=== PATIENT | female | born 1930 | race Caucasian/White ===

== ENCOUNTER → 2017-04-19 | Outpatient (CLI) | payer MEDICARE ==
[2017-04-19 10:20] LABS: ALT 29 U/L (9-52); AST 24 U/L (14-36); Cholesterol 162 mg/dL (<200); HDL Cholesterol 61 mg/dL (40-60)
== END | disposition home or self-care (01) ==
LOC: LABWHC1 09:24
PROVIDERS: ATTEND Internal Medicine Cardiovascular Disease
DX: E78.5 Hyperlipidemia, unspecified (principal)
CPT/HCPCS: 36415; 80061; 84450; 84460

== ENCOUNTER → 2017-12-30 | Outpatient (CLI) | payer MEDICARE ==
--- NOTE | 2017-12-30 15:02 | CT ---
EXAMINATION TYPE: CT chest wo con DATE OF EXAM: 12/30/2017 COMPARISON: Chest CT September 27, 2014 HISTORY: Increasing in SOB CT DLP: 567 mGycm. Automated Exposure Control for Dose Reduction was Utilized. TECHNIQUE: CT scan of the thorax is performed without IV contrast. FINDINGS: LUNGS: There is bilateral lower lung peripheral reticulation and fibrosis with some distortion redemo nstrated. There is more mild upper and apical subpleural fibrosis. No suspicious new consolidation or groundglass opacity is seen. No pleural effusion or pneumothorax is noted. No concerning parenchymal nodule or mass is identified. MEDIASTINUM: Lack of IV contrast is noted to limit evaluation for mediastinal and especially hilar a denopathy. There are no definitive greater than 1 cm hilar or mediastinal lymph nodes. No cardiomeg tayler or pericardial effusion is seen. Coronary stents in the proximal LAD and left circumflex are rede monstrated. There is calcification at level of mitral valve. There is mild to moderate calcified plaq ue of the aorta extending into branch vessels. OTHER: There is dystrophic calcification upper inner quadrant left breast axial image 14 redemonstrat ed. There is air-fluid level in dilated proximal duodenum noted. Possible large diverticulum. This ar ea is only partially imaged. 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 Possibl e IPF. No significant progression from 2015 CT. No acute pulmonary process.
== END | disposition home or self-care (01) ==
LOC: RADCTMAIN 14:33
PROVIDERS: ATTEND Internal Medicine
DX: J84.10 Pulmonary fibrosis, unspecified (principal)
CPT/HCPCS: 71250

== ENCOUNTER → 2017-12-30 | Outpatient (CLI) | payer MEDICARE ==
--- NOTE | 2017-12-30 14:32 | US ---
EXAMINATION TYPE: US venous doppler duplex LE LT DATE OF EXAM: 12/30/2017 12:38 PM COMPARISON: NONE CLINICAL HISTORY: M79.662 PAIN IN LLL. SIDE PERFORMED: Left TECHNIQUE: The lower extremity deep venous system is examined utilizing real time linear array sonog kristy with graded compression, doppler sonography and color-flow sonography. VESSELS IMAGED: External Iliac Vein (EIV) Common Femoral Vein Deep Femoral Vein Greater Saphenous Vein * Femoral Vein Popliteal Vein Proximal Calf Veins (* superficial vessels) Left Leg: Negative for DVT Grayscale, color doppler, spectral doppler imaging performed of the deep veins of the lower extremiti es. There is normal flow, compressibility, vascular waveforms. IMPRESSION: No evident deep venous thrombosis at or above the left knee.
== END ==
LOC: RADUSWWP 12:20
PROVIDERS: ATTEND Internal Medicine
DX: M79.662 Pain in left lower leg (principal)

== ENCOUNTER 2018-04-19 00:13 | Emergency (ER) | payer MEDICARE ==
--- NOTE | 2018-04-19 01:21 | ED ---
General Adult HPI - General Chief complaint: Headache Stated complaint: Migrane Time Seen by Provider: 04/19/18 01:21 Source: patient, EMS Mode of arrival: EMS Limitations: no limitations - History of Present Illness Initial comments: Katt is a pleasant 87 yo female who presents to the ED via EMS for evaluation of headache. She reports that she does not have a history of frequent headaches but that over the past 2 week she's been experiencing nearly daily headache. Patient reports that the headache has progressively worsened and today became unbearable. The headache is a tightness in her head, it's global but seems to be worse behind her eyes and described as a tightness radiating around her entire head.. Headache is exacerbated by bright lights or sounds. Headache is not worse with chewing or palpation of the temples. She feels best when she is laying in a cool dark room but reports that she has persistent headache despite doing this. Patient has taken some [id number] Tylenol with no improvement in her headache. Headache was not sudden in onset, was not most severe at onset, has been progressively worsening for 2 weeks duration. Patient has no history of similar headaches. No history of aneurysm or intracranial bleed. No family history of aneurysm or intracranial bleed. Patient reports that the headache is causing her some nausea but she's had no vomiting. She reports she's not been able to eat or drink well throughout the day today due to the headache. Patient reports that she occasionally drinks a cup of decaf coffee in the morning but otherwise has no caffeine and that her caffeine intake has not changed recently. Patient and family deny any recent trauma or injury. Patient does follow closely with ophthalmology for macular degeneration, she's had no recent change in her vision or ringing in her ears. - Related Data Allergies Allergy/AdvReac Type Severity Reaction Status Date / Time Penicillins Allergy Swelling Verified 04/19/18 01:57 Sulfa (Sulfonamide Allergy Anaphylaxis Verified 04/19/18 01:57 Antibiotics) Review of Systems ROS Statement: Those systems with pertinent positive or pertinent negative responses have been documented in the HPI. ROS Other: All systems not noted in ROS Statement are negative. 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 Absent: conjunctival injection, periorbital swelling, periorbital tenderness ENT exam: Present: normal exam, normal oropharynx, mucous membranes dry, TM's normal bilaterally, normal external ear exam Neck exam: Present: normal inspection, full ROM. Absent: tenderness, meningismus, lymphadenopathy Respiratory exam: Present: normal lung sounds bilaterally. Absent: respiratory distress Cardiovascular Exam: Present: regular rate, normal rhythm GI/Abdominal exam: Present: soft. Absent: distended Rectal exam: Present: deferred Extremities exam: Present: normal capillary refill. Absent: pedal edema Back exam: Absent: tenderness Neurological exam: Present: alert, oriented X3 Psychiatric exam: Present: flat affect Skin exam: Present: warm, dry, intact, normal color. Absent: rash, cyanosis, diaphoretic, erythema, urticaria, vesicles, petechiae, pallor, mottled, abrasion Course Vital Signs 04/19/18 04/19/18 04/19/18 00:14 01:52 04:26 Temperature Pulse Rate 93 88 Respiratory 16 16 17 Rate Blood Pressure 186/91 168/75 O2 Sat by Pulse 94 L 94 L Oximetry 04/19/18 04/19/18 04:38 06:00 Temperature 97.5 F L Pulse Rate 90 94 Respiratory 16 16 Rate Blood Pressure 158/86 130/68 O2 Sat by Pulse 95 94 L Oximetry - Reevaluation(s) Reevaluation #1: Patient was reevaluated, reports improvement in her headache after Reglan and Benadryl however still rates her headache an 8 out of 10 04/19/18 04:11 Reevaluation #2: She was reevaluated, patient was sitting up in bed eating a turkey sandwich. Reports her headache continues to improve. Sphenopalatine block was placed with 1% lidocaine in the bilateral naris, Toradol was given 04/19/18 04:42 Reevaluation #3: Patient was reevaluated, she was found to be sleeping comfortably in the ER bed. On being woken up she reports that her headache is significantly improved and she is feeling much better. This time she is comfortable with being discharged home. 04/19/18 05:44 Medical Decision Making - Medical Decision Making The patient was seen and evaluated, history is obtained from the patient and family at bedside Elderly female patient with a gradually worsening headache for 2 weeks duration , headache is worsened by light or sound, better when laying in a cold dark room. Nothing has relieved the headache and the course of 2 weeks. No history of headaches. No associated focal neurologic deficits, no associated fevers - given the patient's advanced age I will order a CT of the head as well as basic labs CT of the head reveals no acute pathology Labs with mild leukocytosis this could be reactive to the pain no acute infectious process has been identified in her workup thus far Patient reported mild improvement in her headache after Reglan and Benadryl, she is noted to be sitting up eating a turkey sandwich, still states that she has a headache and would like further treatment. Toradol and sphenopalatine block were ordered. Sphenopalatine block was placed, patient tolerated well. Toradol was given Patient was reexamined after sphenopalatine block and Toradol. Patient was sleeping comfortably. I woke the patient states that she is feeling much better , her headache has resolved. I discussed with the patient and family red flag warnings which would indicate a need for return including but not limited to progressive or worsening headache , sudden onset of severe headache, vision changes, pain with chewing or any new or concerning symptoms. All questions pertaining to care were answered best my ability. Patient got up from bed and begin dressing asking her family they could leave that she was eager to go home. I advised the patient to wait one moment while I finished her discharge documentation. She appeared quite well at time of discharge. - Lab Data Result diagrams: 04/19/18 01:52 04/19/18 01:52 Lab Results 04/19/18 04/19/18 04/19/18 Range/Units 01:52 01:52 01:52 WBC 14.8 H (3.8-10.6) k/uL RBC 5.24 (3.80-5.40) m/uL Hgb 12.7 (11.4-16.0) gm/dL Hct 42.9 (34.0-46.0) % MCV 81.9 (80.0-100.0) fL MCH 24.2 L (25.0-35.0) pg MCHC 29.5 L (31.0-37.0) g/dL RDW 15.1 (11.5-15.5) % Plt Count 270 (150-450) k/uL Neutrophils % 82 % Lymphocytes % 10 % Monocytes % 4 % Eosinophils % 2 % Basophils % 0 % Neutrophils # 12.1 H (1.3-7.7) k/uL Lymphocytes # 1.5 (1.0-4.8) k/uL Monocytes # 0.6 (0-1.0) k/uL Eosinophils # 0.3 (0-0.7) k/uL Basophils # 0.1 (0-0.2) k/uL Hypochromasia Slight PT 10.4 (9.0-12.0) sec INR 1.1 (<1.2) APTT 19.7 L (22.0-30.0) sec Sodium 137 (137-145) mmol/L Potassium 4.3 (3.5-5.1) mmol/L Chloride 99 (98-107) mmol/L Carbon Dioxide 29 (22-30) mmol/L Anion Gap 9 mmol/L BUN 18 H (7-17) mg/dL Creatinine 0.75 (0.52-1.04) mg/dL Est GFR (CKD-EPI)AfAm 84 (>60 ml/min/1.73 sqM) Est GFR (CKD-EPI)NonAf 73 (>60 ml/min/1.73 sqM) Glucose 144 H (74-99) mg/dL Calcium 9.3 (8.4-10.2) mg/dL Urine Color Urine Appearance (Clear) Urine pH (5.0-8.0) Ur Specific [place] (1.001-1.035) Urine Protein (Negative) Urine Glucose (UA) (Negative) Urine Ketones (Negative) Urine Blood (Negative) Urine Nitrite (Negative) Urine Bilirubin (Negative) Urine Urobilinogen (<2.0) mg/dL Ur Leukocyte Esterase (Negative) Urine RBC (0-5) /hpf Urine WBC (0-5) /hpf Ur Squamous Epith Cells (0-4) /hpf Hyaline Casts (0-2) /lpf Urine Mucus (None) /hpf 04/19/18 Range/Units 02:24 WBC (3.8-10.6) k/uL RBC (3.80-5.40) m/uL Hgb (11.4-16.0) gm/dL Hct (34.0-46.0) % MCV (80.0-100.0) fL MCH (25.0-35.0) pg MCHC (31.0-37.0) g/dL RDW (11.5-15.5) % Plt Count (150-450) k/uL Neutrophils % % Lymphocytes % % Monocytes % % Eosinophils % % Basophils % % Neutrophils # (1.3-7.7) k/uL Lymphocytes # (1.0-4.8) k/uL Monocytes # (0-1.0) k/uL Eosinophils # (0-0.7) k/uL Basophils # (0-0.2) k/uL Hypochromasia PT (9.0-12.0) sec INR (<1.2) APTT (22.0-30.0) sec Sodium (137-145) mmol/L Potassium (3.5-5.1) mmol/L Chloride (98-107) mmol/L Carbon Dioxide (22-30) mmol/L Anion Gap mmol/L BUN (7-17) mg/dL Creatinine (0.52-1.04) mg/dL Est GFR (CKD-EPI)AfAm (>60 ml/min/1.73 sqM) Est GFR (CKD-EPI)NonAf (>60 ml/min/1.73 sqM) Glucose (74-99) mg/dL Calcium (8.4-10.2) mg/dL Urine Color Yellow Urine Appearance Cloudy H (Clear) Urine pH 6.0 (5.0-8.0) Ur Specific [place] 1.016 (1.001-1.035) Urine Protein Trace H (Negative) Urine Glucose (UA) Negative (Negative) Urine Ketones Negative (Negative) Urine Blood Negative (Negative) Urine Nitrite Negative (Negative) Urine Bilirubin Negative (Negative) Urine Urobilinogen <2.0 (<2.0) mg/dL Ur Leukocyte Esterase Large H (Negative) Urine RBC 6 H (0-5) /hpf Urine WBC 14 H (0-5) /hpf Ur Squamous Epith Cells 5 H (0-4) /hpf Hyaline Casts 1 (0-2) /lpf Urine Mucus Rare H (None) /hpf Disposition Clinical Impression: Headache Disposition: HOME SELF-CARE Condition: Stable Instructions: Acute Headache (ED) Is patient prescribed a controlled substance at d/c from ED?: No Referrals: Indra Riggins MD [Primary Care Provider] - 1-2 days Time of Disposition: 05:45
[2018-04-19] MEDS ORDERED: SODIUM CHLORIDE 0.9% 1,000 ML IV ONE (01:38)
[2018-04-19] MEDS ORDERED: diphenhydrAMINE 50 MG/ML 1 ML VIAL IVP STA (01:38)
[2018-04-19] MEDS ORDERED: METOCLOPRAMIDE 5 MG/ML 2 ML VIAL IVP STA (01:38)
[2018-04-19 02:00] LABS: Basophils # (A) 0.1 k/uL (0-0.2); Basophils % (A) 0 %; Eosinophils # (A) 0.3 k/uL (0-0.7); Eosinophils % (A) 2 %; HCT 42.9 % (34.0-46.0); HGB 12.7 gm/dL (11.4-16.0); Hypochromasia Slight; Lymphocytes # (A) 1.5 k/uL (1.0-4.8); Lymphocytes % (A) 10 %; MCH 24.2 pg (25.0-35.0); MCHC 29.5 g/dL (31.0-37.0); MCV 81.9 fL (80.0-100.0); Mean Platelet Volume 6.8; Monocytes # (A) 0.6 k/uL (0-1.0); Monocytes % (A) 4 %; Neutrophils # (A) 12.1 k/uL (1.3-7.7); Neutrophils % (A) 82 %; Platelet Count 270 k/uL (150-450); RBC 5.24 m/uL (3.80-5.40); RDW 15.1 % (11.5-15.5); WBC 14.8 k/uL (3.8-10.6)
[2018-04-19 02:08] LABS: Calcium 9.3 mg/dL (8.4-10.2); Potassium 4.3 mmol/L (3.5-5.1)
[2018-04-19 02:14] LABS: INR 1.1 (<1.2); Prothrombin Time 10.4 sec (9.0-12.0)
[2018-04-19 02:20] LABS: Partial Thromboplastin Time 19.7 sec (22.0-30.0)
--- NOTE | 2018-04-19 02:31 | CT ---
EXAMINATION TYPE: CT brain shawna richard DATE OF EXAM: 04/19/2018 COMPARISON: None HISTORY: Headache, nausea CT DLP: 1364.30 mGycm Automated exposure control for dose reduction was used. TECHNIQUE: CT scan of the head and cervical spine are performed without contrast. FINDINGS: There is cerebral cortical atrophy. There is extensive hypodensity in the periventricular white matter. There is no mass effect nor midline shift. There is no sign of intracranial hemorrhage . The calvarium is intact. Cervical vertebra have normal alignment. There is some narrowing at C4-5 disc space. Posterior elemen ts are intact. Facet joints are intact. There is mild facet arthropathy. Skull base is intact. There is no compression fracture. IMPRESSION: Cerebral atrophy and extensive chronic small vessel ischemia. No acute intracranial abnormality. Mild spondylotic changes in the cervical spine. No fracture.
[2018-04-19 02:43] LABS: Appearance,Urine Cloudy (Clear); Bilirubin,Urine Negative (Negative); Blood,Urine Negative (Negative); Color,Urine Yellow; Glucose,Urine (UA) Negative (Negative); Hyaline Casts,Urine 1 /lpf (0-2); Ketones,Urine Negative (Negative); Leukocyte Esterase,Urine Large (Negative); Mucus,Urine Rare /hpf; Nitrite,Urine Negative (Negative); Protein,Urine Trace (Negative); RBC,Urine 6 /hpf (0-5); Specific Gravity,Urine 1.016 (1.001-1.035); Squamous Epithelial Cell,Urine 5 /hpf (0-4); Urobilinogen,Urine <2.0 mg/dL (<2.0); WBC,Urine 14 /hpf (0-5)
[2018-04-19] MEDS ORDERED: KETOROLAC 30 MG/ML 1 ML VIAL IM STA (04:04)
[2018-04-19] MEDS ORDERED: LIDOCAINE 1% INJ 10MG/ML (20 ML MDV) SQ ONE (04:05)
[2018-04-19] MEDS ORDERED: KETOROLAC 30 MG/ML 1 ML VIAL IVP STA (04:33)
[2018-04-19 04:39] VITALS: RESP 16
[2018-04-19 06:23] VITALS: BP 130/68; PULSE 94; TEMP 97.5
== END 2018-04-19 06:00 | disposition home or self-care (01) ==
LOC: EC 00:13
DX: R51 Headache (principal); R11.10 Vomiting, unspecified; D72.829 Elevated white blood cell count, unspecified; I25.2 Old myocardial infarction; Z88.0 Allergy status to penicillin; Z88.2 Allergy status to sulfonamides; Z95.5 Presence of coronary angioplasty implant and graft
CPT/HCPCS: 36415; 80048; 85025; 85610; 85730; 81001; 72125; 70450; 99284; 96374; 96375 ×2; J1200; J2765; J2001; J1885

== ENCOUNTER 2018-05-27 14:31 | Inpatient (IN) | payer MEDICARE ==
[2018-05-27] MEDS ORDERED: SODIUM CHLORIDE 0.9% 500 ML IV STA (14:51)
--- NOTE | 2018-05-27 14:57 | ED ---
General Adult HPI - General Chief complaint: Neuro Symptoms/Deficit Stated complaint: TIA Time Seen by Provider: 05/27/18 14:44 Source: patient, EMS, RN notes reviewed, old records reviewed Mode of arrival: EMS Limitations: physical limitation - History of Present Illness Initial comments: 87-year-old female presenting with facial droop and slurred speech. Patient's symptoms began approximately 2 hours prior to arrival. She did have a long discussion with her family regarding whether or not she should seek care. By the time she presents her symptoms are resolved. She has complaint of right- sided headache. Her facial droop was on the left. Patient states she has been dealing with intermittent headaches for the past several months. She rates her headache currently at 6 out of 10. No history of CVA or TIA. Patient does have history of coronary artery disease. She is on aspirin and statin. She has no complaints chest pain, no abdominal pain, no dyspnea, no focal numbness or weakness at the time my evaluation. - Related Data Home Medications Medication Instructions Recorded Confirmed Calcium Carbonate [Calcium] 1,200 mg PO DAILY 05/27/18 05/27/18 Carboxymethylcellulose Sodium 1 drop BOTH EYES DAILY PRN 05/27/18 05/27/18 [Refresh Tears] Furosemide [Lasix] 20 mg PO DAILY PRN 05/27/18 05/27/18 Glucosam/Fam-Msm1/C/Filemon/Bosw 1 tab PO DAILY 05/27/18 05/27/18 [Glucosamine-Chondroitin Tablet] Latanoprost [Xalatan 0.005%] 1 drop BOTH EYES HS 05/27/18 05/27/18 Metoprolol Tartrate [Lopressor] 25 mg PO DAILY 05/27/18 05/27/18 Multivitamins, Thera [Multivitamin 1 tab PO DAILY 05/27/18 05/27/18 (formulary)] Omeprazole 20 mg PO HS 05/27/18 05/27/18 Pitavastatin Calcium [Livalo] 2 mg PO DAILY 05/27/18 05/27/18 Potassium Chloride ER [K-Dur 10] 10 meq PO DAILY PRN 05/27/18 05/27/18 Vit C/E/Zn/Coppr/Lutein/Zeaxan 1 cap PO DAILY 05/27/18 05/27/18 [Preservision Areds 2 Softgel] Allergies Allergy/AdvReac Type Severity Reaction Status Date / Time Penicillins Allergy Swelling Verified 05/27/18 15:27 Sulfa (Sulfonamide Allergy Anaphylaxis Verified 05/27/18 15:27 Antibiotics) shellfish derived [Shellfish] AdvReac Unknown Verified 05/27/18 15:28 Review of Systems ROS Statement: Those systems with pertinent positive or pertinent negative responses have been documented in the HPI. ROS Other: All systems not noted in ROS Statement are negative. 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, pulomary fribrosis History of Any Multi-Drug Resistant Organisms: None Reported Past Surgical History: Appendectomy, Tubal Ligation Additional Past Surgical History / Comment(s): cataract Past Psychological History: No Psychological Hx Reported Smoking Status: Never smoker Past Alcohol Use History: None Reported Past Drug Use History: None Reported General Exam Limitations: physical limitation General appearance: alert, in no apparent distress Head exam: Present: atraumatic, normocephalic Eye exam: Present: normal appearance, PERRL, EOMI ENT exam: Present: normal exam Neck exam: Present: normal inspection. Absent: tenderness, meningismus Respiratory exam: Present: normal lung sounds bilaterally. Absent: respiratory distress, wheezes Cardiovascular Exam: Present: regular rate, normal rhythm GI/Abdominal exam: Present: soft. Absent: distended, tenderness, guarding Extremities exam: Present: normal inspection, normal capillary refill. Absent: pedal edema Back exam: Present: normal inspection, full ROM Neurological exam: Present: alert, oriented X3, CN II-XII intact, other (NIH is 0). Absent: motor sensory deficit Psychiatric exam: Present: normal affect, normal mood Skin exam: Present: warm, dry, intact. Absent: cyanosis, diaphoretic Course Vital Signs 05/27/18 05/27/18 05/27/18 14:42 14:55 15:15 Temperature 97.8 F Pulse Rate 88 84 82 Respiratory 20 20 20 Rate Blood Pressure 160/97 150/64 160/92 O2 Sat by Pulse 96 99 99 Oximetry 05/27/18 05/27/18 05/27/18 15:30 15:45 16:15 Temperature Pulse Rate 78 82 82 Respiratory 20 20 20 Rate Blood Pressure 156/78 162/78 154/78 O2 Sat by Pulse 98 96 96 Oximetry EKG Findings - EKG Comments: EKG Findings:: EKG: Sinus rhythm with occasional PVC, possible left atrial enlargement, right bundle branch block, rate of 79, CT interval 140, QRS duration 134, QTC 506, no ST segment elevation. Medical Decision Making - Medical Decision Making 87-year-old female presenting with left-sided facial droop, and dysarthria. Symptoms resolved just prior to arrival. Patient's initial NIH is 0. Workup in the emergency department including head CT showing some remote microvascular ischemia with no to finding, no intracranial hemorrhage, chest x-ray negative for acute cardiopulmonary disease, normal CBC, normal electrolytes. EKG is sinus rhythm. A sheet given an aspirin in the emergency department, she will be admitted for further TIA CVA workup. - Lab Data Result diagrams: 05/27/18 15:00 05/27/18 15:00 Lab Results 05/27/18 05/27/18 05/27/18 Range/Units 15:00 15:00 15:00 WBC 9.0 (3.8-10.6) k/uL RBC 5.21 (3.80-5.40) m/uL Hgb 13.2 (11.4-16.0) gm/dL Hct 41.2 (34.0-46.0) % MCV 79.1 L (80.0-100.0) fL MCH 25.3 (25.0-35.0) pg MCHC 32.0 (31.0-37.0) g/dL RDW 16.2 H (11.5-15.5) % Plt Count 240 (150-450) k/uL Neutrophils % 65 % Lymphocytes % 24 % Monocytes % 7 % Eosinophils % 2 % Basophils % 1 % Neutrophils # 5.8 (1.3-7.7) k/uL Lymphocytes # 2.2 (1.0-4.8) k/uL Monocytes # 0.6 (0-1.0) k/uL Eosinophils # 0.2 (0-0.7) k/uL Basophils # 0.0 (0-0.2) k/uL Anisocytosis Slight Microcytosis Slight PT (9.0-12.0) sec INR (<1.2) APTT (22.0-30.0) sec Sodium 141 (137-145) mmol/L Potassium 3.6 (3.5-5.1) mmol/L Chloride 99 (98-107) mmol/L Carbon Dioxide 31 H (22-30) mmol/L Anion Gap 11 mmol/L BUN 12 (7-17) mg/dL Creatinine 0.69 (0.52-1.04) mg/dL Est GFR (CKD-EPI)AfAm >90 (>60 ml/min/1.73 sqM) Est GFR (CKD-EPI)NonAf 80 (>60 ml/min/1.73 sqM) Glucose 110 H (74-99) mg/dL Calcium 9.3 (8.4-10.2) mg/dL Total Bilirubin 0.8 (0.2-1.3) mg/dL AST 25 (14-36) U/L ALT 13 (9-52) U/L Alkaline Phosphatase 67 (38-126) U/L Total Creatine Kinase 41 (30-135) U/L CK-MB (CK-2) 0.5 (0.0-2.4) ng/mL CK-MB (CK-2) Rel Index 1.2 Troponin I <0.012 (0.000-0.034) ng/mL Total Protein 6.8 (6.3-8.2) g/dL Albumin 3.8 (3.5-5.0) g/dL 05/27/18 Range/Units 15:00 WBC (3.8-10.6) k/uL RBC (3.80-5.40) m/uL Hgb (11.4-16.0) gm/dL Hct (34.0-46.0) % MCV (80.0-100.0) fL MCH (25.0-35.0) pg MCHC (31.0-37.0) g/dL RDW (11.5-15.5) % Plt Count (150-450) k/uL Neutrophils % % Lymphocytes % % Monocytes % % Eosinophils % % Basophils % % Neutrophils # (1.3-7.7) k/uL Lymphocytes # (1.0-4.8) k/uL Monocytes # (0-1.0) k/uL Eosinophils # (0-0.7) k/uL Basophils # (0-0.2) k/uL Anisocytosis Microcytosis PT 10.7 (9.0-12.0) sec INR 1.1 (<1.2) APTT 23.6 (22.0-30.0) sec Sodium (137-145) mmol/L Potassium (3.5-5.1) mmol/L Chloride (98-107) mmol/L Carbon Dioxide (22-30) mmol/L Anion Gap mmol/L BUN (7-17) mg/dL Creatinine (0.52-1.04) mg/dL Est GFR (CKD-EPI)AfAm (>60 ml/min/1.73 sqM) Est GFR (CKD-EPI)NonAf (>60 ml/min/1.73 sqM) Glucose (74-99) mg/dL Calcium (8.4-10.2) mg/dL Total Bilirubin (0.2-1.3) mg/dL AST (14-36) U/L ALT (9-52) U/L Alkaline Phosphatase (38-126) U/L Total Creatine Kinase (30-135) U/L CK-MB (CK-2) (0.0-2.4) ng/mL CK-MB (CK-2) Rel Index Troponin I (0.000-0.034) ng/mL Total Protein (6.3-8.2) g/dL Albumin (3.5-5.0) g/dL Disposition Clinical Impression: Transient cerebral ischemia Disposition: ADMITTED IP TO THIS [facility] Condition: Stable Is patient prescribed a controlled substance at d/c from ED?: No Referrals: Nonstaff,Physician [REFERRING] - 1-2 days Decision to Admit Reason: Admit from EC Decision Date: 05/27/18 Decision Time: 16:51
--- NOTE | 2018-05-27 15:19 | CT ---
EXAMINATION TYPE: CT brain wo con DATE OF EXAM: 05/27/2018 COMPARISON: 04/19/2018 HISTORY: Pain in head CT DLP: 1006.1 mGycm Automated exposure control for dose reduction was used. FINDINGS: Intracranial atherosclerotic changes are noted. Mild to moderate generalized degenerative change. The re are diffuse nonspecific white matter changes. No evidence of midline shift or mass effect. No acut e hemorrhage. Calvarium intact. Area of low attenuation within the right basal ganglia suggestive of remote lacunar infarction. IMPRESSION: DEGENERATIVE AND NONSPECIFIC WHITE MATTER CHANGES MOST TYPICAL REMOTE MICROVASCULAR ISCHEMIA.
[2018-05-27 15:27] LABS: Anisocytosis Slight; Basophils % (A) 1 %; Eosinophils # (A) 0.2 k/uL (0-0.7); Eosinophils % (A) 2 %; HCT 41.2 % (34.0-46.0); HGB 13.2 gm/dL (11.4-16.0); Lymphocytes # (A) 2.2 k/uL (1.0-4.8); Lymphocytes % (A) 24 %; MCH 25.3 pg (25.0-35.0); MCV 79.1 fL (80.0-100.0); Mean Platelet Volume 7.7; Microcytosis Slight; Monocytes # (A) 0.6 k/uL (0-1.0); Monocytes % (A) 7 %; Neutrophils # (A) 5.8 k/uL (1.3-7.7); Neutrophils % (A) 65 %; Platelet Count 240 k/uL (150-450); RBC 5.21 m/uL (3.80-5.40); RDW 16.2 % (11.5-15.5)
--- NOTE | 2018-05-27 15:28 | XR ---
EXAMINATION TYPE: XR chest 2V DATE OF EXAM: 05/27/2018 COMPARISON: Chest x-ray December 20, [address] December 30, 2017 HISTORY: Altered mental status and weakness. TECHNIQUE: Frontal and lateral views of the chest are obtained. FINDINGS: There is background chronic emphysematous change with bibasilar scarring and/or atelectasis redemonstrated. Some peripheral fibrosis is again seen bilaterally. There is no suspicious new foca l air space opacity, pleural effusion, or pneumothorax seen. The cardiac silhouette size is stable a nd upper limits of normal with atherosclerotic thoracic aorta. The osseous structures remain demine ralized. IMPRESSION: Chronic changes without suspicious acute pulmonary process.
[2018-05-27 15:37] LABS: INR 1.1 (<1.2); Partial Thromboplastin Time 23.6 sec (22.0-30.0); Prothrombin Time 10.7 sec (9.0-12.0)
[2018-05-27 15:49] LABS: Creatine Kinase 41 U/L (30-135)
[2018-05-27 15:50] LABS: ALT 13 U/L (9-52); AST 25 U/L (14-36); Albumin 3.8 g/dL (3.5-5.0); Alkaline Phosphatase 67 U/L (38-126); Anion Gap 11 mmol/L; Blood Urea Nitrogen 12 mg/dL (7-17); Calcium 9.3 mg/dL (8.4-10.2); Carbon Dioxide 31 mmol/L (22-30); Chloride 99 mmol/L (98-107); Glucose 110 mg/dL (74-99); Potassium 3.6 mmol/L (3.5-5.1); Sodium 141 mmol/L (137-145); Total Bilirubin 0.8 mg/dL (0.2-1.3); Total Protein 6.8 g/dL (6.3-8.2)
[2018-05-27 16:01] LABS: Creatine Kinase MB 0.5 ng/mL (0.0-2.4); Troponin I <0.012 ng/mL (0.000-0.034)
[2018-05-27] MEDS ORDERED: ASPIRIN 325 MG TAB PO STA (16:48)
--- NOTE | 2018-05-27 21:25 | US ---
EXAMINATION TYPE: US carotid duplex BILAT DATE OF EXAM: 05/27/2018 COMPARISON: NONE CLINICAL HISTORY: Stenosis. TIA EXAM MEASUREMENTS: RIGHT: Peak Systolic Velocity (PSV) cm/sec ----- Right CCA: 59.5 ----- Right ICA: 65.3 ----- Right ECA: 90.0 ICA/CCA ratio: 1.1 RIGHT: End Diastole cm/sec ----- Right CCA: 14.4 ----- Right ICA: 12.9 ----- Right ECA: 0 LEFT: Peak Systolic Velocity (PSV) cm/sec ----- Left CCA: 58.0 ----- Left ICA: 66.7 ----- Left ECA: 108.1 ICA/CCA ratio: 1.2 LEFT: End Diastole cm/sec ----- Left CCA: 8.6 ----- Left ICA: 14.4 ----- Left ECA: 0 VERTEBRALS (direction of flow): Right Vertebral: Antegrade Left Vertebral: Antegrade Rhythm: Normal IMPRESSION: NO SIGNIFICANT STENOSIS SEEN.
[2018-05-28] MEDS: SODIUM CHLORIDE 0.9% 1,000 ML IV SCH ×2 (00:15→19:41)
[2018-05-28 02:00] LABS: Cholesterol 155 mg/dL (<200); HDL Cholesterol 51 mg/dL (40-60); LDL Cholesterol,Calculated 71 mg/dL (0-99); Triglycerides 166 mg/dL (<150)
[2018-05-28] MEDS ORDERED: ASPIRIN 325 MG TAB PO SCH (09:00)
[2018-05-28] MEDS ORDERED: POTASSIUM CHLORIDE ER 10 MEQ TAB.ER.PRT PO PRN (09:27)
[2018-05-28] MEDS ORDERED: FUROSEMIDE 20 MG TAB PO PRN (09:27)
[2018-05-28] MEDS ORDERED: ARTIFICIAL TEARS-HYPROMELLOSE DROPS 15 ML BTL BOTH EYES PRN (09:27)
[2018-05-28] MEDS ORDERED: CLOPIDOGREL 75 MG TAB PO STA (09:41)
--- NOTE | 2018-05-28 10:28 | ECHOF ---
Referral Reason:Thrombus MEASUREMENTS -------- HEIGHT: 175.3 cm WEIGHT: 71.2 kg BP: 131/63 RVIDd: 2.9 cm (< 3.3) IVSd: 1.3 cm (0.6 - 1.1) LVIDd: 3.9 cm (3.9 - 5.3) LVPWd: 1.3 cm (0.6 - 1.1) IVSs: 1.6 cm LVIDs: 2.7 cm LVPWs: 1.7 cm LA Diam: 3.3 cm (2.7 - 3.8) LAESV Index (A-L): 28.92 ml/m Ao Diam: 3.0 cm (2.0 - 3.7) AV Cusp: 1.7 cm (1.5 - 2.6) MV EXCURSION: 13.015 mm (> 18.000) MV EF SLOPE: 58 mm/s (70 - 150) EPSS: 0.5 cm MV E Juan: 0.86 m/s MV DecT: 171 ms MV A Juan: 1.13 m/s MV E/A Ratio: 0.77 AV maxP.67 mmHg AV meanP.44 mmHg FINDINGS -------- Sinus rhythm. This was a technically adequate study. The left ventricular size is normal. There is mild concentric left ventricular hypertrophy. Overa ll left ventricular systolic function is low-normal with, an EF between 50 - 55 %. Basal inferior L V wall motion is hypokinetic. The right ventricle is normal in size. LA is midly dilated 29-33ml/m2. The right atrium is normal in size. There is mild aortic valve sclerosis. Peak/mean gradient across the Aortic Valve is 12.67mmHg / 6.4 4mmHg. The mitral valve leaflets are mildly thickened. Moderate mitral annular calcification present. Mi ld mitral regurgitation is present. Trace tricuspid regurgitation present. The pulmonic valve was not well visualized. The aortic root size is normal. Normal inferior vena cava with normal inspiratory collapse consistent with estimated right atrial pre ssure of 5 mmHg. There is no pericardial effusion. CONCLUSIONS -------- 1. Sinus rhythm. 2. This was a technically adequate study. 3. The left ventricular size is normal. 4. There is mild concentric left ventricular hypertrophy. 5. The right ventricle is normal in size. 6. LA is midly dilated 29-33ml/m2. 7. The right atrium is normal in size. 8. There is mild aortic valve sclerosis. 9. Peak/mean gradient across the Aortic Valve is 12.67mmHg / 6.44mmHg. 10. The mitral valve leaflets are mildly thickened. 11. Moderate mitral annular calcification present. 12. Mild mitral regurgitation is present. 13. Trace tricuspid regurgitation present. 14. The pulmonic valve was not well visualized. 15. The aortic root size is normal. 16. Normal inferior vena cava with normal inspiratory collapse consistent with estimated right atrial pressure of 5 mmHg. 17. There is no pericardial effusion. EVS ATTENDANT: Radha Lockwood RDCS
[2018-05-28] MEDS ORDERED: Magnesium Replacement Protocol 1 EACH MISC MISCELLANE PRN (11:10)
--- NOTE | 2018-05-28 11:23 | P.HPIM ---
<Arcelia Ogden A - Last Filed: 05/28/18 09:26> History of Present Illness H&P Date: 05/28/18 Past Medical History Past Medical History: Coronary Artery Disease (CAD), COPD, GERD/Reflux, Hyperlipidemia, Hypertension, Myocardial Infarction ([place]), Osteoarthritis (OA) Additional Past Medical History / Comment(s): pt stated "dr is trying her out on a gluten free diet for past month""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 macular degeneration, wolfgang eye wide angle glaucoma," dry eyes", shingles 2014, when pt was [age] injured lt arm( it was pulled thru a ringer washer up to her elbow) pt stated no sx done on it.cared for at home in those days.pt stated has had a pne vaccine approx 2-3 years ago -commercial lines underwriter unable to verify date at time of this admit. Last Myocardial Infarction Date:: 2006 History of Any Multi-Drug Resistant Organisms: None Reported Past Surgical History: Adenoidectomy, Appendectomy, Heart Catheterization With Stent, Tonsillectomy, Tubal Ligation Additional Past Surgical History / Comment(s): cataract, total 3 cardaic stents Past Anesthesia/Blood Transfusion Reactions: Previous Problems w/ Anesthesia Additional Past Anesthesia/Blood Transfusion Reaction / Comment(s): difficulty waking up after sx. pt stated she has never had a blood transfusion. Date of Last Stent Placement:: unk Smoking Status: Never smoker - Past Family History Father Family Medical History: Coronary Artery Disease (CAD) Additional Family Medical History / Comment(s): " from hardening of the arteries", diverticulitis Sister(s) Additional Family Medical History / Comment(s): crohns disease Mother Family Medical History: Cancer Additional Family Medical History / Comment(s): pernicious anemia, stomach cancer/mets Medications and Allergies Home Medications Medication Instructions Recorded Confirmed Type Calcium Carbonate [Calcium] 1,200 mg PO DAILY 05/27/18 05/27/18 History Carboxymethylcellulose Sodium 1 drop BOTH EYES DAILY PRN 05/27/18 05/27/18 History [Refresh Tears] Furosemide [Lasix] 20 mg PO DAILY PRN 05/27/18 05/27/18 History Glucosam/Fam-Msm1/C/Filemon/Bosw 1 tab PO DAILY 05/27/18 05/27/18 History [Glucosamine-Chondroitin Tablet] Latanoprost [Xalatan 0.005%] 1 drop BOTH EYES HS 05/27/18 05/27/18 History Metoprolol Tartrate [Lopressor] 25 mg PO DAILY 05/27/18 05/27/18 History Multivitamins, Thera [Multivitamin 1 tab PO DAILY 05/27/18 05/27/18 History (formulary)] Omeprazole 20 mg PO HS 05/27/18 05/27/18 History Pitavastatin Calcium [Livalo] 2 mg PO DAILY 05/27/18 05/27/18 History Potassium Chloride ER [K-Dur 10] 10 meq PO DAILY PRN 05/27/18 05/27/18 History Vit C/E/Zn/Coppr/Lutein/Zeaxan 1 cap PO DAILY 05/27/18 05/27/18 History [Preservision Areds 2 Softgel] Allergies Allergy/AdvReac Type Severity Reaction Status Date / Time Penicillins Allergy Swelling Verified 05/27/18 15:27 Sulfa (Sulfonamide Allergy Anaphylaxis Verified 05/27/18 15:27 Antibiotics) shellfish derived [Shellfish] AdvReac Unknown Verified 05/27/18 15:28 Physical Exam Vitals: Vital Signs Temp Pulse Pulse Pulse Resp BP BP 05/28/18 08:00 97.0 F L 90 16 05/28/18 04:00 97 F L 86 18 131/63 05/28/18 00:15 97.4 F L 81 18 150/84 05/27/18 23:32 98.3 F 05/27/18 23:16 81 20 05/27/18 22:15 90 18 189/78 05/27/18 20:15 99 18 159/71 05/27/18 19:15 82 20 164/70 05/27/18 18:15 83 20 172/85 05/27/18 17:15 78 20 168/88 05/27/18 16:15 82 20 154/78 05/27/18 15:45 82 20 162/78 05/27/18 15:30 78 20 156/78 05/27/18 15:15 82 20 160/92 05/27/18 14:55 84 20 150/64 05/27/18 14:42 97.8 F 88 20 160/97 BP Pulse Ox 05/28/18 08:00 138/75 93 L 05/28/18 04:00 93 L 05/28/18 00:15 93 L 05/27/18 23:32 98 05/27/18 23:16 151/82 05/27/18 22:15 98 05/27/18 20:15 97 05/27/18 19:15 96 05/27/18 18:15 98 05/27/18 17:15 96 05/27/18 16:15 96 05/27/18 15:45 96 05/27/18 15:30 98 05/27/18 15:15 99 05/27/18 14:55 99 05/27/18 14:42 96 Intake and Output 05/27/18 05/28/18 05/28/18 22:59 06:59 14:59 Intake Total 500 Balance 500 Intake: Intake, IV Titration 500 Amount Sodium Chloride 0.9% 500 500 ml @ 999 mls/hr IV .Q31M STA Rx#:[id number] Other: # Voids 3 Weight 71.5 kg Results CBC & Chem 7: 05/27/18 15:00 05/27/18 15:00 Labs: Abnormal Lab Results - Last 24 Hours (Table) 05/27/18 05/27/18 05/27/18 Range/Units 15:00 15:00 15:00 MCV 79.1 L (80.0-100.0) fL RDW 16.2 H (11.5-15.5) % Carbon Dioxide 31 H (22-30) mmol/L Glucose 110 H (74-99) mg/dL Magnesium (1.6-2.3) mg/dL Triglycerides 166 H (<150) mg/dL 05/28/18 Range/Units 06:50 MCV (80.0-100.0) fL RDW (11.5-15.5) % Carbon Dioxide (22-30) mmol/L Glucose (74-99) mg/dL Magnesium 1.4 L (1.6-2.3) mg/dL Triglycerides (<150) mg/dL Thrombosis Risk Factor Assmnt - Choose All That Apply Any of the Below Risk Factors Present?: Yes Each Factor Represents 1 point: Obesity (BMI >25) Other Risk Factors: Yes Each Risk Factor Represents 3 Points: Age 75 years or older Each Risk Factor Represents 5 Points: Stroke (< 1 month) Thrombosis Risk Factor Assessment Total Risk Factor Score: 9 Thrombosis Risk Factor Assessment Level: High Risk <Raisa Meade - Last Filed: 05/28/18 11:23> History of Present Illness 87 years old female patient of mine seen in the office one time with past medical history of hypertension, COPD, hyperlipidemia, history of myocardial infarction in 2006 status post 3 stent, history of pulmonary fibrosis , recent admission to the ER for headache comes in this time with episode of facial droop and slurring of speech noted at the chief meteorologist office after she had an injection to to her eye. Symptoms of slurring of speech and facial droop lasted an hour. Patient continues to endorse intermittent headache and confusion for the past 1 month. In the ER patient's symptoms had resolved but patient does have a subtle aphasia that is persistent. Carotid Doppler was negative for any acute stenosis. MRI head ordered. Neurology consult placed. Review of Systems Constitutional: Denies chills, Denies fever, Denies lethargy, Denies malaise, Denies poor appetite, Denies weakness, Denies weight loss Eyes: denies decreased vision, denies diplopia, denies discharge, denies pain Ears: deny: decreased hearing Ears, nose, mouth and throat: Denies dental pain, Denies headache, Denies nasal discharge, Denies nose pain Cardiovascular: Denies chest pain, Denies decreased exercise tolerance, Denies edema, Denies high blood pressure, Denies irregular heart beat, Denies palpitations, Denies paroxysmal nocturnal dyspnea, Denies rapid heart beat, Denies shortness of breath Respiratory: Denies congestion, Denies cough, Denies cough with sputum, Denies dyspnea, Denies home oxygen, Denies wheezing Gastrointestinal: Denies abdominal pain, Denies change in bowel habits, Denies coffee ground emesis, Denies early satiety, Denies excessive gas, Denies heartburn, Denies hematemesis, Denies hematochezia, Denies loss of appetite, Denies nausea, Denies vomiting Genitourinary: Denies dysuria, Denies flank pain, Denies kidney stones, Denies menorrhagia, Denies urgency, Denies urinary frequency Musculoskeletal: Endorses gait dysfunction, Denies limitation of motion, Denies morning stiffness, Denies muscle cramps Integumentary: Denies rash, Denies wounds, Denies brittle nails, Denies change in hair/nails, Denies darkening of skin Neurological: Denies balance difficulties, endorses change in speech, Denies double vision, endorses gait dysfunction but uses a walker, Denies loss of vision, Denies motor disturbance, Denies numbness, Denies paralysis, Denies paresthesias, Denies seizures endorses headache Psychiatric: Denies anxiety, Denies depression Endocrine: Denies excessive sweating, Denies excessive thirst, Denies high blood sugars, Denies palpitations Hematologic/Lymphatic: Denies easy bruising, Denies lymphadenopathy Physical Exam Vitals: Vital Signs Temp Pulse Pulse Pulse Resp BP BP 05/28/18 08:00 97.0 F L 90 16 05/28/18 04:00 97 F L 86 18 131/63 05/28/18 00:15 97.4 F L 81 18 150/84 05/27/18 23:32 98.3 F 05/27/18 23:16 81 20 05/27/18 22:15 90 18 189/78 05/27/18 20:15 99 18 159/71 05/27/18 19:15 82 20 164/70 05/27/18 18:15 83 20 172/85 05/27/18 17:15 78 20 168/88 05/27/18 16:15 82 20 154/78 05/27/18 15:45 82 20 162/78 05/27/18 15:30 78 20 156/78 05/27/18 15:15 82 20 160/92 05/27/18 14:55 84 20 150/64 05/27/18 14:42 97.8 F 88 20 160/97 BP Pulse Ox 05/28/18 08:00 138/75 93 L 05/28/18 04:00 93 L 05/28/18 00:15 93 L 05/27/18 23:32 98 05/27/18 23:16 151/82 05/27/18 22:15 98 05/27/18 20:15 97 05/27/18 19:15 96 05/27/18 18:15 98 05/27/18 17:15 96 05/27/18 16:15 96 05/27/18 15:45 96 05/27/18 15:30 98 05/27/18 15:15 99 05/27/18 14:55 99 05/27/18 14:42 96 Intake and Output 05/27/18 05/28/18 05/28/18 22:59 06:59 14:59 Intake Total 500 Balance 500 Intake: Intake, IV Titration 500 Amount Sodium Chloride 0.9% 500 500 ml @ 999 mls/hr IV .Q31M STA Rx#:[id number] Other: # Voids 3 Weight 71.5 kg - Constitutional General appearance: cooperative, no acute distress,no distress - EENT Eyes: anicteric sclerae, PERRLA, normal appearance ENT: hearing grossly normal - Neck Neck: no lymphadenopathy, normal ROM, no other, no rigidity, no stridor, no thyromegaly - Respiratory Respiratory: bilateral: CTA, negative: diminished, dullness, rales, rhonchi - Cardiovascular Rhythm: regular Heart sounds: normal: S1, S2 Abnormal Heart Sounds: no systolic murmur, no diastolic murmur, no rub, no S3 Gallop, no S4 Gallop, no click, no other - Gastrointestinal General gastrointestinal: normal bowel sounds, soft, non tender - Integumentary Integumentary: no rash - Neurologic Neurologic: CNII-XII intact no nystagmus expressive aphasia noted intermittently no motor or sensory decided [id number] test normal reflexes normal - Musculoskeletal Musculoskeletal: gait normal, strength equal bilaterally - Psychiatric Psychiatric: A&O x's 3, appropriate affect Results CBC & Chem 7: 05/27/18 15:00 05/27/18 15:00 Labs: Abnormal Lab Results - Last 24 Hours (Table) 05/27/18 05/27/18 05/27/18 Range/Units 15:00 15:00 15:00 MCV 79.1 L (80.0-100.0) fL RDW 16.2 H (11.5-15.5) % Carbon Dioxide 31 H (22-30) mmol/L Glucose 110 H (74-99) mg/dL Magnesium (1.6-2.3) mg/dL Triglycerides 166 H (<150) mg/dL 05/28/18 Range/Units 06:50 MCV (80.0-100.0) fL RDW (11.5-15.5) % Carbon Dioxide (22-30) mmol/L Glucose (74-99) mg/dL Magnesium 1.4 L (1.6-2.3) mg/dL Triglycerides (<150) mg/dL Thrombosis Risk Factor Assmnt - DVT/VTE Prophylaxis DVT/VTE Prophylaxis: Pharmacologic Prophylaxis ordered Assessment and Plan Plan: #1 acute facial droop with slurring of speech suggestive of acute CVA. Carotid Doppler negative. Switch aspirin 325 2 aspirin 81 mg with Plavix MRI head ordered. EEG ordered. Neurology evaluation pending. MRI ordered. Permissive hypertension with systolic blood pressure less than 180 neuro checks every shift #2 hyperlipidemia patient is on patella started at home as she was on able to tolerate previous statins. Continue Lipitor 10 mg. Lipid panel ordered. Homocystine level ordered #3 history of coronary artery disease status post 3 stents continue aspirin 81 mg, Lipitor 10 mg, Lasix 20 mg by mouth daily, metoprolol 25 mg by mouth daily #4 glaucoma continue latanoprost 1 drop both eyes daily at bedtime #5 GERD continue omeprazole 20 mg by mouth daily at bedtime DVT prophylaxis with heparin every 12 CODE STATUS full code
[2018-05-28] MEDS: POTASSIUM CHLORIDE ER 10 MEQ TAB.ER.PRT PO SCH (11:58)
[2018-05-28] MEDS: METOPROLOL TARTRATE 25 MG TAB PO SCH (11:59)
[2018-05-28] MEDS: FUROSEMIDE 20 MG TAB PO SCH (11:59)
[2018-05-28] MEDS: MAGNESIUM SULFATE-D5W PMX 1 GM in DEXTROSE/WATER 1 100ML.BAG IVPB SCH ×3 (12:33→18:30)
--- NOTE | 2018-05-28 16:23 | P.CONS ---
History of Present Illness - Chief Complaint Gait disturbance - History of Present Illness I had the opportunity to see patient for inpatient rehab consultation with regard to gait disturbance. She was admitted to [facility] May 27 acute onset left facial weakness and drooping and speech disturbance. Carotid Doppler negative. Chest x-ray with chronic changes. Head CT with degenerative and nonspecific white matter change. PT reports minimal assistance for transfers and gait 75 feet with small-based quad cane, balance poor. OT reports supervision for upper dressing and minimal assistance for lower dressing, bathing, toilet transfers. Modified independent with toileting. Speech therapy assessed swallow within functional limits. Able to follow two-step directions. Previous functional history as elicited from patient corroborative by and daughter: 87-year-old right-handed white female who is lives in one floor home with . Both retired. Kids do the cooking and laundry. can drive. Patient independent with standing shower and gait with right hand small-based quad cane. Doesn't smoke or drink. Dr. Morales is regular doctor. Family history father with cardiac disease and mother with multiple cancers. Review of Systems Review of systems: ENT: Denies sneezes or discharge. Eyes: Denies discharge or photophobia. Cardiac: Denies chest pain or palpitation. Pulmonary: Denies cough or shortness of breath. Breast: Denies discharge or lumps. Gastrointestinal: Denies nausea, emesis, constipation, diarrhea. Genitourinary: Denies discharge or frequency. Musculoskeletal: Denies muscle or bone aches. Neurologic: Denies motor or sensory change. Left facial weakness and speech slurring improved. Endocrine: Denies shakes or sweats. Oncology: Denies cancers. Dermatologic: Denies rash, itching, pruritus. ALLERGY/immunology: Denies sneezes, rashes. Past Medical History Past Medical History: Coronary Artery Disease (CAD), COPD, GERD/Reflux, Hyperlipidemia, Hypertension, Myocardial Infarction ([place]), Osteoarthritis (OA) Additional Past Medical History / Comment(s): pt stated "dr is trying her out on a gluten free diet for past month""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 macular degeneration, wolfgang eye wide angle glaucoma," dry eyes", shingles 2014, when pt was [age] injured lt arm( it was pulled thru a ringer washer up to her elbow) pt stated no sx done on it.cared for at home in those days.pt stated has had a pne vaccine approx 2-3 years ago -policy writer sales unable to verify date at time of this admit. Last Myocardial Infarction Date:: 2006 History of Any Multi-Drug Resistant Organisms: None Reported Past Surgical History: Adenoidectomy, Appendectomy, Heart Catheterization With Stent, Tonsillectomy, Tubal Ligation Additional Past Surgical History / Comment(s): cataract, total 3 cardaic stents Past Anesthesia/Blood Transfusion Reactions: Previous Problems w/ Anesthesia Additional Past Anesthesia/Blood Transfusion Reaction / Comm: difficulty waking up after sx. pt stated she has never had a blood transfusion. Date of Last Stent Placement:: unk Smoking Status: Never smoker - Past Family History Father Family Medical History: Coronary Artery Disease (CAD) Additional Family Medical History / Comment(s): " from hardening of the arteries", diverticulitis Sister(s) Additional Family Medical History / Comment(s): crohns disease Mother Family Medical History: Cancer Additional Family Medical History / Comment(s): pernicious anemia, stomach cancer/mets Medications and Allergies Home Medications Medication Instructions Recorded Confirmed Type Calcium Carbonate [Calcium] 1,200 mg PO DAILY 05/27/18 05/27/18 History Carboxymethylcellulose Sodium 1 drop BOTH EYES DAILY PRN 05/27/18 05/27/18 History [Refresh Tears] Furosemide [Lasix] 20 mg PO DAILY PRN 05/27/18 05/27/18 History Glucosam/Fam-Msm1/C/Filemon/Bosw 1 tab PO DAILY 05/27/18 05/27/18 History [Glucosamine-Chondroitin Tablet] Latanoprost [Xalatan 0.005%] 1 drop BOTH EYES HS 05/27/18 05/27/18 History Metoprolol Tartrate [Lopressor] 25 mg PO DAILY 05/27/18 05/27/18 History Multivitamins, Thera [Multivitamin 1 tab PO DAILY 05/27/18 05/27/18 History (formulary)] Omeprazole 20 mg PO HS 05/27/18 05/27/18 History Pitavastatin Calcium [Livalo] 2 mg PO DAILY 05/27/18 05/27/18 History Potassium Chloride ER [K-Dur 10] 10 meq PO DAILY PRN 05/27/18 05/27/18 History Vit C/E/Zn/Coppr/Lutein/Zeaxan 1 cap PO DAILY 05/27/18 05/27/18 History [Preservision Areds 2 Softgel] Allergies Allergy/AdvReac Type Severity Reaction Status Date / Time Penicillins Allergy Swelling Verified 05/27/18 15:27 Sulfa (Sulfonamide Allergy Anaphylaxis Verified 05/27/18 15:27 Antibiotics) shellfish derived [Shellfish] AdvReac Unknown Verified 05/27/18 15:28 Physical Exam Vitals: Vital Signs Temp Pulse Pulse Pulse Resp BP BP 05/28/18 08:00 97.0 F L 81 90 16 05/28/18 04:00 97 F L 86 18 131/63 05/28/18 00:15 97.4 F L 81 18 150/84 05/27/18 23:32 98.3 F 05/27/18 23:16 81 20 05/27/18 22:15 90 18 189/78 05/27/18 20:15 99 18 159/71 05/27/18 19:15 82 20 164/70 05/27/18 18:15 83 20 172/85 05/27/18 17:15 78 20 168/88 BP Pulse Ox 05/28/18 08:00 138/75 93 L 05/28/18 04:00 93 L 05/28/18 00:15 93 L 05/27/18 23:32 98 05/27/18 23:16 151/82 05/27/18 22:15 98 05/27/18 20:15 97 05/27/18 19:15 96 05/27/18 18:15 98 05/27/18 17:15 96 Intake and Output 05/28/18 05/28/18 05/28/18 06:59 14:59 22:59 Intake Total 500 Balance 500 Intake: Intake, IV Titration 500 Amount Sodium Chloride 0.9% 500 500 ml @ 999 mls/hr IV .Q31M STA Rx#:[id number] Other: # Voids 3 Weight 71.5 kg Skin: Atrophic, intact. General: Medium build and comfortable appearance. Head: Normocephalic, atraumatic. Eyes: Symmetric. Pupils equal round. Ears: Symmetric. Hearing within normal limits. Mouth: Clear. Neck: Supple. Carotid without bruit. Cardiac: Regular rate and rhythm. Lungs: Clear anteriorly and posteriorly. Abdomen: Soft active nontender. Extremities: Normal tone. Neurological: Mental status: Alert, cooperative, pleasant. Cranial nerves: Symmetric facial tone and trapezius. Motor: Normal strength and isolation all 4 limbs and symmetric. Sensation: Intact throughout. DTRs: Symmetric and equal throughout. Mobility: Sits with assistance. Results CBC & Chem 7: 05/27/18 15:00 05/27/18 15:00 Labs: Abnormal Lab Results - Last 24 Hours (Table) 05/27/18 05/28/18 Range/Units 15:00 06:50 Magnesium 1.4 L (1.6-2.3) mg/dL Triglycerides 166 H (<150) mg/dL Assessment and Plan (1) Transient cerebral ischemia Current Visit: Yes Status: Acute Code(s): G45.9 - TRANSIENT CEREBRAL ISCHEMIC ATTACK, UNSPECIFIED SNOMED Code(s): 044354056 Plan: Impression: 1. Gait disturbance. 2. TIA with left facial weakness and slurring of speech. 3. Hypertension. 4. Dyslipidemia. 5. Coronary artery disease with history of [place]. 6. Osteoarthritis. 7. COPD. 8. GERD. Comments and plan: At this time PT, OT, COLORED LIQUID PLASTIC APPLIER ongoing. Minimal assistance noted for functional mobility and lower extremity bathing and dressing. Thus currently with safety concerns and would consider for inpatient rehab.
--- NOTE | 2018-05-28 17:55 | MR ---
EXAMINATION TYPE: MR brain wo/w con DATE OF EXAM: 05/28/2018 COMPARISON: CT brain yesterday HISTORY: CVA TECHNIQUE: Multiplanar, multisequence images of the brain and brainstem is performed without and with IV contras t, utilizing 7 mL intravenous Gadavist . FINDINGS: There is diffuse cerebral cortical atrophy. There is no mass effect nor midline shift. There is no si gn of intracranial hemorrhage. There is extensive increased signal in the periventricular white matte r with coalescent areas that measure up to 2 cm in thickness. The brain stem shows slight increased s ignal on the T2 and FLAIR images at the anna bilaterally. There is thinning of the corpus callosum. S helga turcica appears normal. I see no evidence of focal cortical infarct. Contrast images show no pat hologic enhancement. There is arterial flow in the anterior middle and posterior cerebral arteries. IMPRESSION: Diffuse cerebral atrophy. Extensive white matter changes consistent with chronic small ve ssel ischemia. No change compared to yesterday.
[2018-05-28] MEDS ORDERED: LIVALO 2 MG PO SCH (19:44)
--- NOTE | 2018-05-28 20:35 | P.CNNES ---
History of Present Illness Consult date: 05/28/18 History of Present Illness: The patient is an 87-year-old right-handed white female who states she was in her usual health until yesterday she developed right facial numbness and slurred speech. Also her face felt droopy. This lasted for about 15-30 minutes. This occurred around 12:30 PM yesterday. She states that the numbness has not recurred. She has had a few instances today with her speech was slightly slurred. She denies any focal weakness, numbness, change in vision , dizziness, or swallowing difficulty. She does have poor vision because of glaucoma and macular degeneration and cataracts. Asymptomatic The patient gives a history of headaches which began about 2 months ago. These occur in the occiput and radiate to the frontal head region. Is no prior history of headaches. She denies any neck pain. was some brought by EMS to [facility] emergency room yesterday and admitted to the hospital with TIA. The patient does take 81 mg of aspirin daily at home. Her daughter reports that he a few weeks ago she had an episode of right facial numbness but did not tell anyone. She had a carotid ultrasound which did not show any significant stenosis. She had a MRI scan of the brain which showed diffuse cerebral atrophy and extensive white matter changes consistent with chronic small vessel ischemia. Review of Systems Constitutional: Denies chills, Denies fever Eyes: denies blurred vision, denies pain Ears, nose, mouth and throat: Denies headache, Denies sore throat Cardiovascular: Denies chest pain, Denies shortness of breath Respiratory: Denies cough Genitourinary: Denies dysuria, Denies hematuria Musculoskeletal: Denies myalgias Neurological: Denies numbness, Denies weakness Psychiatric: Denies anxiety, Denies depression Past Medical History Past Medical History: Coronary Artery Disease (CAD), COPD, GERD/Reflux, Hyperlipidemia, Hypertension, Myocardial Infarction (MO), Osteoarthritis (OA) Additional Past Medical History / Comment(s): pt stated "dr is trying her out on a gluten free diet for past month""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 macular degeneration, wolfgang eye wide angle glaucoma," dry eyes", shingles 2014, when pt was 11 or 12 injured lt arm( it was pulled thru a ringer washer up to her elbow) pt stated no sx done on it.cared for at home in those days.pt stated has had a pne vaccine approx 2-3 years ago -promotion writer unable to verify date at time of this admit. Last Myocardial Infarction Date:: 2006 History of Any Multi-Drug Resistant Organisms: None Reported Past Surgical History: Adenoidectomy, Appendectomy, Heart Catheterization With Stent, Tonsillectomy, Tubal Ligation Additional Past Surgical History / Comment(s): cataract, total 3 cardaic stents Past Anesthesia/Blood Transfusion Reactions: Previous Problems w/ Anesthesia Additional Past Anesthesia/Blood Transfusion Reaction / Comment(s): difficulty waking up after sx. pt stated she has never had a blood transfusion. Date of Last Stent Placement:: unk Smoking Status: Never smoker - Past Family History Father Family Medical History: Coronary Artery Disease (CAD) Additional Family Medical History / Comment(s): " from hardening of the arteries", diverticulitis Sister(s) Additional Family Medical History / Comment(s): crohns disease Mother Family Medical History: Cancer Additional Family Medical History / Comment(s): pernicious anemia, stomach cancer/mets Medications and Allergies Home Medications Medication Instructions Recorded Confirmed Type Calcium Carbonate [Calcium] 1,200 mg PO DAILY 05/27/18 05/27/18 History Carboxymethylcellulose Sodium 1 drop BOTH EYES DAILY PRN 05/27/18 05/27/18 History [Refresh Tears] Furosemide [Lasix] 20 mg PO DAILY PRN 05/27/18 05/27/18 History Glucosam/Fam-Msm1/C/Filemon/Bosw 1 tab PO DAILY 05/27/18 05/27/18 History [Glucosamine-Chondroitin Tablet] Latanoprost [Xalatan 0.005%] 1 drop BOTH EYES HS 05/27/18 05/27/18 History Metoprolol Tartrate [Lopressor] 25 mg PO DAILY 05/27/18 05/27/18 History Multivitamins, Thera [Multivitamin 1 tab PO DAILY 05/27/18 05/27/18 History (formulary)] Omeprazole 20 mg PO HS 05/27/18 05/27/18 History Pitavastatin Calcium [Livalo] 2 mg PO DAILY 05/27/18 05/27/18 History Potassium Chloride ER [K-Dur 10] 10 meq PO DAILY PRN 05/27/18 05/27/18 History Vit C/E/Zn/Coppr/Lutein/Zeaxan 1 cap PO DAILY 05/27/18 05/27/18 History [Preservision Areds 2 Softgel] Allergies Allergy/AdvReac Type Severity Reaction Status Date / Time Penicillins Allergy Swelling Verified 05/27/18 15:27 Sulfa (Sulfonamide Allergy Anaphylaxis Verified 05/27/18 15:27 Antibiotics) shellfish derived [Shellfish] AdvReac Unknown Verified 05/27/18 15:28 Physical Examination - Vital Signs Vital Signs: Vital Signs Temp Pulse Pulse Pulse Resp BP BP 05/28/18 16:00 98.0 F 81 84 16 125/60 05/28/18 12:00 81 90 16 154/80 05/28/18 08:00 97.0 F L 81 90 16 05/28/18 04:00 97 F L 86 18 131/63 05/28/18 00:15 97.4 F L 81 18 150/84 05/27/18 23:32 98.3 F 05/27/18 23:16 81 20 05/27/18 22:15 90 18 189/78 BP Pulse Ox 05/28/18 16:00 93 L 05/28/18 12:00 93 L 05/28/18 08:00 138/75 93 L 05/28/18 04:00 93 L 05/28/18 00:15 93 L 05/27/18 23:32 98 05/27/18 23:16 151/82 05/27/18 22:15 98 Intake and Output 05/28/18 05/28/18 05/28/18 06:59 14:59 22:59 Intake Total 500 380 Balance 500 380 Intake: Intake, IV Titration 500 Amount Sodium Chloride 0.9% 500 500 ml @ 999 mls/hr IV .Q31M STA Rx#:[id number] Oral 380 Other: # Voids 3 3 Weight 71.5 kg - Constitutional General appearance: average body habitus - EENT EENT: PERRL - Respiratory Respiratory: lungs clear - Cardiovascular Cardiovascular: regular rate, normal S1 - Neurologic Neurologic examination: Mental status: She was awake alert and oriented 3. Her speech was fluent. She was able to repeat she was able to name there is no a aphasia or dysarthria. Cranial nerve examination cranial nerves II-12 are grossly intact Motor examination strength testing was 5 out of 5 throughout Sensory examination: Light touch X Deep tendon reflexes absent in the lower extremities 1+ in upper extremities and symmetric X Gait not tested Results - Laboratory Findings CBC and BMP: 05/27/18 15:00 05/27/18 15:00 Abnormal Lab Findings: Abnormal Labs 05/27/18 05/27/18 05/27/18 15:00 15:00 15:00 MCV 79.1 L RDW 16.2 H Carbon Dioxide 31 H Glucose 110 H Magnesium Triglycerides 166 H 05/28/18 06:50 MCV RDW Carbon Dioxide Glucose Magnesium 1.4 L Triglycerides Assessment and Plan (1) Transient cerebral ischemia Current Visit: Yes Status: Acute SNOMED Code(s): 045388986 (2) Bilateral occipital neuralgia Current Visit: Yes Status: Acute SNOMED Code(s): 80794519 Plan: The patient is an 87-year-old woman who presents with episode of right facial numbness and slurred speech. This episode lasted approximately 15-30 minutes. Patient has been on baby aspirin daily at home. Her risk factors for stroke include hypertension and heart disease and hyperlipidemia. She had a carotid ultrasound which did not show any significant stenosis. She's had an MRI scan of the brain which showed diffuse cerebral atrophy and white matter changes consistent with chronic small vessel ischemia. Her neurologic examination is nonfocal. The patient has likely had a TIA. Recommend Plavix 75 mg a day in addition to baby aspirin. Patient also has asymptomatic occipital notch tenderness left more than right. The patient's headaches are likely secondary to occipital neuralgia. Recommend occipital nerve block on the left. Also suggest plain x-ray of the cervical spine
[2018-05-28] MEDS ORDERED: PANTOPRAZOLE 40 MG TABLET PO SCH (21:00)
[2018-05-28] MEDS ORDERED: LATANOPROST 0.005% OPHTH DROPS 2.5 ML BTL BOTH EYES SCH (21:00)
--- NOTE | 2018-05-28 21:51 | XR ---
EXAMINATION TYPE: XR cervical spine limited DATE OF EXAM: 05/28/2018 COMPARISON: NONE HISTORY: Headaches. Neck pain TECHNIQUE: 5 views which include frontal lateral and odontoid views. FINDINGS: Cervical vertebra have normal alignment. There is narrowing of C4-5 C6-7 disc spaces with s purring. Posterior elements are intact. There are no cervical ribs. Atlantoaxial facet joint is tara l. Facet joints are intact. IMPRESSION: Mild spondylosis at C4-5 and C6-7. No fracture.
[2018-05-28] MEDS: HEPARIN SODIUM,PORCINE 5,000 UNIT/ML 1 ML VIAL SQ SCH (22:57)
[2018-05-28] MEDS: LIVALO 2 MG PO SCH (22:58)
[2018-05-28 23:28] VITALS: RESP 18
[2018-05-29 07:20] LABS: Anisocytosis Slight; Basophils # (A) 0.1 k/uL (0-0.2); Basophils % (A) 1 %; Eosinophils # (A) 0.5 k/uL (0-0.7); Eosinophils % (A) 5 %; HCT 40.8 % (34.0-46.0); HGB 12.8 gm/dL (11.4-16.0); Lymphocytes # (A) 2.8 k/uL (1.0-4.8); Lymphocytes % (A) 30 %; MCH 24.8 pg (25.0-35.0); MCHC 31.4 g/dL (31.0-37.0); MCV 78.9 fL (80.0-100.0); Mean Platelet Volume 7.1; Microcytosis Slight; Monocytes # (A) 0.7 k/uL (0-1.0); Monocytes % (A) 7 %; Neutrophils # (A) 5.2 k/uL (1.3-7.7); Neutrophils % (A) 55 %; Platelet Count 264 k/uL (150-450); RBC 5.17 m/uL (3.80-5.40); RDW 16.1 % (11.5-15.5); WBC 9.4 k/uL (3.8-10.6)
[2018-05-29 07:29] LABS: ALT 14 U/L (9-52); AST 21 U/L (14-36); Albumin 3.7 g/dL (3.5-5.0); Alkaline Phosphatase 65 U/L (38-126); Anion Gap 8 mmol/L; Blood Urea Nitrogen 16 mg/dL (7-17); Calcium 9.3 mg/dL (8.4-10.2); Carbon Dioxide 33 mmol/L (22-30); Chloride 100 mmol/L (98-107); Glucose 104 mg/dL (74-99); Potassium 3.9 mmol/L (3.5-5.1); Sodium 141 mmol/L (137-145); Total Bilirubin 0.7 mg/dL (0.2-1.3); Total Protein 6.6 g/dL (6.3-8.2)
[2018-05-29] MEDS ORDERED: CALCIUM CARBONATE 500 MG CHEWABLE PO SCH (09:00)
[2018-05-29] MEDS ORDERED: ASPIRIN 81 MG PO SCH (09:00)
[2018-05-29] MEDS ORDERED: CLOPIDOGREL 75 MG TAB PO SCH (09:00)
[2018-05-29] MEDS ORDERED: ATORVASTATIN 10 MG TAB PO SCH (09:00)
[2018-05-29] MEDS ORDERED: VIT A,C & E-LUTEIN-MINERALS 1 EACH TAB PO SCH (09:00)
[2018-05-29] MEDS ORDERED: LIVALO 2 MG PO SCH (09:00)
[2018-05-29] MEDS: LIVALO 2 MG PO SCH (09:38)
[2018-05-29] MEDS: HEPARIN SODIUM,PORCINE 5,000 UNIT/ML 1 ML VIAL SQ SCH (09:38)
[2018-05-29] MEDS: FUROSEMIDE 20 MG TAB PO SCH (09:38)
[2018-05-29] MEDS: METOPROLOL TARTRATE 25 MG TAB PO SCH (09:38)
[2018-05-29] MEDS: POTASSIUM CHLORIDE ER 10 MEQ TAB.ER.PRT PO SCH (09:39)
[2018-05-29] MEDS ORDERED: VIT A,C & E-LUTEIN-MINERALS 1 EACH TAB ONE (09:39)
[2018-05-29 11:30] VITALS: BP 132/74; PULSE 89; TEMP 96.5
--- NOTE | 2018-05-29 12:11 | P.DS ---
<FreddieKris - Last Filed: 05/29/18 12:04> Providers Date of admission: 05/27/18 16:50 Attending physician: Kris Frazier Consults: 05/27/18 16:49 Consult Physician Routine Consulting Provider: Selene Landers Consult Reason/Comments: TIA Do you want consulting provider notified?: Yes 05/28/18 12:39 Consult Physician Routine Consulting Provider: Baljinder Tristan Consult Reason/Comments: IPR Do you want consulting provider notified?: Yes 05/28/18 20:32 anesthesia [Consult to Anesthesia] Routine Consulting Provider: Anesthesia,Services Consult Reason/Comments: left occipital nerve block Primary care physician: Raisa Meade MD Hospital Course: History of Present Illness Consult date: 05/28/18 History of Present Illness: The patient is an 87-year-old right-handed white female who states she was in her usual health until yesterday she developed right facial numbness and slurred speech. Also her face felt droopy. This lasted for about 15-30 minutes. This occurred around 12:30 PM yesterday. She states that the numbness has not recurred. She has had a few instances today with her speech was slightly slurred. She denies any focal weakness, numbness, change in vision , dizziness, or swallowing difficulty. She does have poor vision because of glaucoma and macular degeneration and cataracts. Asymptomatic The patient gives a history of headaches which began about 2 months ago. These occur in the occiput and radiate to the frontal head region. Is no prior history of headaches. She denies any neck pain. was some brought by EMS to [facility] emergency room yesterday and admitted to the hospital with TIA. The patient does take 81 mg of aspirin daily at home. Her daughter reports that he a few weeks ago she had an episode of right facial numbness but did not tell anyone. She had a carotid ultrasound which did not show any significant stenosis. She had a MRI scan of the brain which showed diffuse cerebral atrophy and extensive white matter changes consistent with chronic small vessel ischemia. Review of Systems Constitutional: Denies chills, Denies fever Eyes: denies blurred vision, denies pain Ears, nose, mouth and throat: Denies headache, Denies sore throat Cardiovascular: Denies chest pain, Denies shortness of breath Respiratory: Denies cough Genitourinary: Denies dysuria, Denies hematuria Musculoskeletal: Denies myalgias Neurological: Denies numbness, Denies weakness Psychiatric: Denies anxiety, Denies depression Physical Examinations: General appearance: cooperative, no acute distress,no distress - EENT Eyes: anicteric sclerae, PERRLA, normal appearance ENT: hearing grossly normal - Neck Neck: no lymphadenopathy, normal ROM, no other, no rigidity, no stridor, no thyromegaly - Respiratory Respiratory: bilateral: CTA, negative: diminished, dullness, rales, rhonchi - Cardiovascular Rhythm: regular Heart sounds: normal: S1, S2 Abnormal Heart Sounds: no systolic murmur, no diastolic murmur, no rub, no S3 Gallop, no S4 Gallop, no click, no other - Gastrointestinal General gastrointestinal: normal bowel sounds, soft, non tender - Integumentary Integumentary: no rash - Neurologic Neurologic: CNII-XII intact no nystagmus expressive aphasia noted intermittently no motor or sensory decided [id number] test normal reflexes normal - Musculoskeletal Musculoskeletal: gait normal, strength equal bilaterally - Psychiatric Psychiatric: A&O x's 3, appropriate affect Assessment and Plan Plan: #1 acute TIA versus acute CVA. Carotid Doppler negative. Switch aspirin 325 2 aspirin 81 mg with Plavix MRI head ordered. EEG ordered. Neurology evaluation pending. MRI showed small vessel disease only.. Permissive hypertension with systolic blood pressure less than 180, was started PT OT and seen older adult social work specialist patient wants to go home with home physical therapy does not 20 go to rehab, was evaluated by Dr. Duran and felt to be better than inpatient rehab. #2 hyperlipidemia patient is on Livalo started at home as she was on able to tolerate previous statins. Could not tolerate statin here as well. #3 history of coronary artery disease status post 3 stents continue aspirin 81 mg, Lipitor 10 mg, Lasix 20 mg by mouth daily, metoprolol 25 mg by mouth daily #4 glaucoma continue latanoprost 1 drop both eyes daily at bedtime #5 GERD continue omeprazole 20 mg by mouth daily at bedtime #6 severe occipital neuralgia versus trigeminal neuralgia: Patient can benefit from gabapentin down the road but in the meanwhile she is going to see Dr. Landers and probably benefit from occipital block. Discharge planning: Patient was cleared to be discharged by physiatry, neurology. Add long discussion with her and her son, they're agreeable to go home with home physical therapy and a quick follow-up with her PCP. Also will be following with Dr. Landers for possible occipital block. Patient Condition at Discharge: Stable Plan - Discharge Summary Discharge Rx Participant: No New Discharge Prescriptions: New Aspirin 81 mg PO DAILY #0 chew Pantoprazole [Protonix] 40 mg PO HS #30 tablet. Clopidogrel [Plavix] 75 mg PO DAILY 60 Days #60 tablet Continue Potassium Chloride ER [K-Dur 10] 10 meq PO DAILY PRN PRN Reason: Edema Pitavastatin Calcium [Livalo] 2 mg PO DAILY Metoprolol Tartrate [Lopressor] 25 mg PO DAILY Latanoprost [Xalatan 0.005%] 1 drop BOTH EYES HS Multivitamins, Thera [Multivitamin (formulary)] 1 tab PO DAILY Furosemide [Lasix] 20 mg PO DAILY PRN PRN Reason: Edema Carboxymethylcellulose Sodium [Refresh Tears] 1 drop BOTH EYES DAILY PRN PRN Reason: DRY EYES Calcium Carbonate [Calcium] 1,200 mg PO DAILY Vit C/E/Zn/Coppr/Lutein/Zeaxan [Preservision Areds 2 Softgel] 1 cap PO DAILY Glucosam/Fam-Msm1/C/Filemon/Bosw [Glucosamine-Chondroitin Tablet] 1 tab PO DAILY Discontinued Omeprazole 20 mg PO HS Discharge Medication List Calcium Carbonate [Calcium] 1,200 mg PO DAILY 05/27/18 [History] Carboxymethylcellulose Sodium [Refresh Tears] 1 drop BOTH EYES DAILY PRN [History] Furosemide [Lasix] 20 mg PO DAILY PRN 05/27/18 [History] Glucosam/Fam-Msm1/C/Filemon/Bosw [Glucosamine-Chondroitin Tablet] 1 tab PO DAILY 05/27/18 [History] Latanoprost [Xalatan 0.005%] 1 drop BOTH EYES HS 05/27/18 [History] Metoprolol Tartrate [Lopressor] 25 mg PO DAILY 05/27/18 [History] Multivitamins, Thera [Multivitamin (formulary)] 1 tab PO DAILY 05/27/18 [History ] Pitavastatin Calcium [Livalo] 2 mg PO DAILY 05/27/18 [History] Potassium Chloride ER [K-Dur 10] 10 meq PO DAILY PRN 05/27/18 [History] Vit C/E/Zn/Coppr/Lutein/Zeaxan [Preservision Areds 2 Softgel] 1 cap PO DAILY 05/06 [History] Aspirin 81 mg PO DAILY #0 chew 05/29/18 [Rx] Clopidogrel [Plavix] 75 mg PO DAILY 60 Days #60 tablet 05/29/18 [Rx] Pantoprazole [Protonix] 40 mg PO HS #30 tablet. 05/29/18 [Rx] Follow up Appointment(s)/Referral(s): Raisa Meade MD [Primary Care Provider] - 06/03/18 1:00 pm (Saturday) Julio Landers MD [STAFF PHYSICIAN] - 07/15/18 2:30 pm (Saturday) [facility], [NON-STAFF] - Patient Instructions/Handouts: Transient Ischemic Attack (DC) Discharge Disposition: HOME WITH HOME HEALTH SERVICES <Raisa Meade - Last Filed: 05/29/18 13:26> Hospital Course: #1 acute TIA, CVA ruled out as MRI negative
== END 2018-05-29 13:23 | disposition home health service (06) | DRG 69 ==
LOC: EC 14:31 → 6SEL 16:48 → OBSVTOIN 16:50 → 6SEL 23:25
PROVIDERS: ADMIT Internal Medicine Geriatric Medicine; ATTEND Internal Medicine Geriatric Medicine
DX: G45.9 Transient cerebral ischemic attack, unspecified (principal); E78.5 Hyperlipidemia, unspecified; H35.30 Unspecified macular degeneration; H40.9 Unspecified glaucoma; I10 Essential (primary) hypertension; I25.10 Atherosclerotic heart disease of native coronary artery without angina pectoris; I25.2 Old myocardial infarction; I73.9 Peripheral vascular disease, unspecified; J44.9 Chronic obstructive pulmonary disease, unspecified; J84.10 Pulmonary fibrosis, unspecified; K21.9 Gastro-esophageal reflux disease without esophagitis; M19.90 Unspecified osteoarthritis, unspecified site; M54.81 Occipital neuralgia; R26.9 Unspecified abnormalities of gait and mobility; G50.0 Trigeminal neuralgia; Z79.82 Long term (current) use of aspirin; Z79.899 Other long term (current) drug therapy; Z88.0 Allergy status to penicillin; Z88.2 Allergy status to sulfonamides; Z95.5 Presence of coronary angioplasty implant and graft; Z90.49 Acquired absence of other specified parts of digestive tract; Z98.51 Tubal ligation status; Z98.49 Cataract extraction status, unspecified eye; Z96.1 Presence of intraocular lens; Z82.49 Family history of ischemic heart disease and other diseases of the circulatory system; Z80.0 Family history of malignant neoplasm of digestive organs; Z80.9 Family history of malignant neoplasm, unspecified; Z83.2 Family history of diseases of the blood and blood-forming organs and certain disorders involving the immune mechanism
CPT/HCPCS: 36415; 70450; 70553; 71046; 72040; 80053; 80061; 82550; 82553; 83090; 83735; 84443; 84484; 85025; 85610; 85730; 93005; 93306; 93880; 96360; 99285

== ENCOUNTER → 2019-01-07 | Outpatient (CLI) | payer MEDICARE ==
--- NOTE | 2019-01-07 14:26 | BD ---
EXAMINATION TYPE: Axial Bone Density DATE OF EXAM: 01/07/2019 COMPARISON: 2003 CLINICAL HISTORY: osteoporosis Height: 5' 1 1/2 Weight: FRAX RISK QUESTIONS: Secondary Osteoporosis: RISK FACTORS HISTORY OF: Active: n Postmenopausal woman: y MEDICATIONS: Additional Medications: blood pressure , plavix, heart attack Additional History: EXAM MEASUREMENTS: Bone mineral densitometry was performed using the [employer]. Bone mineral density as measured about the Lumbar spine is: ----- L1-L4(G/cm2): 1.125 T Score Values are as follows: ----- L2: -0.7 ----- L3: 0.1 ----- L4: -0.2 ----- L1-L4: -0.5 Bone mineral density about the R hip (g/cm2): 0.827 Bone mineral density about the L hip (g/cm2): 0.848 T Score values are as follows: -----R Neck: -1.5 -----L Neck: -1.4 -----R Total: -1.0 -----L Total: -0.9 IMPRESSION: Osteopenia (T Score between -2.5 and -1). There is slightly increased risk of fracture and the patient may be considered for treatment. Re-Screen 2-5 years. NOTE: T-SCORE=SD OF THE YOUNG ADULT MEAN.
== END | disposition home or self-care (01) ==
LOC: RADBDWWP 13:18
PROVIDERS: ATTEND Internal Medicine
DX: M85.851 Other specified disorders of bone density and structure, right thigh (principal); M85.852 Other specified disorders of bone density and structure, left thigh
CPT/HCPCS: 77080

== ENCOUNTER 2019-01-16 15:53 | Inpatient (IN) | payer MEDICARE ==
[2019-01-16] MEDS ORDERED: SODIUM CHLORIDE 0.9% 1,000 ML IV STA (16:43)
--- NOTE | 2019-01-16 17:04 | XR ---
EXAMINATION TYPE: XR chest 2V DATE OF EXAM: 01/16/2019 COMPARISON: 05/27/2018 HISTORY: Weakness TECHNIQUE: Frontal and lateral views of the chest are obtained. FINDINGS: There is some coarsening of the interstitial markings. Thoracic aorta is atheromatous. The re are chest leads. There is slight blunting of costophrenic angles. There is some osteopenia. IMPRESSION: Chronic interstitial pulmonary density and pleural reaction consistent with fibrosis. Th ere is probably some new minimal atelectasis left lung base compared to old exam. No obvious heart fa ilure.
[2019-01-16 17:08] LABS: Basophils % (A) 0 %; Eosinophils # (A) 0.2 k/uL (0-0.7); Eosinophils % (A) 1 %; HCT 45.4 % (34.0-46.0); HGB 14.4 gm/dL (11.4-16.0); Lymphocytes # (A) 2.5 k/uL (1.0-4.8); Lymphocytes % (A) 21 %; MCH 25.4 pg (25.0-35.0); MCHC 31.7 g/dL (31.0-37.0); MCV 80.1 fL (80.0-100.0); Mean Platelet Volume 7.2; Monocytes # (A) 0.6 k/uL (0-1.0); Monocytes % (A) 5 %; Neutrophils # (A) 8.3 k/uL (1.3-7.7); Neutrophils % (A) 71 %; Platelet Count 277 k/uL (150-450); RBC 5.67 m/uL (3.80-5.40); RDW 15.3 % (11.5-15.5); WBC 11.8 k/uL (3.8-10.6)
[2019-01-16 17:09] LABS: Partial Thromboplastin Time 23.9 sec (22.0-30.0); Prothrombin Time 10.3 sec (9.0-12.0)
[2019-01-16 17:11] LABS: Albumin 4.4 g/dL (3.5-5.0); Calcium 9.8 mg/dL (8.4-10.2); Magnesium 1.5 mg/dL (1.6-2.3); Phosphorus 4.1 mg/dL (2.5-4.5); Potassium 4.3 mmol/L (3.5-5.1); Total Bilirubin 1.1 mg/dL (0.2-1.3); Total Protein 7.5 g/dL (6.3-8.2)
[2019-01-16 17:41] LABS: Appearance,Urine Clear (Clear); Bilirubin,Urine Negative (Negative); Blood,Urine Negative (Negative); Color,Urine Yellow; Glucose,Urine (UA) Negative (Negative); Ketones,Urine 1+ (Negative); Leukocyte Esterase,Urine Negative (Negative); Nitrite,Urine Negative (Negative); PH, Urine 7.5 (5.0-8.0); Protein,Urine Negative (Negative); Specific Gravity,Urine 1.017 (1.001-1.035); Urobilinogen,Urine <2.0 mg/dL (<2.0)
--- NOTE | 2019-01-16 18:48 | ED ---
Altered Mental Status HPI - General Chief Complaint: Altered Mental Status Stated Complaint: Altered Mental Time Seen by Provider: 01/16/19 16:38 Source: patient, family, EMS, RN notes reviewed, old records reviewed Mode of arrival: EMS Limitations: altered mental status - History of Present Illness Initial Comments: This is an 88-year-old female the ER for evaluation. Patient presents for evaluation regarding altered mental status. Patient's brought in by family for inability to speak or acting appropriately. Patient awoke with symptoms today. Patient symptoms never improved throughout the day, family thinks maybe UTI she's had a standard symptoms in the past. Patient herself is unable to provide any accurate history, history obtained from family at bedside as well as EMS and patient's prior charting patient is history of MD high blood pressure high cholesterol MD Complaint: altered mental status, confusion -: unknown (Awoke with symptoms) Severity: mild Associated Symptoms: denies other symptoms - Related Data Home Medications Medication Instructions Recorded Confirmed Calcium Carbonate [Calcium] 1,200 mg PO DAILY 05/27/18 01/16/19 Carboxymethylcellulose Sodium 1 drop BOTH EYES DAILY PRN 05/27/18 01/16/19 [Refresh Tears] Furosemide [Lasix] 20 mg PO DAILY PRN 05/27/18 01/16/19 Glucosam/Fam-Msm1/C/Filemon/Bosw 1 tab PO DAILY 05/27/18 01/16/19 [Glucosamine-Chondroitin Tablet] Latanoprost [Xalatan 0.005%] 1 drop BOTH EYES HS 05/27/18 01/16/19 Multivitamins, Thera [Multivitamin 1 tab PO DAILY 05/27/18 01/16/19 (formulary)] Pitavastatin Calcium [Livalo] 2 mg PO DAILY 05/27/18 01/16/19 Potassium Chloride ER [K-Dur 10] 10 meq PO DAILY PRN 05/27/18 01/16/19 Vit C/E/Zn/Coppr/Lutein/Zeaxan 1 cap PO DAILY 05/27/18 01/16/19 [Preservision Areds 2 Softgel] Metoprolol Tartrate [Lopressor] 100 mg PO DAILY 01/16/19 01/16/19 Oxybutynin Chloride [Ditropan] 5 mg PO BID 01/16/19 01/16/19 Previous Rx's Medication Instructions Recorded Aspirin 81 mg PO DAILY #0 chew 05/29/18 Clopidogrel [Plavix] 75 mg PO DAILY 60 Days #60 tablet 05/29/18 Pantoprazole [Protonix] 40 mg PO HS #30 tablet. 05/29/18 Allergies Allergy/AdvReac Type Severity Reaction Status Date / Time Penicillins Allergy Swelling Verified 01/16/19 16:23 Sulfa (Sulfonamide Allergy Anaphylaxis Verified 01/16/19 16:23 Antibiotics) shellfish derived [Shellfish] AdvReac Unknown Verified 01/16/19 16:23 Review of Systems ROS Statement: Those systems with pertinent positive or pertinent negative responses have been documented in the HPI. ROS Other: All systems not noted in ROS Statement are negative. 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 macular degeneration, wolfgang eye wide angle glaucoma," dry eyes", shingles 2014, when pt was [age] injured lt arm(it was pulled thru a ringer washer up to her elbow) pt stated no sx done on it.cared for at home in those days.pt stated has had a pne vaccine approx 2-3 years ago - rewriter unable to verify date at time of this admit. Last Myocardial Infarction Date:: 2006 History of Any Multi-Drug Resistant Organisms: None Reported Past Surgical History: Adenoidectomy, Appendectomy, Heart Catheterization With Stent, Tonsillectomy, Tubal Ligation Additional Past Surgical History / Comment(s): cataract, total 3 cardaic stents Past Anesthesia/Blood Transfusion Reactions: Previous Problems w/ Anesthesia Additional Past Anesthesia/Blood Transfusion Reaction / Comment(s): difficulty waking up after sx. pt stated she has never had a blood transfusion. Date of Last Stent Placement:: unk Past Psychological History: No Psychological Hx Reported Smoking Status: Never smoker - Past Family History Father Family Medical History: Coronary Artery Disease (CAD) Additional Family Medical History / Comment(s): " from hardening of the arteries", diverticulitis Sister(s) Additional Family Medical History / Comment(s): crohns disease Mother Family Medical History: Cancer Additional Family Medical History / Comment(s): pernicious anemia, stomach cancer/mets General Exam Limitations: altered mental status General appearance: alert, in no apparent distress Head exam: Present: atraumatic, normocephalic, normal inspection Eye exam: Present: normal appearance, PERRL, EOMI. Absent: scleral icterus, conjunctival injection, periorbital swelling ENT exam: Present: normal exam, mucous membranes moist Neck exam: Present: normal inspection. Absent: tenderness, meningismus, lymphadenopathy Respiratory exam: Present: normal lung sounds bilaterally. Absent: respiratory distress, wheezes, rales, rhonchi, stridor Cardiovascular Exam: Present: regular rate, normal rhythm, normal heart sounds. Absent: systolic murmur, diastolic murmur, rubs, gallop, clicks GI/Abdominal exam: Present: soft, normal bowel sounds. Absent: distended, tenderness, guarding, rebound, rigid Extremities exam: Present: normal inspection, full ROM, normal capillary refill. Absent: tenderness, pedal edema, joint swelling, calf tenderness Back exam: Present: normal inspection Neurological exam: Present: alert, oriented X3, CN II-XII intact Psychiatric exam: Present: normal affect, normal mood Skin exam: Present: warm, dry, intact, normal color. Absent: rash Course Vital Signs 01/16/19 01/16/19 01/16/19 16:11 17:25 18:00 Temperature 99.4 F Pulse Rate 85 84 96 Respiratory 16 20 16 Rate Blood Pressure 169/89 171/91 180/106 O2 Sat by Pulse 95 97 99 Oximetry - Reevaluation(s) Reevaluation #1: 01/16/19 18:47 Medical records reviewed Reevaluation #2: 01/16/19 18:47 Patient not showing any improvement in symptoms currently Medical Decision Making - Medical Decision Making 88-year-old female the ER for evaluation of altered mental status, patient found of CVA here in the ER with expressive aphasia. We'll admit for neurology consult - Lab Data Result diagrams: 01/16/19 16:11 01/16/19 16:11 Lab Results 01/16/19 01/16/19 01/16/19 Range/Units 16:11 16:11 16:11 WBC 11.8 H (3.8-10.6) k/uL RBC 5.67 H (3.80-5.40) m/uL Hgb 14.4 (11.4-16.0) gm/dL Hct 45.4 (34.0-46.0) % MCV 80.1 (80.0-100.0) fL MCH 25.4 (25.0-35.0) pg MCHC 31.7 (31.0-37.0) g/dL RDW 15.3 (11.5-15.5) % Plt Count 277 (150-450) k/uL Neutrophils % 71 % Lymphocytes % 21 % Monocytes % 5 % Eosinophils % 1 % Basophils % 0 % Neutrophils # 8.3 H (1.3-7.7) k/uL Lymphocytes # 2.5 (1.0-4.8) k/uL Monocytes # 0.6 (0-1.0) k/uL Eosinophils # 0.2 (0-0.7) k/uL Basophils # 0.0 (0-0.2) k/uL PT (9.0-12.0) sec INR (<1.2) APTT (22.0-30.0) sec Sodium 137 (137-145) mmol/L Potassium 4.3 (3.5-5.1) mmol/L Chloride 98 (98-107) mmol/L Carbon Dioxide 30 (22-30) mmol/L Anion Gap 9 mmol/L BUN 15 (7-17) mg/dL Creatinine 0.74 (0.52-1.04) mg/dL Est GFR (CKD-EPI)AfAm 86 (>60 ml/min/1.73 sqM) Est GFR (CKD-EPI)NonAf 74 (>60 ml/min/1.73 sqM) Glucose 103 H (74-99) mg/dL Plasma Lactic Acid Jonathan 1.1 (0.7-2.0) mmol/L Calcium 9.8 (8.4-10.2) mg/dL Phosphorus 4.1 (2.5-4.5) mg/dL Magnesium 1.5 L (1.6-2.3) mg/dL Total Bilirubin 1.1 (0.2-1.3) mg/dL AST 19 (14-36) U/L ALT 12 (9-52) U/L Alkaline Phosphatase 91 (38-126) U/L Troponin I (0.000-0.034) ng/mL NT-Pro-B Natriuret Pep pg/mL Total Protein 7.5 (6.3-8.2) g/dL Albumin 4.4 (3.5-5.0) g/dL TSH 1.360 (0.465-4.680) mIU/L Urine Color Urine Appearance (Clear) Urine pH (5.0-8.0) Ur Specific [place] (1.001-1.035) Urine Protein (Negative) Urine Glucose (UA) (Negative) Urine Ketones (Negative) Urine Blood (Negative) Urine Nitrite (Negative) Urine Bilirubin (Negative) Urine Urobilinogen (<2.0) mg/dL Ur Leukocyte Esterase (Negative) 01/16/19 01/16/19 01/16/19 Range/Units 16:11 16:11 16:11 WBC (3.8-10.6) k/uL RBC (3.80-5.40) m/uL Hgb (11.4-16.0) gm/dL Hct (34.0-46.0) % MCV (80.0-100.0) fL MCH (25.0-35.0) pg MCHC (31.0-37.0) g/dL RDW (11.5-15.5) % Plt Count (150-450) k/uL Neutrophils % % Lymphocytes % % Monocytes % % Eosinophils % % Basophils % % Neutrophils # (1.3-7.7) k/uL Lymphocytes # (1.0-4.8) k/uL Monocytes # (0-1.0) k/uL Eosinophils # (0-0.7) k/uL Basophils # (0-0.2) k/uL PT 10.3 (9.0-12.0) sec INR 1.0 (<1.2) APTT 23.9 (22.0-30.0) sec Sodium (137-145) mmol/L Potassium (3.5-5.1) mmol/L Chloride (98-107) mmol/L Carbon Dioxide (22-30) mmol/L Anion Gap mmol/L BUN (7-17) mg/dL Creatinine (0.52-1.04) mg/dL Est GFR (CKD-EPI)AfAm (>60 ml/min/1.73 sqM) Est GFR (CKD-EPI)NonAf (>60 ml/min/1.73 sqM) Glucose (74-99) mg/dL Plasma Lactic Acid Jonathan (0.7-2.0) mmol/L Calcium (8.4-10.2) mg/dL Phosphorus (2.5-4.5) mg/dL Magnesium (1.6-2.3) mg/dL Total Bilirubin (0.2-1.3) mg/dL AST (14-36) U/L ALT (9-52) U/L Alkaline Phosphatase (38-126) U/L Troponin I <0.012 (0.000-0.034) ng/mL NT-Pro-B Natriuret Pep 2280 pg/mL Total Protein (6.3-8.2) g/dL Albumin (3.5-5.0) g/dL TSH (0.465-4.680) mIU/L Urine Color Urine Appearance (Clear) Urine pH (5.0-8.0) Ur Specific [place] (1.001-1.035) Urine Protein (Negative) Urine Glucose (UA) (Negative) Urine Ketones (Negative) Urine Blood (Negative) Urine Nitrite (Negative) Urine Bilirubin (Negative) Urine Urobilinogen (<2.0) mg/dL Ur Leukocyte Esterase (Negative) 01/16/19 Range/Units 17:25 WBC (3.8-10.6) k/uL RBC (3.80-5.40) m/uL Hgb (11.4-16.0) gm/dL Hct (34.0-46.0) % MCV (80.0-100.0) fL MCH (25.0-35.0) pg MCHC (31.0-37.0) g/dL RDW (11.5-15.5) % Plt Count (150-450) k/uL Neutrophils % % Lymphocytes % % Monocytes % % Eosinophils % % Basophils % % Neutrophils # (1.3-7.7) k/uL Lymphocytes # (1.0-4.8) k/uL Monocytes # (0-1.0) k/uL Eosinophils # (0-0.7) k/uL Basophils # (0-0.2) k/uL PT (9.0-12.0) sec INR (<1.2) APTT (22.0-30.0) sec Sodium (137-145) mmol/L Potassium (3.5-5.1) mmol/L Chloride (98-107) mmol/L Carbon Dioxide (22-30) mmol/L Anion Gap mmol/L BUN (7-17) mg/dL Creatinine (0.52-1.04) mg/dL Est GFR (CKD-EPI)AfAm (>60 ml/min/1.73 sqM) Est GFR (CKD-EPI)NonAf (>60 ml/min/1.73 sqM) Glucose (74-99) mg/dL Plasma Lactic Acid Jonathan (0.7-2.0) mmol/L Calcium (8.4-10.2) mg/dL Phosphorus (2.5-4.5) mg/dL Magnesium (1.6-2.3) mg/dL Total Bilirubin (0.2-1.3) mg/dL AST (14-36) U/L ALT (9-52) U/L Alkaline Phosphatase (38-126) U/L Troponin I (0.000-0.034) ng/mL NT-Pro-B Natriuret Pep pg/mL Total Protein (6.3-8.2) g/dL Albumin (3.5-5.0) g/dL TSH (0.465-4.680) mIU/L Urine Color Yellow Urine Appearance Clear (Clear) Urine pH 7.5 (5.0-8.0) Ur Specific [place] 1.017 (1.001-1.035) Urine Protein Negative (Negative) Urine Glucose (UA) Negative (Negative) Urine Ketones 1+ H (Negative) Urine Blood Negative (Negative) Urine Nitrite Negative (Negative) Urine Bilirubin Negative (Negative) Urine Urobilinogen <2.0 (<2.0) mg/dL Ur Leukocyte Esterase Negative (Negative) - Radiology Data Radiology results: report reviewed (CT brain CTA had not negative for acute disease), image reviewed Disposition Clinical Impression: Altered mental status, CVA (cerebral vascular accident) Disposition: ADMITTED IP TO THIS [facility] Condition: Fair Is patient prescribed a controlled substance at d/c from ED?: No Referrals: Raisa Meade MD [Primary Care Provider] - 1-2 days
[2019-01-16] MEDS ORDERED: SODIUM CHLORIDE 0.9% 1,000 ML IV SCH (19:00)
--- NOTE | 2019-01-16 19:35 | CT ---
EXAMINATION TYPE: CT brain wo con DATE OF EXAM: 01/16/2019 COMPARISON: 05/27/2018 HISTORY: Altered mental status. CT DLP: 1164.9 mGycm Automated exposure control for dose reduction was used. FINDINGS: There is some cerebral cortical atrophy. There is patchy hypodensity in the periventricular white mat ter. There is no mass effect nor midline shift. There is no sign of intracranial hemorrhage. The calv arium is intact. IMPRESSION: CHRONIC SMALL VESSEL ISCHEMIA. NO ACUTE INTRACRANIAL ABNORMALITY. NO CHANGE COMPARED TO OLD EXAM.
--- NOTE | 2019-01-16 19:51 | CT ---
EXAMINATION TYPE: CT angio head neck DATE OF EXAM: 01/16/2019 HISTORY: Altered mental status. COMPARISON: None CT DLP: 339.6 mGycm. Automated Exposure Control for Dose Reduction was Utilized. TECHNIQUE: CTA scan of the neck is performed with IV Contrast, patient injected with 50 mL of Isovue 370, axial images are obtained, coronal and sagittal reformatted images are reviewed. Three-D recons tructed images are created on an independent workstation and reviewed. FINDINGS: There is normal branching pattern of the great vessels on the aortic arch. There is arterial flow in the left vertebral artery but no flow seen in the proximal right vertebral artery. There is distal ri ght vertebral artery flow which could be retrograde. There appears to be significant plaque in the pr oximal right subclavian artery. 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 There is probably more than 80% stenosis proximal right subclavian artery. There is arterial flow in the common internal and external carotid arteries bilaterally. There is ath erosclerotic plaque at the carotid artery bifurcations. There is estimated stenosis 0.5% in the proxi mal right internal carotid artery and 10% left internal carotid artery. There is arterial flow in the intracranial internal carotid arteries bilaterally. There is arterial f low in the anterior middle and posterior cerebral arteries. There is no intracranial mass effect nor midline shift. There is no evidence of aneurysm or neovascularity. I see no intracranial arterial herson nosis. There is normal contrast opacification of the venous sinuses. IMPRESSION: There is some atherosclerotic vascular disease. There is severe stenosis proximal right s ubclavian artery with apparent subclavian steal phenomenon and retrograde flow in the right vertebral artery. Old chest CT scan of 07/06/2013 is reviewed and subclavian stenosis is increased compared to old exam.
[2019-01-16 21:53] VITALS: BMI 19.9
--- NOTE | 2019-01-16 22:39 | P.CNNES ---
History of Present Illness Consult date: 01/16/19 Reason for Consult: CVA History of Present Illness: Patient is an 88-year-old female who came to the hospital for possible CVA. Patient lives with her and daughter, and both of them were present, when I saw the patient at 10:20 PM today. According to patient's daughter, patient usually wakes up at 8:30 - 8:45 AM. Patient's daughter went to check on her at 9 AM and tried to wake her up, and try to talk to her but patient's daughter could not comprehend what she was saying. Patient then started talking nonsensical, stating to her daughter that her son was coming over although he was not. She also stated "take ice out", speaking sentences that did not make sense. She was also noticed to have some difficulty with word finding and putting on wrong words. Patient's daughter states that if patient is woken up earlier than her time, then she is usually more confused. There is no report of dementia otherwise. No stroke symptoms were noted. Family believes that her symptoms were related to UTI, therefore stayed home. As her symptoms persisted, patient was brought to the ER at 3:53 PM. Patient underwent computed tomography scan of the head, which revealed chronic small vessel ischemia, no acute intracranial abnormality. CTA of head and neck showed some atherosclerotic vascular disease. 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 Old chest computed tomography scan of 07/06/2013 is reviewed and subclavian stenosis is increased compared to old exam. Chest x-ray showed chronic interstitial pulmonary density and pleural reaction consistent with fibrosis. There is probably some new minimal atelectasis left lung base compared to old exam. No obvious heart failure. Her blood tests showed WBC 11.8 hemoglobin 14.4 platelets are normal. PT/PTT normal. Chem-7 normal. Her total cholesterol is 279, LDL 188, HDL 73. TSH is normal. UA is negative for infection. Patient's blood pressure on arrival was 169/89, pulse rate 85, temperature 99.4. Patient was not a candidate for TPA, as her symptoms have been present for more than 4.5 hours. Patient had history of TIA in May 2018 when she had a facial droop and slurred speech. However the symptoms were not present on this visit. Denies diabetes. She does have hypertension. Nontobacco user. 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 macular degeneration, wolfgang eye wide angle glaucoma," dry eyes", shingles 2014, when pt was [age] injured lt arm(it was p ulled thru a ringer washer up to her elbow) pt stated no sx done on it.cared for at home in those days.pt stated has had a pne vaccine approx 2-3 years ago - song writer unable to verify date at time of this admit. Last Myocardial Infarction Date:: 2006 History of Any Multi-Drug Resistant Organisms: None Reported Past Surgical History: Adenoidectomy, Appendectomy, Heart Catheterization With Stent, Tonsillectomy, Tubal Ligation Additional Past Surgical History / Comment(s): cataract, total 3 cardaic stents Past Anesthesia/Blood Transfusion Reactions: Previous Problems w/ Anesthesia Additional Past Anesthesia/Blood Transfusion Reaction / Comment(s): difficulty waking up after sx. pt stated she has never had a blood transfusion. Date of Last Stent Placement:: unk Past Psychological History: No Psychological Hx Reported Smoking Status: Never smoker Past Alcohol Use History: None Reported Past Drug Use History: None Reported - Past Family History Father Family Medical History: Coronary Artery Disease (CAD) Additional Family Medical History / Comment(s): " from hardening of the arteries", diverticulitis Sister(s) Additional Family Medical History / Comment(s): crohns disease Mother Family Medical History: Cancer Additional Family Medical History / Comment(s): pernicious anemia, stomach cancer/mets Medications and Allergies Home Medications Medication Instructions Recorded Confirmed Type Calcium Carbonate [Calcium] 1,200 mg PO DAILY 05/27/18 01/16/19 History Carboxymethylcellulose Sodium 1 drop BOTH EYES DAILY PRN 05/27/18 01/16/19 History [Refresh Tears] Furosemide [Lasix] 20 mg PO DAILY PRN 05/27/18 01/16/19 History Glucosam/Fam-Msm1/C/Filemon/Bosw 1 tab PO DAILY 05/27/18 01/16/19 History [Glucosamine-Chondroitin Tablet] Latanoprost [Xalatan 0.005%] 1 drop BOTH EYES HS 05/27/18 01/16/19 History Multivitamins, Thera [Multivitamin 1 tab PO DAILY 05/27/18 01/16/19 History (formulary)] Pitavastatin Calcium [Livalo] 2 mg PO DAILY 05/27/18 01/16/19 History Potassium Chloride ER [K-Dur 10] 10 meq PO DAILY PRN 05/27/18 01/16/19 History Vit C/E/Zn/Coppr/Lutein/Zeaxan 1 cap PO DAILY 05/27/18 01/16/19 History [Preservision Areds 2 Softgel] Aspirin 81 mg PO DAILY #0 chew 05/29/18 01/16/19 Rx Clopidogrel [Plavix] 75 mg PO DAILY 60 Days #60 tablet 05/29/18 01/16/19 Rx Pantoprazole [Protonix] 40 mg PO HS #30 tablet. 05/29/18 01/16/19 Rx Metoprolol Tartrate [Lopressor] 100 mg PO DAILY 01/16/19 01/16/19 History Oxybutynin Chloride [Ditropan] 5 mg PO BID 01/16/19 01/16/19 History Allergies Allergy/AdvReac Type Severity Reaction Status Date / Time Penicillins Allergy Swelling Verified 01/16/19 16:23 Sulfa (Sulfonamide Allergy Anaphylaxis Verified 01/16/19 16:23 Antibiotics) shellfish derived [Shellfish] AdvReac Unknown Verified 01/16/19 16:23 Physical Examination - Vital Signs Vital Signs: Vital Signs Temp Pulse Pulse Resp BP BP Pulse Ox 01/16/19 21:48 91 16 183/82 92 L 01/16/19 21:39 98.8 F 92 18 171/84 92 L 01/16/19 20:45 88 18 154/89 01/16/19 19:45 90 18 157/90 01/16/19 18:45 89 16 156/73 97 01/16/19 18:00 96 16 180/106 99 01/16/19 17:25 84 20 171/91 97 01/16/19 16:11 99.4 F 85 16 169/89 95 Intake and Output 01/16/19 01/16/19 01/16/19 06:59 14:59 22:59 Other: Weight 68.039 kg On examination patient is an elderly female, who is sleeping. Patient is laying on her right side. I tried to wake her up, but patient opens eyes, then goes back to sleep. She did not cooperate with examination. Her pupils are round and reacting. Face appears symmetric. Detail examination could not be performed because she is just in a deep sleep. Results - Laboratory Findings CBC and BMP: 01/17/19 06:20 01/17/19 06:20 Abnormal Lab Findings: Abnormal Labs 01/16/19 01/16/19 01/16/19 16:11 16:11 17:25 WBC 11.8 H RBC 5.67 H Neutrophils # 8.3 H Glucose 103 H Magnesium 1.5 L Urine Ketones 1+ H Assessment and Plan Assessment: * 88-year-old female admitted with altered mental status with some expressive speech difficulty, of unclear etiology. Rule out CVA versus delirium versus metabolic encephalopathy. No evidence of UTI on urinalysis. 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 * Hypertension * Obesity Plan: * Patient's examination was very limited as she was sleeping, not waking up. Apparently an appropriate neurological workup has already been initiated by primary attending including MRI and EEG, which I agree with. * We will follow the results, and we will reassess her in morning and hopefully she is more awake. * Patient has been on aspirin 81 mg and Plavix 75 mg (at per home medication list), which will be continued. * Discussed with patient's and daughter in detail.
[2019-01-16] MEDS: METOPROLOL TARTRATE 5 MG/5 ML VIAL IVP PRN (22:50)
[2019-01-16] MEDS: SODIUM CHLORIDE 0.9% 1,000 ML IV SCH (22:51)
[2019-01-16] MEDS: MAGNESIUM SULFATE-D5W PMX 1 GM in DEXTROSE/WATER 1 100ML.BAG IVPB SCH (23:37)
[2019-01-17] MEDS: MAGNESIUM SULFATE-D5W PMX 1 GM in DEXTROSE/WATER 1 100ML.BAG IVPB SCH (00:47)
[2019-01-17 07:37] LABS: ALT 11 U/L (9-52); AST 21 U/L (14-36); Albumin 4.5 g/dL (3.5-5.0); Alkaline Phosphatase 87 U/L (38-126); Anion Gap 12 mmol/L; Blood Urea Nitrogen 10 mg/dL (7-17); Calcium 9.6 mg/dL (8.4-10.2); Carbon Dioxide 28 mmol/L (22-30); Chloride 94 mmol/L (98-107); Cholesterol 279 mg/dL (<200); Glucose 127 mg/dL (74-99); HDL Cholesterol 73 mg/dL (40-60); LDL Cholesterol,Calculated 188 mg/dL (0-99); Potassium 4.3 mmol/L (3.5-5.1); Sodium 134 mmol/L (137-145); Total Bilirubin 1.4 mg/dL (0.2-1.3); Total Protein 7.7 g/dL (6.3-8.2); Triglycerides 88 mg/dL (<150)
[2019-01-17 08:28] LABS: Basophils % (A) 0 %; Eosinophils # (A) 0.1 k/uL (0-0.7); Eosinophils % (A) 1 %; HCT 44.6 % (34.0-46.0); Lymphocytes % (A) 13 %; MCHC 31.3 g/dL (31.0-37.0); Mean Platelet Volume 7.7; Monocytes # (A) 0.8 k/uL (0-1.0); Monocytes % (A) 6 %; Neutrophils % (A) 80 %; Platelet Count 273 k/uL (150-450); RBC 5.58 m/uL (3.80-5.40); RDW 14.6 % (11.5-15.5)
[2019-01-17] MEDS ORDERED: ONDANSETRON 4 MG/2 ML VIAL IVP STA (08:59)
[2019-01-17] MEDS ORDERED: ASPIRIN 300 MG SUPP RECTAL STA (09:14)
[2019-01-17] MEDS ORDERED: ASPIRIN 300 MG SUPP RECTAL SCH (09:45)
--- NOTE | 2019-01-17 11:21 | MR ---
EXAMINATION TYPE: MR brain wo/w mrane wo/wcon DATE OF EXAM: 01/17/2019 11:04 AM COMPARISON: CT scan of the brain dated 01/16/2019. HISTORY: CVA TECHNIQUE: Time of flight images focusing on the [employer] [employer] [place] were performed without contrast. FINDINGS: BRAIN: A fast brain protocol was utilized. This reduces [id number]. There are generalized changes of sulcal prominence and ventriculomegaly, compatible with atrophic bill nge. Midline structures are unremarkable. There is a normal craniocervical junction. Echoplanar diffusion imaging is normal without evidence of restricted diffusion. There are normal vascular flow voids. The orbits are unremarkable. There is no evidence of a CP angle mass lesion. There is extensive confluent periventricular white matter change as well as some punctate lesions sug gestive of chronic ischemic change and small vessel disease. There is no mass effect, midline shift o r intracranial blood. Following the intravenous administration of gadolinium, I do not see evidence of abnormal enhancement . MRA NECK: The left subclavian artery is very tortuous as is the right on the raw data images no signi ficant stenosis is noted in either carotid artery. There is narrowing of the origin of both external carotid arteries. The left vertebral artery is dominant. Right vertebral artery is attenuated proximally and reconstitu nagi just below the basilar artery. It appears occluded in its proximal portion. Subclavian artery. Th ere is motion artifact through the origin of both internal carotid arteries. IMPRESSION: 1. Suboptimal examination secondary to motion artifact. 2. No acute intracranial abnormality. 3. Both punctate and confluent periventricular white matter changes consistent with chronic ischemic change and small vessel disease. 4. There does not appear to be a significant stenosis in either internal carotid carotid artery. 5. There appears to be a proximal occlusion of the right vertebral artery. 6. Moderate narrowing of the origin of both external carotid arteries.
[2019-01-17] MEDS: METOPROLOL TARTRATE 5 MG/5 ML VIAL IVP PRN (13:20)
--- NOTE | 2019-01-17 13:54 | P.HPIM ---
History of Present Illness H&P Date: 01/17/19 This is an 88-year-old female patient of Dr. 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 According to family, yesterday morning around 10 AM patient Daughter was but could not say her name and did not recognize her grandson. She had a lot of walking in the kitchen and came back and was seeming to do fine with lunch but later, her daughter received call the patient fallen in the bathroom and called for help and she was noted to be weaker on the right side as well as a facial droop. He noted that she could not smile and had other neurological symptoms and decided to call EMS to bring her in. Last evening in the emergency center. Patient was talking seem to be returning to baseline but this morning has been nonverbal. Patient has had history of TIAs in the fall. Patient also noted to be holding her right hand contracted to her chest with right-sided neglect. She did have an episode of vomiting this morning that was also clear with a small amount of brown tinge. Patient has not had any vomiting at home. Patient was brought into [facility] emergency center for evaluation. She was afebrile, heart rate 85, blood pressure 169/89 and pulse ox 95% on room air. WBC 11.8, hemoglobin 14.4, platelet count 277. Electrolytes were within normal limits, blood sugar 103. Liver function tests within normal limits, magnesium 1.5. INR 1.0. ProBNP 2280 and troponin negative. Urinalysis was clear with nitrate and leukoesterase negative. CAT scan of the brain showed chronic small vessel ischemia. No acute intracranial abnormality. No change from previous exam. CTA of the head and neck revealed atherosclerotic vascular disease. 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 This is increased compared to study in 2013. Patient underwent further stroke evaluation with MRI/MRA of the head and neck that showed a left subclavian artery is very tortuous as is the right with no significant stenosis on either carotid artery. Narrowing of the origin of both external carotid arteries. 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 MRI of the brain showed no acute intracranial abnormalities. White matter changes consistent with chronic ischemic change and small vessel disease. Discussed case with Dr. Villanueva and he will resume films that showed no sign of stroke. Case was also discussed with Dr. Stanley is he is following the patient. Mental status changes of unclear etiology, rule out CVA versus delirium versus metabolic encephalopathy. EEG is pending. Patient will be started on rectal aspirin and she is currently not awake enough to take oral medications. Dr. Baker is recommended continuing bolus aspirin 81 mg and Plavix 75 mg. Review of Systems ROS unobtainable: due to mental status Past Medical History Past Medical History: Coronary Artery Disease (CAD), COPD, GERD/Reflux, Hyperlipidemia, Hypertension, Myocardial Infarction ([place]), Osteoarthritis (OA) Additional Past Medical History / Comment(s): pt stated "dr is trying her out on a gluten free diet for past month""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 macular degeneration, wolfgang eye wide angle gla ucoma," dry eyes", shingles 2014, when pt was 11 or 12 injured lt arm(it was pulled thru a ringer washer up to her elbow) pt stated no sx done on it.cared for at home in those days.pt stated has had a pne vaccine approx 2-3 years ago - procedure writer unable to verify date at time of this admit. Last Myocardial Infarction Date:: 2006 History of Any Multi-Drug Resistant Organisms: None Reported Past Surgical History: Adenoidectomy, Appendectomy, Heart Catheterization With Stent, Tonsillectomy, Tubal Ligation Additional Past Surgical History / Comment(s): cataract, total 3 cardaic stents Past Anesthesia/Blood Transfusion Reactions: Previous Problems w/ Anesthesia Additional Past Anesthesia/Blood Transfusion Reaction / Comment(s): difficulty waking up after sx. pt stated she has never had a blood transfusion. Date of Last Stent Placement:: unk Past Psychological History: No Psychological Hx Reported Smoking Status: Never smoker Past Alcohol Use History: None Reported Past Drug Use History: None Reported - Past Family History Father Family Medical History: Coronary Artery Disease (CAD) Additional Family Medical History / Comment(s): " from hardening of the arteries", diverticulitis Sister(s) Additional Family Medical History / Comment(s): crohns disease Mother Family Medical History: Cancer Additional Family Medical History / Comment(s): pernicious anemia, stomach cancer/mets Medications and Allergies Home Medications Medication Instructions Recorded Confirmed Type Calcium Carbonate [Calcium] 1,200 mg PO DAILY 05/27/18 01/16/19 History Carboxymethylcellulose Sodium 1 drop BOTH EYES DAILY PRN 05/27/18 01/16/19 History [Refresh Tears] Furosemide [Lasix] 20 mg PO DAILY PRN 05/27/18 01/16/19 History Glucosam/Fam-Msm1/C/Filemon/Bosw 1 tab PO DAILY 05/27/18 01/16/19 History [Glucosamine-Chondroitin Tablet] Latanoprost [Xalatan 0.005%] 1 drop BOTH EYES HS 05/27/18 01/16/19 History Multivitamins, Thera [Multivitamin 1 tab PO DAILY 05/27/18 01/16/19 History (formulary)] Pitavastatin Calcium [Livalo] 2 mg PO DAILY 05/27/18 01/16/19 History Potassium Chloride ER [K-Dur 10] 10 meq PO DAILY PRN 05/27/18 01/16/19 History Vit C/E/Zn/Coppr/Lutein/Zeaxan 1 cap PO DAILY 05/27/18 01/16/19 History [Preservision Areds 2 Softgel] Aspirin 81 mg PO DAILY #0 chew 05/29/18 01/16/19 Rx Clopidogrel [Plavix] 75 mg PO DAILY 60 Days #60 tablet 05/29/18 01/16/19 Rx Pantoprazole [Protonix] 40 mg PO HS #30 tablet. 05/29/18 01/16/19 Rx Metoprolol Tartrate [Lopressor] 100 mg PO DAILY 01/16/19 01/16/19 History Oxybutynin Chloride [Ditropan] 5 mg PO BID 01/16/19 01/16/19 History Allergies Allergy/AdvReac Type Severity Reaction Status Date / Time Penicillins Allergy Swelling Verified 01/16/19 16:23 Sulfa (Sulfonamide Allergy Anaphylaxis Verified 01/16/19 16:23 Antibiotics) shellfish derived [Shellfish] AdvReac Unknown Verified 01/16/19 16:23 Physical Exam Vitals: Vital Signs Temp Pulse Pulse Resp BP BP Pulse Ox 01/17/19 04:10 98.1 F 91 16 151/71 93 L 01/16/19 23:35 98 F 68 16 161/78 94 L 01/16/19 23:34 16 01/16/19 21:48 91 16 183/82 92 L 01/16/19 21:39 98.8 F 92 18 171/84 92 L 01/16/19 20:45 88 18 154/89 01/16/19 19:45 90 18 157/90 01/16/19 18:45 89 16 156/73 97 01/16/19 18:00 96 16 180/106 99 01/16/19 17:25 84 20 171/91 97 01/16/19 16:11 99.4 F 85 16 169/89 95 Intake and Output 01/16/19 01/17/19 01/17/19 22:59 06:59 14:59 Other: Voiding Method Bedside Commode Weight 68.039 kg - Constitutional General appearance: average body habitus, mild distress, no acute distress - EENT Eyes: normal appearance ENT: hard of hearing, no pharyngeal erythema, no thrush - Neck Neck: no lymphadenopathy, normal ROM, no rigidity - Respiratory Respiratory: bilateral: CTA, negative: rales, rhonchi, wheezing - Cardiovascular Rhythm: regular Heart sounds: normal: S1, S2 Abnormal Heart Sounds: no systolic murmur, no diastolic murmur - Gastrointestinal General gastrointestinal: normal bowel sounds, soft, no tenderness - Neurologic The patient has right-sided neglect, right hand is contracted to chest. - Psychiatric Psychiatric: no A&O x's 3 (Patient is unable to follow commands.), no appropriate affect, no intact judgment & insight Right-sided neglect, staring into space without I contact, weakness on the right side Results CBC & Chem 7: 01/18/19 08:42 01/18/19 08:42 Labs: Abnormal Lab Results - Last 24 Hours (Table) 01/16/19 01/16/19 01/16/19 Range/Units 16:11 16:11 17:25 WBC 11.8 H (3.8-10.6) k/uL RBC 5.67 H (3.80-5.40) m/uL Neutrophils # 8.3 H (1.3-7.7) k/uL Sodium (137-145) mmol/L Chloride (98-107) mmol/L Glucose 103 H (74-99) mg/dL Magnesium 1.5 L (1.6-2.3) mg/dL Total Bilirubin (0.2-1.3) mg/dL Cholesterol (<200) mg/dL LDL Cholesterol, Calc (0-99) mg/dL HDL Cholesterol (40-60) mg/dL Urine Ketones 1+ H (Negative) 01/17/19 01/17/19 Range/Units 06:20 06:20 WBC 15.0 H (3.8-10.6) k/uL RBC 5.58 H (3.80-5.40) m/uL Neutrophils # 12.0 H (1.3-7.7) k/uL Sodium 134 L (137-145) mmol/L Chloride 94 L (98-107) mmol/L Glucose 127 H (74-99) mg/dL Magnesium (1.6-2.3) mg/dL Total Bilirubin 1.4 H (0.2-1.3) mg/dL Cholesterol 279 H (<200) mg/dL LDL Cholesterol, Calc 188 H (0-99) mg/dL HDL Cholesterol 73 H (40-60) mg/dL Urine Ketones (Negative) Microbiology - Last 24 Hours (Table) 01/16/19 17:25 Urine Culture - Preliminary Urine,Voided Thrombosis Risk Factor Assmnt - DVT/VTE Prophylaxis DVT/VTE Prophylaxis: Pharmacologic Prophylaxis ordered - Choose All That Apply Any of the Below Risk Factors Present?: Yes Each Factor Represents 1 point: Abnormal pulmonary function (COPD) Each Risk Factor Represents 3 Points: Age 75 years or older Thrombosis Risk Factor Assessment Total Risk Factor Score: 4 Thrombosis Risk Factor Assessment Level: Moderate Risk Assessment and Plan Plan: 1. Encephalopathy possible metabolic unclear etiology. MRI is negative for stroke. Review with consultants is appreciated. EEG is currently pending. Patient is currently nothing by mouth due to mental status changes. Continue aspirin 300 mg rectally daily. PT, OT, speech therapy evaluations. 2. UTI ruled out. 3. Hypertension. Continue Lopressor 5 mg IV push every 6 hours as needed. 4. Hyperlipidemia. Livalo on hold. 5. History of coronary artery disease. Patient is normally on aspirin 81 mg daily, Plavix 75 mg daily, Lopressor 100 mg daily. 6. COPD, stable. 7. Glaucoma. Continue eyedrops. 8. Overactive bladder. Patient is normally on oxybutynin. 9. GI prophylaxis. Continue Protonix changed to IV. 10. DVT prophylaxis. Heparin subcu. Patient will be admitted to the hospital for a minimum of 2 night stay. Discharge plan: Most likely subacute rehab. Impression and plan of care have been directed as dictated by the signing physician. Arcelia Ogden nurse practitioner acting as scribe for signing physician.
[2019-01-17] MEDS ORDERED: PANTOPRAZOLE 40 MG TABLET PO STA (16:44)
--- NOTE | 2019-01-17 18:41 | P.PN ---
Subjective Progress Note Date: 01/17/19 Patient continues to be aphasic, not able to express, right visual field neglect. Patient does make eye contact, smiles at times, but other times has a blank stare. No seizures have been noted. Patient is afebrile. Patient when asked if she has a headache, stated "no". Objective - Vital Signs Vital signs: Vital Signs Temp 98.4 F 01/17/19 16:00 Pulse 88 01/17/19 16:00 Resp 16 01/17/19 16:00 BP 173/85 01/17/19 16:00 Pulse Ox 95 01/17/19 16:00 Intake & Output 01/16/19 01/17/19 01/17/19 18:59 06:59 18:59 Weight 68.039 kg Other: Voiding Method Bedside Commode Incontinent # Voids 1 - Exam On examination patient is an elderly female, who is awake, quite alert, makes eye contact, but appears mute. She has limited comprehension. Cannot name, cannot repeat. Could not tell her name. Patient has right facial asymmetry. Patient has decreased blink to visual threat on the right as compared to the left. Her right arm is definitely weaker than the left. It drops down, but the left stays up and she moves it freely. Her legs are almost equal in strength. Patient has Babinski on the right - Labs CBC & Chem 7: 01/17/19 06:20 01/17/19 06:20 Labs: Abnormal Lab Results - Last 24 Hours (Table) 01/17/19 01/17/19 Range/Units 06:20 06:20 WBC 15.0 H (3.8-10.6) k/uL RBC 5.58 H (3.80-5.40) m/uL Neutrophils # 12.0 H (1.3-7.7) k/uL Sodium 134 L (137-145) mmol/L Chloride 94 L (98-107) mmol/L Glucose 127 H (74-99) mg/dL Total Bilirubin 1.4 H (0.2-1.3) mg/dL Cholesterol 279 H (<200) mg/dL LDL Cholesterol, Calc 188 H (0-99) mg/dL HDL Cholesterol 73 H (40-60) mg/dL Microbiology - Last 24 Hours (Table) 01/16/19 17:25 Urine Culture - Preliminary Urine,Voided Assessment and Plan Assessment: * 88-year-old female admitted with acute onset of altered mental status with muteness, and right facial brachial weakness. CVA is the most likely possibility. However MRI of the brain did not reveal any acute stroke. Rule out impending stroke. Encephalitis also in the differential, but appears less likely given strong focal findings on examination, lack of temperature or headache. 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 * Hypertension * Obesity Plan: * I had a very prolonged discussion with the patient's family, Dr. Meade, neuro intervention. Patient's presentation appears very much like an acute stroke, not encephalitis. Patient is mute, but does not appear encephalopathic. She has very clear focal signs suggesting of cerebrovascular accident. Patient denied headache, has normal temperature, therefore herpes encephalitis is very less likely. Her white cells could be related to the UTI, or pneumonic process. * Therefore would hold off on lumbar puncture. Patient has received Plavix on , 2 days ago, therefore carries its own risk. I will give Brillinta 90 mg twice a day, instead of Plavix, as patient has failed Plavix. Dr. Villanueva agreed. He does not feel there is any need for neuro intervention, as the left vertebral artery is patent and basilar artery has good flow. * Discussed with patient's and daughter in detail. * We will await EEG tomorrow.
[2019-01-17] MEDS: PANTOPRAZOLE 40 MG/10 ML VIAL IVP SCH (18:53)
[2019-01-17] MEDS: TICAGRELOR 90 MG TAB PO SCH (18:53)
[2019-01-17] MEDS: SODIUM CHLORIDE 0.9% 1,000 ML IV SCH (18:54)
--- NOTE | 2019-01-17 21:01 | CONS ---
CONSULTATION DATE OF SERVICE: 01/18/2019. REASON FOR CONSULTATION: Coffee-grounds emesis. HISTORY OF PRESENT ILLNESS: The patient is an 88-year-old pleasant white female admitted to the hospital with altered mental status. She has prior history of coronary artery disease status post [place] in the past, history of hypertension and hyperlipidemia. Apparently, she was found confused when she woke up in the morning yesterday by her daughter and confusion persisted through the evening and hence was brought into the emergency room. Presently neurology has been consulted and workup in progress for altered mental status. This morning while she was being changed in the bed, she had an episode of coffee-grounds emesis small amount, 1 episode, with no associated abdominal pain and no further episodes since then. No prior history of GI bleed. No history of peptic ulcer disease or recent NSAID use. She did have a CT of the brain done that showed chronic small vessel ischemia. This morning he had an MRI of the head done, report is still pending at the time of this dictation. PAST MEDICAL HISTORY: Significant for hypertension, hyperlipidemia, coronary artery disease, degenerative joint disease, gastroesophageal reflux symptoms, glaucoma. PAST SURGICAL HISTORY: Adenoidectomy, appendectomy, cardiac cath with stent placement, tubal ligation, tonsillectomy, bilateral cataract surgery. FAMILY HISTORY: Father had coronary artery disease. Sister has Crohn's disease. Mother has pernicious anemia and stomach cancer. MEDICATIONS: At home include calcium, Lasix, glucosamine, multivitamin, Livalo, potassium chloride, Plavix an aspirin, Protonix, Lopressor, Ditropan. ALLERGIES: PENICILLIN, SULFA, SHELLFISH. SOCIAL HISTORY: No smoking. No alcohol use. FAMILY HISTORY: Unremarkable. REVIEW OF SYSTEMS: CARDIOPULMONARY: No chest pain, shortness of breath. GENITOURINARY: No dysuria or hematuria. MUSCULOSKELETAL: Unremarkable. SKIN: Unremarkable. ENDOCRINE: Unremarkable. PSYCHIATRIC: Unremarkable. NEUROLOGY: Slightly confused, but responding to questions appropriately. MUSCULOSKELETAL: Unremarkable. CONSTITUTIONAL: No recent weight loss. No fever, chills, night sweats. PHYSICAL EXAMINATION: She appears comfortable. No apparent distress. Vital signs is stable. Blood pressure is 158/80, pulse 85, temperature 97.9. HEENT examination unremarkable. Conjunctivae pink. Sclerae anicteric. Oral cavity no lesions the auscultation. Heart has regular rate and rhythm. Abdomen is soft. Bowel sounds are positive. No organomegaly. Extremities, no pedal edema. Skin no rashes. Neuro, alert and oriented x3. No focal deficits. LABS: Done at the time of admission to the hospital, hemoglobin was 14.4 today is 14, WBC 15, platelets are normal. Basic metabolic panel is within normal limits. IMPRESSION: 1. Altered mental status. Workup in progress. The patient had a CT of the head done yesterday that showed small vessel ischemic changes. She had MRI and MRA of the head done today, results of which are still pending. 2. Coffee ground emesis, 1 episode, small amount, with no significant drop in hemoglobin. Possibly gastritis versus peptic ulcer disease. The patient hemodynamically stable. RECOMMENDATIONS: Start on Protonix 40 mg daily. No need for any endoscopic intervention at the present time. However, if she continues to have active bleeding, we will consider further workup. At this time we will resume her Protonix 40 mg daily that she takes at home and follow hemoglobin on a daily basis. Thank you for this consultation. NONA / PATTI: [id number] /
[2019-01-17] MEDS: LORazepam 2 MG/ML INJ IV PRN (21:11)
[2019-01-18] MEDS ORDERED: ASPIRIN 300 MG SUPP RECTAL SCH (09:00)
[2019-01-18 09:24] LABS: Calcium 9.2 mg/dL (8.4-10.2); Potassium 3.7 mmol/L (3.5-5.1)
[2019-01-18 09:31] LABS: Basophils # (A) 0.1 k/uL (0-0.2); Basophils % (A) 1 %; Eosinophils # (A) 0.1 k/uL (0-0.7); Eosinophils % (A) 1 %; HCT 41.3 % (34.0-46.0); HGB 13.1 gm/dL (11.4-16.0); Lymphocytes # (A) 2.1 k/uL (1.0-4.8); Lymphocytes % (A) 19 %; MCH 25.4 pg (25.0-35.0); MCHC 31.6 g/dL (31.0-37.0); MCV 80.4 fL (80.0-100.0); Mean Platelet Volume 7.1; Monocytes # (A) 1.1 k/uL (0-1.0); Monocytes % (A) 10 %; Neutrophils # (A) 7.5 k/uL (1.3-7.7); Neutrophils % (A) 67 %; Platelet Count 268 k/uL (150-450); RBC 5.14 m/uL (3.80-5.40); RDW 15.5 % (11.5-15.5); WBC 11.2 k/uL (3.8-10.6)
[2019-01-18] MEDS ORDERED: ARTIFICIAL TEARS-HYPROMELLOSE DROPS 15 ML BTL BOTH EYES PRN (09:45)
--- NOTE | 2019-01-18 10:58 | PN ---
PROGRESS NOTE DATE OF DICTATION: January 18, 2019. REQUESTING PHYSICIAN: Dr. Meade. INTERVAL HISTORY: The patient is an 88-year-old pleasant white female admitted to the hospital with altered mental status and presently having extensive neurological workup for possible stroke. She had an episode of coffee-ground emesis yesterday and hence we are consulted for this issue. As per the nursing staff, the patient did not have any further episodes of bleeding. She denies any abdominal pain. The patient not much communicative. No symptoms overnight. PHYSICAL EXAMINATION: She appears comfortable. No apparent distress. VITAL SIGNS: Stable. Blood pressure is 161/86, pulse rate 94, temperature 97.6. HEENT examination unremarkable. Conjunctivae pink. Sclerae anicteric. Oral cavity no lesions. NECK: No jugular venous distention or lymph node enlargement. CHEST: Clear to auscultation. HEART: Regular rate and rhythm. Abdomen was soft, it was nontender, nondistended. Bowel sounds are positive. EXTREMITIES: No pedal edema. NEUROLOGIC: Awake but not oriented to name or place. LABS: From today are still pending. Yesterday hemoglobin was 14. IMPRESSION: 1. Coffee ground emesis, 1 episode yesterday. No further bleeding since yesterday. Hemoglobin stable at 14 g/dL. CBC from today still pending. 2. Altered mental status. Having neurological workup for possible cerebrovascular accident. RECOMMENDATIONS: 1. Continue with IV Protonix 40 mg daily. 2. CBC today. 3. No plans for endoscopic intervention. We will follow with her closely during the hospital stay. Thank you for this consultation. MMODL / IJN: [id number] /
[2019-01-18] MEDS: ASPIRIN 81 MG PO SCH (11:00)
[2019-01-18] MEDS: TICAGRELOR 90 MG TAB PO SCH ×2 (11:01→21:11)
[2019-01-18] MEDS: ATORVASTATIN 10 MG TAB PO SCH (11:01)
[2019-01-18] MEDS: METOPROLOL TARTRATE 50 MG TAB PO SCH (11:01)
--- NOTE | 2019-01-18 12:57 | P.PN ---
Subjective Progress Note Date: 01/18/19 This is an 88-year-old female patient of Dr. 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 According to family, yesterday morning around 10 AM patient knew who her daughter was but could not say her name and did not recognize her grandson. She had a lot of walking in the kitchen and came back and was seeming to do fine with lunch but later, her daughter received call the patient fallen in the bathroom and called for help and she was noted to be weaker on the right side as well as a facial droop. He noted that she could not smile and had other neurological symptoms an d decided to call EMS to bring her in. Last evening in the emergency center. Patient was talking seem to be returning to baseline but this morning has been nonverbal. Patient has had history of TIAs in the fall. Patient also noted to be holding her right hand contracted to her chest with right-sided neglect. She did have an episode of vomiting this morning that was also clear with a small amount of brown tinge. Patient has not had any vomiting at home. Patient was brought into [facility] emergency center for evaluation. She was afebrile, heart rate 85, blood pressure 169/89 and pulse ox 95% on room air. WBC 11.8, hemoglobin 14.4, platelet count 277. Electrolytes were within normal limits, blood sugar 103. Liver function tests within normal limits, magnesium 1.5. INR 1.0. ProBNP 2280 and troponin negative. Urinalysis was clear with nitrate and leukoesterase negative. CAT scan of the brain showed chronic small vessel ischemia. No acute intracranial abnormality. No change from previous exam. CTA of the head and neck revealed atherosclerotic vascular disease. 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 This is increased compared to study in 2013. Patient underwent further stroke evaluation with MRI/MRA of the head and neck that showed a left subclavian artery is very tortuous as is the right with no significant stenosis on either carotid artery. Narrowing of the origin of both external carotid arteries. 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 MRI of the brain showed no acute intracranial abnormalities. White matter changes consistent with chronic ischemic change and small vessel disease. Discussed case with Dr. Villanueva and he will resume films that showed no sign of stroke. Case was also discussed with Dr. Stanley is he is following the patient. Mental status changes of unclear etiology, rule out CVA versus delirium versus metabolic encephalopathy. EEG is pending. Patient will be started on rectal aspirin and she is currently not awake enough to take oral medications. Dr. Baker is recommended continuing aspirin 81 mg and Plavix 75 mg. 01/18: The patient has had overall improvement of her condition. She is able to move her right side and she is trying to talk. She is making eye contact and laughing. Her voice is hoarse. Patient passed swallow evaluation and will start eating a soft diet. She has been seen by Dr. Barrera and has had no episodes of vomiting and no blood in her stools. Patient noted to have some tenderness in her abdomen for which bladder scan will be done to rule out retention. Dr. Stanley feels patient's symptoms are more so related to CVA versus encephalitis and dust lumbar puncture will not be done. Also patient has been on Plavix prior to admission and currently started on Brilinta. Full strength aspirin will be changed to 81 mg. We will also resume patient's home medic ations. PT, OT, ST to evaluate patient. We will add in consult with Dr. Tristan. We've also added and consult with psychiatry regarding neuropsych evaluation. UTI has been ruled out by negative urine culture. We will repeat urinalysis today. Patient has been afebrile, heart rate 80, blood pressure 129/62, pulse ox 95% on room air. WBC is 11.2. Basic metabolic panel is normal. Triglycerides 88, cholesterol 279, LDL 188, HDL 73. TSH was 1.360. Objective - Vital Signs Vital signs: Vital Signs Temp 97.8 F 01/18/19 03:15 Pulse 89 01/18/19 03:15 Resp 16 01/18/19 03:32 BP 144/65 01/18/19 03:15 Pulse Ox 92 L 01/18/19 03:15 Intake & Output 01/17/19 01/18/19 01/18/19 18:59 06:59 18:59 Weight 73.5 kg Other: Voiding Method Incontinent Incontinent # Voids 2 - Exam Review Of Systems: Constitutional: No fever, no chills, no night sweats. No weight change. No weakness, fatigue or lethargy. No daytime sleepiness. EENT: No headache. No blurred vision or double vision, no loss of vision. No loss of Hearing, no ringing in the ears, no dizziness. No nasal drainage or congestion. No epistaxis. No sore throat. Lungs: No shortness of breath, cough, no sputum production. No wheezing. Cardiovascular: No chest pain, no lower extremity edema. No palpitations. No paroxysmal nocturnal dyspnea. No orthopnea. No lightheadedness or dizziness. No syncopal episodes. Abdominal: No abdominal pain. No nausea, vomiting. No diarrhea. No constipation. No bloody or tarry stools.. No loss of appetite. Genitourinary: No dysuria, increased frequency, urgency. No urinary retention. Musculoskeletal: No myalgias. No muscle weakness, no gait dysfunction, no frequent falls. No back pain. No neck pain. Integumentary: No wounds, no lesions. No rash or pruritus. No unusual bruising. No change in hair or nails. Neurologic: No aphasia. No facial droop. No change in mentation. No head injury. No headache. No paralysis. No paresthesia. Psychiatric: No depression. No anxiety. No mood swings. Endocrine: No abnormal blood sugars. No weight change. No excessive sweating or thirst. No cold intolerance. Physical exam: General appearance: average body habitus, no distress, no acute distress - EENT Eyes: normal appearance ENT: hard of hearing, no pharyngeal erythema, no thrush - Neck Neck: no lymphadenopathy, normal ROM, no rigidity - Respiratory Respiratory: bilateral: CTA, negative: rales, rhonchi, wheezing - Cardiovascular Rhythm: regular Heart sounds: normal: S1, S2 Abnormal Heart Sounds: no systolic murmur, no diastolic murmur - Gastrointestinal General gastrointestinal: normal bowel sounds, soft, no tenderness - Neurologic The patient has right-sided neglect, right hand is contracted to chest. - Psychiatric Psychiatric: A&O x's 1 (Patient is able to follow commands, makes eye contact.), Right-sided neglect is improved. Weakness to the right side is improved. Patient is still longer holding her right arm to her chest in a contracted position. - Labs CBC & Chem 7: 01/18/19 08:42 01/18/19 08:42 Labs: Abnormal Lab Results - Last 24 Hours (Table) 01/18/19 Range/Units 08:42 WBC 11.2 H (3.8-10.6) k/uL Monocytes # 1.1 H (0-1.0) k/uL Microbiology - Last 24 Hours (Table) 01/16/19 17:25 Urine Culture - Final Urine,Voided Assessment and Plan Plan: 1. Encephalopathy possible metabolic unclear etiology, rule out CVA, rule out encephalitis. MRI is negative for stroke. Review with consultants is appreciated. EEG as above. Diet advanced. Continue Brilinta, aspirin 81 mg daily, Lipitor 10 mg daily. PT, OT, speech therapy evaluations. IV fluids decreased to 50 mL per hour. A psychiatry consult for neuro psych evaluation. 2. UTI ruled out. Recheck urinalysis. 3. Hypertension. Continue Lopressor 100 mg daily. 4. Hyperlipidemia. Atorvastatin. 5. History of coronary artery disease. Continue aspirin 81 mg daily, Brilinta 90 mg twice daily, Lopressor 100 mg daily. 6. COPD, stable. 7. Glaucoma. Continue eyedrops. 8. Overactive bladder. Patient is normally on oxybutynin, this will remain on hold. 9. GI prophylaxis. Continue Protonix oral. 10. DVT prophylaxis. Brilinta. 11. 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 12. [address] Kaufman's evaluation appreciated. Diet advanced. Discharge plan: Most likely subacute rehab. Consult with Dr. Tristan. Impression and plan of care have been directed as dictated by the signing physician. Arcelia Ogden nurse practitioner acting as scribe for signing physician.
--- NOTE | 2019-01-18 16:09 | P.PN ---
Subjective Progress Note Date: 01/18/19 Patient clinically much better. Patient able to speak words, short sentences, name objects. Patient can repeat. Patient does make eye contact, smiles at time. No seizures have been noted. Patient is afebrile. Denies headache. Patient's white cells have decreased to 11.2 with normal differential. Her total cholesterol is 279, LDL 188, HDL 73. Patient was some type of statins for years, which was discontinued by her primary physician, several months ago. Objective - Vital Signs Vital signs: Vital Signs Temp 98.6 F 01/18/19 12:00 Pulse 66 01/18/19 12:00 Resp 18 01/18/19 12:00 BP 124/65 01/18/19 12:00 Pulse Ox 94 L 01/18/19 12:00 Intake & Output 01/17/19 01/18/19 01/18/19 18:59 06:59 18:59 Intake Total 140 Output Total 400 Balance -260 Weight 73.5 kg Intake: Oral 140 Output: Urine 400 Other: Voiding Method Incontinent Incontinent Incontinent # Voids 2 3 - Exam On examination patient is an elderly female, who is awake, alert, but still very slow mentation, prolonged latency time once or questions. Overall patient is much improved as compared to yesterday. Patient able to name objects, speak words. Patient and repeat sentences. Her right facial weakness has remarkably improved. Extraocular muscles are intact. Face appears more symmetric. Patient has very mild pronation. No drift. The steel division supervisor is almost equal bilaterally. Deltoid also appears fairly normal. Sensations are equal. Patient did not cooperate for cerebellar function testing. Visual brooke could not be tested reliably. - Labs CBC & Chem 7: 01/18/19 08:42 01/18/19 08:42 Labs: Abnormal Lab Results - Last 24 Hours (Table) 01/18/19 Range/Units 08:42 WBC 11.2 H (3.8-10.6) k/uL Monocytes # 1.1 H (0-1.0) k/uL Microbiology - Last 24 Hours (Table) 01/16/19 17:25 Urine Culture - Final Urine,Voided Assessment and Plan Assessment: * 88-year-old female admitted with acute cerebrovascular accident versus reversible ischemic neurologic deficit. MRI of brain negative for acute stroke. Patient has remarkably improved. Still with slow mentation. No evidence of encephalitis. 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 * Hypertension * Hyperlipidemia * Obesity Plan: * Patient is clinically much improved. Patient has started speaking, and her right hemiparesis has remarkably improved. Still has somewhat slow mentation. * We will continue patient on Brillinta 90 mg twice a day, aspirin 81 mg daily. Discussed with Dr. Cox in detail, agreed with management. * Patient has hyperlipidemia, and would strongly recommend starting statins.. Patient's family will discuss with Dr. Meade about the choice of statins. medication. * EEG showed frequent focal slowing in the left hemispheric region. This is suggestive of focal cortical neuronal dysfunction and may suggest underlying structural abnormality. No epileptiform activity was seen. No evidence of herpes encephalitis based upon EEG results. * Patient will need follow-up neurological care after discharge. * Neurology coverage in the hospital not available from 01/19/2019 through 01/23/2019. * Discussed with patient's and daughter & son in detail.
[2019-01-18] MEDS: PANTOPRAZOLE 40 MG/10 ML VIAL IVP SCH (17:04)
--- NOTE | 2019-01-18 18:44 | EEG ---
ELECTROENCEPHALOGRAM REPORT DATE OF SERVICE: 01/18/2019. PREAMBLE: This is an 88-year-old female, who presented with altered mental status, with muteness, and right hemiparesis. This study is performed to evaluate for any encephalopathy, rule out encephalitis. EEG FINDINGS: A routine 21 channel awake digital EEG recording was accomplished utilizing the 10/20 international system with bipolar and referential montages. The background consists of well developed, well regulated, moderate amplitude activity in 8-9 hertz alpha. Background is posterior dominant, reactive to eye opening and closing, seen better in the right hemispheric region as compared to the left. There is very frequent focal slowing in low amplitude theta and delta activity in the left hemispheric region. Different stages of sleep were not seen. Photic driving response was not seen. No focal or lateralized epileptiform activity was seen. IMPRESSION: This is an abnormal EEG due to the presence of frequent focal slowing in the left hemispheric region. This is suggestive of focal cortical neuronal dysfunction and may suggest underlying structural abnormality. No epileptiform activity was seen. Clinical correlation is strongly recommended. MMODL / IJN: [id number] /
--- NOTE | 2019-01-18 20:54 | P.CN ---
Psychiatric Consult - . Consult date: 01/18/19 Consult:: 01/18/19 20:52 This is an 88-year-old female brought into [facility] emergency center with altered mental status got admitted to medicine for possible encephalitis, CVA. Psychiatry was consulted for neuropsychiatric evaluation . Patient is aphasic and nods yes or no to simple questions, aware of own name. Unable to complete any of the assessment including MOCA test (murali cognitive assessment) due to her inability to talk and poor motor skills. Reportedly she is slowly regaining her motor skills and awareness . Per medical records patients daughter received call the patient fallen in the bathroom and called for help and she was noted to be weaker on the right side as well as a facial droop. noted that she could not smile and had other neurological symptoms and decided to call EMS to bring her in. Patient has had history of TIAs , hypertension, COPD, hyperlipidemia, history of myocardial infarction in 2006 status post 3 stents, history of pulmonary fibrosis. Patient also noted to be holding her right hand contracted to her chest with right-sided neglect. Per medicine patient's symptoms are more so related to CVA versus encephalitis. If needed will attempt to complete neuropsychological evaluation later when patient is able to talk and has improved motor skills.
[2019-01-18] MEDS: LATANOPROST 0.005% OPHTH DROPS 2.5 ML BTL BOTH EYES SCH (21:11)
[2019-01-18] MEDS: PANTOPRAZOLE 40 MG TABLET PO SCH (21:11)
[2019-01-18] MEDS: LORazepam 2 MG/ML INJ IV PRN (21:28)
[2019-01-19] MEDS: SODIUM CHLORIDE 0.9% 1,000 ML IV SCH ×2 (05:52→12:06)
[2019-01-19 09:34] LABS: Hemoglobin A1C 5.9 % (4.0-6.0)
[2019-01-19] MEDS: ASPIRIN 81 MG PO SCH (09:57)
[2019-01-19] MEDS: ATORVASTATIN 10 MG TAB PO SCH (09:57)
[2019-01-19] MEDS: TICAGRELOR 90 MG TAB PO SCH ×2 (09:57→20:44)
[2019-01-19] MEDS: VIT A,C & E-LUTEIN-MINERALS 1 EACH TAB PO SCH (09:57)
[2019-01-19] MEDS: METOPROLOL TARTRATE 50 MG TAB PO SCH (09:57)
--- NOTE | 2019-01-19 10:11 | P.DS ---
Providers Date of admission: 01/16/19 18:48 Expected date of discharge: 01/19/19 Attending physician: April Lucas Consults: 01/16/19 18:48 Consult Physician Routine Consulting Provider: Rachael Stanley Consult Reason/Comments: cva Do you want consulting provider notified?: Yes 01/17/19 08:59 Consult Physician Routine Consulting Provider: Shabbir Dela Cruz Consult Reason/Comments: Vomiting coffee ground emesis Do you want consulting provider notified?: Yes 01/18/19 09:33 Consult Physician Routine Consulting Provider: Baljinder Tristan Consult Reason/Comments: IP rehab Do you want consulting provider notified?: Yes 01/18/19 09:37 Consult Physician Routine Consulting Provider: Gianfranco George Consult Reason/Comments: neuropsych eval Do you want consulting provider notified?: Yes Primary care physician: Raisa Meade MD Hospital Course: This is an 88-year-old female patient of Dr. Meade with past medical history of hypertension, COPD, hyperlipidemia, history of myocardial infarction in 2006 status post 3 stents, history of pulmonary fibrosis. According to family, yesterday morning around 10 AM patient knew who her daughter was but could not say her name and did not recognize her grandson. She had a lot of walking in the kitchen and came back and was seeming to do fine with lunch but later, her daughter received call the patient fallen in the bathroom and called for help and she was noted to be weaker on the right side as well as a facial droop. He noted that she could not smile and had other neurological symptoms and decided to call EMS to bring her in. Last evening in the emergency center. Patient was talking seem to be returning to baseline but this morning has been nonverbal. Patient has had history of TIAs in the fall. Patient also noted to be holding her right hand contracted to her chest with right-sided neglect. She did have an episode of vomiting this morning that was also clear with a small amount of brown tinge. Patient has not had any vomiting at home. Patient was brought into [facility] emergency center for evaluation. She was afebrile, heart rate 85, blood pressure 169/89 and pulse ox 95% on room air. WBC 11.8, hemoglobin 14.4, platelet count 277. Electrolytes were within normal limits, blood sugar 103. Liver function tests within normal limits, magnesium 1.5. INR 1.0. ProBNP 2280 and troponin negative. Urinalysis was clear with nitrate and leukoesterase negative. CAT scan of the brain showed chronic small vessel ischemia. No acute intracranial abnormality. No change from previous exam. CTA of the head and neck revealed atherosclerotic vascular disease. 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 This is increased compared to study in 2013. Patient underwent further stroke evaluation with MRI/MRA of the head and neck that showed a left subclavian artery is very tortuous as is the right with no significant stenosis on either carotid artery. Narrowing of the origin of both external carotid arteries. 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 MRI of the brain showed no acute intracranial abnormalities. White matter changes consistent with chronic ischemic change and small vessel disease. Discussed case with Dr. Villanueva and he will resume films that showed no sign of stroke. Case was also discussed with Dr. Stanley is he is following the patient. Mental status changes of unclear etiology, rule out CVA versus delirium versus metabolic encephalopathy. EEG is pending. Patient will be started on rectal aspirin and she is currently not awake enough to take oral medications. Dr. Baker is recommended continuing aspirin 81 mg and Plavix 75 mg. 01/18: The patient has had overall improvement of her condition. She is able to move her right side and she is trying to talk. She is making eye contact and laughing. Her voice is hoarse. Patient passed swallow evaluation and will start eating a soft diet. She has been seen by Dr. Barrera and has had no episodes of vomiting and no blood in her stools. Patient noted to have some tenderness in her abdomen for which bladder scan will be done to rule out retention. Dr. Stanley feels patient's symptoms are more so related to CVA versus encephalitis and dust lumbar puncture will not be done. Also patient has been on Plavix prior to admission and currently started on Brilinta. Full strength aspirin will be changed to 81 mg. We will also resume patient's home medications. PT, OT, ST to evaluate patient. We will add in consult with Dr. Tristan. We've also added and consult with psychiatry regarding neuropsych evaluation. UTI has been ruled out by negative urine culture. We will repeat urinalysis today. Patient has been afebrile, heart rate 80, blood pressure 129/62, pulse ox 95% on room air. WBC is 11.2. Basic metabolic panel is normal. Triglycerides 88, cholesterol 279, LDL 188, HDL 73. TSH was 1.360. 01/19: The patient has been seen by psychiatry with recommendations for neuropsychological evaluation later when patient is able to talk and with improved motor skills. This will be arranged by Dr. Byrne. The patient continues to have improvement and she is talking in all more verbal from yesterday. She recognizes family and can provide the names. Right hemiparesis is improved as well. She has been advanced to regular diet and has had no episodes of choking or coughing. Discussed need for lipid-lowering medication with family and it was decided the patient will be started on Pravachol. Repeat urinalysis was not obtained. We will plan to treat the patient with one more dose of ceftriaxone and no further antibiotics following that. Patient and family are agreeable to go to subacute rehab and case mgr and social worker masters are making arrangements hopefully for today. Patient will be discharged later today once arrangements are completed. Discharge diagnoses: 1. Encephalopathy most likely secondary to CVA although MRI is negative for stroke. 2. UTI ruled out. 3. Hypertension. 4. Hyperlipidemia. 5. History of coronary artery disease. 6. COPD, stable. 7. Glaucoma. 8. Overactive bladder. 9. 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 10. 1 episode of vomiting. Discharge plan: subacute rehab. Impression and plan of care have been directed as dictated by the signing physician. Arcelia Ogden nurse practitioner acting as scribe for signing physician. Patient Condition at Discharge: Good Plan - Discharge Summary Discharge Rx Participant: Yes New Discharge Prescriptions: New Ticagrelor [Brilinta] 90 mg PO BID tab Pravastatin Sodium [Pravachol] 80 mg PO HS #30 tab Continue Potassium Chloride ER [K-Dur 10] 10 meq PO DAILY PRN PRN Reason: Edema Pitavastatin Calcium [Livalo] 2 mg PO DAILY Latanoprost [Xalatan 0.005%] 1 drop BOTH EYES HS Multivitamins, Thera [Multivitamin (formulary)] 1 tab PO DAILY Furosemide [Lasix] 20 mg PO DAILY PRN PRN Reason: Edema Carboxymethylcellulose Sodium [Refresh Tears] 1 drop BOTH EYES DAILY PRN PRN Reason: DRY EYES Calcium Carbonate [Calcium] 1,200 mg PO DAILY Vit C/E/Zn/Coppr/Lutein/Zeaxan [Preservision Areds 2 Softgel] 1 cap PO DAILY Glucosam/Fam-Msm1/C/Filemon/Bosw [Glucosamine-Chondroitin Tablet] 1 tab PO DAILY Aspirin 81 mg PO DAILY #0 chew Pantoprazole [Protonix] 40 mg PO HS #30 tablet. Metoprolol Tartrate [Lopressor] 100 mg PO DAILY Discontinued Clopidogrel [Plavix] 75 mg PO DAILY 60 Days #60 tablet Oxybutynin Chloride [Ditropan] 5 mg PO BID Discharge Medication List Calcium Carbonate [Calcium] 1,200 mg PO DAILY 05/27/18 [History] Carboxymethylcellulose Sodium [Refresh Tears] 1 drop BOTH EYES DAILY PRN 05/27/18 [History] Furosemide [Lasix] 20 mg PO DAILY PRN 05/27/18 [History] Glucosam/Fam-Msm1/C/Filemon/Bosw [Glucosamine-Chondroitin Tablet] 1 tab PO DAILY 05/27/18 [History] Latanoprost [Xalatan 0.005%] 1 drop BOTH EYES HS 05/27/18 [History] Multivitamins, Thera [Multivitamin (formulary)] 1 tab PO DAILY 05/27/18 [History] Pitavastatin Calcium [Livalo] 2 mg PO DAILY 05/27/18 [History] Potassium Chloride ER [K-Dur 10] 10 meq PO DAILY PRN 05/27/18 [History] Vit C/E/Zn/Coppr/Lutein/Zeaxan [Preservision Areds 2 Softgel] 1 cap PO DAILY 05/27/18 [History] Aspirin 81 mg PO DAILY #0 chew 05/29/18 [Rx] Pantoprazole [Protonix] 40 mg PO HS #30 tablet. 05/29/18 [Rx] Metoprolol Tartrate [Lopressor] 100 mg PO DAILY 01/16/19 [History] Pravastatin Sodium [Pravachol] 80 mg PO HS #30 tab 01/19/19 [Rx] Ticagrelor [Brilinta] 90 mg PO BID tab 01/19/19 [Rx] Follow up Appointment(s)/Referral(s): Raisa Meade MD [Primary Care Provider] - 1 Week (after discharge from [facility]) Patient Instructions/Handouts: Stroke (DC)
[2019-01-19] MEDS: ACETAMINOPHEN TAB 325 MG TAB PO PRN (16:31)
[2019-01-19] MEDS: PANTOPRAZOLE 40 MG TABLET PO SCH (20:44)
[2019-01-19] MEDS: PRAVASTATIN SODIUM 80 MG TAB PO SCH (20:44)
[2019-01-20] MEDS: LATANOPROST 0.005% OPHTH DROPS 2.5 ML BTL BOTH EYES SCH ×2 (00:09→21:07)
[2019-01-20] MEDS: LORazepam 2 MG/ML INJ IV PRN (00:09)
[2019-01-20 04:43] VITALS: RESP 16
[2019-01-20] MEDS: VIT A,C & E-LUTEIN-MINERALS 1 EACH TAB PO SCH (09:46)
[2019-01-20] MEDS: METOPROLOL TARTRATE 50 MG TAB PO SCH (09:46)
[2019-01-20] MEDS: TICAGRELOR 90 MG TAB PO SCH ×2 (09:46→21:07)
[2019-01-20] MEDS: ASPIRIN 81 MG PO SCH (09:46)
--- NOTE | 2019-01-20 11:40 | P.PN ---
Subjective Progress Note Date: 01/20/19 Principal diagnosis: Coffee-ground emesis Son at bedside. No recurrence of coffee-ground emesis or abdominal pain. No reports of hematemesis or melena. Tolerating diet. Discharge planning today. No CBC to review. Objective - Vital Signs Vital signs: Vital Signs Temp 98.7 F 01/20/19 04:31 Pulse 89 01/20/19 04:31 Resp 16 01/20/19 04:31 BP 146/70 01/20/19 04:31 Pulse Ox 94 L 01/20/19 10:38 Intake & Output 01/19/19 01/20/19 01/20/19 18:59 06:59 18:59 Intake Total 598 240 Balance 598 240 Intake: Oral 598 240 Other: Voiding Method Incontinent Incontinent Toilet # Voids 2 2 # Bowel Movements 1 - Exam General appearance: The patient is alert,in no acute distress. HET: Head is normocephalic and atraumatic. Pupils are equal and reactive. Oropharynx is clear without lesions. Neck: Supple without lymphadenopathy. Trachea midline. Heart: S1 S2. Regular rate and rhythm. Lungs: No crackles or wheezes are heard. Abdomen: Soft, nontender, nondistended with bowel sounds. No peritoneal signs. No palpable organomegaly or masses. Extremities: Normal skin color and turgor. No cyanosis, rash, ulceration, clubbing, or edema. Radial and pedal pulses are 2/4 bilaterally. Neurological: No focal deficits. Strength and sensation are grossly intact. - Labs CBC & Chem 7: 01/18/19 08:42 01/18/19 08:42 Labs: Abnormal Lab Results - Last 24 Hours (Table) 01/20/19 Range/Units 10:31 C-Reactive Protein 47.9 H (<10.0) mg/L Assessment and Plan (1) Coffee ground emesis Narrative/Plan: 88-year-old female admitted with altered mental status and episode of coffee- ground emesis without recurrence possible Jacque-Bell tear possible gastritis possible esophagitis possible duodenitis. Hemoglobin stable. Current Visit: Yes Status: Acute Code(s): K92.0 - HEMATEMESIS SNOMED Code(s): 81777414 (2) Altered mental status Current Visit: Yes Status: Acute Code(s): R41.82 - ALTERED MENTAL STATUS, UNSPECIFIED SNOMED Code(s): 835195276 Plan: 1. Agreeable for discharge. Inpatient endoscopic exam not planned at this time. Plan of care was discussed with son at bedside. Discharge planning today to [facility]. Recommend Protonix 40 mg daily. Assessment and plan a care discussed with Dr. Barrera
--- NOTE | 2019-01-20 12:17 | CT ---
EXAMINATION TYPE: CT brain wo con DATE OF EXAM: 01/20/2019 COMPARISON: 01/16/2019 HISTORY: Headache CT DLP: 1153 mGycm Automated exposure control for dose reduction was used. FINDINGS: Intracranial atherosclerotic changes are noted. There is moderate generalized degenerative change. No acute hemorrhage. Diffuse nonspecific white matter changes are stable. No midline shift or mass effe ct. Calvarium intact. IMPRESSION: DEGENERATIVE AND NONSPECIFIC WHITE MATTER CHANGES. MOST TYPICAL REMOTE MICROVASCULAR ISCHEMIA.
[2019-01-20] MEDS: ACETAMINOPHEN TAB 325 MG TAB PO PRN (16:12)
[2019-01-20] MEDS: PANTOPRAZOLE 40 MG TABLET PO SCH (21:07)
[2019-01-20] MEDS: PRAVASTATIN SODIUM 80 MG TAB PO SCH (22:32)
[2019-01-21] MEDS: TICAGRELOR 90 MG TAB PO SCH (07:37)
[2019-01-21] MEDS: METOPROLOL TARTRATE 50 MG TAB PO SCH (07:37)
[2019-01-21] MEDS: VIT A,C & E-LUTEIN-MINERALS 1 EACH TAB PO SCH (07:37)
[2019-01-21] MEDS: ASPIRIN 81 MG PO SCH (07:38)
[2019-01-21 11:46] VITALS: BP 130/62; PULSE 71; TEMP 96.9
[2019-01-21 14:51] LABS: C-ANCA <1:20 Titer (<1:20); P-ANCA <1:20 Titer (<1:20)
--- NOTE | 2019-01-21 15:35 | P.PN ---
Subjective Progress Note Date: 01/21/19 This is an 88-year-old female patient of Dr. 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 According to family, yesterday morning around 10 AM patient knew who her daughter was but could not say her name and did not recognize her grandson. She had a lot of walking in the kitchen and came back and was seeming to do fine with lunch but later, her daughter received call the patient fallen in the bathroom and called for help and she was noted to be weaker on the right side as well as a facial droop. He noted that she could not smile and had other neurological symptoms an d decided to call EMS to bring her in. Last evening in the emergency center. Patient was talking seem to be returning to baseline but this morning has been nonverbal. Patient has had history of TIAs in the fall. Patient also noted to be holding her right hand contracted to her chest with right-sided neglect. She did have an episode of vomiting this morning that was also clear with a small amount of brown tinge. Patient has not had any vomiting at home. Patient was brought into [facility] emergency center for evaluation. She was afebrile, heart rate 85, blood pressure 169/89 and pulse ox 95% on room air. WBC 11.8, hemoglobin 14.4, platelet count 277. Electrolytes were within normal limits, blood sugar 103. Liver function tests within normal limits, magnesium 1.5. INR 1.0. ProBNP 2280 and troponin negative. Urinalysis was clear with nitrate and leukoesterase negative. CAT scan of the brain showed chronic small vessel ischemia. No acute intracranial abnormality. No change from previous exam. CTA of the head and neck revealed atherosclerotic vascular disease. 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 This is increased compared to study in 2013. Patient underwent further stroke evaluation with MRI/MRA of the head and neck that showed a left subclavian artery is very tortuous as is the right with no significant stenosis on either carotid artery. Narrowing of the origin of both external carotid arteries. 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 MRI of the brain showed no acute intracranial abnormalities. White matter changes consistent with chronic ischemic change and small vessel disease. Discussed case with Dr. Villanueva and he will resume films that showed no sign of stroke. Case was also discussed with Dr. Stanley is he is following the patient. Mental status changes of unclear etiology, rule out CVA versus delirium versus metabolic encephalopathy. EEG is pending. Patient will be started on rectal aspirin and she is currently not awake enough to take oral medications. Dr. Baker is recommended continuing aspirin 81 mg and Plavix 75 mg. 01/18: The patient has had overall improvement of her condition. She is able to move her right side and she is trying to talk. She is making eye contact and laughing. Her voice is hoarse. Patient passed swallow evaluation and will start eating a soft diet. She has been seen by Dr. Barrera and has had no episodes of vomiting and no blood in her stools. Patient noted to have some tenderness in her abdomen for which bladder scan will be done to rule out retention. Dr. tSanley feels patient's symptoms are more so related to CVA versus encephalitis and dust lumbar puncture will not be done. Also patient has been on Plavix prior to admission and currently started on Brilinta. Full strength aspirin will be changed to 81 mg. We will also resume patient's home medic ations. PT, OT, ST to evaluate patient. We will add in consult with Dr. Tristan. We've also added and consult with psychiatry regarding neuropsych evaluation. UTI has been ruled out by negative urine culture. We will repeat urinalysis today. Patient has been afebrile, heart rate 80, blood pressure 129/62, pulse ox 95% on room air. WBC is 11.2. Basic metabolic panel is normal. Triglycerides 88, cholesterol 279, LDL 188, HDL 73. TSH was 1.360. 01/19: The patient has been seen by psychiatry with recommendations for neuropsychological evaluation later when patient is able to talk and with i mproved motor skills. This will be arranged by Dr. Byrne. The patient continues to have improvement and she is talking in all more verbal from yesterday. She recognizes family and can provide the names. Right hemiparesis is improved as well. She has been advanced to regular diet and has had no episodes of choking or coughing. Discussed need for lipid-lowering medication with family and it was decided the patient will be started on Pravachol. Repeat urinalysis was not obtained. We will plan to treat the patient with one more dose of ceftriaxone and no further antibiotics following that. Patient and family are agreeable to go to subacute rehab and case investigator and elementary school social worker are making arrangements hopefully for today. Patient will be discharged later today once arrangements are completed. Objective - Vital Signs Vital signs: Vital Signs Temp 97.6 F 01/21/19 04:59 Pulse 82 01/21/19 04:59 Resp 16 01/21/19 04:59 BP 151/86 01/21/19 04:59 Pulse Ox 97 01/21/19 04:59 Intake & Output 01/20/19 01/21/19 01/21/19 18:59 06:59 18:59 Intake Total 590 Balance 590 Intake: Oral 590 Other: Voiding Method Toilet Toilet # Voids 2 3 # Bowel Movements 1 1 - Exam Review Of Systems: No new complaints Constitutional: No fever, no chills, no night sweats. No weight change. No weakness, fatigue or lethargy. No daytime sleepiness. EENT: No headache. No blurred vision or double vision, no loss of vision. No loss of Hearing, no ringing in the ears, no dizziness. No nasal drainage or congestion. No epistaxis. No sore throat. Lungs: No shortness of breath, cough, no sputum production. No wheezing. Cardiovascular: No chest pain, no lower extremity edema. No palpitations. No paroxysmal nocturnal dyspnea. No orthopnea. No lightheadedness or dizziness. No syncopal episodes. Abdominal: No abdominal pain. No nausea, vomiting. No diarrhea. No constipation. No bloody or tarry stools.. No loss of appetite. Genitourinary: No dysuria, increased frequency, urgency. No urinary retention. Musculoskeletal: No myalgias. No muscle weakness, no gait dysfunction, no frequent falls. No back pain. No neck pain. Integumentary: No wounds, no lesions. No rash or pruritus. No unusual bruising. No change in hair or nails. Neurologic: No aphasia. No facial droop. No change in mentation. No head injury. No headache. No paralysis. No paresthesia. Psychiatric: No depression. No anxiety. No mood swings. Endocrine: No abnormal blood sugars. No weight change. No excessive sweating or thirst. No cold intolerance. Physical exam: General appearance: average body habitus, no distress, no acute distress - EENT Eyes: normal appearance ENT: hard of hearing, no pharyngeal erythema, no thrush - Neck Neck: no lymphadenopathy, normal ROM, no rigidity - Respiratory Respiratory: bilateral: CTA, negative: rales, rhonchi, wheezing - Cardiovascular Rhythm: regular Heart sounds: normal: S1, S2 Abnormal Heart Sounds: no systolic murmur, no diastolic murmur - Gastrointestinal General gastrointestinal: normal bowel sounds, soft, no tenderness - Neurologic The patient has right-sided neglect, improving, - Psychiatric Psychiatric: A&O x's 3. Right-sided neglect is improved. Weakness to the right side is improved. Patient is no longer holding her right arm to her chest in a contracted position. - Labs CBC & Chem 7: 01/18/19 08:42 01/18/19 08:42 Labs: Abnormal Lab Results - Last 24 Hours (Table) 01/20/19 Range/Units 10:31 C-Reactive Protein 47.9 H (<10.0) mg/L Assessment and Plan Plan: 1. Encephalopathy possible metabolic unclear etiology. MRI is negative for stroke but most likely patient's symptoms reflect CVA. Review with consultants is appreciated. Diet started. Continue Proventil, Pravachol, baby aspirin. Home medications of been reviewed. PT, OT, speech therapy evaluations. Social work for discharge planning. 2. UTI ruled out. 3. Hypertension. Continue Lopressor 5 mg IV push every 6 hours as needed. 4. Hyperlipidemia. Livalo on hold. 5. History of coronary artery disease. Patient is normally on aspirin 81 mg daily, Plavix 75 mg daily, Lopressor 100 mg daily. 6. COPD, stable. 7. Glaucoma. Continue eyedrops. 8. Overactive bladder. Patient is normally on oxybutynin. 9. GI prophylaxis. Continue Protonix changed to IV. 10. DVT prophylaxis. Heparin subcu. Discharge plan: Most likely subacute rehab for inpatient rehab. Impression and plan of care have been directed as dictated by the signing physician. Arcelia Ogden nurse practitioner acting as scribe for signing physician.
--- NOTE | 2019-01-21 15:38 | P.PN ---
Subjective Progress Note Date: 01/20/19 This is an 88-year-old female patient of Dr. 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 According to family, yesterday morning around 10 AM patient knew who her daughter was but could not say her name and did not recognize her grandson. She had a lot of walking in the kitchen and came back and was seeming to do fine with lunch but later, her daughter received call the patient fallen in the bathroom and called for help and she was noted to be weaker on the right side as well as a facial droop. He noted that she could not smile and had other neurological symptoms an d decided to call EMS to bring her in. Last evening in the emergency center. Patient was talking seem to be returning to baseline but this morning has been nonverbal. Patient has had history of TIAs in the fall. Patient also noted to be holding her right hand contracted to her chest with right-sided neglect. She did have an episode of vomiting this morning that was also clear with a small amount of brown tinge. Patient has not had any vomiting at home. Patient was brought into [facility] emergency center for evaluation. She was afebrile, heart rate 85, blood pressure 169/89 and pulse ox 95% on room air. WBC 11.8, hemoglobin 14.4, platelet count 277. Electrolytes were within normal limits, blood sugar 103. Liver function tests within normal limits, magnesium 1.5. INR 1.0. ProBNP 2280 and troponin negative. Urinalysis was clear with nitrate and leukoesterase negative. CAT scan of the brain showed chronic small vessel ischemia. No acute intracranial abnormality. No change from previous exam. CTA of the head and neck revealed atherosclerotic vascular disease. 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 This is increased compared to study in 2013. Patient underwent further stroke evaluation with MRI/MRA of the head and neck that showed a left subclavian artery is very tortuous as is the right with no significant stenosis on either carotid artery. Narrowing of the origin of both external carotid arteries. 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 MRI of the brain showed no acute intracranial abnormalities. White matter changes consistent with chronic ischemic change and small vessel disease. Discussed case with Dr. Villanueva and he will resume films that showed no sign of stroke. Case was also discussed with Dr. Stanley is he is following the patient. Mental status changes of unclear etiology, rule out CVA versus delirium versus metabolic encephalopathy. EEG is pending. Patient will be started on rectal aspirin and she is currently not awake enough to take oral medications. Dr. Baker is recommended continuing aspirin 81 mg and Plavix 75 mg. 01/18: The patient has had overall improvement of her condition. She is able to move her right side and she is trying to talk. She is making eye contact and laughing. Her voice is hoarse. Patient passed swallow evaluation and will start eating a soft diet. She has been seen by Dr. Barrera and has had no episodes of vomiting and no blood in her stools. Patient noted to have some tenderness in her abdomen for which bladder scan will be done to rule out retention. Dr. Stanley feels patient's symptoms are more so related to CVA versus encephalitis and dust lumbar puncture will not be done. Also patient has been on Plavix prior to admission and currently started on Brilinta. Full strength aspirin will be changed to 81 mg. We will also resume patient's home medic ations. PT, OT, ST to evaluate patient. We will add in consult with Dr. Tristan. We've also added and consult with psychiatry regarding neuropsych evaluation. UTI has been ruled out by negative urine culture. We will repeat urinalysis today. Patient has been afebrile, heart rate 80, blood pressure 129/62, pulse ox 95% on room air. WBC is 11.2. Basic metabolic panel is normal. Triglycerides 88, cholesterol 279, LDL 188, HDL 73. TSH was 1.360. 01/19: The patient has been seen by psychiatry with recommendations for neuropsychological evaluation later when patient is able to talk and with i mproved motor skills. This will be arranged by Dr. Byrne. The patient continues to have improvement and she is talking in all more verbal from yesterday. She recognizes family and can provide the names. Right hemiparesis is improved as well. She has been advanced to regular diet and has had no episodes of choking or coughing. Discussed need for lipid-lowering medication with family and it was decided the patient will be started on Pravachol. Repeat urinalysis was not obtained. We will plan to treat the patient with one more dose of ceftriaxone and no further antibiotics following that. Patient and family are agreeable to go to subacute rehab and shelter case manager and 7th grade social studies teacher are making arrangements hopefully for today. Patient will be discharged later today once arrangements are completed. 01/20: Patient has been transferred to the [facility] floor. She continues to have improvement of her weakness on the right side. She is smiling and making eye contact. She is able to speak. She is complaining of eft temporal headache and CRP and sed rate will be ordered. CAT scan of the brain ordered. Patient to be evaluated for inpatient rehab versus subacute rehab. Objective - Vital Signs Vital signs: Vital Signs Temp 96.9 F L 01/21/19 11:35 Pulse 71 01/21/19 11:35 Resp 16 01/21/19 11:35 BP 130/62 01/21/19 11:35 Pulse Ox 94 L 01/21/19 11:35 Intake & Output 01/20/19 01/21/19 01/21/19 18:59 06:59 18:59 Intake Total 590 830 Balance 590 830 Intake: Oral 590 830 Other: Voiding Method Toilet Toilet Toilet # Voids 2 3 3 # Bowel Movements 1 1 - Exam Review Of Systems: Constitutional: No fever, no chills, no night sweats. No weight change. No weakness, fatigue or lethargy. No daytime sleepiness. EENT: Reports headache. No blurred vision or double vision, no loss of vision. No loss of Hearing, no ringing in the ears, no dizziness. No nasal drainage or congestion. No epistaxis. No sore throat. Lungs: No shortness of breath, cough, no sputum production. No wheezing. Cardiovascular: No chest pain, no lower extremity edema. No palpitations. No paroxysmal nocturnal dyspnea. No orthopnea. No lightheadedness or dizziness. No syncopal episodes. Abdominal: No abdominal pain. No nausea, vomiting. No diarrhea. No constipation. No bloody or tarry stools.. No loss of appetite. Genitourinary: No dysuria, increased frequency, urgency. No urinary retention. Musculoskeletal: No myalgias. No muscle weakness, no gait dysfunction, no frequent falls. No back pain. No neck pain. Integumentary: No wounds, no lesions. No rash or pruritus. No unusual bruising. No change in hair or nails. Neurologic: No aphasia. No facial droop. No change in mentation. No head injury. No headache. No paralysis. No paresthesia. Psychiatric: No depression. No anxiety. No mood swings. Endocrine: No abnormal blood sugars. No weight change. No excessive sweating or thirst. No cold intolerance. Physical exam: General appearance: average body habitus, no distress, no acute distress - EENT Eyes: normal appearance ENT: hard of hearing, no pharyngeal erythema, no thrush - Neck Neck: no lymphadenopathy, normal ROM, no rigidity - Respiratory Respiratory: bilateral: CTA, negative: rales, rhonchi, wheezing - Cardiovascular Rhythm: regular Heart sounds: normal: S1, S2 Abnormal Heart Sounds: no systolic murmur, no diastolic murmur - Gastrointestinal General gastrointestinal: normal bowel sounds, soft, no tenderness - Neurologic Minimal weakness on the right side. - Psychiatric Psychiatric: A&O x's 3. Right-sided neglect is resolved - Labs CBC & Chem 7: 01/18/19 08:42 01/18/19 08:42 Assessment and Plan Plan: 1. Encephalopathy possible metabolic unclear etiology. MRI is negative for stroke but most likely patient's symptoms reflect CVA. Review with consultants is appreciated. Diet started. Continue Proventil, Pravachol, baby aspirin. Home medications of been reviewed. PT, OT, speech therapy evaluations. Social work for discharge planning. 2. UTI ruled out. 3. Hypertension. Continue Lopressor 5 mg IV push every 6 hours as needed. 4. Hyperlipidemia. Livalo on hold. 5. History of coronary artery disease. Patient is normally on aspirin 81 mg daily, Plavix 75 mg daily, Lopressor 100 mg daily. 6. COPD, stable. 7. Glaucoma. Continue eyedrops. 8. Overactive bladder. Patient is normally on oxybutynin. 9. GI prophylaxis. Continue Protonix changed to IV. 10. DVT prophylaxis. Heparin subcu. 11. Left temporal headache. CRP, sed rate, CAT scan of the brain ordered Discharge plan: inpatient rehab once insurance authorization has been obtained.. Impression and plan of care have been directed as dictated by the signing physician. Arcelia Ogden nurse practitioner acting as scribe for signing physician.
--- NOTE | 2019-01-21 15:46 | P.DS ---
Providers Date of admission: 01/16/19 18:48 Expected date of discharge: 01/21/19 Attending physician: April Lucas Consults: 01/16/19 18:48 Consult Physician Routine Consulting Provider: Rachael Stanley Consult Reason/Comments: cva Do you want consulting provider notified?: Yes 01/18/19 09:33 Consult Physician Routine Consulting Provider: Baljinder Tristan Consult Reason/Comments: IP rehab Do you want consulting provider notified?: Yes 01/18/19 09:37 Consult Physician Routine Consulting Provider: Gianfranco George Consult Reason/Comments: neuropsych eval Do you want consulting provider notified?: Yes Primary care physician: Raisa Meade MD Hospital Course: This is an 88-year-old female patient of Dr. Meade with past medical history of hypertension, COPD, hyperlipidemia, history of myocardial infarction in 2006 status post 3 stents, history of pulmonary fibrosis. According to family, yesterday morning around 10 AM patient knew who her daughter was but co uld not say her name and did not recognize her grandson. She had a lot of walking in the kitchen and came back and was seeming to do fine with lunch but later, her daughter received call the patient fallen in the bathroom and called for help and she was noted to be weaker on the right side as well as a facial droop. He noted that she could not smile and had other neurological symptoms and decided to call EMS to bring her in. Last evening in the emergency center. Patient was talking seem to be returning to baseline but this morning has been nonverbal. Patient has had history of TIAs in the fall. Patient also noted to be holding her right hand contracted to her chest with right-sided neglect. She did have an episode of vomiting this morning that was also clear with a small amount of brown tinge. Patient has not had any vomiting at home. Patient was brought into [facility] emergency center for evaluation. She was afebrile, heart rate 85, blood pressure 169/89 and pulse ox 95% on room air. WBC 11.8, hemoglobin 14.4, platelet count 277. Electrolytes were within normal limits, blood sugar 103. Liver function tests within normal limits, magnesium 1.5. INR 1.0. ProBNP 2280 and troponin negative. Urinalysis was clear with nitrate and leukoesterase negative. CAT scan of the brain showed chronic small vessel ischemia. No acute intracranial abnormality. No change from previous exam. CTA of the head and neck revealed atherosclerotic vascular disease. 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 This is increased compared to study in 2013. Patient underwent further stroke evaluation with MRI/MRA of the head and neck that showed a left subclavian artery is very tortuous as is the right with no significant stenosis on either carotid artery. Narrowing of the origin of both external carotid arteries. 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 MRI of the brain showed no acute intracranial abnormalities. White matter changes consistent with chronic ischemic change and small vessel disease. Discussed case with Dr. Villanueva and he will resume films that showed no sign of stroke. Case was also discussed with Dr. Stanley is he is following the patient. Mental status changes of unclear etiology, rule out CVA versus delirium versus metabolic encephalopathy. EEG is pending. Patient will be started on rectal aspirin and she is currently not awake enough to take oral medications. Dr. Baker is recommended continuing aspirin 81 mg and Plavix 75 mg. 01/18: The patient has had overall improvement of her condition. She is able to move her right side and she is trying to talk. She is making eye contact and laughing. Her voice is hoarse. Patient passed swallow evaluation and will start eating a soft diet. She has been seen by Dr. Barrera and has had no episodes of vomiting and no blood in her stools. Patient noted to have some tenderness in her abdomen for which bladder scan will be done to rule out retention. Dr. Stanley feels patient's symptoms are more so related to CVA versus encephalitis and dust lumbar puncture will not be done. Also patient has been on Plavix prior to admission and currently started on Brilinta. Full strength aspirin will be changed to 81 mg. We will also resume patient's home medications. PT, OT, ST to evaluate patient. We will add in consult with Dr. Tristan. We've also added and consult with psychiatry regarding neuropsych evaluation. UTI has been ruled out by negative urine culture. We will repeat urinalysis today. Patient has been afebrile, heart rate 80, blood pressure 129/62, pulse ox 95% on room air. WBC is 11.2. Basic metabolic panel is normal. Triglycerides 88, cholesterol 279, LDL 188, HDL 73. TSH was 1.360. 01/19: The patient has been seen by psychiatry with recommendations for neuropsychological evaluation later when patient is able to talk and with improved motor skills. This will be arranged by Dr. Byrne. The patient continues to have improvement and she is talking in all more verbal from yesterday. She recognizes family and can provide the names. Right hemiparesis is improved as well. She has been advanced to regular diet and has had no episodes of choking or coughing. Discussed need for lipid-lowering medication with family and it was decided the patient will be started on Pravachol. Repeat urinalysis was not obtained. We will plan to treat the patient with one more dose of ceftriaxone and no further antibiotics following that. Patient and family are agreeable to go to subacute rehab and caser and social science professor are making arrangements hopefully for today. Patient will be discharged later today once arrangements are completed. 01/20: Patient has been transferred to the [facility] floor. She continues to have improvement of her weakness on the right side. She is smiling and making eye contact. She is able to speak. She is complaining of eft temporal headache and CRP and sed rate will be ordered. CAT scan of the brain ordered. Patient to be evaluated for inpatient rehab versus subacute rehab. 01/21: Sed rate 20, C-reactive protein 47.9. CAT scan is negative for acute findings. Patient was ambulating in her room and is been doing very well. PT and OT have evaluated and recommended inpatient rehab that she would improve quite quickly there. Insurance authorization to be obtained today and patient will be transferred once arrangements are completed. No change in medication reconciliation. Discharge diagnoses: 1. 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 2. UTI ruled out. 3. Hypertension. 4. Hyperlipidemia. 5. History of coronary artery disease. 6. COPD, stable. 7. Glaucoma. 8. Overactive bladder. 9 Left temporal headache. Discharge plan: inpatient rehab once insurance authorization has been obtained. Impression and plan of care have been directed as dictated by the signing physician. Arcelia Ogden nurse practitioner acting as scribe for signing physician. Patient Condition at Discharge: Good Plan - Discharge Summary Discharge Rx Participant: Yes New Discharge Prescriptions: New Pravastatin Sodium [Pravachol] 80 mg PO HS #30 tab Ticagrelor [Brilinta] 90 mg PO BID #60 tab Continue Potassium Chloride ER [K-Dur 10] 10 meq PO DAILY PRN PRN Reason: Edema Pitavastatin Calcium [Livalo] 2 mg PO DAILY Latanoprost [Xalatan 0.005%] 1 drop BOTH EYES HS Multivitamins, Thera [Multivitamin (formulary)] 1 tab PO DAILY Furosemide [Lasix] 20 mg PO DAILY PRN PRN Reason: Edema Carboxymethylcellulose Sodium [Refresh Tears] 1 drop BOTH EYES DAILY PRN PRN Reason: DRY EYES Calcium Carbonate [Calcium] 1,200 mg PO DAILY Vit C/E/Zn/Coppr/Lutein/Zeaxan [Preservision Areds 2 Softgel] 1 cap PO DAILY Glucosam/Fam-Msm1/C/Filemon/Bosw [Glucosamine-Chondroitin Tablet] 1 tab PO DAILY Aspirin 81 mg PO DAILY #0 chew Pantoprazole [Protonix] 40 mg PO HS #30 tablet. Metoprolol Tartrate [Lopressor] 100 mg PO DAILY Discontinued Clopidogrel [Plavix] 75 mg PO DAILY 60 Days #60 tablet Oxybutynin Chloride [Ditropan] 5 mg PO BID Discharge Medication List Calcium Carbonate [Calcium] 1,200 mg PO DAILY 05/27/18 [History] Carboxymethylcellulose Sodium [Refresh Tears] 1 drop BOTH EYES DAILY PRN 05/27/18 [History] Furosemide [Lasix] 20 mg PO DAILY PRN 05/27/18 [History] Glucosam/Fam-Msm1/C/Filemon/Bosw [Glucosamine-Chondroitin Tablet] 1 tab PO DAILY 05/27/18 [History] Latanoprost [Xalatan 0.005%] 1 drop BOTH EYES HS 05/27/18 [History] Multivitamins, Thera [Multivitamin (formulary)] 1 tab PO DAILY 05/27/18 [History] Pitavastatin Calcium [Livalo] 2 mg PO DAILY 05/27/18 [History] Potassium Chloride ER [K-Dur 10] 10 meq PO DAILY PRN 05/27/18 [History] Vit C/E/Zn/Coppr/Lutein/Zeaxan [Preservision Areds 2 Softgel] 1 cap PO DAILY 05/27/18 [History] Aspirin 81 mg PO DAILY #0 chew 05/29/18 [Rx] Pantoprazole [Protonix] 40 mg PO HS #30 tablet.dr 05/29/18 [Rx] Metoprolol Tartrate [Lopressor] 100 mg PO DAILY 01/16/19 [History] Pravastatin Sodium [Pravachol] 80 mg PO HS #30 tab 01/19/19 [Rx] Ticagrelor [Brilinta] 90 mg PO BID #60 tab 01/21/19 [Rx] Follow up Appointment(s)/Referral(s): Raisa Meade MD [Primary Care Provider] - 1 Week () Maurice Miller DO [STAFF PHYSICIAN] - 1 Week Patient Instructions/Handouts: Pravastatin (By mouth), Ticagrelor (By mouth), Stroke (DC) Discharge Disposition: OTHER INSTITUTION NOT DEFINED
== END 2019-01-21 16:00 | DRG 65 ==
LOC: EC 15:53 → 3SCARD 18:48 → 3NMEDONC 01-19 23:57
PROVIDERS: ADMIT Internal Medicine; ATTEND Internal Medicine
DX: I63.89 Other cerebral infarction (principal); G81.91 Hemiplegia, unspecified affecting right dominant side; K92.0 Hematemesis; G93.49 Other encephalopathy; J44.9 Chronic obstructive pulmonary disease, unspecified; J84.10 Pulmonary fibrosis, unspecified; R47.01 Aphasia; I73.9 Peripheral vascular disease, unspecified; E66.9 Obesity, unspecified; E78.00 Pure hypercholesterolemia, unspecified; E78.5 Hyperlipidemia, unspecified; H35.30 Unspecified macular degeneration; H40.89 Other specified glaucoma; I10 Essential (primary) hypertension; I25.10 Atherosclerotic heart disease of native coronary artery without angina pectoris; I25.2 Old myocardial infarction; I65.01 Occlusion and stenosis of right vertebral artery; K21.9 Gastro-esophageal reflux disease without esophagitis; N32.81 Overactive bladder; R29.810 Facial weakness; M19.90 Unspecified osteoarthritis, unspecified site; R51 Headache; I70.8 Atherosclerosis of other arteries; R32 Unspecified urinary incontinence; Z79.02 Long term (current) use of antithrombotics/antiplatelets; Z79.82 Long term (current) use of aspirin; Z79.899 Other long term (current) drug therapy; Z88.0 Allergy status to penicillin; Z88.2 Allergy status to sulfonamides; Z86.73 Personal history of transient ischemic attack (TIA), and cerebral infarction without residual deficits; Z95.5 Presence of coronary angioplasty implant and graft; Z98.51 Tubal ligation status; Z90.49 Acquired absence of other specified parts of digestive tract; Z80.0 Family history of malignant neoplasm of digestive organs; Z82.49 Family history of ischemic heart disease and other diseases of the circulatory system; Z80.9 Family history of malignant neoplasm, unspecified; Z83.79 Family history of other diseases of the digestive system
CPT/HCPCS: 36415; 70450; 70496; 70498; 70549; 70553; 71046; 80048; 80053; 80061; 81003; 83036; 83605; 83735; 83880; 84100; 84145; 84443; 84484; 85025; 85610; 85652; 85730; 86038; 86140; 86255; 87086; 93005; 94760; 95816; 96360; 99285

== ENCOUNTER → 2019-03-26 | Outpatient (CLI) | payer MEDICARE ==
--- NOTE | 2019-03-26 15:10 | CT ---
EXAMINATION TYPE: CT brain wo con DATE OF EXAM: 03/26/2019 COMPARISON: 01/20/2019 HISTORY: Headaches for one year. Most pain felt in LT side, occipital region CT DLP: 1100 mGycm Automated exposure control for dose reduction was used. FINDINGS: Intracranial atherosclerotic changes are noted. There is moderate generalized degenerative change. No acute hemorrhage. Diffuse nonspecific white matter changes are stable. No midline shift or mass effe ct. Calvarium intact. Low-attenuation the head of the caudate nucleus on the right. IMPRESSION: 1. Diffuse nonspecific white matter changes most typical remote ischemia. 2. focal remote lacunar infarction involving the head of the caudate nucleus on the right. 3. Mild central prominence of ventricular system likely on a degenerative basis. Normal pressure hydr ocephalus also the differential diagnosis.
== END | disposition home or self-care (01) ==
LOC: RADCTMAIN 14:37
PROVIDERS: ATTEND Internal Medicine
DX: G45.9 Transient cerebral ischemic attack, unspecified (principal); G91.2 (Idiopathic) normal pressure hydrocephalus; Z86.73 Personal history of transient ischemic attack (TIA), and cerebral infarction without residual deficits
CPT/HCPCS: 70450

== ENCOUNTER 2021-01-20 15:14 | Inpatient (IN) | payer MEDICARE ==
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
[2021-01-20 16:03] LABS: Basophils # (A) 0.1 k/uL (0-0.2); Basophils % (A) 1 %; Eosinophils # (A) 0.3 k/uL (0-0.7); Eosinophils % (A) 3 %; HCT 35.1 % (34.0-46.0); HGB 11.6 gm/dL (11.4-16.0); Lymphocytes # (A) 2.4 k/uL (1.0-4.8); Lymphocytes % (A) 28 %; MCH 26.7 pg (25.0-35.0); MCV 81.1 fL (80.0-100.0); Mean Platelet Volume 7.4; Monocytes # (A) 0.8 k/uL (0-1.0); Monocytes % (A) 9 %; Neutrophils % (A) 58 %; Platelet Count 263 k/uL (150-450); RBC 4.33 m/uL (3.80-5.40); RDW 15.6 % (11.5-15.5); WBC 8.6 k/uL (3.8-10.6)
[2021-01-20 16:12] LABS: ALT 6 U/L (4-34); AST 20 U/L (14-36); African American GFR (CKD) >90 (>60 ml/min/1.73 sqM); Albumin 3.5 g/dL (3.5-5.0); Alcohol <10 mg/dL; Alkaline Phosphatase 65 U/L (38-126); Anion Gap 6 mmol/L; Blood Urea Nitrogen 11 mg/dL (7-17); Calcium 9.5 mg/dL (8.4-10.2); Carbon Dioxide 33 mmol/L (22-30); Chloride 98 mmol/L (98-107); Glucose 95 mg/dL (74-99); Non-African American GFR(CKD) 80 (>60 ml/min/1.73 sqM); Potassium 3.8 mmol/L (3.5-5.1); Sodium 137 mmol/L (137-145); Total Bilirubin 0.8 mg/dL (0.2-1.3); Total Protein 6.2 g/dL (6.3-8.2)
[2021-01-20 16:21] LABS: Partial Thromboplastin Time 21.6 sec (22.0-30.0); Prothrombin Time 10.8 sec (9.0-12.0)
--- NOTE | 2021-01-20 16:26 | XR ---
EXAMINATION TYPE: XR chest 2V DATE OF EXAM: 01/20/2021 COMPARISON: Chest x-ray January 16, 2019 HISTORY: Altered mental status and weakness. TECHNIQUE: Frontal and lateral views of the chest are obtained. FINDINGS: Background Chronic emphysematous and pulmonary fibrotic changes redemonstrated. There is no definitive new suspicious focal air space opacity, pleural effusion, or pneumothorax seen. The card iac silhouette size is mildly enlarged with atherosclerotic aorta. The osseous structures are demin eralized. IMPRESSION: Chronic emphysematous and pulmonary fibrotic changes and mild cardiomegaly without acute pulmonary process.
--- NOTE | 2021-01-20 16:33 | CT ---
EXAMINATION TYPE: CT brain wo con DATE OF EXAM: 01/20/2021 COMPARISON: Prior CT brain 04/05/2019 HISTORY: Weakness. CT DLP: 1173.4 mGycm Automated exposure control for dose reduction was used. Helical imaging through the brain. FINDINGS: There is no interval change. Periventricular white matter shows confluent and patchy low attenuation. There is no hemorrhage or hydrocephalus. Cortical atrophy is noted. The caudate on the right chronic infarct.. Calvarium is intact. Paranasal sinuses and mastoid air cells as visualized are normal. IMPRESSION: THERE IS NO INTERVAL CHANGE. CHRONIC SMALL VESSEL ISCHEMIC CHANGES. CONSIDER BRAIN MRI
[2021-01-20] MEDS ORDERED: ASPIRIN 81 MG PO STA (16:40)
[2021-01-20 18:25] LABS: Appearance,Urine Clear (Clear); Bilirubin,Urine Negative (Negative); Blood,Urine Negative (Negative); Color,Urine Light Yellow; Glucose,Urine (UA) Negative (Negative); Ketones,Urine Negative (Negative); Leukocyte Esterase,Urine Negative (Negative); Nitrite,Urine Negative (Negative); PH, Urine 5.5 (5.0-8.0); Protein,Urine Negative (Negative); Specific Gravity,Urine 1.006 (1.001-1.035); Urobilinogen,Urine <2.0 mg/dL (<2.0)
[2021-01-20 18:40] LABS: Amphetamine Screen,Urine Not Detected (NotDetected); Barbiturate Screen,Urine Not Detected (NotDetected); Benzodiazepines Screen,Urine Not Detected (NotDetected); Cocaine Screen,Urine Not Detected (NotDetected); Methadone Screen, Urine Not Detected (NotDetected); Opiate Screen,Urine Not Detected (NotDetected); Oxycodone Screen, Urine Not Detected (NotDetected); Phencyclidine Screen,Urine Not Detected (NotDetected); Tricyclic Antidepressant,Urine Not Detected (NotDetected); Urn Cannabinoid Scrn Not Detected (NotDetected)
[2021-01-20] MEDS: METOPROLOL TARTRATE 50 MG TAB PO SCH (21:26)
[2021-01-20] MEDS: PRAVASTATIN SODIUM 80 MG TAB PO SCH (21:26)
[2021-01-20] MEDS ORDERED: BUTALB/APAP/CAFF 50-325-40MG TAB PO PRN (22:06)
[2021-01-20] MEDS ORDERED: ARTIFICIAL TEARS-HYPROMELLOSE DROPS 15 ML BTL BOTH EYES PRN (22:06)
[2021-01-21] MEDS: NON FORMULARY DRUG (Ticagrelor [Brilinta] 60 MG Tablet) PO SCH ×2 (01:54→08:45)
[2021-01-21 08:12] LABS: Basophils # (A) 0.1 k/uL (0-0.2); Basophils % (A) 1 %; Eosinophils # (A) 0.3 k/uL (0-0.7); Eosinophils % (A) 4 %; HCT 36.7 % (34.0-46.0); HGB 11.6 gm/dL (11.4-16.0); Hypochromasia Slight; Lymphocytes # (A) 2.5 k/uL (1.0-4.8); Lymphocytes % (A) 29 %; MCH 25.9 pg (25.0-35.0); MCHC 31.5 g/dL (31.0-37.0); MCV 82.4 fL (80.0-100.0); Mean Platelet Volume 7.3; Monocytes # (A) 0.6 k/uL (0-1.0); Monocytes % (A) 7 %; Neutrophils # (A) 4.9 k/uL (1.3-7.7); Neutrophils % (A) 58 %; Platelet Count 287 k/uL (150-450); RBC 4.46 m/uL (3.80-5.40); RDW 15.5 % (11.5-15.5); WBC 8.5 k/uL (3.8-10.6)
[2021-01-21 08:26] LABS: ALT 6 U/L (4-34); AST 20 U/L (14-36); African American GFR (CKD) >90 (>60 ml/min/1.73 sqM); Albumin 3.7 g/dL (3.5-5.0); Alkaline Phosphatase 65 U/L (38-126); Anion Gap 5 mmol/L; Blood Urea Nitrogen 11 mg/dL (7-17); Calcium 9.5 mg/dL (8.4-10.2); Carbon Dioxide 38 mmol/L (22-30); Chloride 98 mmol/L (98-107); Glucose 94 mg/dL (74-99); Non-African American GFR(CKD) 79 (>60 ml/min/1.73 sqM); Potassium 3.7 mmol/L (3.5-5.1); Sodium 141 mmol/L (137-145); Total Bilirubin 0.8 mg/dL (0.2-1.3); Total Protein 6.3 g/dL (6.3-8.2)
[2021-01-21] MEDS: METOPROLOL TARTRATE 50 MG TAB PO SCH ×2 (08:42→20:08)
[2021-01-21] MEDS: NON FORMULARY DRUG (Mirabegron [Myrbetriq] 50 MG Tab.Er.24h) PO SCH (08:43)
[2021-01-21] MEDS: BRIMONIDINE TARTRATE 0.2% DROPS 5 ML BTL BOTH EYES SCH ×2 (08:45→20:09)
[2021-01-21] MEDS: ASPIRIN 81 MG PO SCH (08:48)
[2021-01-21] MEDS: VIT A,C & E-LUTEIN-MINERALS 1 EACH TAB PO SCH (09:49)
--- NOTE | 2021-01-21 10:13 | P.CNNES ---
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 Some of the history is obtained from medical record. It seems that the patient the symptoms began yesterday as she was coming back from a hearing aid appointment it was she was having speech difficulty. She has difficulty expressing herself. As well as that she is having difficulty getting out of bed for the past 24 hours prior to presenting to the hospital. It's unsure if the patient lost consciousness. Upon nontoxic the patient's she stated that she came to the hospital because the she wasn't feeling well. But she could not expand on it. Patient home medication is Brilinta a 60 mg a tablet twice a day, pravastatin 80 mg daily at bedtime. Metoprolol, melatonin, MN sets 1 tablet every 4 hours as needed. Some other workup in the hospital consisted of: Initial vital signs: Blood pressure of 126/73, heart rate of 70, respiratory of 18, temperature of 98.2 Fahrenheit oral, pulse ox of 95% at room air. CT of the head is reported as there is no interval change chronic small vessel ischemic changes. Consider brain MRI. The CBC White blood cells 8.6, hemoglobin is 11.6 MCV is 81.1 lately is 263 which is unremarkable. Sodium is 137, creatinine is 0.64, glucose 95, calcium is 9.5, AST of 20 and ALT of 60 which is also unremarkable. In the ED the patient was given aspirin 324 mg once. Of note upon reviewing the patient's medical record the patient was last seen by Dr. Hidalgo on 01/18/2019 and the per his initial consultation on 01/16/2019 he mentioned that the family members had a hard time comprehending the patient's speech and the she was speaking non-sensical being described as expressive aphasia. Also a patient had right hemiparesis which is improved. The patient presentation was transient. MRI Brain was negative for acute stroke. And it is mentioned no evidence of encephalitis. 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 Was recommended to continue Berlant 90 mg 1 tablet twice a day and aspirin 81. She also had EEG which showed frequent focal slowing in the left hemispheric region. And this is suggestive of focal cortical neuronal dysfunction and may stretch underlying structural abnormality. No epileptiform activity was seen. No evidence of herpes encephalitis based on the EEG results. Was recommended that for the patient to be on the statins for the stroke as well as her history of hyperlipidemia and it was 2 to be deferred by the primary team of what statins Review of Systems Review of system: The 12 point system was reviewed and apparent positive and negative per HPI. 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 macular degeneration, wolfgang eye wide angle glaucoma," dry eyes", shingles 2014, when pt was [age] injured lt arm(it was pulled thru a ringer washer up to her elbow) pt stated no sx done on it.cared for at home in those days.pt stated has had a pne vaccine approx 2-3 years ago - quality analyst/technical writer unable to verify date at time of this admit. Last Myocardial Infarction Date:: 2006 History of Any Multi-Drug Resistant Organisms: None Reported Past Surgical History: Adenoidectomy, Appendectomy, Heart Catheterization With Stent, Tonsillectomy, Tubal Ligation Additional Past Surgical History / Comment(s): cataract, total 3 cardaic stents Past Anesthesia/Blood Transfusion Reactions: Previous Problems w/ Anesthesia Additional Past Anesthesia/Blood Transfusion Reaction / Comment(s): difficulty waking up after sx. pt stated she has never had a blood transfusion. Date of Last Stent Placement:: unk Past Psychological History: No Psychological Hx Reported Past Alcohol Use History: None Reported Past Drug Use History: None Reported - Past Family History Father Family Medical History: Coronary Artery Disease (CAD) Additional Family Medical History / Comment(s): " from hardening of the arteries", diverticulitis Sister(s) Additional Family Medical History / Comment(s): crohns disease Mother Family Medical History: Cancer Additional Family Medical History / Comment(s): pernicious anemia, stomach cancer/mets Medications and Allergies Home Medications Medication Instructions Recorded Confirmed Type Carboxymethylcellulose Sodium 1 drop BOTH EYES DAILY PRN 05/27/18 01/20/21 History [Refresh Tears] Latanoprost [Xalatan 0.005%] 1 drop BOTH EYES HS 05/27/18 01/20/21 History Vit C/E/Zn/Coppr/Lutein/Zeaxan 1 cap PO DAILY 05/27/18 01/20/21 History [Preservision Areds 2 Softgel] Metoprolol Tartrate [Lopressor] 50 mg PO BID 01/16/19 01/20/21 History Pravastatin Sodium [Pravachol] 80 mg PO HS #30 tab 01/19/19 01/20/21 Rx Brimonidine Tartrate [Alphagan P 1 drops BOTH EYES BID 01/20/21 01/20/21 History 0.1% Ophth Soln] Butalb/Acetaminophen/Caffeine 1 cap PO Q4HR PRN 01/20/21 01/20/21 History [Fioricet 50-300-40 mg Capsule] Melatonin 5 mg PO HS 01/20/21 01/20/21 History Mirabegron [Myrbetriq] 50 mg PO DAILY 01/20/21 01/20/21 History Ticagrelor [Brilinta] 60 mg PO BID 01/20/21 01/20/21 History Allergies Allergy/AdvReac Type Severity Reaction Status Date / Time Penicillins Allergy Swelling Verified 01/16/19 16:23 Sulfa (Sulfonamide Allergy Anaphylaxis Verified 01/16/19 16:23 Antibiotics) shellfish derived [Shellfish] AdvReac Unknown Verified 01/16/19 16:23 Physical Examination - Vital Signs Vital Signs: Vital Signs Temp Pulse Resp BP Pulse Ox 01/21/21 06:59 68 18 139/74 98 01/21/21 02:00 76 18 142/83 96 01/20/21 21:19 75 20 120/75 95 01/20/21 21:13 95 01/20/21 16:57 71 20 124/68 94 L 01/20/21 15:17 98.2 F 70 18 126/73 95 Intake and Output 01/20/21 01/21/21 01/21/21 22:59 06:59 14:59 Other: Weight 56.699 kg GENERAL: The patient is lying in bed and is not in acute distress. CHEST: The heart rate is regular rate rhythm. No murmurs to auscultation. No carotid bruit bilaterally. LUNG: Clear to auscultation bilaterally no wheezing noted throughout. Not l abored breathing. ABDOMEN/GI: Bowel sounds present in all 4 quadrants. No tenderness to palpation throughout. NEUROLOGICAL: Higher mental function: The patient is awake, alert, oriented to self. Aquilino adamson she stated it was the year 1998 then after couple of repeats she stated the year was 2020. She correctly stated the moth is January. She initially stated she is at house then later stated correctly with options she is in hospital. She correctly name few objects correctly (pen and watch). She had few paraphrasic errors. Patient is following commands. Few paraphrasic error. She has good repitition. No neglect. Cranial nerves: The pupils are round, equal and reactive to light and accomm odation. Visual brooke are full to confrontation throughout. Extraocular movement is intact no nystagmus is noted. Facial sensation is normal to touch throughout. The facial strength is normal throughout. Hearing is moderately to severely decreased bilaterally.. Tongue is midline and moved [id number] without any difficulty. No dysarthria is noted. Shoulder shrug is normal bilaterally. Motor: Gait is deferred. The strength is left upper (elbow extension/flexion) is 5-/5. Otherwise 5/5 throughout. Normal tone and bulk. Cerebellum: Normal finger to nose bilaterally. Sensation: Sensation is normal to touch throughout. Reflexes (right/left): 2+ throughout while ankles are 1+ bilaterally. Plantars are mute bilaterally. Results Urinalysis is negative for urinary tract infection. Coagulation study: PT of 10.8, INR 1.0, PTT of 21.6 Calero virus PCR was not detected that. Urine drug screen is not detected. The serum alcohol was less than 10. - Laboratory Findings CBC and BMP: 01/21/21 07:49 01/21/21 07:49 Abnormal Lab Findings: Abnormal Labs 01/20/21 01/20/2101/20/21 15:51 15:51 15:51 RDW 15.6 H APTT 21.6 L Carbon Dioxide 33 H Total Protein 6.2 L Assessment and Plan Assessment: Expressive aphasia and seems improving on presentation. Rule out stroke vs TIA. History of transient ischemic attack in 2019 (end of December 2018 with expressive aphasia and right hemiparesis) History of proximal right subclavian artery with apparent subclavian steal syndrome phenomenon as per CTA in 2019 Hypertension Hyperlipidemia Plan: Recommend CT angiography of the head and neck. Patient is on Berlant 60 mg 1 tablet twice a day from a neurological standpoint that can be increased to 90 mg 1 tablet twice a day unless patient has history of bleed and that prevents her from being on a higher dose. In addition I added aspirin 81 mg daily. The patient to be on dual antiplatelet. Patient to the is currently on pravastatin 80 mg daily at bedtime and that's to be continued for secondary stroke prophylaxis. I ordered 2-D echo, lipid panel, TSH. I consulted the physical therapy, occupational therapy and speech therapy. Continue cardiac monitoring as well as neurological checks Q4 hours. Regarding the patient history of subclavian steal syndrome, I recommend consulting vascular surgery team. We'll defer the rest of the medical management to the primary team. Thank you for the consultation. The plan is discussed with the patient primary team (Dr. Frazier). Farooq Durham M.D. Neuro-hospitalist Time with Patient: Greater than 30
--- NOTE | 2021-01-21 10:44 | CT ---
EXAMINATION TYPE: CT angio head neck DATE OF EXAM: 01/21/2021 HISTORY: subclavian steal, CVA, dysphasia COMPARISON: None CT DLP: 314.3 mGycm. Automated Exposure Control for Dose Reduction was Utilized. TECHNIQUE: CTA scan of the neck is performed with IV Contrast, patient injected with 65 mL of Isovue 370, axial images are obtained, coronal and sagittal reformatted images are reviewed. Three-D recons tructed images are created on an independent workstation and reviewed. FINDINGS: There is mild calcification the brachiocephalic origins but no significant stenosis. Specifically the re is no evidence of significant stenosis of the left subclavian artery. There is moderate calcified eccentric plaque of the right proximal internal carotid artery resulting in a moderate stenosis. There is no significant stenosis of the left carotid arteries within the neck . Intracranially, there is no significant stenosis, vascular malformation or sizable aneurysm sac. IMPRESSION: Scattered arteriosclerotic plaques of the brachiocephalic origins and carotid bifurcations within the neck. Secondary to plaque formation there is a moderate proximal right internal carotid artery steno sis.
--- NOTE | 2021-01-21 11:08 | P.HPIM ---
History of Present Illness H&P Date: 01/21/21 HISTORY OF PRESENT ILLNESS This is an 89-year-old female patient of Dr. Meade with past medical history of hypertension, COPD, hyperlipidemia, history of myocardial infarction in 2007 status post 3 stents, history of pulmonary fibrosis, acute transient ischemic attack in 2019 at which time she was advised to started on Brilinta 90 mg twice daily and aspirin 81 mg daily and had follow up with Dr. Miller, subclavian steal syndrome phenomena. Patient states that she developed episode of trouble getting her words out. She states a couple days ago she was feeling fine and went to her eye doctor For Macular Degeneration and Her Daughter Took Her Home and She Suddenly Developed This Episode of Difficulty Speaking and Mumbling. She States She Had a Headache at the Time. She Denies Any Known Seizure Activity. No Weakness in Her Upper and Lower Extremities. She States She [place] a Little Dizzy. She Had No Loss of Consciousness. Patient Was Finally Convinced by Her Family to Come into the Hospital for Evaluation. Patient was brought into [facility] emergency center for evaluation. SHe was found to be afebrile, HR 70, BP 126/73, PO 95 % RA. CBC normal. Electrolytes normal, CO2 36. LFT normal. UA negative. Alcohol level was negative. Urine drug screen was negative. Coronavirus PCR not detected. CAT scan of the brain showed no interval change. Chronic small vessel ischemic changes. Chest x-ray showed chronic emphysema or pulmonary fibrotic changes. Mild cardiomegaly without acute pulmonary process. REVIEW OF SYSTEMS Constitutional: No fever, no chills, no night sweats. No weight change. No w eakness, fatigue or lethargy. No daytime sleepiness. EENT: No headache. No blurred vision or double vision, no loss of vision. Chronic loss of Hearing, no ringing in the ears, no dizziness. No nasal drainage or congestion. No epistaxis. No sore throat. Lungs: No shortness of breath, cough, no sputum production. No wheezing. Cardiovascular: No chest pain, no lower extremity edema. No palpitations. No paroxysmal nocturnal dyspnea. No orthopnea. No lightheadedness or dizziness. No syncopal episodes. Abdominal: No abdominal pain. No nausea, vomiting. No diarrhea. No constipation. No bloody or tarry stools.. No loss of appetite. Genitourinary: No dysuria, increased frequency, urgency. No urinary retention. Musculoskeletal: No myalgias. No muscle weakness, no gait dysfunction, no frequent falls. No back pain. No neck pain. Integumentary: No wounds, no lesions. No rash or pruritus. No unusual bruising. No change in hair or nails. Neurologic: Reported aphasia. No facial droop. No change in mentation. No head injury. No headache. No paralysis. No paresthesia. Psychiatric: No depression. No anxiety. No mood swings. Endocrine: No abnormal blood sugars. No weight change. No excessive sweating or thirst. No cold intolerance. SOCIAL HISTORY Patient is a lifelong nonsmoker, no alcohol use, no marijuana use, no illicit drug use. She is . FAMILY HISTORY Mother at age 82 from CAD. Father at age 82 from CAD. She had a total of 7 siblings and all have passed with history of CAD. She has 3 children with no major medical problems. PHYSICAL EXAMINATION Gen: This is an 89-year-old female patient sitting in chair in her ER room. She is in no acute distress. Noted to have difficulty hearing. HEENT: Head is atraumatic, normocephalic. Pupils equal, round. Sclerae is anict hailey. NECK: Supple. No JVD. No lymphadenopathy. No thyromegaly. LUNGS: Clear to auscultation. No wheezes or rhonchi. No intercostal retractions. HEART: Regular rate and rhythm. No murmur. ABDOMEN: Soft. Bowel sounds are present. No masses. No tenderness. EXTREMITIES: No pedal edema. No calf tenderness. NEUROLOGICAL: Patient is awake, alert and oriented x3. Cranial nerves 2 through 12 are grossly intact. Slightly off balance on the right leg. ASSESSMENT AND PLAN 1. Expressive aphasia, resolved, rule out TIA versus stroke. Patient has been seen by neurology with recommendations for Brilinta 90 mg twice daily, aspirin 81 mg daily, CTA of the head and neck, MRI of the brain, continue statin, echocardiogram, lipid panel, TSH consult with vascular surgery for subclavian steal syndrome. 2. 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 Consult with vascular surgeon. 3. History of TIA in 2019. 4. Hypertension. Continue Lopressor 50 mg twice daily. 5. Hyperlipidemia. Continue pravastatin 80 mg at bedtime. 6. Macular degeneration and glaucoma. Continue eyedrops and PreserVision. 7. GI prophylaxis. Protonix. 8. DVT prophylaxis. Brilinta. Patient will be admitted to the hospital for a minimum of 2 night stay. DISCHARGE PLAN Home. Pt, OT, ST consults. Impression and plan of care have been directed as dictated by the signing physician. Arcelia Ogden nurse practitioner acting as scribe for signing physician. 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 macular degeneration, wolfgang eye wide angle glaucoma," dry eyes", shingles 2014, when pt was [age] injured lt arm(it was pulled thru a ringer washer up to her elbow) pt stated no sx done on it.cared for at home in those days.pt stated has had a pne vaccine approx 2-3 years ago - program writer unable to verify date at time of this admit. Last Myocardial Infarction Date:: 2006 History of Any Multi-Drug Resistant Organisms: None Reported Past Surgical History: Adenoidectomy, Appendectomy, Heart Catheterization With Stent, Tonsillectomy, Tubal Ligation Additional Past Surgical History / Comment(s): cataract, total 3 cardaic stents Past Anesthesia/Blood Transfusion Reactions: Previous Problems w/ Anesthesia Additional Past Anesthesia/Blood Transfusion Reaction / Comment(s): difficulty waking up after sx. pt stated she has never had a blood transfusion. Date of Last Stent Placement:: unk Past Psychological History: No Psychological Hx Reported Past Alcohol Use History: None Reported Past Drug Use History: None Reported - Past Family History Father Family Medical History: Coronary Artery Disease (CAD) Additional Family Medical History / Comment(s): " from hardening of the arteries", diverticulitis Sister(s) Additional Family Medical History / Comment(s): crohns disease Mother Family Medical History: Cancer Additional Family Medical History / Comment(s): pernicious anemia, stomach cancer/mets Medications and Allergies Home Medications Medication Instructions Recorded Confirmed Type Carboxymethylcellulose Sodium 1 drop BOTH EYES DAILY PRN 05/27/18 01/20/21 His tory [Refresh Tears] Latanoprost [Xalatan 0.005%] 1 drop BOTH EYES HS 05/27/18 01/20/21 History Vit C/E/Zn/Coppr/Lutein/Zeaxan 1 cap PO DAILY 05/27/18 01/20/21 History [Preservision Areds 2 Softgel] Metoprolol Tartrate [Lopressor] 50 mg PO BID 01/16/19 01/20/21 History Pravastatin Sodium [Pravachol] 80 mg PO HS #30 tab 01/19/19 01/20/21 Rx Brimonidine Tartrate [Alphagan P 1 drops BOTH EYES BID 01/20/21 01/20/21 History 0.1% Ophth Soln] Butalb/Acetaminophen/Caffeine 1 cap PO Q4HR PRN 01/20/21 01/20/21 History [Fioricet 50-300-40 mg Capsule] Melatonin 5 mg PO HS 01/20/21 01/20/21 History Mirabegron [Myrbetriq] 50 mg PO DAILY 01/20/21 01/20/21 History Ticagrelor [Brilinta] 60 mg PO BID 01/20/21 01/20/21 History Allergies Allergy/AdvReac Type Severity Reaction Status Date / Time Penicillins Allergy Swelling Verified 01/16/19 16:23 Sulfa (Sulfonamide Allergy Anaphylaxis Verified 01/16/19 16:23 Antibiotics) shellfish derived [Shellfish] AdvReac Unknown Verified 01/16/19 16:23 Physical Exam Vitals: Vital Signs Temp Pulse Resp BP Pulse Ox 01/21/21 06:59 68 18 139/74 98 01/21/21 02:00 76 18 142/83 96 01/20/21 21:19 75 20 120/75 95 01/20/21 21:13 95 01/20/21 16:57 71 20 124/68 94 L 01/20/21 15:17 98.2 F 70 18 126/73 95 Intake and Output 01/20/21 01/21/21 01/21/21 22:59 06:59 14:59 Other: Weight 56.699 kg Results CBC & Chem 7: 01/21/21 07:49 01/21/21 07:49 Labs: Abnormal Lab Results - Last 24 Hours (Table) 01/20/21 01/20/21 01/20/21 Range/Units 15:51 15:51 15:51 RDW 15.6 H (11.5-15.5) % APTT 21.6 L (22.0-30.0) sec Carbon Dioxide 33 H (22-30) mmol/L Total Protein 6.2 L (6.3-8.2) g/dL 01/21/21 Range/Units 07:49 RDW (11.5-15.5) % APTT (22.0-30.0) sec Carbon Dioxide 38 H (22-30) mmol/L Total Protein (6.3-8.2) g/dL
--- NOTE | 2021-01-21 11:21 | MR ---
EXAMINATION TYPE: MR brain wo/w con DATE OF EXAM: 01/21/2021 COMPARISON: 05/28/2018 HISTORY: Expressive aphasia. TECHNIQUE: Multiplanar, multisequence images of the brain and brainstem is performed without and with IV contras t, utilizing 6 mL intravenous Gadavist . FINDINGS: On the T1-weighted sagittal images midline structures including the craniovertebral junction relation ships are normal. The ventricles, basal cisterns and sulci over the convexities are moderately to markedly enlarged con sistent with moderate to marked generalized degenerative change. There is marked diffuse abnormal increased signal intensity in the periventricular white matter both cerebral hemispheres consistent with chronic ischemic white matter change. The diffusion-weighted images, there is a focal area of acute ischemic event in the right temporal pa rietal region white matter adjacent to the atrium of the right lateral ventricle. The posterior fossa including the brainstem, fourth ventricle and cerebellar pontine angles appear no rmal. The intraorbital contents appear normal and symmetric. Visualized paranasal sinuses and mastoid air c ells are well aerated. IMPRESSION: 1. Acute infarct in the right periventricular white matter in the right temporal parietal region. 2. Marked generalized degenerative change and marked chronic ischemic white matter disease. 3. No mass, mass effect or shift of the midline structures.
[2021-01-21] MEDS: TICAGRELOR 90 MG TAB PO SCH ×2 (11:59→20:09)
--- NOTE | 2021-01-21 16:22 | ECHOF ---
Referral Reason:stroke MEASUREMENTS -------- HEIGHT: 157.5 cm WEIGHT: 56.7 kg BP: 140/68 RVIDd: 2.8 cm (< 3.3) IVSd: 1.1 cm (0.6 - 1.1) LVIDd: 4.4 cm (3.9 - 5.3) LVPWd: 1.1 cm (0.6 - 1.1) IVSs: 1.6 cm LVIDs: 2.8 cm LVPWs: 1.5 cm LA Diam: 3.1 cm (2.7 - 3.8) LAESV Index (A-L): 22.05 ml/m Ao Diam: 2.7 cm (2.0 - 3.7) MV EXCURSION: 16.269 mm (> 18.000) MV EF SLOPE: 118 mm/s (70 - 150) EPSS: 0.8 cm AV maxP.08 mmHg AV meanP.52 mmHg RAP: 5.00 mmHg RVSP: 42.90 mmHg FINDINGS -------- This was a technically difficult study with suboptimal views. The left ventricular size is normal. There is borderline concentric left ventricular hypertrophy. Overall left ventricular systolic function is moderately impaired with, an EF between 35 - 40 %. B etienne lateral LV wall motion is hypokinetic. Basal posterior LV wall motion is hypokinetic. Basa l inferior LV wall motion is hypokinetic. Mid lateral LV wall motion is hypokinetic. Mid construction project coordinator ior LV wall motion is hypokinetic. Mid inferior LV wall motion is hypokinetic. Apical lateral L V wall motion is hypokinetic. The right ventricle is normal in size. Normal LA size by volume 22+/-6 ml/m2. The right atrial size is normal. 5 ml of Lumason was utilized for enhancement of images. Interatrial and interventricular septum intact. There is mild aortic valve sclerosis. The mitral valve leaflets are mildly thickened. Moderate mitral annular calcification present. Mi [id number] mitral regurgitation is present. Mild tricuspid regurgitation present. There is mild pulmonary hypertension. The right ventricular systolic pressure, as measured by Doppler, is 42.90mmHg. The pulmonic valve was not well visualized. The aortic root size is normal. There is no pericardial effusion. CONCLUSIONS -------- 1. This was a technically difficult study with suboptimal views. 2. There is borderline concentric left ventricular hypertrophy. 3. Overall left ventricular systolic function is moderately impaired with, an EF between 35 - 40 %. 4. Basal lateral LV wall motion is hypokinetic. 5. Basal posterior LV wall motion is hypokinetic. 6. Basal inferior LV wall motion is hypokinetic. 7. Mid lateral LV wall motion is hypokinetic. 8. Mid posterior LV wall motion is hypokinetic. 9. Mid inferior LV wall motion is hypokinetic. 10. Apical lateral LV wall motion is hypokinetic. 11. Normal LA size by volume 22+/-6 ml/m2. 12. 5 ml of Lumason was utilized for enhancement of images. 13. There is mild aortic valve sclerosis. 14. The mitral valve leaflets are mildly thickened. 15. Moderate mitral annular calcification present. 16. [id number] mitral regurgitation is present. 17. Mild tricuspid regurgitation present. 18. There is mild pulmonary hypertension. 19. There is no pericardial effusion. PROFILING MACHINE SET UP OPERATOR TOOL: Radha Lockwood RDCS
[2021-01-21] MEDS: PRAVASTATIN SODIUM 80 MG TAB PO SCH (20:08)
[2021-01-21] MEDS: MELATONIN 5 MG TABLET PO SCH (20:09)
[2021-01-21] MEDS: LATANOPROST 0.005% OPHTH DROPS 2.5 ML BTL BOTH EYES SCH (20:09)
[2021-01-21 20:37] LABS: Chol/HDL Ratio 2.57; LDL Cholesterol,Calculated 75.4 mg/dL (0.0-131.0); VLDL Calculation 15.6 mg/dL (5.00-40.00)
[2021-01-22] MEDS: BRIMONIDINE TARTRATE 0.2% DROPS 5 ML BTL BOTH EYES SCH ×2 (07:59→21:04)
[2021-01-22] MEDS: TICAGRELOR 90 MG TAB PO SCH ×2 (07:59→21:05)
[2021-01-22] MEDS: VIT A,C & E-LUTEIN-MINERALS 1 EACH TAB PO SCH (07:59)
[2021-01-22] MEDS: METOPROLOL TARTRATE 50 MG TAB PO SCH ×2 (07:59→21:05)
[2021-01-22] MEDS: ASPIRIN 81 MG PO SCH (07:59)
[2021-01-22] MEDS: NON FORMULARY DRUG (Mirabegron [Myrbetriq] 50 MG Tab.Er.24h) PO SCH (07:59)
--- NOTE | 2021-01-22 09:36 | US ---
EXAMINATION TYPE: US carotid duplex BILAT DATE OF EXAM: 01/22/2021 COMPARISON: 05/27/2018 CLINICAL HISTORY: carotid stenosis. EXAM MEASUREMENTS: RIGHT: Peak Systolic Velocity (PSV) cm/sec ----- Right CCA: 50.5 ----- Right ICA: 61.4 ----- Right ECA: 114.0 ICA/CCA ratio: 1.2 RIGHT: End Diastole cm/sec ----- Right CCA: 9.5 ----- Right ICA: 17.5 ----- Right ECA: 0.0 LEFT: Peak Systolic Velocity (PSV) cm/sec ----- Left CCA: 48.3 ----- Left ICA: 71.3 ----- Left ECA: 74.8 ICA/CCA ratio: 1.5 LEFT: End Diastole cm/sec ----- Left CCA: 9.2 ----- Left ICA: 15.7 ----- Left ECA: 0.0 VERTEBRALS (direction of flow): Right Vertebral: Retrograde Left Vertebral: Antegrade Rhythm: Arrhythmia Mild to moderate plaque seen bilaterally without significant velocity increases. There appears to be a subclavian steal on right. There is retrograde flow in the right vertebral artery with suggest the presence of a right subclavia n steal. This was not present on the prior study. There is no significant internal carotid or common carotid artery stenosis within the neck. IMPRESSION: 1. No significant common or internal carotid artery stenosis within the neck. 2. Retrograde flow detected in the right vertebral artery which suggest the presence of a right subcl tressa steal. This was not present on the prior study. Criteria for Assigning % of Stenosis / Diameter reduction (Estimation based on the indirect measurements of the internal carotid artery velocities (ICA PSV). 1. Normal (no stenosis)=ICA PSV < 125 cm/s: ratio < 2.0: ICA EDV<40 cm/s. 2. Less than 50% stenosis=ICA PSV < 125 cm/s: ratio < 2.0: ICA EDV<40 cm/s. 3. 50 to 69% stenosis=ICA PSV of 125 to 230 cm/s: ration 2.0 ? 4.0: ICA EDV 40-100 cm/s. 4. Greater than 70% stenosis to near occlusion= ICA PSV > 230 cm/s: ratio > 4.0: ICA EDV > 100 cm/s. 5. Near occlusion= ICA PSV velocities may be low or undetectable: variable ratio and ICA EDV. 6. Total occlusion=unable to detect flow.
--- NOTE | 2021-01-22 09:53 | P.PN ---
Subjective Progress Note Date: 01/22/21 The patient is seen at bedside and she feels she is doing better today compared to her initial presentation. She feels her speech is about back to baseline. She denies of any focal weakness, numbness or visual disturbances. Patient stated she is right handed. MR the brain is reported as acute infarct in the right periventricular white matter in the right temporal parietal region. Marketed generalized degenerative changes and mild chronic ischemic white matter disease. No mass, mass effect or shift of the midline structures. I personally reviewed the MRI data felt was more right temporal occipital region. Objective - Vital Signs Vital signs: Vital Signs Temp 97.8 F 01/22/21 07:57 Pulse 96 01/22/21 07:57 Resp 18 01/22/21 07:57 BP 132/78 01/22/21 07:57 Pulse Ox 93 L 01/22/21 07:57 Intake & Output 01/21/21 01/22/21 01/22/21 18:59 06:59 18:59 Intake Total 180 Balance 180 Weight 55 kg Intake: Oral 180 - Exam GENERAL: The patient is lying in bed and is not in acute distress. NEUROLOGICAL: Higher mental function: The patient is awake, alert, oriented to self, place and time. Regarding year initially she said 19 but the caught her self and said it is 2020. She correctly name few objects correctly (pen and watch). Patient is following commands. Her speech is better today compared to yesterday. She has good repitition. No neglect. Cranial nerves: The pupils are round, equal and reactive to light and accommodation. Visual brooke are full to confrontation throughout. Extraocular movement is intact no nystagmus is noted. Facial sensation is normal to touch throughout. The facial strength is normal throughout. Hearing is moderately decreased bilaterally.. Tongue is midline and moved [id number] without any difficulty. No dysarthria is noted. Shoulder shrug is normal bilaterally. Motor: Gait is deferred. The strength is left upper (elbow extension/flexion) is 5-/5. Otherwise 5/5 throughout. Normal tone and bulk. Cerebellum: Normal finger to nose bilaterally. Sensation: Sensation is normal to touch throughout. Reflexes (right/left): 2+ throughout while ankles are 1+ bilaterally. Plantars are mute bilaterally. - Labs CBC & Chem 7: 01/21/21 07:49 01/21/21 07:49 Assessment and Plan Assessment: Acute ischemic stroke (Per Radiologist right periventricular white matter in the right temporal parietal region. I personally felt it was more right temporal/occipital region). No IV tpa since outside [place] (had symptoms for 24 hours prior to presentation of difficulty of speech). On examination she had minimal left upper arm strength 5-/5. I expected her stroke to be more left MCA because of aphasia. Stroke seems embolic. Expressive aphasia and seems improving on presentation. 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 Marketed generalized degenerative changes and mild chronic ischemic white matter disease. No mass, mass effect or shift of the midline structures. I personally reviewed the MRI data felt was more right temporal occipital region. * CT angiography of the head and neck was reported as scattered atherosclerotic plaque of the brachiocephalic origin in the carotid bifurcation within the neck at. Secondary to plaque formation there is moderate proximal right internal carotid artery stenosis * 2-D echo was reported as the currently difficult study with suboptimal views. Borderline concentric left ventricular hypertrophy. Left ventricular systolic function is moderately impaired with ejection fraction between 35-40%. Basal lateral/posterior/inferior/lateral/posterior/inferior and apical lateral ventricle motion is hypokinetic. Normal left atrial size. Moderate mitral annular calcification present. * Lipid panel: Triglyceride of 78, cholesterol 449, LDL of 75 and HDL 58. LDL goal in stroke <70. * TSH of 2.57 which is considered normal. * Continue Brilinta 90 mg 1 tablet twice a day (was on 60mg bid at home) and continue ASA 81mg daily for stroke prophylaxis. Continue pravastatin 80 mg daily at bedtime and that's to be continued for secondary stroke prophylaxis. * Ordered carotid duplex. * Consuled vascular surgery team for carotid stenosis and history of subclavian steal syndrome. * Physical therapy, occupational therapy and speech therapy teams are consulted.. * Continue cardiac monitoring as well as neurological checks Q4 hours. * Possibly consider cardiology consultation because of the hypo-the kinetic of the left ventricle. Consider event monitor. * We'll defer the rest of the medical management to the primary team. The plan is discussed with the patient's nurse. Farooq Durham M.D. Neuro-hospitalist Time with Patient: Less than 30
--- NOTE | 2021-01-22 11:29 | P.PN ---
Subjective Progress Note Date: 01/22/21 HISTORY OF PRESENT ILLNESS This is an 89-year-old female patient of Dr. Meade with past medical history of hypertension, COPD, hyperlipidemia, history of myocardial infarction in 2007 status post 3 stents, history of pulmonary fibrosis, acute transient ischemic attack in 2019 at which time she was advised to started on Brilinta 90 mg twice daily and aspirin 81 mg daily and had follow up with Dr. Miller, subclavian steal syndrome phenomena. Patient states that she developed episode of trouble getting her words out. She states a couple days ago she was feeling fine and went to her eye doctor For Macular Degeneration and Her Daughter Took Her Home and She Suddenly Developed This Episode of Difficulty Speaking and Mumbling. She States She Had a Headache at the Time. She Denies Any Known Seizure Activity. No Weakness in Her Upper and Lower Extremities. She States She [place] a Little Dizzy. She Had No Loss of Consciousness. Patient Was Finally Convinced by Her Family to Come into the Hospital for Evaluation. Patient was brought into [facility] emergency center for evaluation. SHe was found to be afebrile, HR 70, BP 126/73, PO 95 % RA. CBC normal. Electrolytes normal, CO2 36. LFT normal. UA negative. Alcohol level was negative. Urine drug screen was negative. Coronavirus PCR not detected. CAT scan of the brain showed no interval change. Chronic small vessel ischemic changes. Chest x-ray showed chronic emphysema or pulmonary fibrotic changes. Mild cardiomegaly without acute pulmonary process. 01/22: MRI of the brain reported acute infarct in the right. Ventricular white matter in the right temporal parietal region. Generalized degenerative changes and mild chronic ischemic white matter disease. No mass, mass effect or shift of the midline structures. CT angiography of the head and neck revealed scattered atherosclerotic plaque of the brachiocephalic origin in the carotid bifurcation within the neck. Secondary plaque formation moderate proximal right internal carotid artery stenosis. Echocardiogram revealed borderline concentric left and clear hypertrophy, EF 35- 40%, Triglycerides 70, cholesterol 449, LDL 75, HDL 58. Patient has been reevaluated by neurology recommending cardiology consult regarding hypokinesis of the left ventricle and consideration for event monitor area cardiology consult added. Patient was anxious to be discharged home but as noted patient was having more trouble with expressive aphasia and difficulty finding words, slight confusion today. Both patient's daughter Samantha and son Chago were contacted and they would like patient to go to inpatient rehab at [facility] which she had done in the past. Consult added for Dr. Tristan. Patient updated regarding no discharge today. Patient is somewhat upset about not going home today. REVIEW OF SYSTEMS Constitutional: No fever, no chills, no night sweats. No weight change. No weakness, fatigue or lethargy. No daytime sleepiness. EENT: No headache. No blurred vision or double vision, no loss of vision. Steam Meter Reader eric loss of Hearing, no ringing in the ears, no dizziness. No nasal drainage or congestion. No epistaxis. No sore throat. Lungs: No shortness of breath, cough, no sputum production. No wheezing. Cardiovascular: No chest pain, no lower extremity edema. No palpitations. No paroxysmal nocturnal dyspnea. No orthopnea. No lightheadedness or dizziness. No syncopal episodes. Abdominal: No abdominal pain. No nausea, vomiting. No diarrhea. No constipation. No bloody or tarry stools.. No loss of appetite. Genitourinary: No dysuria, increased frequency, urgency. No urinary retention. Musculoskeletal: No myalgias. No muscle weakness, no gait dysfunction, no frequent falls. No back pain. No neck pain. Integumentary: No wounds, no lesions. No rash or pruritus. No unusual bruising. No change in hair or nails. Neurologic: Mild expressive aphasia. No facial droop. Mild change in mentation. No head injury. No headache. No paralysis. No paresthesia. Psychiatric: No depression. No anxiety. No mood swings. Endocrine: No abnormal blood sugars. No weight change. No excessive sweating or thirst. No cold intolerance. PHYSICAL EXAMINATION Gen: This is an 89-year-old female patient resting in bed. She is in no acute distress. Noted to have difficulty hearing. HEENT: Head is atraumatic, normocephalic. Pupils equal, round. Sclerae is anicteric. NECK: Supple. No JVD. No lymphadenopathy. No thyromegaly. LUNGS: Clear to auscultation. No wheezes or rhonchi. No intercostal retractions. HEART: Regular rate and rhythm. No murmur. ABDOMEN: Soft. Bowel sounds are present. No masses. No tenderness. EXTREMITIES: No pedal edema. No calf tenderness. NEUROLOGICAL: Patient is awake, alert and oriented x3. Cranial nerves 2 through 12 are grossly intact. Slightly off balance on the right leg. ASSESSMENT AND PLAN 1. Acute ischemic stroke. Consult with neurology appreciated. Continue Brilinta 90 mg twice daily, aspirin 81 mg daily, pravastatin 80 mg at bedtime. 2. 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 Consult with vascular surgeon. 3. History of TIA in 2019. 4. Hypertension. Continue Lopressor 50 mg twice daily. 5. Hyperlipidemia. Continue pravastatin 80 mg at bedtime. 6. Macular degeneration and glaucoma. Continue eyedrops and PreserVision. 7. GI prophylaxis. Protonix. 8. DVT prophylaxis. Brilinta. Patient will be admitted to the hospital for a minimum of 2 night stay. DISCHARGE PLAN Home. Pt, OT, ST consults. Possible discharge to inpatient rehab at [facility]. Consult with Dr. Tristan Impression and plan of care have been directed as dictated by the signing physician. Arcelia Ogden nurse practitioner acting as scribe for signing physician. Objective - Vital Signs Vital signs: Vital Signs Temp 97.8 F 01/22/21 07:57 Pulse 96 01/22/21 07:57 Resp 18 01/22/21 07:57 BP 132/78 01/22/21 07:57 Pulse Ox 93 L 01/22/21 07:57 Intake & Output 01/21/21 01/22/21 01/22/21 18:59 06:59 18:59 Intake Total 180 Balance 180 Weight 55 kg Intake: Oral 180 - Labs CBC & Chem 7: 01/21/21 07:49 01/21/21 07:49
[2021-01-22] MEDS ORDERED: LOPERAMIDE 2 MG CAP PO PRN (15:45)
[2021-01-22] MEDS: LATANOPROST 0.005% OPHTH DROPS 2.5 ML BTL BOTH EYES SCH (21:04)
[2021-01-22] MEDS: PRAVASTATIN SODIUM 80 MG TAB PO SCH (21:05)
[2021-01-22] MEDS: MELATONIN 5 MG TABLET PO SCH (21:05)
--- NOTE | 2021-01-23 06:05 | P.CONS ---
History of Present Illness - Chief Complaint Gait and speech disturbance - History of Present Illness I had the opportunity to see patient for inpatient rehab consultation with regard to gait and speech disturbance. Patient admitted to [facility] January for acute onset weakness and speech disturbance one-day duration. Seen by neurology, Dr. Cristina who notes history of TIA and subclavian steal syndrome. Workup chest x-ray with chronic change including pulmonary fibrosis and mild cardiomegaly. Head CT with chronic change. Angiogram CT mild calcification brachiocephalic. Brain MRI acute infarct periventricular as well as marked degenerative change. Carotid Doppler negative. PT, OT, AFFILIATE MARKETING SPECIALIST all prescribed. Previous functional history as elicited from patient: 89-year-old right-handed white female who is lives in one floor home with and daughter. None of them work. and daughter do the driving and daughter does the laundry. They share the cooking. Patient describes independent with sitdown shower and gait with standard cane. PCP Dr. Morales. Denies tobacco or alcohol. Past Medical History Past Medical History: Coronary Artery Disease (CAD), COPD, GERD/Reflux, Hyperlipidemia, Hypertension, Myocardial Infarction (ND), Osteoarthritis (OA) Additional Past Medical History / Comment(s): pt stated "dr is trying her out on a gluten free diet for past month""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 macular degeneration, wolfgang eye wide angle glaucoma," dry eyes", shingles 2014, when pt was 11 or 12 injured lt arm(it was pulled thru a ringer washer up to her elbow) pt stated no sx done on it.cared for at home in those days.pt stated has had a pne vaccine approx 2-3 years ago - creative writer unable to verify date at time of this admit. Last Myocardial Infarction Date:: 2006 History of Any Multi-Drug Resistant Organisms: None Reported Past Surgical History: Adenoidectomy, Appendectomy, Heart Catheterization With Stent, Tonsillectomy, Tubal Ligation Additional Past Surgical History / Comment(s): cataract, total 3 cardaic stents Past Anesthesia/Blood Transfusion Reactions: Previous Problems w/ Anesthesia Additional Past Anesthesia/Blood Transfusion Reaction / Comm: difficulty waking up after sx. pt stated she has never had a blood transfusion. Date of Last Stent Placement:: unk Past Psychological History: No Psychological Hx Reported Past Alcohol Use History: None Reported Past Drug Use History: None Reported - Past Family History Father Family Medical History: Coronary Artery Disease (CAD) Additional Family Medical History / Comment(s): " from hardening of the arteries", diverticulitis Sister(s) Additional Family Medical History / Comment(s): crohns disease Mother Family Medical History: Cancer Additional Family Medical History / Comment(s): pernicious anemia, stomach cancer/mets Medications and Allergies Home Medications Medication Instructions Recorded Confirmed Type Carboxymethylcellulose Sodium 1 drop BOTH EYES DAILY PRN 05/27/18 01/20/21 History [Refresh Tears] Latanoprost [Xalatan 0.005%] 1 drop BOTH EYES HS 05/27/18 01/20/21 History Vit C/E/Zn/Coppr/Lutein/Zeaxan 1 cap PO DAILY 05/27/18 01/20/21 History [Preservision Areds 2 Softgel] Metoprolol Tartrate [Lopressor] 50 mg PO BID 01/16/19 01/20/21 History Pravastatin Sodium [Pravachol] 80 mg PO HS #30 tab 01/19/19 01/20/21 Rx Brimonidine Tartrate [Alphagan P 1 drops BOTH EYES BID 01/20/21 01/20/21 History 0.1% Ophth Soln] Butalb/Acetaminophen/Caffeine 1 cap PO Q4HR PRN 01/20/21 01/20/21 History [Fioricet 50-300-40 mg Capsule] Melatonin 5 mg PO HS 01/20/21 01/20/21 History Mirabegron [Myrbetriq] 50 mg PO DAILY 01/20/21 01/20/21 History Ticagrelor [Brilinta] 60 mg PO BID 01/20/21 01/20/21 History Allergies Allergy/AdvReac Type Severity Reaction Status Date / Time Penicillins Allergy Swelling Verified 01/16/19 16:23 Sulfa (Sulfonamide Allergy Anaphylaxis Verified 01/16/19 16:23 Antibiotics) shellfish derived [Shellfish] AdvReac Unknown Verified 01/16/19 16:23 Physical Exam Vitals: Vital Signs Temp Pulse Resp BP Pulse Ox 01/23/21 02:00 74 18 01/23/21 00:00 97.3 F L 74 18 91/50 93 L 01/22/21 20:00 97.5 F L 77 18 127/67 94 L 01/22/21 16:00 98.2 F 71 18 123/74 98 01/22/21 11:46 98.1 F 66 18 114/61 96 01/22/21 07:57 97.8 F 96 18 132/78 93 L Intake and Output 01/22/21 01/22/21 01/23/21 14:59 22:59 06:59 Intake Total 420 180 Balance 420 180 Intake: Oral 420 180 Other: # Voids 1 Skin: Atrophic, intact. General: Medium build and comfortable appearance. Head: Normocephalic, atraumatic. Eyes: Symmetric. Pupils equal round. Ears: Symmetric. Hearing within normal limits. Mouth: Clear. Neck: Supple. Carotid without bruit. Cardiac: Regular rate and rhythm. Lungs: Clear anteriorly and posteriorly. Abdomen: Soft active nontender. Extremities: Normal tone. Neurological: Mental status: Alert, cooperative, pleasant. Cranial nerves: Symmetric facial tone and trapezius. Motor: Symmetric strength and isolation all 4 limbs. Sensation: Intact throughout. DTRs: Symmetric and equal throughout. Mobility: Did not attempt to sit or stand this early a.m. Results CBC & Chem 7: 01/21/21 07:49 01/21/21 07:49 Assessment and Plan (1) Expressive aphasia Current Visit: Yes Status: Acute Code(s): R47.01 - APHASIA SNOMED Code(s): 771082847 (2) CVA (cerebral vascular accident) Current Visit: No Status: Acute Code(s): I63.9 - CEREBRAL INFARCTION, UNSPECIFIED SNOMED Code(s): 338111676 Plan: Impression: 1. Gait and speech disturbance due to stroke. 2. Coronary artery disease with history of ND. 3. Hypertension. 4. Dyslipidemia. 5. Osteoarthritis. 6. COPD. 7. GERD. Comments and plan: At this time physical, occupational, speech therapies are prescribed. Await the results of. Discussed possible inpatient rehab with patient and she seems agreeable if necessary.
[2021-01-23] MEDS: METOPROLOL TARTRATE 50 MG TAB PO SCH (08:58)
[2021-01-23] MEDS: TICAGRELOR 90 MG TAB PO SCH (08:58)
[2021-01-23] MEDS: ASPIRIN 81 MG PO SCH (08:58)
[2021-01-23] MEDS: BRIMONIDINE TARTRATE 0.2% DROPS 5 ML BTL BOTH EYES SCH (08:58)
[2021-01-23] MEDS: VIT A,C & E-LUTEIN-MINERALS 1 EACH TAB PO SCH (08:59)
[2021-01-23] MEDS: NON FORMULARY DRUG (Mirabegron [Myrbetriq] 50 MG Tab.Er.24h) PO SCH (08:59)
[2021-01-23 10:32] VITALS: TEMP 98.2
--- NOTE | 2021-01-23 12:16 | P.PN ---
Subjective Progress Note Date: 01/23/21 The patient seen at bedside and she is about the same today compared to yesterday. Her speech is improved and is speaking clearly. She is accompanied with her son (Tank), who stated she followed-up with Dr. Stanley (for neurological) management as outpatient but since he closed his neurology practice she is in the process of seeing someone else. Yesterday I placed the consult order for vascular surgery team for the moderate right internal carotid artery stenosis and for the history of vascular steal syndrome. It seems that the patient was evaluated by Dr. Benitez from vascular surgery team but there is no note and Dr. Alcantar contacted me yesterday that the Dr. Benitez contact them since the patient was seen in the past by Dr. Alcantar for the the subclavian steal syndrome and asked him to [place] to patient. Objective - Vital Signs Vital signs: Vital Signs Temp 98.2 F 01/23/21 08:00 Pulse 74 01/23/21 08:00 Resp 18 01/23/21 08:00 BP 119/69 01/23/21 08:00 Pulse Ox 94 L 01/23/21 08:00 Intake & Output 01/22/21 01/23/21 01/23/21 18:59 06:59 18:59 Intake Total 600 4 Balance 600 4 Weight 56.3 kg Intake: Oral 600 4 Other: # Voids 1 # Bowel Movements 1 - Exam GENERAL: The patient is lying in bed and is not in acute distress. NEUROLOGICAL: Higher mental function: The patient is awake, alert, oriented to self, place and time. Regarding year initially she said 19 but the caught her self and said it is 2020. She correctly name few objects correctly (pen and watch). Patient is following commands. Her speech is better today compared to yesterday. She has good repitition. No neglect. Cranial nerves: The pupils are round, equal and reactive to light and accommodation. Visual brooke are full to confrontation throughout. Extraocular movement is intact no nystagmus is noted. Facial sensation is normal to touch throughout. The facial strength is normal throughout. Hearing is moderately decreased bilaterally.. Tongue is midline and moved [id number] without any difficulty. No dysarthria is noted. Shoulder shrug is normal bilaterally. Motor: Gait is deferred. The strength is left upper (elbow extension/flexion) is 5-/5. Otherwise 5/5 throughout. Normal tone and bulk. Cerebellum: Normal finger to nose bilaterally. Sensation: Sensation is normal to touch throughout. Reflexes (right/left): 2+ throughout while ankles are 1+ bilaterally. Plantars are mute bilaterally. - Labs CBC & Chem 7: 01/21/21 07:49 01/21/21 07:49 Assessment and Plan Assessment: * Acute ischemic stroke (Per Radiologist right periventricular white matter in the right temporal parietal region. I personally felt it was more right temporal/occipital region). No IV tpa since outside [facility] (had symptoms for 24 hours prior to presentation of difficulty of speech). On examination she had minimal left upper arm strength 5-/5. I expected her stroke to be more left MCA because of aphasia. Stroke seems embolic. * Expressive aphasia and seems improving on presentation. * Moderate Right ICA stenosis (per CTA) and seems symptomatic but no carotid stenosis per carotid ultrasound. 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 Marketed generalized degenerative changes and mild chronic ischemic white matter disease. No mass, mass effect or shift of the midline structures. I personally reviewed the MRI data felt was more right temporal occipital region. * CT angiography of the head and neck was reported as scattered atherosclerotic plaque of the brachiocephalic origin in the carotid bifurcation within the neck at. Secondary to plaque formation there is moderate proximal right internal carotid artery stenosis * 2-D echo was reported as the currently difficult study with suboptimal views. Borderline concentric left ventricular hypertrophy. Left ventricular systolic function is moderately impaired with ejection fraction between 35-40%. Basal lateral/posterior/inferior/lateral/posterior/inferior and apical lateral ventricle motion is hypokinetic. Normal left atrial size. Moderate mitral annular calcification present. * Lipid panel: Triglyceride of 78, cholesterol 449, LDL of 75 and HDL 58. LDL goal in stroke <70. * TSH of 2.57 which is considered normal. * Carotid duplex was reported as no significant, and or internal carotid artery stenosis within the neck. Retrograde flow detected in the right vertebral artery with suggest the presence of right subclavian steal. This was not present on the prior study. * Continue Brilinta 90 mg 1 tablet twice a day (was on 60mg bid at home) and continue ASA 81mg daily for stroke prophylaxis. Continue pravastatin 80 mg daily at bedtime and that's to be continued for secondary stroke prophylaxis. * Dr. Newell is consulted for subclavian steal syndrome. Dr. Newell notified me that she does not seems like a great surgical candidate but he will speak with Dr. Renee regarding the case. * Physical therapy, occupational therapy and speech therapy teams are consulted.. * Continue cardiac monitoring as well as neurological checks Q4 hours. * Cardiology is consulted. Consider event monitor. * We'll defer the rest of the medical management to the primary team. The plan is discussed with the patient's nurse, her son (Tank who is at bedside) and the primary team (Dr. Frazier). There is no further work-up. Will follow-up sporadically. Farooq Durham M.D. Neuro-hospitalist Time with Patient: Less than 30
--- NOTE | 2021-01-23 12:19 | P.CRDCN ---
History of Present Illness History of present illness: HISTORY OF PRESENTING ILLNESS This is a pleasant 89-year-old female past medical history significant for TIA (in 2019), hypertension, hyperlipidemia, coronary artery disease status post PCI to the mid LAD in 2006, severe stenosis of the proximal right subclavian artery with apparent subclavian steal syndrome phenomenon as per CTA (in 2019). She follows in the office with Dr. Phoenix. We have been asked to see in consultation for an EF 35-40% noted on echocardiogram and event monitor placement. Patient presents emergency department 01/20/2021 with difficulty with her speech for the past 24 hours. She denies any difficult walking, facial droop, seizures, loss of consciousness, no weakness in upper or lower extremities, dizziness, lightheadedness. MRI the brain is reported as acute infarct in the right periventricular white matter in the right temporal parietal region, generalized degenerative changes and mild chronic ischemic white matter disease. No mass, mass effect or shift of the midline structures. Neurology following, per Dr. Durham he personally reviewed the MRI data felt was more right temporal occipital region. Patient endorses some dyspnea on exertion. Patient denies chest pain, shortness of breath, palpitations, nausea, abdominal pain. Denies symptoms of orthopnea or PND. Denies history of Diabetes, irregular heart rhythm. Former smoker. Patient is currently being maintained on aspirin 81 mg daily, metoprolol tartrate 50 mg twice a day, pravastatin 80 mg nightly, Brilinta 90 mg twice a day DIAGNOSTICS EKG reveals sinus rhythm with right bundle branch block, PVC, HR 69. Telemetry tracings indicate sinus mechanism HR 60-70s Chest xray chronic emphysematous and pulmonary changes and cardiomegaly without acute pulmonary process Carotid Dopplers- No significant common or internal carotid artery stenosis within the neck. Retrograde flow detected in the right vertebral artery which suggests the presence of a right subclavian steal. Brain MRI- acute infarct in the right periventricular white matter in the right temporal parietal region. It occurred change and marked chronic ischemic white matter disease, no mass, mass effect or shift of the midline structures. CT head and neck- revealed scattered atherosclerotic plaque of the brachiocephalic origin in the carotid bifurcation within the neck. Secondary plaque formation moderate proximal right internal carotid artery stenosis. Echocardiogram revealed left ventricular systolic function is moderately impaired with any change in 35-40%, LV wall hypokinesis, mild to moderate mitral regurgitation, mild tricuspid regurgitation, mild pulmonary hypertension Echocardiogram 05/2018 revealed an EF of 50-50%, basal inferior LV impulse hypokinetic, mild mitral regurgitation, trace tricuspid regurgitation Laboratory reviewed, WBC 8.5, hemoglobin 1.6, platelets 287, sodium 141, potassi um 3.7, serum creatinine 0.67, BUN 11, troponin negative 1, triglycerides 78, cholesterol 149, LDL 75, HDL 58, TSH within normal limits, urine tox negative, COVID-19 negative, UA negative REVIEW OF SYSTEMS At the time of my exam: CONSTITUTIONAL: Denies fever or chills. CARDIOVASCULAR: +shortness of breath Denies chest pain, orthopnea, PND or palpitations. RESPIRATORY: Denies cough. GASTROINTESTINAL: Denies abdominal pain, diarrhea, constipation, nausea or vomiting. MUSCULOSKELETAL: Denies myalgias. NEUROLOGIC: +aphasia Denies numbness, tingling, headacbe or weakness. ENDOCRINE: Denies fatigue, weight change, polydipsia or polyurina. GENITOURINARY: Denies burning, hematuria or urgency with micturation. HEMATOLOGIC: Denies history of anemia or bleeding. PHYSICAL EXAMINATION Blood pressure 119/69 heart rate 74 afebrile and maintaining oxygen saturation 94% on room air. CONSTITUTIONAL: No apparent distress. HEENT: Head is normocephalic. Pupils are equal, round. Sclerae anicteric. Mucous membranes of the mouth are moist. No JVD. No carotid bruit. CHEST EXAMINATION: Lungs are clear to auscultation. No chest wall tenderness is noted on palpation or with deep breathing. HEART EXAMINATION: Regular rate and rhythm. S1, S2 heard. No murmurs, gallops or rub. ABDOMEN: Soft, nontender. Positive bowel sounds. EXTREMITIES: 2+ peripheral pulses, +mild bilateral non-pitting lower extremity edema and no calf tenderness. NEUROLOGIC EXAMINATION: Patient is awake, alert and oriented x3. ASSESSMENT Acute ischemic Stroke Expressive aphasia Cardiomyopathy, ischemic vs non-ischemic EF 35-40% History of TIA Coronary artery disease s/p PCI to mid LAD in 2005 History of Hypertension- hypotensive while admitted Dyslipidemia History of proximal right subclavian artery with subclavian steal syndrome phenomenon PLAN -Event monitor ordered, to be placed before discharge -Continue aspirin, statin, beta kilo, brilinta -Patient not on ACEI/ARB due to hypotension -Patient to follow up with Dr. Phoenix outpatient for further workup as indicated. Nurse Practitioner note has been reviewed, I agree with a documented findings and plan of care. Patient was seen and examined. Past Medical History Past Medical History: Coronary Artery Disease (CAD), COPD, GERD/Reflux, Hyperlipidemia, Hypertension, Myocardial Infarction (VA), Osteoarthritis (OA) Additional Past Medical History / Comment(s): pt stated "dr is trying her out on a gluten free diet for past month""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 macular degeneration, wolfgang eye wide angle glaucoma," dry eyes", shingles 2014, when pt was 11 or 12 injured lt arm(it was pulled thru a ringer washer up to her elbow) pt stated no sx done on it.cared for at home in those days.pt stated has had a pne vaccine approx 2-3 years ago - junior underwriter unable to verify date at time of this admit. Last Myocardial Infarction Date:: 2006 History of Any Multi-Drug Resistant Organisms: None Reported Past Surgical History: Adenoidectomy, Appendectomy, Heart Catheterization With Stent, Tonsillectomy, Tubal Ligation Additional Past Surgical History / Comment(s): cataract, total 3 cardaic stents Past Anesthesia/Blood Transfusion Reactions: Previous Problems w/ Anesthesia Additional Past Anesthesia/Blood Transfusion Reaction / Comment(s): difficulty waking up after sx. pt stated she has never had a blood transfusion. Date of Last Stent Placement:: unk Past Psychological History: No Psychological Hx Reported Past Alcohol Use History: None Reported Past Drug Use History: None Reported - Past Family History Father Family Medical History: Coronary Artery Disease (CAD) Additional Family Medical History / Comment(s): " from hardening of the arteries", diverticulitis Sister(s) Additional Family Medical History / Comment(s): crohns disease Mother Family Medical History: Cancer Additional Family Medical History / Comment(s): pernicious anemia, stomach cancer/mets Medications and Allergies Home Medications Medication Instructions Recorded Confirmed Type Carboxymethylcellulose Sodium 1 drop BOTH EYES DAILY PRN 05/27/18 01/20/21 History [Refresh Tears] Latanoprost [Xalatan 0.005%] 1 drop BOTH EYES HS 05/27/18 01/20/21 History Vit C/E/Zn/Coppr/Lutein/Zeaxan 1 cap PO DAILY 05/27/18 01/20/21 History [Preservision Areds 2 Softgel] Metoprolol Tartrate [Lopressor] 50 mg PO BID 01/16/19 01/20/21 History Pravastatin Sodium [Pravachol] 80 mg PO HS #30 tab 01/19/19 01/20/21 Rx Brimonidine Tartrate [Alphagan P 1 drops BOTH EYES BID 01/20/21 01/20/21 History 0.1% Ophth Soln] Butalb/Acetaminophen/Caffeine 1 cap PO Q4HR PRN 01/20/21 01/20/21 History [Fioricet 50-300-40 mg Capsule] Melatonin 5 mg PO HS 01/20/21 01/20/21 History Mirabegron [Myrbetriq] 50 mg PO DAILY 01/20/21 01/20/21 History Ticagrelor [Brilinta] 60 mg PO BID 01/20/21 01/20/21 History Allergies Allergy/AdvReac Type Severity Reaction Status Date / Time Penicillins Allergy Swelling Verified 01/16/19 16:23 Sulfa (Sulfonamide Allergy Anaphylaxis Verified 01/16/19 16:23 Antibiotics) shellfish derived [Shellfish] AdvReac Unknown Verified 01/16/19 16:23 Physical Exam Vitals: Vital Signs Temp Pulse Resp BP Pulse Ox 01/23/21 04:00 98.1 F 76 18 145/77 92 L 01/23/21 02:00 74 18 01/23/21 00:00 97.3 F L 74 18 91/50 93 L 01/22/21 20:00 97.5 F L 77 18 127/67 94 L 01/22/21 16:00 98.2 F 71 18 123/74 98 01/22/21 11:46 98.1 F 66 18 114/61 96 Intake and Output 01/22/21 01/23/21 01/23/21 22:59 06:59 14:59 Intake Total 180 4 Balance 180 4 Intake: Oral 180 4 Other: # Voids 1 1 # Bowel Movements 1 Weight 56.3 kg Results 01/21/21 07:49 01/21/21 07:49 Current Medications Generic Name Dose Route Start Last Admin Trade Name Freq PRN Reason Stop Dose Admin Acetaminophen/Butalbital/Caffeine 1 each 01/20/21 22:06 Butalb/Apap/Caff 50-325-40mg Tab PO Q4HR PRN Migraine Headache Artificial Tears 1 drops 01/20/21 22:06 Artificial Tears-Hypromellose Drops 15 Ml Btl BOTH EYES DAILY PRN DRY EYES Aspirin 81 mg 01/21/21 09:00 01/23/21 08:58 Aspirin 81 Mg PO 81 mg DAILY JOLENE Administration Brimonidine Tartrate 1 drops 01/21/21 09:00 01/23/21 08:58 Brimonidine Tartrate 0.2% Drops 5 Ml Btl BOTH EYES 1 drops BID JOLENE Administration Latanoprost 1 drops 01/21/21 21:00 01/22/21 21:04 Latanoprost 0.005% Ophth Drops 2.5 Ml Btl BOTH EYES 1 drops HS JOLENE Administration Loperamide HCl 2 mg 01/22/21 15:45 01/22/21 15:47 Loperamide 2 Mg Cap PO 2 mg QID PRN Administration Diarrhea Melatonin 5 mg 01/21/21 21:00 01/22/21 21:05 Melatonin 5 Mg Tablet PO 5 mg HS [facility] Administration Metoprolol Tartrate 50 mg 01/20/21 21:00 01/23/21 08:58 Metoprolol Tartrate 50 Mg Tab PO 50 mg BID JOLENE Administration Multivitamins/Minerals 1 each 01/21/21 09:00 01/23/21 08:59 Vit A,C & H-Ncsxyi-Woymmwca 1 Each Tab PO Not Given DAILY [facility] Non-Formulary Medication 50 mg 01/21/21 09:00 01/23/21 08:59 Mirabegron [Myrbetriq] PO Not Given DAILY [facility] Pravastatin Sodium 80 mg 01/20/21 21:00 01/22/21 21:05 Pravastatin Sodium 80 Mg Tab PO 80 mg HS [facility] Administration Ticagrelor 90 mg 01/21/21 09:15 01/23/21 08:58 Ticagrelor 90 Mg Tab PO 90 mg BID JOLENE Administration Intake and Output 01/22/21 01/23/21 01/23/21 22:59 06:59 14:59 Intake Total 180 4 Balance 180 4 Intake: Oral 180 4 Other: # Voids 1 1 # Bowel Movements 1 Weight 56.3 kg 01/21/21 07:49 01/21/21 07:49
[2021-01-23 12:54] VITALS: BP 130/71; PULSE 77; RESP 16
--- NOTE | 2021-01-23 13:12 | P.DS ---
Providers Date of admission: 01/20/21 18:52 Expected date of discharge: 01/23/21 Attending physician: Kris Frazier Consults: 01/20/21 18:52 Consult Physician Urgent Consulting Provider: Rachael Stanley Consult Reason/Comments: Expressive aphasia Do you want consulting provider notified?: Yes 01/22/21 07:25 Consult Physician Routine Consulting Provider: Rik Renee Consult Reason/Comments: subclavian steal syndrome and NORMAN stenosis Do you want consulting provider notified?: Yes Primary care physician: Raisa Meade MD Hospital Course: HISTORY OF PRESENT ILLNESS This is an 89-year-old female patient of Dr. Meade with past medical history of hypertension, COPD, hyperlipidemia, history of myocardial infarction in 2007 status post 3 stents, history of pulmonary fibrosis, acute transient ischemic attack in 2019 at which time she was advised to started on Brilinta 90 mg twice daily and aspirin 81 mg daily and had follow up with Dr. Miller, subclavian steal syndrome phenomena. Patient states that she developed episode of trouble getting her words out. She states a couple days ago she was feeling fine and went to her eye doctor For Macular Degeneration and Her Daughter Took Her Home and She Suddenly Developed This Episode of Difficulty Speaking and Mumbling. She States She Had a Headache at the Time. She Denies Any Known Seizure Activity. No Weakness in Her Upper and Lower Extremities. She States She [place] a Little Dizzy. She Had No Loss of Consciousness. Patient Was Finally Convinced by Her Family to Come into the Hospital for Evaluation. Patient was brought into [facility] emergency center for evaluation. SHe was found to be afebrile, HR 70, BP 126/73, PO 95 % RA. CBC normal. Electrolytes normal, CO2 36. LFT normal. UA negative. Alcohol level was negative. Urine drug screen was negative. Coronavirus PCR not detected. CAT scan of the brain showed no interval change. Chronic small vessel ischemic changes. Chest x-ray showed chronic emphysema or pulmonary fibrotic changes. Mild cardiomegaly without acute pulmonary process. 01/22: MRI of the brain reported acute infarct in the right. Ventricular white matter in the right temporal parietal region. Generalized degenerative changes and mild chronic ischemic white matter disease. No mass, mass effect or shift of the midline structures. CT angiography of the head and neck revealed scattered atherosclerotic plaque of the brachiocephalic origin in the carotid bifurcation within the neck. Secondary plaque formation moderate proximal right internal carotid artery stenosis. Echocardiogram revealed borderline concentric left and clear hypertrophy, EF 35- 40%, Triglycerides 70, cholesterol 449, LDL 75, HDL 58. Patient has been reevaluated by neurology recommending cardiology consult regarding hypokinesis of the left ventricle and consideration for event monitor area cardiology consult added. Patient was anxious to be discharged home but as noted patient was having more trouble with expressive aphasia and difficulty finding words, slight confusion today. Both patient's daughter Samantha and son Chago were contacted and they would like patient to go to inpatient rehab at [facility] which she had done in the past. Consult added for Dr. Tristan. Patient updated regarding no discharge today. Patient is somewhat upset about not going home today. 01/23: Patient has been afebrile, heart rate 74, blood pressure 119/69, pulse ox 94% on room air. Patient has been seen by associate consulting engineer and event monitor will be arranged and patient will follow-up with Dr. Phoenix in the office for further evaluation. Patient's expressive aphasia seems to be improved today. She is very anxious to be discharged home Patient has been seen by Dr. Tristan and therapies have evaluated her this morning determining that she is too good for inpatient rehab. She is walking very independently. Patient has been evaluated by Dr. Newell and does not feel the patient is a surgical candidate but will discuss the case with Dr. Renee. post office manager will make arrangements for home care and patient will be discharged home today in stable condition. ASSESSMENT AND PLAN 1. Acute ischemic stroke. 2. 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 3. History of TIA in 2019. 4. Hypertension. 5. Hyperlipidemia. 6. Macular degeneration and glaucoma. DISCHARGE PLAN Home with home care Impression and plan of care have been directed as dictated by the signing physician. Arcelia Ogden nurse practitioner acting as scribe for signing physician. Patient Condition at Discharge: Stable Plan - Discharge Summary New Discharge Prescriptions: New Loperamide [Imodium] 2 mg PO QID PRN cap PRN Reason: Diarrhea Aspirin 81 mg PO DAILY chew Ticagrelor [Brilinta] 90 mg PO BID #60 tab Continue Latanoprost [Xalatan 0.005%] 1 drop BOTH EYES HS Carboxymethylcellulose Sodium [Refresh Tears] 1 drop BOTH EYES DAILY PRN PRN Reason: DRY EYES Vit C/E/Zn/Coppr/Lutein/Zeaxan [Preservision Areds 2 Softgel] 1 cap PO DAILY Metoprolol Tartrate [Lopressor] 50 mg PO BID Pravastatin Sodium [Pravachol] 80 mg PO HS #30 tab Butalb/Acetaminophen/Caffeine [Fioricet 50-300-40 mg Capsule] 1 cap PO Q4HR PRN PRN Reason: Migraine Headache Melatonin 5 mg PO HS Brimonidine Tartrate [Alphagan P 0.1% Ophth Soln] 1 drops BOTH EYES BID Mirabegron [Myrbetriq] 50 mg PO DAILY Discontinued Ticagrelor [Brilinta] 60 mg PO BID Discharge Medication List Carboxymethylcellulose Sodium [Refresh Tears] 1 drop BOTH EYES DAILY PRN 05/27/18 [History] Latanoprost [Xalatan 0.005%] 1 drop BOTH EYES HS 05/27/18 [History] Vit C/E/Zn/Coppr/Lutein/Zeaxan [Preservision Areds 2 Softgel] 1 cap PO DAILY 05/27/18 [History] Metoprolol Tartrate [Lopressor] 50 mg PO BID 01/16/19 [History] Pravastatin Sodium [Pravachol] 80 mg PO HS #30 tab 01/19/19 [Rx] Brimonidine Tartrate [Alphagan P 0.1% Ophth Soln] 1 drops BOTH EYES BID 01/20/21 [History] Butalb/Acetaminophen/Caffeine [Fioricet 50-300-40 mg Capsule] 1 cap PO Q4HR PRN 01/20/21 [History] Melatonin 5 mg PO HS 01/20/21 [History] Mirabegron [Myrbetriq] 50 mg PO DAILY 01/20/21 [History] Aspirin 81 mg PO DAILY chew 01/23/21 [Rx] Loperamide [Imodium] 2 mg PO QID PRN cap 01/23/21 [Rx] Ticagrelor [Brilinta] 90 mg PO BID #60 tab 01/23/21 [Rx] Follow up Appointment(s)/Referral(s): Raisa Meade MD [Primary Care Provider] - 1 Week Luis Phoenix MD [STAFF PHYSICIAN] - 4 Weeks (Follow up with Dr. Phoenix after results of event monitor are in. ) Maurice Miller DO [STAFF PHYSICIAN] - 2 Weeks Arturo Newell MD [STAFF PHYSICIAN] - 3 Weeks Discharge Disposition: HOME WITH HOME HEALTH SERVICES
--- NOTE | 2021-01-23 15:24 | CONS ---
CONSULTATION Katt is an 89-year-old female. Patient came to the [facility] ER with history of difficulty with speech for the past 24 hours with complete recovery. The patient is known to me from the past. I have seen her in 2019 and she had a history of affecting her speech and some weakness of the left leg. The patient has had complete stroke workup including MRI and CT scan which showed a right subclavian artery high-grade stenosis. The high-grade stenosis with steal phenomenon. We did the carotid ultrasound in the office. Patient has 60-49 percent stenosis. She has no history of amaurosis fugax or any motor deficit. The patient has history of coronary artery disease, hyperlipidemia, hypertension, mm myocardial infarction. PHYSICAL EXAMINATION: Patient was seen in her room. She was lying comfortably in bed. She was alert and oriented to time and place. Neck was supple. CHEST: Clear to auscultation. Few crackles at the lung bases. ABDOMEN: Soft. Motor function normal upper and lower extremities. IMPRESSION: Right subclavian stenosis. There is no history of arm claudication or any drop attacks. The patient had duplex scan done of the subclavian artery with the patient has a short segment stenosis and the brachial and radial artery were triphasic. The patient is under care of her in Neurology doctor, Dr. Durham. I have discussed with him in detail today. I will ask Dr. Rik Renee his opinion about carotid subclavian bypass versus balloon angioplasty of the right subclavian artery. The patient is a high risk for a carotid subclavian bypass concerning the age and comorbidities. Dr. Renee will see the patient. Thank you for this consultation. MMODL / IJN: [id number] /
== END 2021-01-23 17:07 | disposition home health service (06) | DRG 66 ==
LOC: EC 15:14 → 3SCARD 18:52
PROVIDERS: ADMIT Internal Medicine Geriatric Medicine; ATTEND Internal Medicine Geriatric Medicine
DX: I63.412 Cerebral infarction due to embolism of left middle cerebral artery (principal); R47.01 Aphasia; Z86.73 Personal history of transient ischemic attack (TIA), and cerebral infarction without residual deficits; Z79.02 Long term (current) use of antithrombotics/antiplatelets; Z88.0 Allergy status to penicillin; Z88.2 Allergy status to sulfonamides; I25.10 Atherosclerotic heart disease of native coronary artery without angina pectoris; K21.9 Gastro-esophageal reflux disease without esophagitis; I11.9 Hypertensive heart disease without heart failure; I25.2 Old myocardial infarction; Z82.49 Family history of ischemic heart disease and other diseases of the circulatory system; Z80.0 Family history of malignant neoplasm of digestive organs; E78.5 Hyperlipidemia, unspecified; Z98.61 Coronary angioplasty status; Z79.82 Long term (current) use of aspirin; M19.90 Unspecified osteoarthritis, unspecified site; J43.9 Emphysema, unspecified; H35.30 Unspecified macular degeneration; H40.9 Unspecified glaucoma; Z87.891 Personal history of nicotine dependence; I65.21 Occlusion and stenosis of right carotid artery; Z20.822 Contact with and (suspected) exposure to COVID-19; I25.5 Ischemic cardiomyopathy; I27.20 Pulmonary hypertension, unspecified; I45.10 Unspecified right bundle-branch block; I70.8 Atherosclerosis of other arteries; J84.10 Pulmonary fibrosis, unspecified; W06.XXXA Fall from bed, initial encounter; R29.701 NIHSS score 1; R53.1 Weakness
CPT/HCPCS: 36415; 70450; 70496; 70498; 70553; 71046; 80053; 80061; 80306; 80320; 81003; 84443; 84484; 85025; 85610; 85730; 87635; 93005; 93270; 93306; 93880; 94760; 99285

== ENCOUNTER 2021-03-24 08:41 | Inpatient (IN) | payer MEDICARE ==
[2021-03-24 08:47] VITALS: TEMP 98
[2021-03-24] MEDS ORDERED: PANTOPRAZOLE 40 MG/10 ML VIAL IVP STA (08:59)
[2021-03-24] MEDS ORDERED: SODIUM CHLORIDE 0.9% 1,000 ML IV STA (08:59)
--- NOTE | 2021-03-24 09:01 | ED ---
General Adult HPI - General Chief complaint: GI Bleed Stated complaint: Vomiting blood Time Seen by Provider: 03/24/21 08:49 Source: patient, family, RN notes reviewed Mode of arrival: wheelchair Limitations: no limitations - History of Present Illness Initial comments: Patient is a pleasant 89-year-old female presenting to the emergency department with family with concerns for vomiting blood. Onset of symptoms was 5 AM. Patient has had a proximal he 4-5 episodes. Patient had dark bloody emesis. Patient did witness her family member with similar problems previously however no history of some her problems self. Patient did have some abdominal discomfort earlier that has resolved. Patient is on brilinta. No black stools. No fever. - Related Data Home Medications Medication Instructions Recorded Confirmed Carboxymethylcellulose Sodium 1 drop BOTH EYES DAILY PRN 05/27/18 01/20/21 [Refresh Tears] Latanoprost [Xalatan 0.005%] 1 drop BOTH EYES HS 05/27/18 01/20/21 Vit C/E/Zn/Coppr/Lutein/Zeaxan 1 cap PO DAILY 05/27/18 01/20/21 [Preservision Areds 2 Softgel] Metoprolol Tartrate [Lopressor] 50 mg PO BID 01/16/19 01/20/21 Brimonidine Tartrate [Alphagan P 1 drops BOTH EYES BID 01/20/21 01/20/21 0.1% Ophth Soln] Butalb/Acetaminophen/Caffeine 1 cap PO Q4HR PRN 01/20/21 01/20/21 [Fioricet 50-300-40 mg Capsule] Melatonin 5 mg PO HS 01/20/21 01/20/21 Mirabegron [Myrbetriq] 50 mg PO DAILY 01/20/21 01/20/21 Previous Rx's Medication Instructions Recorded Pravastatin Sodium [Pravachol] 80 mg PO HS #30 tab 01/19/19 Aspirin 81 mg PO DAILY chew 01/23/21 Loperamide [Imodium] 2 mg PO QID PRN cap 01/23/21 Ticagrelor [Brilinta] 90 mg PO BID #60 tab 01/23/21 Allergies Allergy/AdvReac Type Severity Reaction Status Date / Time Penicillins Allergy Swelling Verified 03/24/21 08:45 Sulfa (Sulfonamide Allergy Anaphylaxis Verified 03/24/21 08:45 Antibiotics) shellfish derived [Shellfish] AdvReac Unknown Verified 01/16/19 16:23 Review of Systems ROS Statement: Those systems with pertinent positive or pertinent negative responses have been documented in the HPI. ROS Other: All systems not noted in ROS Statement are negative. Constitutional: Denies: fever Eyes: Denies: eye pain ENT: Denies: ear pain Respiratory: Denies: cough Cardiovascular: Denies: chest pain Endocrine: Denies: fatigue Gastrointestinal: Reports: as per HPI, vomiting, hematemesis Genitourinary: Denies: dysuria Musculoskeletal: Denies: back pain Skin: Denies: rash Past Medical History Past Medical History: Coronary Artery Disease (CAD), COPD, GERD/Reflux, H yperlipidemia, Hypertension, Myocardial Infarction ([place]), Osteoarthritis (OA) Additional Past Medical History / Comment(s): pt stated "dr is trying her out on a gluten free diet for past month""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 macular degeneration, wolfgang eye wide angle glaucoma," dry eyes", shingles 2014, when pt was [age] injured lt arm(it was pulled thru a ringer washer up to her elbow) pt stated no sx done on it.cared for at home in those days.pt stated has had a pne vaccine approx 2-3 years ago - principal technical writer unable to verify date at time of this admit. Last Myocardial Infarction Date:: 2006 History of Any Multi-Drug Resistant Organisms: None Reported Past Surgical History: Adenoidectomy, Appendectomy, Heart Catheterization With Stent, Tonsillectomy, Tubal Ligation Additional Past Surgical History / Comment(s): cataract, total 3 cardaic stents Past Anesthesia/Blood Transfusion Reactions: Previous Problems w/ Anesthesia Additional Past Anesthesia/Blood Transfusion Reaction / Comment(s): difficulty waking up after sx. pt stated she has never had a blood transfusion. Date of Last Stent Placement:: unk Past Psychological History: No Psychological Hx Reported Smoking Status: Never smoker Past Alcohol Use History: None Reported Past Drug Use History: None Reported - Past Family History Father Family Medical History: Coronary Artery Disease (CAD) Additional Family Medical History / Comment(s): " from hardening of the arteries", diverticulitis Sister(s) Additional Family Medical History / Comment(s): crohns disease Mother Family Medical History: Cancer Additional Family Medical History / Comment(s): pernicious anemia, stomach cancer/mets General Exam Limitations: no limitations General appearance: alert, in no apparent distress Head exam: Present: normocephalic Eye exam: Present: normal appearance Neck exam: Present: normal inspection Respiratory exam: Present: normal lung sounds bilaterally Cardiovascular Exam: Present: regular rate, normal rhythm GI/Abdominal exam: Present: soft, normal bowel sounds. Absent: distended, tenderness, guarding, rebound, rigid, pulsatile mass Extremities exam: Present: normal inspection Neurological exam: Present: alert Psychiatric exam: Present: normal affect, normal mood Skin exam: Present: normal color Course Vital Signs 03/24/21 08:45 Temperature 98.0 F Pulse Rate 102 H Respiratory 18 Rate Blood Pressure 106/75 O2 Sat by Pulse 94 L Oximetry Medical Decision Making - Medical Decision Making Patient reevaluated and resting comfortably in bed. Patient did have a near syncopal event with standing up to have x-rays done. Symptoms have resolved. Patient and family updated on results and plan. Case discussed with Dr. Morales, who will admit her patient with consult with Dr. Crespo. - Lab Data Result diagrams: 03/24/21 09:06 03/24/21 09:06 Lab Results 03/24/21 03/24/21 03/24/21 Range/Units 09:06 09:06 09:06 WBC 18.8 H (3.8-10.6) k/uL RBC 4.83 (3.80-5.40) m/uL Hgb 12.7 (11.4-16.0) gm/dL Hct 40.6 (34.0-46.0) % MCV 84.0 (80.0-100.0) fL MCH 26.3 (25.0-35.0) pg MCHC 31.4 (31.0-37.0) g/dL RDW 15.4 (11.5-15.5) % Plt Count 332 (150-450) k/uL MPV 7.9 Neutrophils % 78 % Lymphocytes % 16 % Monocytes % 4 % Eosinophils % 1 % Basophils % 0 % Neutrophils # 14.7 H (1.3-7.7) k/uL Lymphocytes # 3.0 (1.0-4.8) k/uL Monocytes # 0.8 (0-1.0) k/uL Eosinophils # 0.2 (0-0.7) k/uL Basophils # 0.1 (0-0.2) k/uL Hypochromasia Slight PT 11.0 (9.0-12.0) sec INR 1.0 (<1.2) APTT 22.3 (22.0-30.0) sec Sodium 140 (137-145) mmol/L Potassium 4.5 (3.5-5.1) mmol/L Chloride 101 (98-107) mmol/L Carbon Dioxide 30 (22-30) mmol/L Anion Gap 9 mmol/L BUN 21 H (7-17) mg/dL Creatinine 0.64 (0.52-1.04) mg/dL Est GFR (CKD-EPI)AfAm >90 (>60 ml/min/1.73 sqM) Est GFR (CKD-EPI)NonAf 80 (>60 ml/min/1.73 sqM) Glucose 153 H (74-99) mg/dL Calcium 9.8 (8.4-10.2) mg/dL Total Bilirubin 0.7 (0.2-1.3) mg/dL AST 24 (14-36) U/L ALT 10 (4-34) U/L Alkaline Phosphatase 71 (38-126) U/L Total Protein 6.7 (6.3-8.2) g/dL Albumin 4.0 (3.5-5.0) g/dL Lipase 1720 H (23-300) U/L - Radiology Data Radiology results: image reviewed (Nonspecific abdomen) Disposition Clinical Impression: Upper GI hemorrhage, Pancreatitis Disposition: ADMITTED IP TO THIS [facility] Condition: Serious Is patient prescribed a controlled substance at d/c from ED?: No Referrals: Raisa Meade MD [Primary Care Provider] - 1-2 days Decision Time: 10:04
--- NOTE | 2021-03-24 09:38 | XR ---
EXAMINATION TYPE: XR abdomen 1V DATE OF EXAM: 03/24/2021 COMPARISON: None INDICATION: Pain hematemesis TECHNIQUE: Single view abdomen upright view FINDINGS: There is a normal bowel gas pattern. No free air is under the diaphragm. No suspicious differential a ir-fluid levels are present. Psoas margins are normal. No organomegaly is present. There is tortuosity of the calcified abdominal aorta. IMPRESSION: 1. Nonspecific abdomen
[2021-03-24 09:43] LABS: Basophils # (A) 0.1 k/uL (0-0.2); Basophils % (A) 0 %; Eosinophils # (A) 0.2 k/uL (0-0.7); Eosinophils % (A) 1 %; HCT 40.6 % (34.0-46.0); HGB 12.7 gm/dL (11.4-16.0); Hypochromasia Slight; Lymphocytes % (A) 16 %; MCH 26.3 pg (25.0-35.0); MCHC 31.4 g/dL (31.0-37.0); Mean Platelet Volume 7.9; Monocytes # (A) 0.8 k/uL (0-1.0); Monocytes % (A) 4 %; Neutrophils # (A) 14.7 k/uL (1.3-7.7); Neutrophils % (A) 78 %; Partial Thromboplastin Time 22.3 sec (22.0-30.0); Platelet Count 332 k/uL (150-450); RBC 4.83 m/uL (3.80-5.40); RDW 15.4 % (11.5-15.5); WBC 18.8 k/uL (3.8-10.6)
[2021-03-24 09:46] LABS: ALT 10 U/L (4-34); AST 24 U/L (14-36); African American GFR (CKD) >90 (>60 ml/min/1.73 sqM); Alkaline Phosphatase 71 U/L (38-126); Anion Gap 9 mmol/L; Blood Urea Nitrogen 21 mg/dL (7-17); Calcium 9.8 mg/dL (8.4-10.2); Carbon Dioxide 30 mmol/L (22-30); Chloride 101 mmol/L (98-107); Glucose 153 mg/dL (74-99); Lipase 1720 U/L (23-300); Non-African American GFR(CKD) 80 (>60 ml/min/1.73 sqM); Potassium 4.5 mmol/L (3.5-5.1); Sodium 140 mmol/L (137-145); Total Bilirubin 0.7 mg/dL (0.2-1.3); Total Protein 6.7 g/dL (6.3-8.2)
[2021-03-24] MEDS ORDERED: NALOXONE 0.4 MG/ML 1 ML VIAL IV PRN (10:04)
[2021-03-24] MEDS ORDERED: ONDANSETRON 4 MG/2 ML VIAL IVP PRN (10:04)
[2021-03-24] MEDS ORDERED: SODIUM CHLORIDE 0.9% 1,000 ML IV SCH (10:15)
[2021-03-24] MEDS ORDERED: ARTIFICIAL TEARS-HYPROMELLOSE DROPS 15 ML BTL BOTH EYES PRN (11:13)
[2021-03-24] MEDS ORDERED: BUTALB/APAP/CAFF 50-325-40MG TAB PO PRN (11:13)
[2021-03-24 11:21] VITALS: PULSE 98
--- NOTE | 2021-03-24 11:26 | CT ---
EXAMINATION TYPE: CT abdomen pelvis w con DATE OF EXAM: 03/24/2021 COMPARISON: CT chest 12/30/2017 HISTORY: 89-year-old female pancreatitis and upper GI hemorrhage, Abdominal pain. TECHNIQUE: Contiguous axial scanning of the abdomen and pelvis following administration of 100 ml Iso julissa 300 IV contrast. Delayed images through the kidneys and coronal/sagittal reconstructions perform ed. CT DLP: 636.2 mGycm Automated exposure control for dose reduction was used. FINDINGS: Heart borderline enlarged. No pericardial effusion. Interstitial groundglass and septal thickening an d subpleural microcystic change redemonstrated at the lung bases, slightly progressed from 2018. No p leural effusion. No focal liver lesion or definite biliary duct dilatation. Portal venous system is patent. Possible severe atherosclerotic stenoses at the origin of both celiac axis and SMA. Large diverticulum of the second portion of the duodenum projecting into the pancreatic head region a nd kj hepatis measuring at least 6.1 cm wide and 7.3 cm craniocaudal. Gallbladder, adrenal glands, right kidney, and pancreas show no gross abnormality. Punctate 3 mm nonobstructive left renal calculus. Tiny calcified granulomas within the spleen. Liquid stool throughout most of the colon. Left-sided colonic diverticulosis, greatest in the sigmoid colon. No dilated small bowel, free fluid, or free air. No mesenteric or retroperitoneal lymphadenopathy. There is some generalized gastric fold thickening. Mild to moderate atherosclerotic calcifications throughout the abdominal aorta. There is tortuous inf rarenal abdominal aorta and fusiform ectasia to 2.6 cm. Bladder is urine distended. Uterus is retroverted. Some prominent periuterine varices left adnexa. Ne ither ovary clearly visualized due to clustered bowel loops. Bones: Moderate degenerative change of the hips. Hypertrophic facet arthropathy throughout the lumbar spine with moderate to advanced degenerative disc disease. Large superior endplate Schmorl's node at L2 is age indeterminate, suspected chronic given the lack of any surrounding soft tissue swelling. IMPRESSION: 1. PROMINENT LIQUID STOOL THROUGHOUT MOST OF THE COLON. CORRELATE FOR NONSPECIFIC COLITIS. 2. THERE IS A VERY LARGE DUODENAL DIVERTICULUM MEASURING 7.3 X 6.1 CM EXTENDING INTO THE PANCREATIC H EAD REGION. NO SPECIFIC CT FINDINGS OF ACUTE PANCREATITIS AT THIS TIME. CORRELATE WITH AMYLASE AND LI PASE LEVELS. 3. GENERALIZED GASTRIC FOLD THICKENING, CORRELATE FOR GASTRITIS. 4. POSSIBLE SEVERE ATHEROSCLEROTIC STENOSES AT THE ORIGIN OF THE CELIAC AXIS AND SMA. 5. INTERSTITIAL LUNG DISEASE AT THE LUNG BASES SLIGHTLY PROGRESSED FROM 2018. QUERY NSIP OR OTHER CHR ONIC POSTINFLAMMATORY ETIOLOGY. 6. LEFT-SIDED COLONIC DIVERTICULOSIS, GREATEST IN THE SIGMOID COLON. PUNCTATE 3 MM NONOBSTRUCTIVE LEF T RENAL CALCULUS.
[2021-03-24 14:34] LABS: Basophils # (A) 0.1 k/uL (0-0.2); Basophils % (A) 1 %; Eosinophils % (A) 0 %; HGB 10.6 gm/dL (11.4-16.0); Hypochromasia Slight; Lymphocytes # (A) 2.3 k/uL (1.0-4.8); Lymphocytes % (A) 22 %; MCH 26.6 pg (25.0-35.0); MCHC 31.3 g/dL (31.0-37.0); MCV 84.8 fL (80.0-100.0); Mean Platelet Volume 8.2; Monocytes # (A) 0.4 k/uL (0-1.0); Monocytes % (A) 4 %; Neutrophils # (A) 7.3 k/uL (1.3-7.7); Neutrophils % (A) 72 %; Platelet Count 271 k/uL (150-450); RDW 15.3 % (11.5-15.5); WBC 10.2 k/uL (3.8-10.6)
[2021-03-24] MEDS ORDERED: SODIUM CHLORIDE 0.9% 1,000 ML IV ONE (14:34)
--- NOTE | 2021-03-24 14:39 | P.HPIM ---
History of Present Illness H&P Date: 03/24/21 HISTORY OF PRESENT ILLNESS This is an 89-year-old female patient of Dr. Meade with past medical history of hypertension, COPD, hyperlipidemia, history of myocardial infarction in 2007 status post 3 stents, history of pulmonary fibrosis, acute transient ischemic attack in 2019 at which time she was advised to started on Brilinta 90 mg twice daily and aspirin 81 mg daily and had follow up with Dr. Miller, subclavian steal syndrome phenomena. Patient was last admitted on 01/21 for acute ischemic stroke with expressive aphasia. :MRI of the brain reported acute infarct in the right. Ventricular white matter in the right temporal parietal region. Generalized degenerative changes and mild chronic ischemic white matter disease. No mass, mass effect or shift of the midline structures. CT angiography of the head and neck revealed scattered atherosclerotic plaque of the brachiocephalic origin in the carotid bifurcation within the neck. Secondary plaque formation moderate proximal right internal carotid artery stenosis. Echocardiogram revealed borderline concentric left and clear hypertrophy, EF 35- 40%, Patient comes in this time with an episode of coffee-ground emesis at 5 in the morning. Patient has some epigastric discomfort but denies any dark stools. Patient did suggest eating spicy food yesterday but denies any dizziness, fever, chills, bright red blood per rectum. She denies any abdominal pain. Patient is on aspirin and Brilinta for CVA. ER admitted the patient with surgery consultation as there is no GI coverage. Patient was initiated on Protonix 40 IV twice daily for concern of peptic ulcer disease. Patient was found to have another episode of bright red blood per rectum on evaluation. Vitals in the ER suggest temp of 98 pulse 98 respiratory rate 16 blood pressure 117/69 labs are suggestive of leukocytosis of 18.8 WBC is 12.7 INR 1 sodium 140 potassium 4.5 BUN elevated at 21 creatinine 0.64 glucose [address] abdomen and pelvis performed suggested Liquid stool throughout most of the colon with left-sided colon diverticulosis greatest in the sigmoid colon with possible colitis. Large dilated 7.3 into 6.1 cm extending into pancreatic head region. No acute pancreatitis noted. Generalized gastric fold thickening concerning for gastritis with severe atherosclerotic stenosis at the region of celiac axis and SMA. Interstitial lung disease and left-sided colonic diverticulosis noted 3 mm nonobstructive left renal calculus noted Due to nonavailability of GI and interventional radiologist embolization of the vessel, it would be safe to transfer the patient to tertiary care center. REVIEW OF SYSTEMS Constitutional: No fever, no chills, no night sweats. No weight change. No weakness, fatigue or lethargy. No daytime sleepiness. EENT: No headache. No blurred vision or double vision, no loss of vision. Chronic loss of Hearing, no ringing in the ears, no dizziness. No nasal drainage or congestion. No epistaxis. No sore throat. Lungs: No shortness of breath, cough, no sputum production. No wheezing. Cardiovascular: No chest pain, no lower extremity edema. No palpitations. No paroxysmal nocturnal dyspnea. No orthopnea. No lightheadedness or dizziness. No syncopal episodes. Abdominal: No abdominal pain. No nausea, positve for coffee ground emesis . No diarrhea. No constipation. bloody stools.. No loss of appetite. Genitourinary: No dysuria, increased frequency, urgency. No urinary retention. Musculoskeletal: No myalgias. No muscle weakness, no gait dysfunction, no frequent falls. No back pain. No neck pain. Integumentary: No wounds, no lesions. No rash or pruritus. No unusual bruising. No change in hair or nails. Neurologic: Reported aphasia. No facial droop. No change in mentation. No head injury. No headache. No paralysis. No paresthesia. Psychiatric: No depression. No anxiety. No mood swings. Endocrine: No abnormal blood sugars. No weight change. No excessive sweating or thirst. No cold intolerance. SOCIAL HISTORY Patient is a lifelong nonsmoker, no alcohol use, no marijuana use, no illicit drug use. She is . FAMILY HISTORY Mother at age 82 from CAD. Father at age 82 from CAD. She had a total of 7 siblings and all have passed with history of CAD. She has 3 children with no major medical problems. PHYSICAL EXAMINATION Gen: This is an 89-year-old female patient sitting in chair in her ER room. She is in no acute distress. Noted to have difficulty hearing. HEENT: Head is atraumatic, normocephalic. Pupils equal, round. Sclerae is anicteric. NECK: Supple. No JVD. No lymphadenopathy. No thyromegaly. LUNGS: Clear to auscultation. No wheezes or rhonchi. No intercostal retractions. HEART: Regular rate and rhythm. No murmur. ABDOMEN: Soft. Bowel sounds are present. No masses. epigastric tenderness. EXTREMITIES: No pedal edema. No calf tenderness. NEUROLOGICAL: Patient is awake, alert and oriented x3. Cranial nerves 2 through 12 are grossly intact. Slightly off balance on the right leg. ASSESSMENT AND PLAN 1. Acute GI bleed Initiated on Protonix 40 IV twice daily n.p.o Need transfer to tertiary care facility for acute intervention. Transfer to ICU. Hold Brilinta and aspirin 2. History of CVA with expressive aphasia in January 2021.History of TIA in 2018. Hold aspirin and Brilinta continue Lipitor 3. 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 Follows with vascular surgeon as outpatient medical management recommended 4. Hypertension. Continue Lopressor 50 mg twice daily. 5. Hyperlipidemia. Continue pravastatin 80 mg at bedtime. 6. Macular degeneration and glaucoma. Continue eyedrops and PreserVision. 7. GI prophylaxis. Protonix. 8. DVT prophylaxis. 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 macular degeneration, wolfgang eye wide angle glaucoma," dry eyes", shingles 2014, when pt was [age] injured lt arm(it was pulled thru a ringer washer up to her elbow) pt stated no sx done on it.cared for at home in those days.pt stated has had a pne vaccine approx 2-3 years ago - commercial underwriter unable to verify. date at time of this admit. Patient with CVA/TIA January 20 2021 Last Myocardial Infarction Date:: 2006 History of Any Multi-Drug Resistant Organisms: None Reported Past Surgical History: Adenoidectomy, Appendectomy, Heart Catheterization With Stent, Tonsillectomy, Tubal Ligation Additional Past Surgical History / Comment(s): cataract, total 3 cardaic stents Past Anesthesia/Blood Transfusion Reactions: Previous Problems w/ Anesthesia Additional Past Anesthesia/Blood Transfusion Reaction / Comment(s): difficulty waking up after sx. pt stated she has never had a blood transfusion. Date of Last Stent Placement:: unk Past Psychological History: No Psychological Hx Reported Smoking Status: Never smoker Past Alcohol Use History: None Reported Past Drug Use History: None Reported - Past Family History Father Family Medical History: Coronary Artery Disease (CAD) Additional Family Medical History / Comment(s): " from hardening of the arteries", diverticulitis Sister(s) Additional Family Medical History / Comment(s): crohns disease Mother Family Medical History: Cancer Additional Family Medical History / Comment(s): pernicious anemia, stomach cancer/mets Medications and Allergies Home Medications Medication Instructions Recorded Confirmed Type Carboxymethylcellulose Sodium 1 drop BOTH EYES DAILY PRN 05/27/18 03/24/21 History [Refresh Tears] Latanoprost [Xalatan 0.005%] 1 drop BOTH EYES HS 05/27/18 03/24/21 History Vit C/E/Zn/Coppr/Lutein/Zeaxan 1 cap PO DAILY 05/27/18 03/24/21 History [Preservision Areds 2 Softgel] Metoprolol Tartrate [Lopressor] 50 mg PO BID 01/16/19 03/24/21 History Pravastatin Sodium [Pravachol] 80 mg PO HS #30 tab 01/19/19 03/24/21 Rx Brimonidine Tartrate [Alphagan P 1 drops BOTH EYES BID 01/20/21 03/24/21 History 0.1% Ophth Soln] Butalb/Acetaminophen/Caffeine 1 cap PO Q4HR PRN 01/20/21 03/24/21 History [Fioricet 50-300-40 mg Capsule] Mirabegron [Myrbetriq] 50 mg PO DAILY 01/20/21 03/24/21 History Aspirin 81 mg PO DAILY chew 01/23/21 03/24/21 Rx Loperamide [Imodium] 2 mg PO QID PRN cap 01/23/21 03/24/21 Rx Ticagrelor [Brilinta] 90 mg PO BID #60 tab 01/23/21 03/24/21 Rx Ranibizumab [Lucentis] 0.5 mg BOTH EYES Q70D 03/24/21 03/24/21 History Allergies Allergy/AdvReac Type Severity Reaction Status Date / Time Penicillins Allergy Swelling Verified 03/24/21 10:27 shellfish derived [Shellfish] Allergy Unknown Verified 03/24/21 10:27 Sulfa (Sulfonamide Allergy Anaphylaxis Verified 03/24/21 10:27 Antibiotics) Physical Exam Vitals: Vital Signs Temp Pulse Resp BP Pulse Ox 03/24/21 11:00 98 16 117/69 97 03/24/21 10:30 92 121/70 98 03/24/21 10:00 86 16 130/77 99 03/24/21 09:30 98 18 102/71 86 L 03/24/21 08:45 98.0 F 102 H 18 106/75 94 L Intake and Output 03/23/21 03/24/21 03/24/21 22:59 06:59 14:59 Other: Weight 55.338 kg Results CBC & Chem 7: 03/24/21 14:08 03/24/21 09:06 Labs: Abnormal Lab Results - Last 24 Hours (Table) 03/24/21 03/24/21 Range/Units 09:06 09:06 WBC 18.8 H (3.8-10.6) k/uL Neutrophils # 14.7 H (1.3-7.7) k/uL BUN 21 H (7-17) mg/dL Glucose 153 H (74-99) mg/dL Lipase 1720 H (23-300) U/L Thrombosis Risk Factor Assmnt - Choose All That Apply Any of the Below Risk Factors Present?: No Other Risk Factors: Yes Each Risk Factor Represents 3 Points: Age 75 years or older, History of DVT/PE Other congenital or acquired thrombophilia - If yes, enter type in comment: No Thrombosis Risk Factor Assessment Total Risk Factor Score: 6 Thrombosis Risk Factor Assessment Level: High Risk
[2021-03-24 16:07] VITALS: BP 138/78; RESP 8
[2021-03-24] MEDS ORDERED: METOPROLOL TARTRATE 50 MG TAB PO SCH (21:00)
[2021-03-24] MEDS ORDERED: PRAVASTATIN SODIUM 80 MG TAB PO SCH (21:00)
[2021-03-24] MEDS ORDERED: BRIMONIDINE TARTRATE 0.2% DROPS 5 ML BTL BOTH EYES SCH (21:00)
[2021-03-24] MEDS ORDERED: LATANOPROST 0.005% OPHTH DROPS 2.5 ML BTL BOTH EYES SCH (21:00)
[2021-03-24] MEDS ORDERED: PANTOPRAZOLE 40 MG/10 ML VIAL IV SCH (21:00)
[2021-03-25] MEDS ORDERED: Mirabegron [Myrbetriq] 50 MG Tab.Er.24h PO SCH (09:00)
[2021-03-25] MEDS ORDERED: VIT A,C & E-LUTEIN-MINERALS 1 EACH TAB PO SCH (09:00)
[2021-03-25] MEDS ORDERED: PANTOPRAZOLE 40 MG/10 ML VIAL IV SCH (09:00)
--- NOTE | 2021-03-26 11:10 | P.GSCN ---
History of Present Illness Consult date: 03/24/21 History of present illness: 89-year-old female presented to the emergency department with complaints of hematemesis. She states that she had multiple episodes of emesis with bright red blood. Secondary to this, patient was admitted for further evaluation. On arrival to her hospital room, patient was found to have a large episode of bright red blood in her stool. Patient denies any abdominal pain. She does not recall when her last colonoscopy was. Hemoglobin on arrival was 12.7. Repeat hemoglobin is pending during the time of my evaluation. 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 macular degeneration, wolfgang eye wide angle glaucoma," dry eyes", shingles 2014, when pt was [age] injured lt arm(it was pulled thru a ringer washer up to her elbow) pt stated no sx done on it.cared for at home in those days.pt stated has had a pne vaccine approx 2-3 years ago - technical writer and editor unable to verify. date at time of this admit. Patient with CVA/TIA January 20 2021 Last Myocardial Infarction Date:: 2006 History of Any Multi-Drug Resistant Organisms: None Reported Past Surgical History: Adenoidectomy, Appendectomy, Heart Catheterization With Stent, Tonsillectomy, Tubal Ligation Additional Past Surgical History / Comment(s): cataract, total 3 cardaic stents Past Anesthesia/Blood Transfusion Reactions: Previous Problems w/ Anesthesia Additional Past Anesthesia/Blood Transfusion Reaction / Comm: difficulty waking up after sx. pt stated she has never had a blood transfusion. Date of Last Stent Placement:: unk Past Psychological History: No Psychological Hx Reported Smoking Status: Never smoker Past Alcohol Use History: None Reported Past Drug Use History: None Reported - Past Family History Father Family Medical History: Coronary Artery Disease (CAD) Additional Family Medical History / Comment(s): " from hardening of the arteries", diverticulitis Sister(s) Additional Family Medical History / Comment(s): crohns disease Mother Family Medical History: Cancer Additional Family Medical History / Comment(s): pernicious anemia, stomach cancer/mets Medications and Allergies Home Medications Medication Instructions Recorded Confirmed Type Carboxymethylcellulose Sodium 1 drop BOTH EYES DAILY PRN 05/27/18 03/24/21 History [Refresh Tears] Latanoprost [Xalatan 0.005%] 1 drop BOTH EYES HS 05/27/18 03/24/21 History Vit C/E/Zn/Coppr/Lutein/Zeaxan 1 cap PO DAILY 05/27/18 03/24/21 History [Preservision Areds 2 Softgel] Metoprolol Tartrate [Lopressor] 50 mg PO BID 01/16/19 03/24/21 History Pravastatin Sodium [Pravachol] 80 mg PO HS #30 tab 01/19/19 03/24/21 Rx Brimonidine Tartrate [Alphagan P 1 drops BOTH EYES BID 01/20/21 03/24/21 History 0.1% Ophth Soln] Butalb/Acetaminophen/Caffeine 1 cap PO Q4HR PRN 01/20/21 03/24/21 History [Fioricet 50-300-40 mg Capsule] Mirabegron [Myrbetriq] 50 mg PO DAILY 01/20/21 03/24/21 History Aspirin 81 mg PO DAILY chew 01/23/21 03/24/21 Rx Loperamide [Imodium] 2 mg PO QID PRN cap 01/23/21 03/24/21 Rx Ticagrelor [Brilinta] 90 mg PO BID #60 tab 01/23/21 03/24/21 Rx Ranibizumab [Lucentis] 0.5 mg BOTH EYES Q70D 03/24/21 03/24/21 History Allergies Allergy/AdvReac Type Severity Reaction Status Date / Time Penicillins Allergy Swelling Verified 03/24/21 10:27 shellfish derived [Shellfish] Allergy Unknown Verified 03/24/21 10:27 Sulfa (Sulfonamide Allergy Anaphylaxis Verified 03/24/21 10:27 Antibiotics) Surgical - Exam Osteopathic Statement: *. No significant issues noted on an osteopathic struct ural exam other than those noted in the History and Physical/Consult. Vital Signs Temp Pulse Resp BP Pulse Ox 98.0 F 102 H 18 106/75 94 L 03/24/21 08:45 03/24/21 08:45 03/24/21 08:45 03/24/21 08:45 03/24/21 08:45 - General well nourished, no distress - Eyes normal ocular movement - Neck trachea midline - Respiratory normal respiratory effort - Abdomen Abdomen: soft, non tender - Psychiatric oriented to time, oriented to person, oriented to place Results - Labs 03/24/21 14:08 03/24/21 09:06 Assessment and Plan Plan: 89-year-old female with concern of GI bleed with hematemesis and bright red blood per rectum and in her stool. At this point, the patient does not warrant any surgical intervention. This facility currently does not have GI services for evaluation of GI bleed and management by clipping or injection, if necessary. Interventional radiology does not perform vascular measures for any embolization as well. At this point, based on inadequate resources for GI bleed management, I would recommend transfer to a facility with GI services. Patient is currently stable for transfer. This was discussed with the admitting physician, Dr. Meade and her nurse practitioner Arcelia. They are agreeable with this decision. Plan is for transfer to outside facility.
== END 2021-03-24 16:30 | disposition short-term general hospital, planned readmission (82) | DRG 379 ==
LOC: EC 08:41 → 4SSUR 10:04 → 2SICU 15:15
PROVIDERS: ADMIT Internal Medicine; ATTEND Internal Medicine
DX: K92.0 Hematemesis (principal); I25.10 Atherosclerotic heart disease of native coronary artery without angina pectoris; I10 Essential (primary) hypertension; I25.2 Old myocardial infarction; K21.9 Gastro-esophageal reflux disease without esophagitis; M19.90 Unspecified osteoarthritis, unspecified site; I70.8 Atherosclerosis of other arteries; E78.5 Hyperlipidemia, unspecified; H35.30 Unspecified macular degeneration; H40.9 Unspecified glaucoma; J44.9 Chronic obstructive pulmonary disease, unspecified; K57.30 Diverticulosis of large intestine without perforation or abscess without bleeding; Z82.49 Family history of ischemic heart disease and other diseases of the circulatory system; Z80.0 Family history of malignant neoplasm of digestive organs; Z79.899 Other long term (current) drug therapy; Z79.82 Long term (current) use of aspirin; Z79.02 Long term (current) use of antithrombotics/antiplatelets; J84.10 Pulmonary fibrosis, unspecified
CPT/HCPCS: 36415; 74018; 74177; 80053; 83690; 85025; 85610; 85730; 96374; 99285

== ENCOUNTER 2021-08-12 14:30 | Inpatient (IN) | payer MEDICARE ==
--- NOTE | 2021-08-12 15:09 | ED ---
Neuro HPI - General Chief Complaint: Neuro Symptoms/Deficit Stated Complaint: Stroke Time Seen by Provider: 08/12/21 14:45 Source: patient, family, EMS Mode of arrival: EMS Limitations: altered mental status, physical limitation - History of Present Illness Is the patient presenting with stroke symptoms?: Yes Initial Comments: 89-year-old female with past medical history of coronary artery disease, COPD, CVA with no residual deficits who presents to the emergency department with strokelike symptoms. Son is at bedside and helps provides the history. States that the patient began having left upper extremity weakness, headache and nausea since 7:00 am this morning. She has had high blood pressure readings at home. They called Dr. Meade who recommended that she take one of her lisinopril and some Tylenol. She also took one of her headache medications. Continues to have a headache. Her primary care recommended that if her symptoms persisted that she come into the emergency department. Son thought that the weakness in her extremity was getting worse and therefore called an ambulance. Denies any fevers. No recent head trauma. Patient on Brillinta. No other alleviating, precipitating or modifying factors - Related Data Home Medications: Home Medications Medication Instructions Recorded Confirmed Carboxymethylcellulose Sodium 1 drop BOTH EYES BID PRN 05/27/18 08/12/21 [Refresh Tears] Latanoprost [Xalatan 0.005%] 1 drop BOTH EYES HS 05/27/18 08/12/21 Vit C/E/Zn/Coppr/Lutein/Zeaxan 1 cap PO DAILY 05/27/18 08/12/21 [Preservision Areds 2 Softgel] Metoprolol Tartrate [Lopressor] 50 mg PO BID 01/16/19 08/12/21 Brimonidine Tartrate [Alphagan P 1 drops BOTH EYES BID 01/20/21 08/12/21 0.1% Ophth Soln] Mirabegron [Myrbetriq] 50 mg PO DAILY 01/20/21 08/12/21 Ranibizumab [Lucentis] 0.5 mg BOTH EYES Q28D 03/24/21 08/12/21 Butalb/APAP/Caff 50-325-40Mg 1 tab PO QID PRN 08/12/21 08/12/21 [Fioricet 50-325-40] Furosemide [Lasix] 20 mg PO DAILY 08/12/21 08/12/21 Previous Rx's Medication Instructions Recorded Pravastatin Sodium [Pravachol] 80 mg PO HS #30 tab 01/19/19 Aspirin 81 mg PO DAILY chew 01/23/21 Loperamide [Imodium] 2 mg PO QID PRN cap 01/23/21 Ticagrelor [Brilinta] 90 mg PO BID #60 tab 01/23/21 Allergies/Adverse Reactions: Allergies Allergy/AdvReac Type Severity Reaction Status Date / Time Penicillins Allergy Swelling Verified 08/12/21 16:28 shellfish derived [Shellfish] Allergy Unknown Verified 08/12/21 16:28 Sulfa (Sulfonamide Allergy Anaphylaxis Verified 08/12/21 16:28 Antibiotics) Review of Systems ROS Statement: Those systems with pertinent positive or pertinent negative responses have been documented in the HPI. ROS Other: All systems not noted in ROS Statement are negative. General Exam Limitations: altered mental status, physical limitation General appearance: alert, other (fatigued) Eye exam: Present: normal appearance, PERRL, EOMI. Absent: scleral icterus, conjunctival injection, periorbital swelling ENT exam: Present: normal exam, mucous membranes moist Neck exam: Present: normal inspection. Absent: tenderness, meningismus, lymphadenopathy Respiratory exam: Present: normal lung sounds bilaterally. Absent: respiratory distress, wheezes, rales, rhonchi, stridor Cardiovascular Exam: Present: regular rate, normal rhythm, normal heart sounds. Absent: systolic murmur, diastolic murmur, rubs, gallop, clicks GI/Abdominal exam: Present: soft, normal bowel sounds. Absent: distended, tenderness, guarding, rebound, rigid Neurological exam: Present: alert, other (left sided facial droop. decreased child attendant strength in the left hand. no effort against gravity of the bilateral lower extremites. ) Psychiatric exam: Present: flat affect Skin exam: Present: warm, dry, intact, normal color. Absent: rash Stroke MDM - Lab Data Result diagrams: 08/12/21 15:10 08/12/21 15:10 Lab Results 08/12/21 08/12/21 08/12/21 Range/Units 15:10 15:10 15:10 WBC 11.2 H (3.8-10.6) k/uL RBC 5.69 H (3.80-5.40) m/uL Hgb 13.3 (11.4-16.0) gm/dL Hct 44.9 (34.0-46.0) % MCV 78.9 L (80.0-100.0) fL MCH 23.5 L (25.0-35.0) pg MCHC 29.7 L (31.0-37.0) g/dL RDW 17.0 H (11.5-15.5) % Plt Count 286 (150-450) k/uL MPV 8.1 Neutrophils % 74 % Lymphocytes % 18 % Monocytes % 5 % Eosinophils % 1 % Basophils % 0 % Neutrophils # 8.3 H (1.3-7.7) k/uL Lymphocytes # 2.0 (1.0-4.8) k/uL Monocytes # 0.6 (0-1.0) k/uL Eosinophils # 0.1 (0-0.7) k/uL Basophils # 0.0 (0-0.2) k/uL Hypochromasia Marked Anisocytosis Slight Microcytosis Slight PT 12.6 H (9.0-12.0) sec INR 1.2 H (<1.2) APTT 24.0 (22.0-30.0) sec Sodium 139 (137-145) mmol/L Potassium 3.2 L (3.5-5.1) mmol/L Chloride 89 L (98-107) mmol/L Carbon Dioxide 37 H (22-30) mmol/L Anion Gap 13 mmol/L BUN 17 (7-17) mg/dL Creatinine 0.67 (0.52-1.04) mg/dL Est GFR (CKD-EPI)AfAm >90 (>60 ml/min/1.73 sqM) Est GFR (CKD-EPI)NonAf 79 (>60 ml/min/1.73 sqM) Glucose 122 H (74-99) mg/dL Calcium 9.6 (8.4-10.2) mg/dL Total Bilirubin 2.0 H (0.2-1.3) mg/dL AST 30 (14-36) U/L ALT 15 (4-34) U/L Alkaline Phosphatase 99 (38-126) U/L Troponin I (0.000-0.034) ng/mL Total Protein 7.5 (6.3-8.2) g/dL Albumin 4.3 (3.5-5.0) g/dL 08/12/21 Range/Units 15:10 WBC (3.8-10.6) k/uL RBC (3.80-5.40) m/uL Hgb (11.4-16.0) gm/dL Hct (34.0-46.0) % MCV (80.0-100.0) fL MCH (25.0-35.0) pg MCHC (31.0-37.0) g/dL RDW (11.5-15.5) % Plt Count (150-450) k/uL MPV Neutrophils % % Lymphocytes % % Monocytes % % Eosinophils % % Basophils % % Neutrophils # (1.3-7.7) k/uL Lymphocytes # (1.0-4.8) k/uL Monocytes # (0-1.0) k/uL Eosinophils # (0-0.7) k/uL Basophils # (0-0.2) k/uL Hypochromasia Anisocytosis Microcytosis PT (9.0-12.0) sec INR (<1.2) APTT (22.0-30.0) sec Sodium (137-145) mmol/L Potassium (3.5-5.1) mmol/L Chloride (98-107) mmol/L Carbon Dioxide (22-30) mmol/L Anion Gap mmol/L BUN (7-17) mg/dL Creatinine (0.52-1.04) mg/dL Est GFR (CKD-EPI)AfAm (>60 ml/min/1.73 sqM) Est GFR (CKD-EPI)NonAf (>60 ml/min/1.73 sqM) Glucose (74-99) mg/dL Calcium (8.4-10.2) mg/dL Total Bilirubin (0.2-1.3) mg/dL AST (14-36) U/L ALT (4-34) U/L Alkaline Phosphatase (38-126) U/L Troponin I 0.018 (0.000-0.034) ng/mL Total Protein (6.3-8.2) g/dL Albumin (3.5-5.0) g/dL - Medical Decision Making Upon arrival patient is placed into room 4. His son states that her weakness is completely new even though EMS provided history that she does have left-sided deficits. As this is all new, we did activate a code stroke and patient is sent over for CT. Laboratory studies are reviewed and demonstrate a potassium of [address] of the brain demonstrates stenosis of the right subclavian artery. Atherosclerotic change of the right greater than left carotids. Severe proximal right ECA narrowing. Patient is outside the TPA window therefore given an aspirin and statin. I spoke with Dr. Goldman regarding the patient's care. Patient is not a TPA candidate as she arrives outside of the TPA window. She will be admitted for neurology consultation. Spoke with Dr. Meade. Family and son updated. Given 20 mg of hydralazine for her elevated blood pressures. Patient remained in stable condition awaiting on the floor 08/12/21 16:12 EKG demonstrates a sinus rhythm with a rate of 99. ME interval 166. QRS 148. QTC of 510. Right bundle branch block. 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 macular degeneration, wolfgang eye wide angle glaucoma," dry eyes", shingles 2014, when pt was [age] injured lt arm(it was pulled thru a ringer washer up to her elbow) pt stated no sx done on it.cared for at home in those days.pt stated has had a pne vaccine approx 2-3 years ago - commercial underwriter unable to verify. date at time of this admit. Patient with CVA/TIA January 20 2021 Last Myocardial Infarction Date:: 2006 History of Any Multi-Drug Resistant Organisms: None Reported Past Surgical History: Adenoidectomy, Appendectomy, Heart Catheterization With Stent, Tonsillectomy, Tubal Ligation Additional Past Surgical History / Comment(s): cataract, total 3 cardaic stents Past Anesthesia/Blood Transfusion Reactions: Previous Problems w/ Anesthesia Additional Past Anesthesia/Blood Transfusion Reaction / Comment(s): difficulty waking up after sx. pt stated she has never had a blood transfusion. Date of Last Stent Placement:: unk Past Psychological History: No Psychological Hx Reported Smoking Status: Never smoker Past Alcohol Use History: None Reported Past Drug Use History: None Reported - Past Family History Father Family Medical History: Coronary Artery Disease (CAD) Additional Family Medical History / Comment(s): " from hardening of the arteries", diverticulitis Sister(s) Additional Family Medical History / Comment(s): crohns disease Mother Family Medical History: Cancer Additional Family Medical History / Comment(s): pernicious anemia, stomach cancer/mets Course Vital Signs 08/12/21 08/12/21 08/12/21 14:46 15:10 16:10 Temperature 97.6 F 97.6 F 97.6 F Pulse Rate 99 99 95 Respiratory 18 18 18 Rate Blood Pressure 182/109 182/109 186/125 O2 Sat by Pulse 99 99 96 Oximetry 08/12/21 08/12/21 08/12/21 17:10 17:27 18:10 Temperature Pulse Rate 106 H 106 H 109 H Respiratory 16 16 18 Rate Blood Pressure 157/105 157/105 128/86 O2 Sat by Pulse 97 97 98 Oximetry Critical Care Time Critical Care Time: Yes Critical Care Time: 32 minutes for code stroke activation. Disposition Clinical Impression: CVA (cerebral vascular accident), Headache, Accelerated hypertension, Hypokalemia Disposition: ADMITTED IP TO THIS [facility] Condition: Serious Is patient prescribed a controlled substance at d/c from ED?: No Decision to Admit Reason: Admit from EC Decision Date: 08/12/21 Decision Time: 16:40
[2021-08-12] MEDS ORDERED: FAMOTIDINE 20 MG/2 ML VIAL IV STA (15:10)
[2021-08-12] MEDS ORDERED: diphenhydrAMINE 50 MG/ML 1 ML VIAL IVP STA (15:10)
[2021-08-12] MEDS ORDERED: methylPREDNISolone SOD SUCCI 125 MG/2 ML VIAL IV STA (15:10)
[2021-08-12 15:29] LABS: Sodium 139 mmol/L (137-145)
[2021-08-12] MEDS ORDERED: ONDANSETRON 4 MG/2 ML VIAL IVP ONE (15:30)
[2021-08-12 15:31] LABS: ALT 15 U/L (4-34); AST 30 U/L (14-36); African American GFR (CKD) >90 (>60 ml/min/1.73 sqM); Albumin 4.3 g/dL (3.5-5.0); Alkaline Phosphatase 99 U/L (38-126); Anion Gap 13 mmol/L; Anisocytosis Slight; Basophils % (A) 0 %; Blood Urea Nitrogen 17 mg/dL (7-17); Calcium 9.6 mg/dL (8.4-10.2); Carbon Dioxide 37 mmol/L (22-30); Chloride 89 mmol/L (98-107); Eosinophils # (A) 0.1 k/uL (0-0.7); Eosinophils % (A) 1 %; Glucose 122 mg/dL (74-99); HCT 44.9 % (34.0-46.0); HGB 13.3 gm/dL (11.4-16.0); Hypochromasia Marked; Lymphocytes % (A) 18 %; MCH 23.5 pg (25.0-35.0); MCHC 29.7 g/dL (31.0-37.0); MCV 78.9 fL (80.0-100.0); Mean Platelet Volume 8.1; Microcytosis Slight; Monocytes # (A) 0.6 k/uL (0-1.0); Monocytes % (A) 5 %; Neutrophils # (A) 8.3 k/uL (1.3-7.7); Neutrophils % (A) 74 %; Non-African American GFR(CKD) 79 (>60 ml/min/1.73 sqM); Platelet Count 286 k/uL (150-450); Potassium 3.2 mmol/L (3.5-5.1); RBC 5.69 m/uL (3.80-5.40); Total Protein 7.5 g/dL (6.3-8.2); WBC 11.2 k/uL (3.8-10.6)
[2021-08-12 15:38] LABS: INR 1.2 (<1.2); Prothrombin Time 12.6 sec (9.0-12.0)
--- NOTE | 2021-08-12 16:11 | CT ---
EXAMINATION TYPE: CT brain wo con DATE OF EXAM: 08/12/2021 COMPARISON: 01/20/2021 HISTORY: 89-year-old female Left sided weakness, vomiting. TECHNIQUE: Examination was done in axial plane without intravenous contrast. Coronal and sagittal r econstructions performed. CT DLP: 1105.8 mGycm Automated exposure control for dose reduction was used. FINDINGS: There is no evidence of acute intracranial hemorrhage, acute ischemic changes, mass, mass-effect, or extra-axial fluid collection. There is no effacement of cerebral sulci or basal subarachnoid cister ns. There is no midline shift. Orellana-white matter distinction is preserved. Mild ventriculomegaly is similar, likely central cerebral atrophy. Severe confluent matter hypodensit ies in both cerebral hemispheres is unchanged. Paranasal sinuses and mastoid air cells are well pneumatized. Orbits and globes are intact. IMPRESSION: Moderate generalized atrophy. Mild ventricular prominence is unchanged, likely central cerebral atrop hy. Severe confluent burden of chronic small vessel ischemic disease is also unchanged. No acute intr acranial abnormality seen. If concern for subtle acute ischemia, follow-up MRI.
--- NOTE | 2021-08-12 16:22 | CT ---
EXAMINATION TYPE: CT angio head neck DATE OF EXAM: 08/12/2021 COMPARISON: CT brain same day HISTORY: 89-year-old female acute stroke suspected, neurologic deficit, left-sided weakness and vomit ing. TECHNIQUE: Contiguous axial scanning of the head and neck performed with IV Contrast, patient injecte d with 65 mL of Isovue 370. Coronal/sagittal MIP reconstructions performed. 3-D reconstructions gener ated on a dedicated independent workstation. CT DLP: 387.6 mGycm Automated exposure control for dose reduction was used. FINDINGS: NECK: There appear to be moderate bilateral effusions, right greater than left. Bilateral patchy lung groun dglass. Consider early pulmonary edema or other pneumonitis. Mild atherosclerotic arch calcifications within the chart. Convention arch vessel branching anatomy. Tortuous arch vessels. There is a severe stenosis within the proximal right subclavian artery, refer to axial image 15. Nonvisualization of the right vertebral artery with reconstitution of the V3 and V4 segments probably from retrograde flow. Mild to moderate narrowing at the origin of the left vertebral artery. The right common carotid artery is patent. Moderate atherosclerotic changes right carotid bifurcation with possible severe stenosis at the origin of the right external carotid artery. Mild, less than 40 % stenosis proximal right ICA by NASCET criteria. Left common carotid artery is patent. Possible moderate narrowing proximal left external carotid blanca ry. Mild, less than 20% narrowing proximal left ICA by NASCET criteria. Air within the venous system likely introduced during peripheral line placement. HEAD: Small foci of air within the cavernous sinus is likely introduced during peripheral line placement. Scattered mild atherosclerotic calcifications proximally before segments vertebral arteries. Otherwis e, vertebral and basilar arteries are patent. Fenestrated P1 segment right posterior cerebral artery, anatomic variation. Posterior circulation otherwise appears patent. Scattered mild atelectasis scattered calcifications throughout the cavernous sinuses. Moderate short segment atherosclerotic narrowing supraclinoid right ICA, axial image 55. However, otherwise, the internal carotid arteries are patent as is the remainder of the anterior circ ulation. No aneurysmal changes identified. IMPRESSION: NECK: 1. 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 There is some reconstitution at the V3 and V4 segments likely from retrograde flow. 2. Moderate atherosclerotic changes at the right greater than left carotid bifurcations. This results in a mild, less than 40% proximal right ICA stenosis and mild, less than 20% proximal left ICA steno sis. 3. Possible severe proximal right ECA narrowing and moderate proximal left ECA narrowing. 4. Groundglass changes in the visualized upper lungs along with [id number] effusions. Correlat e for possible CHF and developing pulmonary edema. HEAD: 5. Mild atherosclerotic changes throughout the bilateral carotid siphons with moderate short segment focal atherosclerotic narrowing supraclinoid right ICA. 6. As noted above, there is reconstitution of the V3 and V4 segments of the right vertebral artery yael wolfe from retrograde flow.
[2021-08-12] MEDS ORDERED: ACETAMINOPHEN TAB 325 MG TAB PO PRN (16:29)
[2021-08-12] MEDS ORDERED: ASPIRIN 325 MG TAB PO STA (16:29)
[2021-08-12] MEDS ORDERED: METOCLOPRAMIDE 5 MG/ML 2 ML VIAL IVP STA (16:32)
[2021-08-12] MEDS ORDERED: BUTALB/APAP/CAFF 50-325-40MG TAB PO PRN (16:40)
[2021-08-12] MEDS ORDERED: ARTIFICIAL TEARS-HYPROMELLOSE DROPS 15 ML BTL BOTH EYES PRN (16:40)
[2021-08-12] MEDS ORDERED: ATORVASTATIN 40 MG TAB PO SCH (16:45)
[2021-08-12] MEDS ORDERED: hydrALAZINE HCL 20 MG/ML 1 ML VIAL IVP STA (17:02)
[2021-08-12] MEDS: SODIUM CHLORIDE 0.9% 1,000 ML IV SCH (17:10)
--- NOTE | 2021-08-12 19:11 | XR ---
EXAMINATION TYPE: XR chest 2V DATE OF EXAM: 08/12/2021 COMPARISON: July 20, 2021 HISTORY: Altered mental status. TECHNIQUE: FINDINGS: Heart is enlarged. There is pulmonary vascular congestion. There is some blunting of the co stophrenic angles. There are chest leads. There is poor inspiration. IMPRESSION: Congestive heart failure with pleural effusions. Pulmonary congestion probably increased compared to last exam.
[2021-08-12] MEDS: METOPROLOL TARTRATE 50 MG TAB PO SCH (21:39)
[2021-08-12] MEDS: PRAVASTATIN SODIUM 80 MG TAB PO SCH (21:39)
[2021-08-12] MEDS: BRIMONIDINE TARTRATE 0.2% DROPS 5 ML BTL BOTH EYES SCH (21:40)
[2021-08-12] MEDS: LATANOPROST 0.005% OPHTH DROPS 2.5 ML BTL BOTH EYES SCH (21:40)
[2021-08-13] MEDS: SODIUM CHLORIDE 0.9% 1,000 ML IV SCH ×2 (03:52→18:21)
[2021-08-13] MEDS ORDERED: ASPIRIN 325 MG TAB PO SCH (09:00)
[2021-08-13] MEDS: ASPIRIN 81 MG PO SCH (09:23)
[2021-08-13] MEDS: METOPROLOL TARTRATE 50 MG TAB PO SCH ×2 (09:23→20:06)
[2021-08-13] MEDS: NON FORMULARY DRUG (Mirabegron [Myrbetriq] 50 MG Tab.Er.24h) PO SCH (09:24)
[2021-08-13] MEDS: BRIMONIDINE TARTRATE 0.2% DROPS 5 ML BTL BOTH EYES SCH ×2 (09:24→20:07)
[2021-08-13] MEDS: TICAGRELOR 90 MG TAB PO SCH ×2 (09:24→20:07)
[2021-08-13] MEDS: HEPARIN SODIUM,PORCINE/PF 5,000 UNIT/0.5 ML SYRINGE SQ SCH ×2 (09:24→20:07)
--- NOTE | 2021-08-13 10:19 | P.CNNES ---
History of Present Illness Consult date: 08/13/21 Requesting physician: Jeannine Stahl Reason for Consult: acute left hand weakness and accelerated hypertension History of Present Illness: This is an 89-year-old woman with medical history of stroke (01/2021) with residual mild left upper extremity weakness, transient ischemic attack in 2019, history of right subclavian steall syndrome, hypertension, hyperlipidemia who presented to the emergency department on 08/12/2021 because of left upper extremity weakness and headache as well as nausea since 7 AM on 08/12/2021. Patient stated that her blood pressure has been running high at home and she contacted that her primary care physician and because even though with medication she continued to have headaches therefore the primary team notified her to come to the emergency department. She stated that her headache was over the left frontal and it was 10 over 10, throbbing, she had nausea. Patient denied of any the radiation of the headache. Per the patient's son he stated that the she also had difficulty speaking as well as had left upper extremity weakness during the headache. Currently she feels the headache is 2-3 out of 10 and she feels back to baseline. I spoke with the patient's son and he stated t hat the there is no seizure-like activity during the episode that he was notified. She denies of any jerk in of any extremities, loss of consciousness, urinary bowel incontinence. Patient stated that since her stroke on 2020 her speech has been back to baseline. According to the son and he was not aware that she had the left upper extremity weakness but the patient stated that currently she is back to baseline. Patient is on home medication of aspirin 81 mg daily, Brilinta 90 mg 1 tablet twice a day and pravastatin 80 mg daily at bedtime. Some other workup in the hospital consisted of: Initial vital signs his blood pressure of 182/109, heart rate of 99, respiratory of 18, temperature of 97.6 Fahrenheit axillary and pulse ox of 99% room air. Most recent blood pressure is 128/86. White blood cell is 11.2 thousand, MCV 78.9, platelet is 286,000, hemoglobin is 13.3 and hematocrit 44.9. Sodium is 139, creatinine 0.67, glucose is 122, calcium 9.6, AST is 30 and ALT of 59. Calero virus PCR was not detected. CT of the head is reported as moderate generalized atrophy. Mild ventricular prominence is unchanged likely central cerebral atrophy. Severe confluent burden of chronic small vessel ischemic disease is also unchanged. No acute intracranial abnormality is seen. Personally reviewed the CT of the head and there is no acute or subacute ischemic stroke. Also there is no at intraparenchymal hemorrhage is seen CT angiography of the head is reported as mild CHRONIC changes throughout the bilateral carotid siphons with moderate short segment of focal atherosclerotic narrowing supraclinoid right ICA. There is reconstitution of the V3 and V4 segment of the right vertebral artery likely from retrograde flow. While the CT angiography of the neck is reported as severe stenosis of the right subclavian artery, now with no flow visualized in the right vertebral artery. There is some reconstitution at the V3 and V4 segment likely from retrograde flow. Moderate other sclerotic change at the right greater than the left carotid bifurcation. This results in a mild, less than 40% rock small right ICA stenosis and mild, less than 20% proximal left ICA stenosis. Possible severe proximal right ECA narrowing and moderate proximal left ECA narrowing. Groundglass changes in the visualized upper lungs along with small to moderate effusion. Correlate for possible congestive heart failure and developing pulmonary edema. As a result a stroke code was activated. The ED spoke with the stroke attending (Dr. Enamorado) and the per the ED note no IV TPA since the patient is outside the window. Note I personally saw the patient last on 01/23/2021 and during the admission and the patient had acute ischemic stroke was felt over the right parietal region. It is reported that the patient the per radiology was over right temporoparietal but I felt was more right temporal occipital region. The patient did not get IV TPA because the patient the was outside the window. She had aphasia during that time and had minimal left upper extremity weakness. Her aphasia was improving. Patient had a stroke workup and the during that admission the Brilinta that was increased from 60mg one tablet twice a day to 90 mg and was to continue aspirin as well as pravastatin [address] Newell is consulted during that admission for subclavian steal syndrome and he didn't feel like the patient was a surgical candidate and he stated that he'll speak to Dr. St regarding the case. Patient had a 2-D echo and was reported as a ejection fraction of 35-40% and had the apical lateral ventricle motion is hypokinetic at different areas in the lateral/posterior inferior lateral. The normal left atrial size is normal. Cardiology was on board during that admission. Please refer to my note for further details. Review of Systems Review of system: The 12 point system was reviewed and apparent positive and negative per HPI. Past Medical History Past Medical History: Coronary Artery Disease (CAD), COPD, CVA/TIA, GERD/Reflux, Hyperlipidemia, Hypertension, Myocardial Infarction (MT), Osteoarthritis (OA) Additional Past Medical History / Comment(s): pt stated "dr is trying her out on a gluten free diet for past month""STEMI 2006 with 3 stents placed, pulmonary fr ibrosis, pt is rt side dominant. macular degeneration, wolfgang eye wide angle glaucoma," dry eyes", shingles 2014, when pt was 11 or 12 injured lt arm(it was pulled thru a ringer washer up to her elbow) pt stated no sx done on it.cared for at home in those days.pt stated has had a pne vaccine approx 2-3 years ago - typewriter repairer unable to verify. date at time of this admit. Patient with CVA/TIA January 20 2021 Last Myocardial Infarction Date:: 2006 History of Any Multi-Drug Resistant Organisms: None Reported Past Surgical History: Adenoidectomy, Appendectomy, Heart Catheterization With Stent, Tonsillectomy, Tubal Ligation Additional Past Surgical History / Comment(s): cataract, total 3 cardaic stents Past Anesthesia/Blood Transfusion Reactions: Previous Problems w/ Anesthesia Additional Past Anesthesia/Blood Transfusion Reaction / Comment(s): difficulty waking up after sx. pt stated she has never had a blood transfusion. Date of Last Stent Placement:: unk Past Psychological History: No Psychological Hx Reported Smoking Status: Never smoker Past Alcohol Use History: None Reported Past Drug Use History: None Reported - Past Family History Father Family Medical History: Coronary Artery Disease (CAD) Additional Family Medical History / Comment(s): " from hardening of the arteries", diverticulitis Sister(s) Additional Family Medical History / Comment(s): crohns disease Mother Family Medical History: Cancer Additional Family Medical History / Comment(s): pernicious anemia, stomach cancer/mets Medications and Allergies Home Medications Medication Instructions Recorded Confirmed Type Carboxymethylcellulose Sodium 1 drop BOTH EYES BID PRN 05/27/18 08/12/21 History [Refresh Tears] Latanoprost [Xalatan 0.005%] 1 drop BOTH EYES HS 05/27/18 08/12/21 History Vit C/E/Zn/Coppr/Lutein/Zeaxan 1 cap PO DAILY 05/27/18 08/12/21 History [Preservision Areds 2 Softgel] Metoprolol Tartrate [Lopressor] 50 mg PO BID 01/16/19 08/12/21 History Pravastatin Sodium [Pravachol] 80 mg PO HS #30 tab 01/19/19 08/12/21 Rx Brimonidine Tartrate [Alphagan P 1 drops BOTH EYES BID 01/20/21 08/12/21 History 0.1% Ophth Soln] Mirabegron [Myrbetriq] 50 mg PO DAILY 01/20/21 08/12/21 History Aspirin 81 mg PO DAILY chew 01/23/21 08/12/21 Rx Loperamide [Imodium] 2 mg PO QID PRN cap 01/23/21 08/12/21 Rx Ticagrelor [Brilinta] 90 mg PO BID #60 tab 01/23/21 08/12/21 Rx Ranibizumab [Lucentis] 0.5 mg BOTH EYES Q28D 03/24/21 08/12/21 History Butalb/APAP/Caff 50-325-40Mg 1 tab PO QID PRN 08/12/21 08/12/21 History [Fioricet 50-325-40] Furosemide [Lasix] 20 mg PO DAILY 08/12/21 08/12/21 History Allergies Allergy/AdvReac Type Severity Reaction Status Date / Time Penicillins Allergy Swelling Verified 08/12/21 16:28 shellfish derived [Shellfish] Allergy Unknown Verified 08/12/21 16:28 Sulfa (Sulfonamide Allergy Anaphylaxis Verified 08/12/21 16:28 Antibiotics) Physical Examination - Vital Signs Vital Signs: Vital Signs Temp Pulse Pulse Resp BP BP Pulse Ox 08/13/21 04:00 97.7 F 92 16 148/78 96 08/13/21 02:00 97 20 08/13/21 00:00 97.8 F 110 H 20 122/88 95 08/12/21 20:00 97.8 F 105 H 16 124/68 95 08/12/21 19:18 97.6 F 109 H 18 128/86 98 08/12/21 18:10 109 H 18 128/86 98 08/12/21 17:27 106 H 16 157/105 97 08/12/21 17:10 106 H 16 157/105 97 08/12/21 16:10 97.6 F 95 18 186/125 96 08/12/21 15:10 97.6 F 99 18 182/109 99 08/12/21 14:46 97.6 F 99 18 182/109 99 Intake and Output 08/12/21 08/13/21 08/13/21 22:59 06:59 14:59 Intake Total 400 Balance 400 Intake: Intake, IV Titration 400 Amount Sodium Chloride 0.9% 1, 400 000 ml @ 100 mls/hr IV . Q10H [facility] Rx#:[id number] Other: Weight 62.142 kg GENERAL: The patient is lying in bed and is not in acute distress. CHEST: The heart rate is regular rate rhythm. No murmurs to auscultation. No carotid bruit bilaterally. LUNG: Clear to auscultation bilaterally no wheezing noted throughout. Not labored breathing. ABDOMEN/GI: Bowel sounds present in all 4 quadrants. No tenderness to palpation throughout. NEUROLOGICAL: Higher mental function: The patient is awake, alert, oriented to self, place and time. Patient is following commands. No aphasia and no neglect. Cranial nerves: The pupils are round, equal and reactive to light and accommodation. Visual brooke are full to confrontation throughout. Extraocular movement is intact no nystagmus is noted. Facial sensation is normal to touch throughout. The facial strength is left nasolabial flattening. Hearing is moderately to severely decrease bilaterally to hand rub. Tongue is midline and moved [id number] without any difficulty. No dysarthria is noted. Shoulder shrug is normal bilaterally. Motor: Gait is deferred. The strength in left upper extremity is 4+/5 (patient feels old). Otherwise 5 over 5 throughout. Normal tone and bulk. Cerebellum: Normal finger to nose bilaterally. Sensation: Sensation is normal to touch throughout. Reflexes (right/left): 2+ throughout. Plantars are upgoing bilaterally. Results - Laboratory Findings CBC and BMP: 08/12/21 15:10 08/13/21 07:55 Abnormal Lab Findings: Abnormal Labs 08/12/21 08/12/2121 15:10 15:10 15:10 WBC 11.2 H RBC 5.69 H MCV 78.9 L MCH 23.5 L MCHC 29.7 L RDW 17.0 H Neutrophils # 8.3 H PT 12.6 H INR 1.2 H Potassium 3.2 L Chloride 89 L Carbon Dioxide 37 H Glucose 122 H Total Bilirubin 2.0 H Assessment and Plan Assessment: * Cephalgia, with uncontrolled hypertension and reported new left upper extremity weakness (on examination she had left upper extremity 4+ but patient stated this is chronic): Possible due to uncontrolled hypertension. Rule out acute ischemic stroke. No IV tpa since outside window. * History of stroke in 01/2021 (has aphasia and left upper extremity weakness) over the right hemipshere---aphasia resolved. * Severe right subclavian stenosis with history of subclavian syndrome * Accelerated Hypertension * Possible severe proximal right ECA narrowing and moderate proximal left ECA narrowing (per CTA) * History of TIA in 2019 * History of hyperlipidemia Plan: The ED the patient was given aspirin 325mg once. I resumed patient home medication of aspirin 81mg daily and Brilinta 90mg 1 tab bid. Ordered MRI of the brain Lipid panel is ordered ordered a 2-D echo. Consulted vascular surgery team. PT, OT and FILM VAULT SUPERVISOR are consulted Continue neuro checks Placed on cardiac monitoring We'll defer blood pressure control to the primary team We'll defer the rest of medical management to the primary team For DVT prophylaxis place the patient on subcu heparin Upon discharge recommend the patient to follow up with Dr. Enamorado (interventional neurology team) for further evaluation. The plan is discussed with patient, her son (who is at bedside) and her nurse. Thank you for the consultation. Dr. Stanley will resume Neurology service tomorrow AM. Farooq Durham M.D. Neuro-Hospitalist Time with Patient: Greater than 30
[2021-08-13 11:49] LABS: Chol/HDL Ratio 2.37 Ratio; LDL Cholesterol,Calculated 62.9 mg/dL (0.0-131.0); VLDL Calculation 13.98 mg/dL (5.00-40.00)
[2021-08-13 12:35] LABS: Calcium 8.6 mg/dL (8.4-10.2); Potassium 3.2 mmol/L (3.5-5.1)
--- NOTE | 2021-08-13 15:30 | P.HPIM ---
History of Present Illness H&P Date: 08/13/21 This is an 89-year-old female patient of Dr. Meade with past medical history of hypertension, COPD, hyperlipidemia, history of myocardial infarction in 2006 status post 3 stents, history of pulmonary fibrosis, systolic congestive heart failure acute transient ischemic attack in 2019 at which time she was advised to started on Brilinta 90 mg twice daily and aspirin 81 mg daily and had follow up with Dr. Miller, subclavian steal syndrome phenomena. Patient was last admitted on 01/21 for acute ischemic stroke with expressive aphasia and was noted to have an acute infarct in the right temporoparietal region. Patient's brillanta was increased from 60-90 mg twice daily and to continue aspirin and pravastatin. Event monitor was placed with follow-up as outpatient with cardiology for systolic congestive heart failure. Patient was seen by Dr. Cain as outpatient for the subclavian steel syndrome and was noted not to be a great surgical candidate. Patient also follow Dr. Renee for second opinion for stated the same. MRI of the brain 2020 reported acute infarct in the right right temporal parietal region. Generalized degenerative changes and mild chronic ischemic white matter disease. CT angiography of the head and neck 2020 revealed scattered atherosclerotic plaque of the brachiocephalic origin in the carotid bifurcation within the neck. Secondary plaque formation moderate proximal right internal carotid artery s tenosis. Echocardiogram 2020 revealed borderline concentric left ventriclar hypertrophy, EF 35-40%, Patient came in this time with increased headache and increased weakness of the left upper extremity that started at 7 AM associated with slurring of speech on 08/12. Patient was seen in the clinic prior to that for increased lower extremity swelling and weakness. Since there was concern about lower extremity swelling patient was initiated on Lasix and lisinopril was held to avoid low blood pressures. Apparently patient started having high blood pressure with i ncreased headache a few days later. Blood pressure in the ER on evaluation was noted to be 182/109 199 respiratory rate 18 and afebrile pulse ox of 99% on room air. Patient was out of the window when she came to the emergency room and therefore did not get any TPA. Family at bedside denied any seizure-like activity or any passing out spells and they denied any history of arm hemorrhagic bleed. Evaluation patient's lab from yesterday hemoglobin was 13 WBC to 11.2, MCV 78.9 platelet 286 INR 1.2 potassium 3.2 chloride 89 bicarb 37 BUN 17 creatinine 0.67 total bilirubin 2 LDL 62. COVID virus was not detected CT brain on 08/12 suggestive of no evidence of acute intracranial hemorrhage no acute ischemic changes mass effect or extra-axial fluid collectionin the cerebral foci or basal subarachnoid cisterns there is no midline shift moderate generalized atrophy noted CT angiogram showed severe stenosis of right subclavian artery on with no flow visualized in the right vertebral artery some reconstitution and V3 and V4 suggestive retrograde flow, moderate atherosclerotic changes at the right greater than left carotid bifurcation with mild less than 40% proximal right ICA stenosis and mild less than 20% proximal left ICA stenosis severe proximal right ECA narrowing and moderate proximal left ECA narrowing Chest x-ray suggestive of bilateral venous congestion with pleural effusions Patient initially on oral medication of aspirin with parental along with pra vastatin. Neurology was consulted. MRI of the brain is ordered to rule out acute ischemic event. Echocardiogram is ordered vascular surgery team was consulted lipid panel ordered. REVIEW OF SYSTEMS Constitutional: No fever, no chills, no night sweats. No weight change. Positive for increased weakness and tiredness. No daytime sleepiness. EENT: No headache. No blurred vision or double vision, no loss of vision. Chronic loss of Hearing, no ringing in the ears, no dizziness. No nasal drainage or congestion. No epistaxis. No sore throat. Lungs: Positive for shortness of breath, cough, no sputum production. No wheezing. Cardiovascular: No chest pain, positive for lower extremity edema. No palpitations. No paroxysmal nocturnal dyspnea. No orthopnea. No lightheadedness or dizziness. No syncopal episodes. Abdominal: No abdominal pain. No nausea, no emesis . No diarrhea. No constipation. no bloody stools.. No loss of appetite. Genitourinary: No dysuria, increased frequency, urgency. No urinary retention. Musculoskeletal: No myalgias. No muscle weakness, no gait dysfunction, no frequent falls. No back pain. No neck pain. Integumentary: No wounds, no lesions. No rash or pruritus. No unusual bruising. No change in hair or nails. Neurologic: Reported aphasia. Left-sided weakness No facial droop. No change in mentation. No head injury. No headache. No paralysis. No paresthesia. Psychiatric: No depression. No anxiety. No mood swings. Endocrine: No abnormal blood sugars. No weight change. No excessive sweating or thirst. No cold intolerance. SOCIAL HISTORY Patient is a lifelong nonsmoker, no alcohol use, no marijuana use, no illicit drug use. She is . FAMILY HISTORY Mother at age 82 from CAD. Father at age 82 from CAD. She had a total of 7 siblings and all have passed with history of CAD. She has 3 children with no major medical problems. PHYSICAL EXAMINATION Gen: This is an 89-year-old female patient sitting in chair in her ER room. She is in no acute distress. Noted to have difficulty hearing. HEENT: Head is atraumatic, normocephalic. Pupils equal, round. Sclerae is anicteric. NECK: Supple. No JVD. No lymphadenopathy. No thyromegaly. LUNGS: Decreased air entry auscultation. No wheezes or rhonchi. No intercostal retractions. HEART: Regular rate and rhythm. 3/6 systolic murmur. ABDOMEN: Soft. Bowel sounds are present. No masses. EXTREMITIES: No pedal edema. No calf tenderness. NEUROLOGICAL: Patient is awake, alert and oriented x3. Cranial nerves 2 through 12 are grossly intact. Slightly off balance on the right leg. ASSESSMENT AND PLAN Hypertensive urgency with acute headache - improved with improvement of blood pressure. - Hydralazine 20 IV every 6 hours as needed for systolic more than 160. - Continue metoprolol 50 twice a day. - Hold furosemide 20 mg by mouth daily as patient switched to Lasix 40 IV daily Expressive aphagia with left upper extremity weakness likely recrudescence secondary to hypertension History of CVA with expressive aphasia in January 2021.History of TIA in 2018. -Improved with better blood pressure control - Continue aspirin and Lantus at 90 twice a day -Continue pravastatin 80 mg by mouth daily -CT head and CT angiogram revealed with severe stenosis involving the right subclavian artery with no flow visualized in the vertebral artery on the right - MRI head ordered - PT OT ordered for possible subacute rehab - We'll consult Dr. 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 - Follows with vascular surgeon as outpatient medical management recommended History of GI bleed secondary to peptic ulcer disease - Pantoprazole 40 before meals breakfast Hypertension. Continue Lopressor 50 mg twice daily. Hyperlipidemia. - Continue pravastatin 80 mg at bedtime. Macular degeneration and glaucoma. -Continue eyedrops and PreserVision. GI prophylaxis. -Protonix. DVT prophylaxis. Heparin every 12 Disposition patient need to be last for at least 2 inpatient nights for stabilization Disposition patient may need to be transferred to subacute rehab for resuscitation CODE STATUS DO NOT RESUSCITATE Past Medical History Past Medical History: Coronary Artery Disease (CAD), COPD, CVA/TIA, GERD/Reflux, Hyperlipidemia, Hypertension, Myocardial Infarction (MS), Osteoarthritis (OA) Additional Past Medical History / Comment(s): pt stated "dr is trying her out on a gluten free diet for past month""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 macular degeneration, wolfgang eye wide angle glaucoma," dry eyes", shingles 2014, when pt was 11 or 12 injured lt arm(it was pulled thru a ringer washer up to her elbow) pt stated no sx done on it.cared for at home in those days.pt stated has had a pne vaccine approx 2-3 years ago - creative services writer unable to verify. date at time of this admit. Patient with CVA/TIA January 20 2021 Last Myocardial Infarction Date:: 2006 History of Any Multi-Drug Resistant Organisms: None Reported Past Surgical History: Adenoidectomy, Appendectomy, Heart Catheterization With Stent, Tonsillectomy, Tubal Ligation Additional Past Surgical History / Comment(s): cataract, total 3 cardaic stents Past Anesthesia/Blood Transfusion Reactions: Previous Problems w/ Anesthesia Additional Past Anesthesia/Blood Transfusion Reaction / Comment(s): difficulty waking up after sx. pt stated she has never had a blood transfusion. Date of Last Stent Placement:: unk Past Psychological History: No Psychological Hx Reported Smoking Status: Never smoker Past Alcohol Use History: None Reported Past Drug Use History: None Reported - Past Family History Father Family Medical History: Coronary Artery Disease (CAD) Additional Family Medical History / Comment(s): " from hardening of the arteries", diverticulitis Sister(s) Additional Family Medical History / Comment(s): crohns disease Mother Family Medical History: Cancer Additional Family Medical History / Comment(s): pernicious anemia, stomach cancer/mets Medications and Allergies Home Medications Medication Instructions Recorded Confirmed Type Carboxymethylcellulose Sodium 1 drop BOTH EYES BID PRN 05/27/18 08/12/21 History [Refresh Tears] Latanoprost [Xalatan 0.005%] 1 drop BOTH EYES HS 05/27/18 08/12/21 History Vit C/E/Zn/Coppr/Lutein/Zeaxan 1 cap PO DAILY 05/27/18 08/12/21 History [Preservision Areds 2 Softgel] Metoprolol Tartrate [Lopressor] 50 mg PO BID 01/16/19 08/12/21 History Pravastatin Sodium [Pravachol] 80 mg PO HS #30 tab 01/19/19 08/12/21 Rx Brimonidine Tartrate [Alphagan P 1 drops BOTH EYES BID 01/20/21 08/12/21 History 0.1% Ophth Soln] Mirabegron [Myrbetriq] 50 mg PO DAILY 01/20/21 08/12/21 History Aspirin 81 mg PO DAILY chew 01/23/21 08/12/21 Rx Loperamide [Imodium] 2 mg PO QID PRN cap 01/23/21 08/12/21 Rx Ticagrelor [Brilinta] 90 mg PO BID #60 tab 01/23/21 08/12/21 Rx Ranibizumab [Lucentis] 0.5 mg BOTH EYES Q28D 03/24/21 08/12/21 History Butalb/APAP/Caff 50-325-40Mg 1 tab PO QID PRN 08/12/21 08/12/21 History [Fioricet 50-325-40] Furosemide [Lasix] 20 mg PO DAILY 08/12/21 08/12/21 History Allergies Allergy/AdvReac Type Severity Reaction Status Date / Time Penicillins Allergy Swelling Verified 08/12/21 16:28 shellfish derived [Shellfish] Allergy Unknown Verified 08/12/21 16:28 Sulfa (Sulfonamide Allergy Anaphylaxis Verified 08/12/21 16:28 Antibiotics) Physical Exam Vitals: Vital Signs Temp Pulse Pulse Resp BP BP Pulse Ox 08/13/21 04:00 97.7 F 92 16 148/78 96 08/13/21 02:00 97 20 08/13/21 00:00 97.8 F 110 H 20 122/88 95 08/12/21 20:00 97.8 F 105 H 16 124/68 95 08/12/21 19:18 97.6 F 109 H 18 128/86 98 08/12/21 18:10 109 H 18 128/86 98 08/12/21 17:27 106 H 16 157/105 97 08/12/21 17:10 106 H 16 157/105 97 08/12/21 16:10 97.6 F 95 18 186/125 96 08/12/21 15:10 97.6 F 99 18 182/109 99 08/12/21 14:46 97.6 F 99 18 182/109 99 Intake and Output 08/12/21 08/13/21 08/13/21 22:59 06:59 14:59 Intake Total 400 180 Balance 400 180 Intake: Intake, IV Titration 400 Amount Sodium Chloride 0.9% 1, 400 000 ml @ 100 mls/hr IV . Q10H [facility] Rx#:[id number] Oral 180 Other: Weight 62.142 kg 63.5 kg Results CBC & Chem 7: 08/12/21 15:10 08/13/21 07:55 Labs: Abnormal Lab Results - Last 24 Hours (Table) 08/12/21 08/12/21 08/12/21 Range/Units 15:10 15:10 15:10 WBC 11.2 H (3.8-10.6) k/uL RBC 5.69 H (3.80-5.40) m/uL MCV 78.9 L (80.0-100.0) fL MCH 23.5 L (25.0-35.0) pg MCHC 29.7 L (31.0-37.0) g/dL RDW 17.0 H (11.5-15.5) % Neutrophils # 8.3 H (1.3-7.7) k/uL PT 12.6 H (9.0-12.0) sec INR 1.2 H (<1.2) Potassium 3.2 L (3.5-5.1) mmol/L Chloride 89 L (98-107) mmol/L Carbon Dioxide 37 H (22-30) mmol/L Glucose 122 H (74-99) mg/dL Total Bilirubin 2.0 H (0.2-1.3) mg/dL 08/13/21 Range/Units 07:55 WBC (3.8-10.6) k/uL RBC (3.80-5.40) m/uL MCV (80.0-100.0) fL MCH (25.0-35.0) pg MCHC (31.0-37.0) g/dL RDW (11.5-15.5) % Neutrophils # (1.3-7.7) k/uL PT (9.0-12.0) sec INR (<1.2) Potassium 3.2 L (3.5-5.1) mmol/L Chloride 91 L (98-107) mmol/L Carbon Dioxide 37 H (22-30) mmol/L Glucose 120 H (74-99) mg/dL Total Bilirubin (0.2-1.3) mg/dL Thrombosis Risk Factor Assmnt - Choose All That Apply Any of the Below Risk Factors Present?: Yes Each Factor Represents 1 point: Abnormal pulmonary function (COPD), Heart failure (<1month) Each Risk Factor Represents 3 Points: Age 75 years or older Each Risk Factor Represents 5 Points: Stroke (< 1 month) Thrombosis Risk Factor Assessment Total Risk Factor Score: 10 Thrombosis Risk Factor Assessment Level: High Risk
[2021-08-13] MEDS ORDERED: Potassium Replacement Protocol 1 EACH MISC MISCELLANE PRN (15:56)
[2021-08-13 17:38] LABS: Anisocytosis Slight; Basophils % (A) 0 %; Eosinophils # (A) 0.1 k/uL (0-0.7); Eosinophils % (A) 1 %; HCT 39.1 % (34.0-46.0); HGB 11.4 gm/dL (11.4-16.0); Hypochromasia Marked; Lymphocytes # (A) 1.5 k/uL (1.0-4.8); Lymphocytes % (A) 16 %; MCH 23.4 pg (25.0-35.0); MCHC 29.1 g/dL (31.0-37.0); MCV 80.3 fL (80.0-100.0); Mean Platelet Volume 8.7; Microcytosis Slight; Monocytes # (A) 0.9 k/uL (0-1.0); Monocytes % (A) 10 %; Neutrophils # (A) 6.9 k/uL (1.3-7.7); Neutrophils % (A) 71 %; Platelet Count 253 k/uL (150-450); RBC 4.87 m/uL (3.80-5.40); RDW 17.2 % (11.5-15.5); WBC 9.7 k/uL (3.8-10.6)
[2021-08-13] MEDS: POTASSIUM CHLORIDE ER 20 MEQ TAB.ER PO SCH (17:41)
[2021-08-13] MEDS: FUROSEMIDE 10 MG/ML 4 ML VIAL IV SCH (17:41)
[2021-08-13 17:43] LABS: Albumin 3.4 g/dL (3.5-5.0); Calcium 8.9 mg/dL (8.4-10.2); Potassium 3.3 mmol/L (3.5-5.1); Total Bilirubin 1.4 mg/dL (0.2-1.3); Total Protein 6.1 g/dL (6.3-8.2)
[2021-08-13] MEDS: PRAVASTATIN SODIUM 80 MG TAB PO SCH (20:06)
[2021-08-13] MEDS: LATANOPROST 0.005% OPHTH DROPS 2.5 ML BTL BOTH EYES SCH (20:07)
[2021-08-14] MEDS: FUROSEMIDE 10 MG/ML 4 ML VIAL IV SCH ×2 (08:39→18:04)
[2021-08-14] MEDS: TICAGRELOR 90 MG TAB PO SCH ×2 (08:39→19:45)
[2021-08-14] MEDS: NON FORMULARY DRUG (Mirabegron [Myrbetriq] 50 MG Tab.Er.24h) PO SCH (08:39)
[2021-08-14] MEDS: ASPIRIN 81 MG PO SCH (08:39)
[2021-08-14] MEDS: HEPARIN SODIUM,PORCINE/PF 5,000 UNIT/0.5 ML SYRINGE SQ SCH ×2 (08:39→19:45)
[2021-08-14] MEDS: BRIMONIDINE TARTRATE 0.2% DROPS 5 ML BTL BOTH EYES SCH ×2 (08:39→19:48)
[2021-08-14] MEDS: METOPROLOL TARTRATE 50 MG TAB PO SCH ×2 (08:39→19:45)
--- NOTE | 2021-08-14 11:00 | ECHOF ---
Referral Reason:CHF MEASUREMENTS -------- HEIGHT: 157.5 cm WEIGHT: 59.0 kg BP: IVSd: 1.2 cm (0.6 - 1.1) LVIDd: 4.8 cm (3.9 - 5.3) LVPWd: 1.0 cm (0.6 - 1.1) IVSs: 1.6 cm LVIDs: 4.3 cm LVPWs: 0.9 cm Ao Diam: 3.7 cm (2.0 - 3.7) AV Cusp: 1.4 cm (1.5 - 2.6) LA Diam: 2.7 cm (2.7 - 3.8) MV EXCURSION: 14.577 mm (> 18.000) MV EF SLOPE: 98 mm/s (70 - 150) EPSS: 2.7 cm MV E Juan: 0.90 m/s MV DecT: 84 ms MV A Juan: 0.93 m/s MV E/A Ratio: 0.96 RAP: 5.00 mmHg RVSP: 35.15 mmHg FINDINGS -------- This was a technically adequate study. The left ventricular size is normal. There is mild concentric left ventricular hypertrophy. Overa ll left ventricular systolic function is moderate-severely impaired with, an EF between 30 - 35 %. Basal inferior LV wall motion is hypokinetic. Basal inferoseptal LV wall motion is hypokinetic. Mid inferior LV wall motion is hypokinetic. Mid inferoseptal LV wall motion is hypokinetic. Ap ical inferior LV wall motion is hypokinetic. Mid to basal inferiorlateral is hypokinetic The right ventricle is normal in size. The left atrial size is normal. The right atrial size is normal. Aortic valve is trileaflet and is mildly thickened. The mitral valve is normal. The mitral valve leaflets are mildly thickened. Mild mitral annular c alcification present. Moderate mitral regurgitation is present. The tricuspid valve appears structurally normal. Mild tricuspid regurgitation present. There is b orderline pulmonary hypertension. The right ventricular systolic pressure, as measured by Doppler, is 35.15mmHg. There is no pulmonic regurgitation present. The aortic root size is normal. IVC Not well visulized. There is no pericardial effusion. CONCLUSIONS -------- 1. The left ventricular size is normal. 2. There is mild concentric left ventricular hypertrophy. 3. Overall left ventricular systolic function is moderate-severely impaired with, an EF between 30 - 35 %. 4. Basal inferior LV wall motion is hypokinetic. 5. Basal inferoseptal LV wall motion is hypokinetic. 6. Mid inferior LV wall motion is hypokinetic. 7. Mid inferoseptal LV wall motion is hypokinetic. 8. Apical inferior LV wall motion is hypokinetic. 9. Mid to basal inferiorlateral is hypokinetic 10. Aortic valve is trileaflet and is mildly thickened. 11. The mitral valve leaflets are mildly thickened. 12. Mild mitral annular calcification present. 13. Moderate mitral regurgitation is present. 14. Mild tricuspid regurgitation present. 15. There is borderline pulmonary hypertension. 16. The right ventricular systolic pressure, as measured by Doppler, is 35.15mmHg. 17. There is no pericardial effusion. STORAGE GARAGE MANAGER: May Christy RDCS
--- NOTE | 2021-08-14 12:55 | MR ---
EXAMINATION TYPE: MR brain wo con DATE OF EXAM: 08/14/2021 COMPARISON: CT brain 08/12/2021 HISTORY: Left upper extremity weakness, stroke CONTRAST: Performed utilizing 0 mL intravenous Gadavist gadolinium contrast. TECHNIQUE: Multiplanar, multiecho imaging on a 3.0 Karen magnet is performed through the brain. Stud y is not performed within 24 hours of arrival to the hospital. The craniovertebral junction is normal. The pituitary is normal. Diffusion-weighted imaging is performed. No abnormal hyperintensity is present to suggest an acute i ntracranial infarct or acute ischemic change. There is patchy to confluent periventricular white matter hyperintensity on T2 and inversion recovery weighted sequences can be compatible with chronic white matter ischemic change. Ventricles and sulci are prominent no suspicious temporal horn dilatation is evident. for the patient age. IMPRESSIONS: 1. Atrophy with chronic appearing periventricular white matter ischemic-type changes. 2. No acute intracranial changes.
--- NOTE | 2021-08-14 16:29 | P.PN ---
Subjective Progress Note Date: 08/14/21 Patient was seen for a follow-up. Patient initially seen by Dr. Farooq Marcelino. Patient's and son were also present today. Patient came to the hospital predictive maintenance specialist on 08/12/2021 because she started having severe headache, and blood pressure was elevated. She started slurring words. She lost use of left side with some weakness. The slurring resolved in 15-20 minutes. At present she is back to baseline. Patient's telemetry monitoring showing sinus rhythm, with some ectopy, multifocal PVCs. Some couplets. Wide bundle branch block. No A. fib. Objective - Vital Signs Vital signs: Vital Signs Temp 98.5 F 08/14/21 08:00 Pulse 96 08/14/21 14:00 Resp 18 08/14/21 14:00 BP 153/79 08/14/21 08:00 Pulse Ox 98 08/14/21 08:00 Intake & Output 08/13/21 08/14/21 08/14/21 18:59 06:59 18:59 Intake Total 600 354 Output Total 1 Balance 600 -1 354 Weight 59.2 kg Intake: Oral 600 354 Output: Urine 1 Other: Voiding Method Bedside Commode Bedside Commode Diaper Diaper Incontinent Incontinent # Voids 1 250 - Exam On examination patient is an elderly female, who appears somewhat frail, in no distress. She is quite alert and awake. Speech and language functions are normal. Patient can name and repeat very well. On cranial nerve examination pupils are round and reacting, visual brooke are full, extraocular muscles are intact. Face is symmetric, tongue protrudes to the midline. Palatal elevation and sensation normal, hearing slightly decreased, shoulder shrug normal. Facial sensations normal. On muscle strength testing there is no pronator drift and the strength is normal in arms and legs distally and proximally. Sensory touch is equal with no neglect. No ataxia for [id number] testing. Reflexes symmetric. Gait deferred. - Labs CBC & Chem 7: 08/13/21 16:48 08/13/21 16:48 Labs: Abnormal Lab Results - Last 24 Hours (Table) 08/13/21 08/13/21 Range/Units 16:48 16:48 MCH 23.4 L (25.0-35.0) pg MCHC 29.1 L (31.0-37.0) g/dL RDW 17.2 H (11.5-15.5) % Potassium 3.3 L (3.5-5.1) mmol/L Chloride 91 L (98-107) mmol/L Carbon Dioxide 37 H (22-30) mmol/L BUN 25 H (7-17) mg/dL Creatinine 1.13 H (0.52-1.04) mg/dL Glucose 134 H (74-99) mg/dL Total Bilirubin 1.4 H (0.2-1.3) mg/dL Total Protein 6.1 L (6.3-8.2) g/dL Albumin 3.4 L (3.5-5.0) g/dL Assessment and Plan Assessment: * Cephalgia, with uncontrolled hypertension and reported new left upper extremity weakness (on examination she had left upper extremity 4+ but patient stated this is chronic): Possible due to uncontrolled hypertension. No evidence of acute stroke on MRI of the brain. * History of stroke in 01/2021 (has aphasia and left upper extremity weakness) over the right hemipshere---aphasia resolved. 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 * MRI of the brain showed mild atrophy. No acute stroke. * Lipid panel revealed cholesterol 133, LDL 62, HDL 56 and triglycerides 69. Lipids are well controlled. Continue Pravachol 80 mg daily. * 2-D echo showed normal left ventricular size. Mild concentric LVH. Left ventricle systolic function is moderate to severely impaired with EF between 30-35%. Basal inferior, basal inferior septal, mid inferior, mid inferoseptal and apical inferior and mid to basal inferior lateral left ventricular wall motion is hypokinetic. Cardiology consult has been initiated by PCP. * Consulted vascular surgery team by Dr. Durham. * PT, OT and TELEPHONE SALES REPRESENTATIVE are consulted * Telemetry monitoring showing sinus rhythm with multifocal PVCs, couplets, wide bundle branch block. * We'll defer blood pressure control to the primary team * For DVT prophylaxis place the patient on subcu heparin * Upon discharge recommend the patient to follow up with Dr. Enamorado (interventional neurology team) for further evaluation. * Discussed with patient's , son and primary physician. * Neurologically, no other workup indicated.
--- NOTE | 2021-08-14 17:21 | P.PN ---
Subjective Progress Note Date: 08/14/21 This is an 89-year-old female patient of Dr. Meade with past medical history of hypertension, COPD, hyperlipidemia, history of myocardial infarction in 2006 status post 3 stents, history of pulmonary fibrosis, systolic congestive heart failure acute transient ischemic attack in 2019 at which time she was advised to started on Brilinta 90 mg twice daily and aspirin 81 mg daily and had follow up with Dr. Miller, subclavian steal syndrome phenomena. Patient was last admitted on 01/21 for acute ischemic stroke with expressive aphasia and was noted to have an acute infarct in the right temporoparietal region. Patient's brillanta was increased from 60-90 mg twice daily and to continue aspirin and pravastatin. Event monitor was placed with follow-up as outpatient with cardiology for systolic congestive heart failure. Patient was seen by Dr. Cain as outpatient for the subclavian steel syndrome and was noted not to be a great surgical candidate. Patient also follow Dr. Renee for second opinion for stated the same. MRI of the brain 2020 reported acute infarct in the right right temporal parietal region. Generalized degenerative changes and mild chronic ischemic white matter disease. CT angiography of the head and neck 2020 revealed scattered atherosclerotic plaque of the brachiocephalic origin in the carotid bifurcation within the neck. Secondary plaque formation moderate proximal right internal carotid artery stenosis. Echocardiogram 2020 revealed borderline concentric left ventriclar hypertrophy, EF 35-40%, Patient came in this time with increased headache and increased weakness of the left upper extremity that started at 7 AM associated with slurring of speech on 08/12. Patient was seen in the clinic prior to that for increased lower extremity swelling and weakness. Since there was concern about lower extremity swelling patient was initiated on Lasix and lisinopril was held to avoid low blood pressures. Apparently patient started having high blood pressure with increased headache a few days later. Blood pressure in the ER on evaluation was noted to be 182/109 199 respiratory rate 18 and afebrile pulse ox of 99% on room air. Patient was out of the window when she came to the emergency room and therefore did not get any TPA. Family at bedside denied any seizure-like activity or any passing out spells and they denied any history of arm hemorrhagic bleed. Evaluation patient's lab from yesterday hemoglobin was 13 WBC to 11.2, MCV 78.9 platelet 286 INR 1.2 potassium 3.2 chloride 89 bicarb 37 BUN 17 creatinine 0.67 total bilirubin 2 LDL 62. COVID virus was not detected CT brain on 08/12 suggestive of no evidence of acute intracranial hemorrhage no acute ischemic changes mass effect or extra-axial fluid collectionin the cerebral foci or basal subarachnoid cisterns there is no midline shift moderate generalized atrophy noted CT angiogram showed severe stenosis of right subclavian artery on with no flow visualized in the right vertebral artery some reconstitution and V3 and V4 suggestive retrograde flow, moderate atherosclerotic changes at the right greater than left carotid bifurcation with mild less than 40% proximal right ICA stenosis and mild less than 20% proximal left ICA stenosis severe proximal right ECA narrowing and moderate proximal left ECA narrowing Chest x-ray suggestive of bilateral venous congestion with pleural effusions Patient initially on oral medication of aspirin with parental along with pravastatin. Neurology was consulted. MRI of the brain is ordered to rule out acute ischemic event. Echocardiogram is ordered vascular surgery team was consulted lipid panel ordered. 08/14 patient examined bedside. Feeling energetic denies any shortness of breath or chest pain. More exudative swelling has improved. Patient's weakness in the left upper extremity has improved. Patient's afebrile pulse 76% saturating on 3 L oxygen. PT assessment today suggest patient is safe to go home. Echocardiogram reviewed suggestive of moderate to severely impaired EF between 30-35% worsened from previous done echocardiogram. MRI brain suggestive hypertrophy with chronic appearing periventricular white matter ischemic changes no acute intracranial process. Patient seen by neurology no further recomme ndation made. Patient had an ultrasound upper extremity pending results. Consult cardiology to r/o ischemic vx non ischemic CHF patient is pending evlaaution by [facility] surgery REVIEW OF SYSTEMS Constitutional: No fever, no chills, no night sweats. No weight change. Pos itive for increased weakness and tiredness. No daytime sleepiness. EENT: No headache. No blurred vision or double vision, no loss of vision. Chronic loss of Hearing, no ringing in the ears, no dizziness. No nasal drainage or congestion. No epistaxis. No sore throat. Lungs: Positive for shortness of breath, cough, no sputum production. No wheezing. Cardiovascular: No chest pain, positive for lower extremity edema. No palpitations. No paroxysmal nocturnal dyspnea. No orthopnea. No light headedness or dizziness. No syncopal episodes. Abdominal: No abdominal pain. No nausea, no emesis . No diarrhea. No constipation. no bloody stools.. No loss of appetite. Genitourinary: No dysuria, increased frequency, urgency. No urinary retention. Musculoskeletal: No myalgias. No muscle weakness, no gait dysfunction, no frequent falls. No back pain. No neck pain. Integumentary: No wounds, no lesions. No rash or pruritus. No unusual bruising. No change in hair or nails. Neurologic: Reported aphasia. Left-sided weakness No facial droop. No change in mentation. No head injury. No headache. No paralysis. No paresthesia. Psychiatric: No depression. No anxiety. No mood swings. Endocrine: No abnormal blood sugars. No weight change. No excessive sweating or thirst. No cold intolerance. PHYSICAL EXAMINATION Gen: This is an 89-year-old female patient sitting in chair in her ER room. She is in no acute distress. Noted to have difficulty hearing. HEENT: Head is atraumatic, normocephalic. Pupils equal, round. Sclerae is ani cteric. NECK: Supple. No JVD. No lymphadenopathy. No thyromegaly. LUNGS: Decreased air entry auscultation. No wheezes or rhonchi. No intercostal retractions. HEART: Regular rate and rhythm. 3/6 systolic murmur. ABDOMEN: Soft. Bowel sounds are present. No masses. EXTREMITIES: No pedal edema. No calf tenderness. NEUROLOGICAL: Patient is awake, alert and oriented x3. Cranial nerves 2 through 12 are grossly intact. Slightly off balance on the right leg. ASSESSMENT AND PLAN Hypertensive urgency with acute headache - improved with improvement of blood pressure. - Hydralazine 20 IV every 6 hours as needed for systolic more than 160. - Continue metoprolol 50 twice a day. - Lasix 40 IV daily increased to 40 IV twice daily Expressive aphagia with left upper extremity weakness likely recrudescence secondary to hypertension History of CVA with expressive aphasia in January 2021.History of TIA in 2018. -Improved with better blood pressure control - Continue aspirin and Lantus at 90 twice a day -Continue pravastatin 80 mg by mouth daily -CT head and CT angiogram revealed with severe stenosis involving the right subclavian artery with no flow visualized in the vertebral artery on the right - MRI head no acute ischemic - PT OT ordered - Home with home care - Vascular surgery consulted - Echocardiogram - EF 30 - 35 %, with diffuse wall hypokinesia - Neurology consulted Acute systolic congestive heart failure - Lasix 40 IV BID -INR monitoring - echocardiogram ordered -Unclear if ischemic or nonischemic -Patient not an TIA inhibitor due to labile blood pressure 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 - Follows with vascular surgeon as outpatient medical management recommended History of GI bleed secondary to peptic ulcer disease - Pantoprazole 40 before meals breakfast Hypertension. Continue Lopressor 50 mg twice daily. Hyperlipidemia. - Continue pravastatin 80 mg at bedtime. Macular degeneration and glaucoma. -Continue eyedrops and PreserVision. GI prophylaxis. -Protonix. DVT prophylaxis. Heparin every 12 Disposition patient need to be last for at least 2 inpatient nights for stabilization Disposition patient may need to be transferred to subacute rehab for resuscitation CODE STATUS DO NOT RESUSCITATE Objective - Vital Signs Vital signs: Vital Signs Temp 98.5 F 08/14/21 08:00 Pulse 96 08/14/21 17:10 Resp 18 08/14/21 17:10 BP 153/79 08/14/21 08:00 Pulse Ox 98 08/14/21 08:00 Intake & Output 08/13/21 08/14/21 08/14/21 18:59 06:59 18:59 Intake Total 600 354 Output Total 1 300 Balance 600 -1 54 Weight 59.2 kg Intake: Oral 600 354 Output: Urine 1 300 Other: Voiding Method Bedside Commode Bedside Commode Diaper Diaper Incontinent Incontinent # Voids 1 250 - Labs CBC & Chem 7: 08/13/21 16:48 08/14/21 15:57 Labs: Abnormal Lab Results - Last 24 Hours (Table) 08/13/21 08/13/21 08/14/21 Range/Units 16:48 16:48 15:57 MCH 23.4 L (25.0-35.0) pg MCHC 29.1 L (31.0-37.0) g/dL RDW 17.2 H (11.5-15.5) % Potassium 3.3 L 2.9 L (3.5-5.1) mmol/L Chloride 91 L (98-107) mmol/L Carbon Dioxide 37 H (22-30) mmol/L BUN 25 H (7-17) mg/dL Creatinine 1.13 H (0.52-1.04) mg/dL Glucose 134 H (74-99) mg/dL Total Bilirubin 1.4 H (0.2-1.3) mg/dL Total Protein 6.1 L (6.3-8.2) g/dL Albumin 3.4 L (3.5-5.0) g/dL
[2021-08-14] MEDS: POTASSIUM CHLORIDE ER 20 MEQ TAB.ER PO SCH ×3 (18:06→22:23)
[2021-08-14] MEDS: PRAVASTATIN SODIUM 80 MG TAB PO SCH (19:44)
[2021-08-14] MEDS: LATANOPROST 0.005% OPHTH DROPS 2.5 ML BTL BOTH EYES SCH (19:48)
[2021-08-15] MEDS: FUROSEMIDE 10 MG/ML 4 ML VIAL IV SCH (05:38)
[2021-08-15] MEDS ORDERED: POTASSIUM CHLORIDE ER 20 MEQ TAB.ER PO STA (08:22)
[2021-08-15] MEDS: METOPROLOL TARTRATE 50 MG TAB PO SCH (08:51)
[2021-08-15] MEDS: HEPARIN SODIUM,PORCINE/PF 5,000 UNIT/0.5 ML SYRINGE SQ SCH (08:51)
[2021-08-15] MEDS: ASPIRIN 81 MG PO SCH (08:51)
[2021-08-15] MEDS: TICAGRELOR 90 MG TAB PO SCH (08:51)
[2021-08-15] MEDS: BRIMONIDINE TARTRATE 0.2% DROPS 5 ML BTL BOTH EYES SCH (08:52)
[2021-08-15] MEDS: NON FORMULARY DRUG (Mirabegron [Myrbetriq] 50 MG Tab.Er.24h) PO SCH (08:52)
--- NOTE | 2021-08-15 10:20 | P.GSCN ---
History of Present Illness Consult date: 08/15/21 History of present illness: Katt is an 89-year-old female who presented to the hospital with severe headache and elevated blood pressure along with some reported weakness. She has a history of stroke back in January 2021 with mild left upper extremity weakness, hypertension, hyperlipidemia. We will consult is regarding possible subclavian stenosis and subclavian steal syndrome. She is on aspirin and brilenta as well as a statin medication. At the time of my evaluation she is alert and oriented to self and place however it is difficult to get full history from her given her short answers. History is mostly gleaned from the chart and the family who I called Past Medical History Past Medical History: Coronary Artery Disease (CAD), COPD, CVA/TIA, GERD/Reflux, Hyperlipidemia, Hypertension, Myocardial Infarction ([place]), Osteoarthritis (OA) Additional Past Medical History / Comment(s): pt stated "dr is trying her out on a gluten free diet for past month""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 macular degeneration, [place] eye wide angle glaucoma," dry eyes", shingles 2014, when pt was 11 or 12 injured lt arm(it was pulled thru a ringer washer up to her elbow) pt stated no sx done on it.cared for at home in those days.pt stated has had a pne vaccine approx 2-3 years ago - film writer unable to verify. date at time of this admit. Patient with CVA/TIA January 20 2021 Last Myocardial Infarction Date:: 2006 History of Any Multi-Drug Resistant Organisms: None Reported Past Surgical History: Adenoidectomy, Appendectomy, Heart Catheterization With Stent, Tonsillectomy, Tubal Ligation Additional Past Surgical History / Comment(s): cataract, total 3 cardaic stents Past Anesthesia/Blood Transfusion Reactions: Previous Problems w/ Anesthesia Additional Past Anesthesia/Blood Transfusion Reaction / Comm: difficulty waking up after sx. pt stated she has never had a blood transfusion. Date of Last Stent Placement:: unk Past Psychological History: No Psychological Hx Reported Smoking Status: Never smoker Past Alcohol Use History: None Reported Past Drug Use History: None Reported - Past Family History Father Family Medical History: Coronary Artery Disease (CAD) Additional Family Medical History / Comment(s): " from hardening of the arteries", diverticulitis Sister(s) Additional Family Medical History / Comment(s): crohns disease Mother Family Medical History: Cancer Additional Family Medical History / Comment(s): pernicious anemia, stomach cancer/mets Medications and Allergies Home Medications Medication Instructions Recorded Confirmed Type Carboxymethylcellulose Sodium 1 drop BOTH EYES BID PRN 05/27/18 08/12/21 History [Refresh Tears] Latanoprost [Xalatan 0.005%] 1 drop BOTH EYES HS 05/27/18 08/12/21 History Vit C/E/Zn/Coppr/Lutein/Zeaxan 1 cap PO DAILY 05/27/18 08/12/21 History [Preservision Areds 2 Softgel] Metoprolol Tartrate [Lopressor] 50 mg PO BID 01/16/19 08/12/21 History Pravastatin Sodium [Pravachol] 80 mg PO HS #30 tab 01/19/19 08/12/21 Rx Brimonidine Tartrate [Alphagan P 1 drops BOTH EYES BID 01/20/21 08/12/21 History 0.1% Ophth Soln] Mirabegron [Myrbetriq] 50 mg PO DAILY 01/20/21 08/12/21 History Aspirin 81 mg PO DAILY chew 01/23/21 08/12/21 Rx Loperamide [Imodium] 2 mg PO QID PRN cap 01/23/21 08/12/21 Rx Ticagrelor [Brilinta] 90 mg PO BID #60 tab 01/23/21 08/12/21 Rx Ranibizumab [Lucentis] 0.5 mg BOTH EYES Q28D 03/24/21 08/12/21 History Butalb/APAP/Caff 50-325-40Mg 1 tab PO QID PRN 08/12/21 08/12/21 History [Fioricet 50-325-40] Furosemide [Lasix] 20 mg PO DAILY 08/12/21 08/12/21 History Allergies Allergy/AdvReac Type Severity Reaction Status Date / Time Penicillins Allergy Swelling Verified 08/12/21 16:28 shellfish derived [Shellfish] Allergy Unknown Verified 08/12/21 16:28 Sulfa (Sulfonamide Allergy Anaphylaxis Verified 08/12/21 16:28 Antibiotics) Surgical - Exam Vital Signs Temp Pulse Resp BP Pulse Ox 97.6 F 99 18 182/109 99 08/12/21 14:46 08/12/21 14:46 08/12/21 14:46 08/12/21 14:46 08/12/21 14:46 Gen. a pleasant cooperative female in no acute distress. Heart appears regular at this time. Lungs are clear bilaterally. Abdomen soft, nontender nondi stended. Extremity show no clubbing, cyanosis or edema. She has full and equal optical glass inspector strength bilaterally. Full motion of her lower extremities without difficulty. Normal mood and affect. Alert and oriented to person and place Results Imaging is reviewed. The computed tomography scan it does show some degree of stenosis of the proximal right subclavian artery there is mild to moderate narrowing of the left vertebral artery the bilateral internal carotid arteries show less than 30% narrowing The upper extremity wrist brachial indices are normal at 0.9 bilaterally. Normal multiphasic appearing waveforms. The systolic blood pressure on the right is 106 on the left is 118. 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 Her arterial Dopplers remain essentially normal. There might be some microvascular disease in her and causing her finger brachial indices to be slightly lower however at her wrist she maintains normal waveforms. She does not have any pressure gradient between the bilateral brachial systolic pressures. At this time no further workup or imaging is necessary. Given her age and the minimal atherosclerotic disease in the carotid system bilaterally I would forego any further imaging as it would unlikely be beneficial in her case. Continue supportive care
--- NOTE | 2021-08-15 12:09 | P.CRDCN ---
History of Present Illness Consult date: 08/15/21 Chief complaint: Change in mental status History of present illness: This is a pleasant 89-year-old female patient who sees Dr. Phoenix in the office regularly with a past medical history significant for coronary artery disease and prior stenting in 2005 as well as hypertension and dyslipidemia and chronic obstructive pulmonary disease who was admitted to the hospital with a change in mental status. She presented with expressive aphasia and left sided weakness. She underwent a workup for stroke and she was seen by the neurology service. MRI was performed and showed no acute abnormalities but only chronic changes. We consulted to see the patient because during her hospital stay she underwent an echocardiogram which revealed cardiomyopathy with severe to 35% with wall motion abnormalities. Clinically and from a cardiovascular standpoint of view, she is stable. She reports no symptoms of chest pain or chest discomfort and no shortness of breath. She seems to be euvolemic on examination. She denies any feeling of heart racing or fluttering or dizziness or lightheadedness or presyncope or syncope. The patient is somewhat is a poor historian and she was interviewed in the room with her son in the room. Beside that she underwent a CT angiogram of the head and neck and the disease involving the brachiocephalic origin as well as carotid bifurcation beach she was subsequently seen by a vascular surgeon and medical treatment only was advised. The EKG showed sinus rhythm was sinus tachycardia she presented to the hospital. Past Medical History Past Medical History: Coronary Artery Disease (CAD), COPD, CVA/TIA, GERD/Reflux, Hyperlipidemia, Hypertension, Myocardial Infarction (VT), Osteoarthritis (OA) Additional Past Medical History / Comment(s): pt stated "dr is trying her out on a gluten free diet for past month""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 macular degeneration, wolfgang eye wide angle glaucoma," dry eyes", shingles 2014, when pt was 11 or 12 injured lt arm(it was pulled thru a ringer washer up to her elbow) pt stated no sx done on it.cared for at home in those days.pt stated has had a pne vaccine approx 2-3 years ago - junior underwriter unable to verify. date at time of this admit. Patient with CVA/TIA January 20 2021 Last Myocardial Infarction Date:: 2006 History of Any Multi-Drug Resistant Organisms: None Reported Past Surgical History: Adenoidectomy, Appendectomy, Heart Catheterization With Stent, Tonsillectomy, Tubal Ligation Additional Past Surgical History / Comment(s): cataract, total 3 cardaic stents Past Anesthesia/Blood Transfusion Reactions: Previous Problems w/ Anesthesia Additional Past Anesthesia/Blood Transfusion Reaction / Comment(s): difficulty waking up after sx. pt stated she has never had a blood transfusion. Date of Last Stent Placement:: unk Past Psychological History: No Psychological Hx Reported Smoking Status: Never smoker Past Alcohol Use History: None Reported Past Drug Use History: None Reported - Past Family History Father Family Medical History: Coronary Artery Disease (CAD) Additional Family Medical History / Comment(s): " from hardening of the arteries", diverticulitis Sister(s) Additional Family Medical History / Comment(s): crohns disease Mother Family Medical History: Cancer Additional Family Medical History / Comment(s): pernicious anemia, stomach cancer/mets Medications and Allergies Home Medications Medication Instructions Recorded Confirmed Type Carboxymethylcellulose Sodium 1 drop BOTH EYES BID PRN 05/27/18 08/12/21 History [Refresh Tears] Latanoprost [Xalatan 0.005%] 1 drop BOTH EYES HS 05/27/18 08/12/21 History Vit C/E/Zn/Coppr/Lutein/Zeaxan 1 cap PO DAILY 05/27/18 08/12/21 History [Preservision Areds 2 Softgel] Metoprolol Tartrate [Lopressor] 50 mg PO BID 01/16/19 08/12/21 History Pravastatin Sodium [Pravachol] 80 mg PO HS #30 tab 01/19/19 08/12/21 Rx Brimonidine Tartrate [Alphagan P 1 drops BOTH EYES BID 01/20/21 08/12/21 History 0.1% Ophth Soln] Mirabegron [Myrbetriq] 50 mg PO DAILY 01/20/21 08/12/21 History Aspirin 81 mg PO DAILY chew 01/23/21 08/12/21 Rx Loperamide [Imodium] 2 mg PO QID PRN cap 01/23/21 08/12/21 Rx Ticagrelor [Brilinta] 90 mg PO BID #60 tab 01/23/21 08/12/21 Rx Ranibizumab [Lucentis] 0.5 mg BOTH EYES Q28D 03/24/21 08/12/21 History Butalb/APAP/Caff 50-325-40Mg 1 tab PO QID PRN 08/12/21 08/12/21 History [Fioricet 50-325-40] Furosemide [Lasix] 40 mg PO DAILY #0 08/15/21 08/12/21 Rx Allergies Allergy/AdvReac Type Severity Reaction Status Date / Time Penicillins Allergy Swelling Verified 08/12/21 16:28 shellfish derived [Shellfish] Allergy Unknown Verified 08/12/21 16:28 Sulfa (Sulfonamide Allergy Anaphylaxis Verified 08/12/21 16:28 Antibiotics) Physical Exam Vitals: Vital Signs Temp Pulse Resp BP Pulse Ox 08/15/21 08:32 97.7 F 100 18 143/97 95 08/15/21 04:00 97.5 F L 94 16 132/83 100 08/15/21 01:05 94 08/15/21 00:00 97.7 F 94 19 120/81 98 08/14/21 20:00 97.9 F 90 17 135/82 99 08/14/21 17:10 96 18 08/14/21 16:00 98.1 F 82 18 154/76 99 08/14/21 14:00 96 18 Intake and Output 08/14/21 08/15/21 08/15/21 22:59 06:59 14:59 Intake Total 240 118 Output Total 400 Balance 240 -400 118 Intake: Oral 240 118 Output: Urine 400 Other: Voiding Method Bedside Commode Toilet Toilet Diaper Diaper Diaper Incontinent Incontinent Incontinent # Voids 1 Weight 56.1 kg - Constitutional General appearance: no acute distress - Respiratory Respiratory: bilateral: CTA - Cardiovascular Rhythm: regular Heart sounds: normal: S1, S2 Abnormal Heart Sounds: systolic murmur Results 08/13/21 16:48 08/15/21 09:08 Comprehensive Metabolic Panel 08/14/21 08/15/21 08/15/21 Range/Units 15:57 00:15 09:08 Potassium 2.9 L 3.6 3.8 (3.5-5.1) mmol/L Current Medications Generic Name Dose Route Start Last Admin Trade Name Freq PRN Reason Stop Dose Admin Acetaminophen 650 mg 08/12/21 16:29 Acetaminophen Tab 325 Mg Tab PO Q6HR PRN Pain Acetaminophen/Butalbital/Caffeine 1 each 08/12/21 16:40 Butalb/Apap/Caff 50-325-40mg Tab PO QID PRN Migraine Headache Artificial Tears 1 drops 08/12/21 16:40 Artificial Tears-Hypromellose Drops 15 Ml Btl BOTH EYES BID PRN Dry Eye(s) Aspirin 81 mg 08/13/21 09:00 08/15/21 08:51 Aspirin 81 Mg PO 81 mg DAILY JOLENE Administration Brimonidine Tartrate 1 drops 08/12/21 21:00 08/15/21 08:52 Brimonidine Tartrate 0.2% Drops 5 Ml Btl BOTH EYES 1 drops BID JOLENE Administration Furosemide 40 mg 08/14/21 17:00 08/15/21 05:38 Furosemide 10 Mg/Ml 4 Ml Vial IV 40 mg Q12H JOLENE Administration Heparin Sodium (Porcine) 5,000 unit 08/13/21 09:00 08/15/21 08:51 Heparin Sodium,Porcine/Pf 5,000 Unit/0.5 Ml Syringe SQ 5,000 unit Q12HR JOLENE Administration Latanoprost 1 drops 08/12/21 21:00 08/14/21 19:48 Latanoprost 0.005% Ophth Drops 2.5 Ml Btl BOTH EYES 1 drops HS JOLENE Administration Metoprolol Tartrate 50 mg 08/12/21 21:00 08/15/21 08:51 Metoprolol Tartrate 50 Mg Tab PO 50 mg BID JOLENE Administration Miscellaneous Information 1 each 08/13/21 15:56 Potassium Replacement Protocol 1 Each Misc MISCELLANE DAILY PRN Per Protocol Protocol Non-Formulary Medication 50 mg 08/13/21 09:00 08/15/21 08:52 Mirabegron [Myrbetriq] PO Not Given DAILY JOLENE Pravastatin Sodium 80 mg 08/12/21 21:00 08/14/21 19:44 Pravastatin Sodium 80 Mg Tab PO 80 mg HS JOLENE Administration Ticagrelor 90 mg 08/13/21 09:00 08/15/21 08:51 Ticagrelor 90 Mg Tab PO 90 mg BID JOLENE Administration Intake and Output 08/14/21 08/15/21 08/15/21 22:59 06:59 14:59 Intake Total 240 118 Output Total 400 Balance 240 -400 118 Intake: Oral 240 118 Output: Urine 400 Other: Voiding Method Bedside Commode Toilet Toilet Diaper Diaper Diaper Incontinent Incontinent Incontinent # Voids 1 Weight 56.1 kg 08/13/21 16:48 08/15/21 09:08 Assessment and Plan Assessment: Assessment #1 change in mental status and expressive aphasia #2 coronary artery disease with prior revascularization #3 cardiomyopathy with wall motion abnormalities concerning for severe CAD #4 hypertension #5 dyslipidemia #6 peripheral arterial disease Plan #1 the patient was started on dual antiplatelet therapy by the neurology service #2 at this point continue the current medical regimen. #3 she seems to be stable from the CAD standpoint of view #4 consider maximize medical treatment for the cardiomyopathy probably as an outpatient #5 follow-up with the patient #6 continue the high intensity statin
--- NOTE | 2021-08-15 12:12 | P.DS ---
Providers Date of admission: 08/12/21 16:29 Attending physician: Raisa Meade MD Consults: 08/12/21 16:30 Consult Physician Urgent Consulting Provider: Farooq Durham Consult Reason/Comments: acute left hand weakness, acc htn Do you want consulting provider notified?: Yes 08/13/21 07:50 Consult Physician Routine Consulting Provider: Rik Renee Consult Reason/Comments: right subclavian stenosis, mild to moderate carotid stenosis Do you want consulting provider notified?: Yes 08/14/21 12:01 Consult Physician Routine Consulting Provider: Luis Phoenix Consult Reason/Comments: CHF, ischemic vs non sichemic, stroke Do you want consulting provider notified?: Yes Primary care physician: Raisa Meade MD Hospital Course: This is an 89-year-old female patient of Dr. Meade with past medical history of hypertension, COPD, hyperlipidemia, history of myocardial infarction in 2005 status post 3 stents, history of pulmonary fibrosis, systolic congestive heart failure acute transient ischemic attack in 2018 at which time she was advised to started on Brilinta 90 mg twice daily and aspirin 81 mg daily and had follow up with Dr. Miller, subclavian steal syndrome phenomena. Patient was last admitted on 01/21 for acute ischemic stroke with expressive aphasia and was noted to have an acute infarct in the right temporoparietal region. Patient's brillanta was increased from 60-90 mg twice daily and to continue aspirin and pravastatin. Event monitor was placed with follow-up as outpatient with cardiology for systolic congestive heart failure. Patient was seen by Dr. Monk on as outpatient for the subclavian steel syndrome and was noted not to be a great surgical candidate. Patient also follow Dr. Renee for second opinion for stated the same. MRI of the brain 2020 reported acute infarct in the right right temporal parietal region. Generalized degenerative changes and mild chronic ischemic white matter disease. CT angiography of the head and neck 2020 revealed scattered atherosclerotic plaque of the brachiocephalic origin in the carotid bifurcation within the neck. Secondary plaque formation moderate proximal right internal carotid artery stenosis. Echocardiogram 2020 revealed borderline concentric left ventriclar hypertrophy, EF 35-40%, Patient came in this time with increased headache and increased weakness of the left upper extremity that started at 7 AM associated with slurring of speech on 08/12. Patient was seen in the clinic prior to that for increased lower extremity swelling and weakness. Since there was concern about lower extremity swelling patient was initiated on Lasix and lisinopril was held to avoid low blood pressures. Apparently patient started having high blood pressure with increased headache a few days later. Blood pressure in the ER on evaluation was noted to be 182/109 199 respiratory rate 18 and afebrile pulse ox of 99% on room air. Patient was out of the window when she came to the emergency room and therefore did not get any TPA. Family at bedside denied any seizure-like activity or any passing out spells and they denied any history of arm hemorrhagic bleed. Evaluation patient's lab from yesterday hemoglobin was 13 WBC to 11.2, MCV 78.9 platelet 286 INR 1.2 potassium 3.2 chloride 89 bicarb 37 BUN 17 creatinine 0.67 total bilirubin 2 LDL 62. COVID virus was not detected CT brain on 08/12 suggestive of no evidence of acute intracranial hemorrhage no acute ischemic changes mass effect or extra-axial fluid collectionin the cerebral foci or basal subarachnoid cisterns there is no midline shift moderate generalized atrophy noted CT angiogram showed severe stenosis of right subclavian artery on with no flow visualized in the right vertebral artery some reconstitution and V3 and V4 suggestive retrograde flow, moderate atherosclerotic changes at the right greater than left carotid bifurcation with mild less than 40% proximal right ICA stenosis and mild less than 20% proximal left ICA stenosis severe proximal right ECA narrowing and moderate proximal left ECA narrowing Chest x-ray suggestive of bilateral venous congestion with pleural effusions Patient initially on oral medication of aspirin with parental along with pravastatin. Neurology was consulted. MRI of the brain is ordered to rule out acute ischemic event. Echocardiogram is ordered vascular surgery team was consulted lipid panel ordered. 08/14 patient examined bedside. Feeling energetic denies any shortness of b reath or chest pain. More exudative swelling has improved. Patient's weakness in the left upper extremity has improved. Patient's afebrile pulse 76% saturating on 3 L oxygen. PT assessment today suggest patient is safe to go home. Echocardiogram reviewed suggestive of moderate to severely impaired EF between 30-35% worsened from previous done echocardiogram. MRI brain suggestive hypertrophy with chronic appearing periventricular white matter ischemic changes no acute intracranial process. Patient seen by neurology no further recommendation made. Patient had an ultrasound upper extremity pending results. Consult cardiology to elizabeth/o ischemic vx non ischemic CHF patient is pending evlaaution by [facility] surgery 08/15 patient examined bedside. She appears tired and exhausted. Patient was seen laying in bed. She is answering questions appropriately appears oriented 3. She denies any dyspnea she is currently on 2 L of oxygen which she wears at home. MRI brain negative for any new stroke. Vascular surgery recommendation appreciated no intervention indicated at this point. Patient will follow with cardiology as outpatient for adjustment of medication. We will switch patient to Lasix 40 mg by mouth daily until seen in the clinic. REVIEW OF SYSTEMS Constitutional: No fever, no chills, no night sweats. No weight change. Positive for increased weakness and tiredness. No daytime sleepiness. EENT: No headache. No blurred vision or double vision, no loss of vision. Chronic loss of Hearing, no ringing in the ears, no dizziness. No nasal drain age or congestion. No epistaxis. No sore throat. Lungs: Positive for shortness of breath, cough, no sputum production. No wheezing. Cardiovascular: No chest pain, positive for lower extremity edema. No palpitations. No paroxysmal nocturnal dyspnea. No orthopnea. No lightheadedness or dizziness. No syncopal episodes. Abdominal: No abdominal pain. No nausea, no emesis . No diarrhea. No constipation. no bloody stools.. No loss of appetite. Genitourinary: No dysuria, increased frequency, urgency. No urinary retention. Musculoskeletal: No myalgias. No muscle weakness, no gait dysfunction, no frequent falls. No back pain. No neck pain. Integumentary: No wounds, no lesions. No rash or pruritus. No unusual bruising. No change in hair or nails. Neurologic: No facial droop. No change in mentation. No head injury. No headache. No paralysis. No paresthesia. PHYSICAL EXAMINATION Gen: This is an 89-year-old female patient sitting in chair in her ER room. She is in no acute distress. One 2 L of oxygen NECK: Supple. No JVD. No lymphadenopathy. No thyromegaly. LUNGS: Decreased air entry auscultation. No wheezes or rhonchi. No intercostal retractions. HEART: Regular rate and rhythm. 3/6 systolic murmur. ABDOMEN: Soft. Bowel sounds are present. No masses. EXTREMITIES: No pedal edema. No calf tenderness. NEUROLOGICAL: Patient is awake, alert and oriented x3. Cranial nerves 2 through 12 are grossly intact. Slightly off balance on the right leg. ASSESSMENT AND PLAN Hypertensive urgency with acute headache - improved with improvement of blood pressure. - Continue metoprolol 50 twice a day. - Lasix switch to 40 mg by mouth daily for adjustment as outpatient Expressive aphagia with left upper extremity weakness likely recrudescence secondary to hypertension History of CVA with expressive aphasia in January 2021.History of TIA in 2018. -Improved with better blood pressure control - Continue aspirin and Reglan 10 90 twice a day -Continue pravastatin 80 mg by mouth daily -CT head and CT angiogram revealed with severe stenosis involving the right subclavian artery with no flow visualized in the vertebral artery on the right - MRI head no acute ischemic - PT OT ordered - Home with home care - Vascular surgery consulted no intervention indicated as to be in artery stenosis and not severe for the ultrasound - Echocardiogram - EF 30 - 35 %, with diffuse wall hypokinesia - Neurology consulted acute stroke Acute systolic congestive heart failure - Lasix 40 IV BID , switched to oral lasix -INR monitoring -leilani ischemic -Patient not an TIA inhibitor due to labile blood pressure 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 - Follows with vascular surgeon as outpatient medical management recommended History of GI bleed secondary to peptic ulcer disease - Pantoprazole 40 before meals breakfast Hypertension. Continue Lopressor 50 mg twice daily. Hyperlipidemia. - Continue pravastatin 80 mg at bedtime. Macular degeneration and glaucoma. -Continue eyedrops and PreserVision. GI prophylaxis. -Protonix. DVT prophylaxis. Heparin every 12 Disposition with home with homecare CODE STATUS DO NOT RESUSCITATE more than 30 minutes were spent counseling the patient Patient Condition at Discharge: Serious Plan - Discharge Summary New Discharge Prescriptions: Continue Latanoprost [Xalatan 0.005%] 1 drop BOTH EYES HS Carboxymethylcellulose Sodium [Refresh Tears] 1 drop BOTH EYES BID PRN PRN Reason: Dry Eye(S) Vit C/E/Zn/Coppr/Lutein/Zeaxan [Preservision Areds 2 Softgel] 1 cap PO DAILY Metoprolol Tartrate [Lopressor] 50 mg PO BID Pravastatin Sodium [Pravachol] 80 mg PO HS #30 tab Brimonidine Tartrate [Alphagan P 0.1% Ophth Soln] 1 drops BOTH EYES BID Mirabegron [Myrbetriq] 50 mg PO DAILY Loperamide [Imodium] 2 mg PO QID PRN cap PRN Reason: Diarrhea Butalb/APAP/Caff 50-325-40Mg [Fioricet 50-325-40] 1 tab PO QID PRN PRN Reason: Migraine Headache Aspirin 81 mg PO DAILY chew Ticagrelor [Brilinta] 90 mg PO BID #60 tab Ranibizumab [Lucentis] 0.5 mg BOTH EYES Q28D Changed Furosemide [Lasix] 40 mg PO DAILY #0 Discharge Medication List Carboxymethylcellulose Sodium [Refresh Tears] 1 drop BOTH EYES BID PRN 05/27/18 [History] Latanoprost [Xalatan 0.005%] 1 drop BOTH EYES HS 05/27/18 [History] Vit C/E/Zn/Coppr/Lutein/Zeaxan [Preservision Areds 2 Softgel] 1 cap PO DAILY 05/27/18 [History] Metoprolol Tartrate [Lopressor] 50 mg PO BID 01/16/19 [History] Pravastatin Sodium [Pravachol] 80 mg PO HS #30 tab 01/19/19 [Rx] Brimonidine Tartrate [Alphagan P 0.1% Ophth Soln] 1 drops BOTH EYES BID 01/20/21 [History] Mirabegron [Myrbetriq] 50 mg PO DAILY 01/20/21 [History] Aspirin 81 mg PO DAILY chew 01/23/21 [Rx] Loperamide [Imodium] 2 mg PO QID PRN cap 01/23/21 [Rx] Ticagrelor [Brilinta] 90 mg PO BID #60 tab 01/23/21 [Rx] Ranibizumab [Lucentis] 0.5 mg BOTH EYES Q28D 03/24/21 [History] Butalb/APAP/Caff 50-325-40Mg [Fioricet 50-325-40] 1 tab PO QID PRN 08/12/21 [History] Furosemide [Lasix] 40 mg PO DAILY #0 08/15/21 [Rx] Follow up Appointment(s)/Referral(s): Raisa Meade MD [Primary Care Provider] - 08/17/21 1:00 pm (Visit is with Marlen RIOS at the office ) [facility] Visiting Nurse, [NON-STAFF] - Patient Instructions/Handouts: Transient Ischemic Attack (DC), Hypokalemia (DC), Carotid Artery Disease (DC), Self Care Measures After a Stroke (DC) Discharge Disposition: HOME WITH HOME HEALTH SERVICES
[2021-08-15 13:10] VITALS: BP 104/69; PULSE 86; RESP 16; TEMP 98
--- NOTE | 2021-08-15 19:35 | P.PN ---
Subjective Progress Note Date: 08/15/21 Patient was seen for a follow-up. Patient's son and daughter were present today. Patient is sitting in the recliner. Looks somewhat cachectic. Offers no complaints. Patient is smiling. Patient came to the hospital [facility] on 08/12/2021 because she started having severe headache, and blood pressure was elevated. She started slurring words. She lost use of left side with some weakness. The slurring resolved in 15-20 minutes. At present she is back to baseline. Patient's telemetry monitoring showing sinus rhythm, with some ectopy, multifocal PVCs. Some couplets. Wide bundle branch block. No A. fib. Objective - Vital Signs Vital signs: Vital Signs Temp 98 F 08/15/21 13:09 Pulse 86 08/15/21 13:09 Resp 16 08/15/21 13:09 BP 104/69 08/15/21 13:09 Pulse Ox 95 08/15/21 13:09 Intake & Output 08/15/21 08/15/21 08/16/21 06:59 18:59 06:59 Intake Total 478 Output Total 400 Balance -400 478 Weight 56.1 kg Intake: Oral 478 Output: Urine 400 Other: Voiding Method Toilet Toilet Diaper Diaper Incontinent Incontinent # Voids 1 1 - Exam On examination patient is an elderly female, who is sitting in the recliner, smiling, in no distress. Detailed examination deferred. - Labs CBC & Chem 7: 08/13/21 16:48 08/15/21 09:08 Assessment and Plan Assessment: * Cephalgia, with uncontrolled hypertension and reported new left upper extremity weakness (on examination she had left upper extremity 4+ but patient stated this is chronic): Possible due to uncontrolled hypertension. No evidence of acute stroke on MRI of the brain. * History of stroke in 01/2021 (has aphasia and left upper extremity weakness) over the right hemipshere---aphasia resolved. 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 * MRI of the brain showed mild atrophy. No acute stroke. * Lipid panel revealed cholesterol 133, LDL 62, HDL 56 and triglycerides 69. Lipids are well controlled. Continue Pravachol 80 mg daily. * 2-D echo showed normal left ventricular size. Mild concentric LVH. Left ventricle systolic function is moderate to severely impaired with EF between 30-35%. Basal inferior, basal inferior septal, mid inferior, mid inferoseptal and apical inferior and mid to basal inferior lateral left ventricular wall motion is hypokinetic. Cardiology on the case, planning to manage medically. * Vascular surgery note reviewed. * PT, OT and FUEL YARD OPERATOR are consulted * Telemetry monitoring in the last 24 hours showing sinus rhythm, with ectopic beats, bigeminy, heart rate between 60s to 70s. No other arrhythmia. * We'll defer blood pressure control to the primary team * Upon discharge recommend the patient to follow up with Dr. Enamorado ([facility]) for further evaluation. * Discussed with patient's , son and primary physician. * Neurologically clear for discharge, no other workup indicated.
--- NOTE | 2021-08-16 08:59 | P.ARTDOP ---
Arterial Doppler Bilateral upper extremity arterial Doppler: Date of study: 08/13/2021 Reason for study: Arm weakness. Findings: Doppler waveforms are multiphasic bilaterally throughout, but there is a mild loss of phasicity on the right. There is a 12 mmHg left right brachial gradient there is a small gradient between the right wrist and the digital pr essures. There are no other significant gradients. Impression: Mild left to right brachial gradient of uncertain significance. Same is true for the distal right gradient. No severe stenotic processes found. Clinical correlation recommended.
== END 2021-08-15 15:26 | disposition home health service (06) | DRG 304 ==
LOC: EC 14:30 → 3SCARD 16:29
PROVIDERS: ADMIT Internal Medicine; ATTEND Internal Medicine
DX: I16.0 Hypertensive urgency (principal); I50.23 Acute on chronic systolic (congestive) heart failure; G45.8 Other transient cerebral ischemic attacks and related syndromes; I42.9 Cardiomyopathy, unspecified; R64 Cachexia; I69.354 Hemiplegia and hemiparesis following cerebral infarction affecting left non-dominant side; Z20.822 Contact with and (suspected) exposure to COVID-19; J44.9 Chronic obstructive pulmonary disease, unspecified; J84.10 Pulmonary fibrosis, unspecified; Z66 Do not resuscitate; I11.0 Hypertensive heart disease with heart failure; I25.10 Atherosclerotic heart disease of native coronary artery without angina pectoris; E78.5 Hyperlipidemia, unspecified; E87.6 Hypokalemia; H35.30 Unspecified macular degeneration; H40.9 Unspecified glaucoma; R13.0 Aphagia; I25.2 Old myocardial infarction; I45.10 Unspecified right bundle-branch block; I65.23 Occlusion and stenosis of bilateral carotid arteries; I69.320 Aphasia following cerebral infarction; I70.8 Atherosclerosis of other arteries; I73.9 Peripheral vascular disease, unspecified; I77.1 Stricture of artery; Z79.02 Long term (current) use of antithrombotics/antiplatelets; Z79.899 Other long term (current) drug therapy; Z79.82 Long term (current) use of aspirin; Z95.5 Presence of coronary angioplasty implant and graft; Z88.0 Allergy status to penicillin; Z88.2 Allergy status to sulfonamides; Z91.013 Allergy to seafood; Z87.11 Personal history of peptic ulcer disease; Z82.49 Family history of ischemic heart disease and other diseases of the circulatory system
CPT/HCPCS: 36415; 70450; 70496; 70498; 70551; 71046; 80048; 80053; 80061; 83880; 84132; 84145; 84484; 85025; 85610; 85730; 87635; 93005; 93306; 93923; 96374; 96375; 99291